=== PATIENT | female | born 1955 | race Caucasian/White ===

== ENCOUNTER → 2016-09-21 | Day surgery (SDC) | payer OTHER ==
[2016-09-07 13:01] VITALS: Ht 179.1 cm; Wt 93.2 kg
[~2016-09-21] VITALS: Ht 179.1 cm; Wt 93.2 kg
[~2016-09-21] MED LIST: ABILIFY PO; ABL/5 PO; ABL10 PO; ALBUAER INH; BACL10TA PO; BUPR100T8 PO; CLON1TAB3 PO; CYCLOPENTOLATE HCL 1% OP SOLN PER DROP CHARGE OPL SCH; DICY20TA35 PO; HYDR25CA PO; IBUP600T44 PO; LACTATED RINGER'S 1000ML 500 ML IV SCH; LIDOCAINE 4% OP SOLN DROP CHARGE OPL SCH; LRS10 PO; MELATAB2 PO; MIDO5TAB PO; MOXIFLOXACIN OPH SOLN PER DROP CHARGE OPL SCH; OMEP40CA PO; PHENYLEPHRINE HCL 2.5% OP SOLN PER DROP CHARGE OPL SCH; POTA20TA16 PO; PRM9 PO; PROPARACAINE 0.5% OP SOLN PER DROP CHARGE OPL SCH; TOPI25TA99 PO; TROPICAMIDE 1% OP SOLN PER DROP CHARGE OPL SCH; VENL-273 PO; ZOLP5TAB PO
== END | disposition home or self-care (01) ==
LOC: MERGE 09-14 08:30 → EDSTATUS 08:30 → C.PAT 11:02
PROVIDERS: ATTEND Ophthalmology
DX: H26.9 Unspecified cataract (principal)

== ENCOUNTER 2017-01-22 02:13 | Emergency (ER) | payer OTHER ==
[~2017-01-22] VITALS: Ht 180.3 cm; Wt 88.8 kg
[~2017-01-22 02:13] MED LIST changes: -ABL10 PO; -BACL10TA PO; -BUPR100T8 PO; -CYCLOPENTOLATE HCL 1% OP SOLN PER DROP CHARGE OPL SCH; -HYDR25CA PO; -IBUP600T44 PO; -LACTATED RINGER'S 1000ML 500 ML IV SCH; -LIDOCAINE 4% OP SOLN DROP CHARGE OPL SCH; -MOXIFLOXACIN OPH SOLN PER DROP CHARGE OPL SCH; -PHENYLEPHRINE HCL 2.5% OP SOLN PER DROP CHARGE OPL SCH; -PROPARACAINE 0.5% OP SOLN PER DROP CHARGE OPL SCH; -TROPICAMIDE 1% OP SOLN PER DROP CHARGE OPL SCH; -VENL-273 PO
[2017-01-22 02:17] VITALS: TEMP 36.6; Ht 180.3 cm; Wt 88.8 kg
[2017-01-22] MEDS ORDERED: HYDR25CA PO (02:56)
[2017-01-22] MEDS ORDERED: HYDROmorphone INJ 2 MG/ML SYR/VIAL IM STA ×2 (02:57→04:16)
[2017-01-22] MEDS ORDERED: BACL10TA PO (03:02)
[2017-01-22] MEDS ORDERED: IBUP600T44 PO (03:03)
[2017-01-22] MEDS ORDERED: BUPR100T8 PO (03:06)
[2017-01-22] MEDS ORDERED: VENL-273 PO (03:07)
[2017-01-22] MEDS ORDERED: ABL10 PO (03:09)
--- NOTE | 2017-01-22 03:11 | EMERGENCY ROOM VISIT NOTE ---
History Report prepared by Melani: Cory Lainez Under the Supervision of: Dr. Hermelinda Oliveira D.O. First contact with patient: 02:40 Chief Complaint: NECK PAIN Stated Complaint: SEVERE HURTING NECK History of Present Illness The patient is a 61 year old female who presents to the Emergency Room with complaints of persistent neck paint that started 2 nights ago. The patient describes the pain as severe. She also complains of a headache and some vision changes. The patient has a history of cervical stenosis and neuropathy. The patient had been receiving Botox in her neck and forehead for the pain and for headaches. She had been receiving shots every 6 weeks, but hasn't had a shot in 6 months because she was starting to do much better. She took oral Vicodin today , but notes it did not help resolve her symptoms today. The patient denies fevers or chills, abdominal pain, or numbness or weakness of her arms at this time. Source of History: patient Onset: 2 nights ago Position: neck Symptom Intensity: severe Timing: other (persistent) Associated Symptoms: + headache, No abdominal pain, No chills, No fevers, No numbness, No weakness Note: Other associated symptoms:vision changes Review of Systems See HPI for pertinent positives & negatives. A total of 10 systems reviewed and were otherwise negative. Past Medical & Surgical Medical Problems: (1) Anxiety (2) Bipolar disorder (3) Chronic back pain (4) Chronic osteoarthritis (5) Depression (6) Dissociative disorder (7) GERD (gastroesophageal reflux disease) (8) History of Clostridium difficile (9) History of orthostatic hypotension (10) History of pacemaker (11) History of syncope (12) Hypothyroidism (13) Neuropathy (14) PTSD (post-traumatic stress disorder) (15) Right internal carotid artery aneurysm Surgical Problems: (1) H/O gastric bypass (2) History of cholecystectomy (3) History of hysterectomy Family History Not obtainable due to adoption Social History Smoking Status: Former Smoker Alcohol Use: none Drug Use: none Marital Status: single Housing Status: lives alone Occupation Status: disabled Current/Historical Medications Scheduled Aripiprazole (Abilify), 20 MG PO DAILY Bupropion (Wellbutrin Sr), 100 MG PO DAILY Hydroxyzine Pamoate (Vistaril), 25 MG PO HS Melatonin (Melatonin Maximum Strengt), 5 MG PO HS Topiramate (Topamax ), 25 MG PO BID Venlafaxine Hcl (Venlafaxine Hcl Er), 75 MG PO DAILY Zolpidem Tartrate (Ambien), 5 MG PO HS Scheduled PRN Baclofen (Lioresal), 10 MG PO BID PRN for SPASMS Ibuprofen (Motrin), 600 MG PO TID PRN for Pain Allergies Coded Allergies: Sulfa Antibiotics (Verified Allergy, Severe, FACE SWELLS, 09/07/16) Ibuprofen (Verified Allergy, Unknown, ., 09/07/16) Aspirin (Verified Adverse Reaction, Unknown, NOT AN ALLERGY, 09/07/16) PT HAD GASTRIC BYPASS AND WAS TOLD "TO AVOID NSAIDS" NSAIDs (Verified Adverse Reaction, Unknown, NOT AN ALLERGY, 09/07/16) PT HAD GASTRIC BYPASS AND WAS TOLD "TO AVOID NSAIDS." NOT AN ALLERGY Physical Exam Vital Signs Date Time Temp Pulse Resp B/P Pulse Ox O2 Delivery O2 Flow Rate FiO2 01/22/17 05:18 74 14 109/59 94 01/22/17 04:23 80 16 104/52 98 Room Air 01/22/17 02:17 36.6 91 18 110/70 96 Room Air Physical Exam General: Appears uncomfortable, holding her head and neck with very little movement. HEENT: Head - normocephalic and atraumatic Pupils are equal, round, and reactive to light. Extraocular eye muscles are intact, and sclera are anicteric. Nose - moist nasal mucosa without discharge. Mouth - moist buccal mucosa. Oropharynx is nonerythematous and there is no tonsillar exudate or edema noted. Neck: Supple; no JVD, nuchal rigidity, cervical lymphadenopathy. She does have some discomfort with palpation over the posterior aspect of the neck. Heart: Regular rate and rhythm. There is a normal S1 and S2 with no murmurs, clicks, or gallops appreciated. Lungs: Clear to auscultation bilaterally with no wheezes, rales, or rhonchi. Abdomen: Soft, completely nontender, nondistended, with good bowel sounds. There are no palpable pulsatile masses or hepatosplenomegaly. There is no guarding, rigidity, or rebound noted. Extremities: No evidence of cyanosis, clubbing, or edema. There are easily palpable peripheral pulses. Skin: warm and dry with good turgor and no rashes. Medical Decision & Procedures Medications Administered Medications (Trade) Dose Ordered Sig/Bowen Route Start Time Stop Time Status Last Admin Dose Admin Hydromorphone HCl (Dilaudid Inj) 2 mg NOW STAT IM 01/22/17 02:57 01/22/17 02:58 DC 01/22/17 03:04 2 MG Hydromorphone HCl (Dilaudid Inj) 2 mg NOW STAT IM 01/22/17 04:16 01/22/17 04:18 DC 01/22/17 04:24 2 MG Oxycodone/ Acetaminophen (Percocet 5/ 325MG Home Pack) 1 homepack UD ONCE PO 01/22/17 05:00 01/22/17 05:01 DC 01/22/17 05:09 1 HOMEPACK Procedure Dilaudid Inj IM Dilaudid Inj IM Oxycodone/ Acetaminophen PO ED Course 0251: Past medical records reviewed. The patient was evaluated in room A11. A complete history and physical exam was performed. 0257: Ordered Dilaudid Inj 2 mg IM. 0341: At this time, I reevaluated the patient and she was resting. She says the pain medication helped her headache, but not her neck pain. 0412: At this time, the patient refused to take Morphine stating that it does not work for her. 0416: Ordered Dilaudid Inj 2 mg IM. 0446: At this time, I reevaluated the patient and she was feeling better. 0500: Ordered Oxycodone/ Acetaminophen 1 homepack PO. 0502: Upon reevaluation, the patient is resting comfortably. I discussed findings and results with her. She verbalized agreement of the treatment plan. The patient was discharged home. Medical Decision The patient is a 61 year old female who presents to the ED with neck pain. Differential diagnosis includes acute exacerbation of chronic neck pain, cervical strain, meningitis, or epidural abscess. I attest that I have personally reviewed the patient's current medication list. Patient was found to have normal blood pressure on screening and does not require follow-up. The patient has not had Botox injection for her neck in over 6 months. This is something she had been receiving regularly(every 6 weeks.) This represents an acute exacerbation of her chronic cervical spine pain. The patient was given IM Dilaudid with moderate relief of her symptoms. She was given a Percocet home pack to use and encouraged to follow-up with her doctor for further Botox injections as pain management. Impression Primary Impression: Neck pain, chronic Additional Impression: Headache Scribe Attestation The scribe's documentation has been prepared under my direction and personally reviewed by me in its entirety. I confirm that the note above accurately reflects all work, treatment, procedures, and medical decision making performed by me. Departure Information Dispostion Home / Self-Care Referrals Sagrario Blankenship D.O. (PCP) Forms HOME CARE DOCUMENTATION FORM, IMPORTANT VISIT INFORMATION, WORK / SCHOOL INSTRUCTIONS Patient Instructions My [facility] Additional Instructions Rest Follow up with PCP on Monday for chronic neck pain Percocet - 1 tab. every 4 hours for more severe pain Problem Qualifiers Additional Impression: Headache Headache type: unspecified Headache chronicity pattern: acute headache Intractability: not intractable Qualified Codes: R51 - Headache
[2017-01-22] MEDS ORDERED: MoRPHine SULFATE 10 MG/ML CARP/VIAL IM STA (03:56)
[2017-01-22] MEDS ORDERED: ONDANSETRON 4MG OD TAB PO ONE (04:00)
[2017-01-22] MEDS ORDERED: PERCOCET HOME PACK PO ONE (05:00)
[2017-01-22 05:18] VITALS: BP 109/59; PULSE 74; O2SAT 94
== END 2017-01-22 05:19 | disposition home or self-care (01) ==
LOC: C.EDB 02:14 → C.EDA 05:19
DX: M54.2 Cervicalgia (principal); G89.29 Other chronic pain; R51 Headache; M48.02 Spinal stenosis, cervical region; G62.9 Polyneuropathy, unspecified; F41.9 Anxiety disorder, unspecified; F31.9 Bipolar disorder, unspecified; M19.90 Unspecified osteoarthritis, unspecified site; F32.9 Major depressive disorder, single episode, unspecified; F44.9 Dissociative and conversion disorder, unspecified; K21.9 Gastro-esophageal reflux disease without esophagitis; Z95.0 Presence of cardiac pacemaker; E03.9 Hypothyroidism, unspecified; F43.10 Post-traumatic stress disorder, unspecified; I72.0 Aneurysm of carotid artery; Z98.84 Bariatric surgery status; Z90.710 Acquired absence of both cervix and uterus; Z87.891 Personal history of nicotine dependence

== ENCOUNTER 2017-11-28 18:39 | Emergency (ER) | payer OTHER ==
[~2017-11-28] VITALS: Ht 179.1 cm; Wt 93.1 kg
[~2017-11-28 18:39] MED LIST changes: -ABILIFY PO; -ABL/5 PO; +ABL10 PO; -ALBUAER INH; +BACL10TA PO; +BUPR100T8 PO; -CLON1TAB3 PO; -DICY20TA35 PO; +HYDR25CA PO; +IBUP600T44 PO; -LRS10 PO; -MIDO5TAB PO; -OMEP40CA PO; -POTA20TA16 PO; -PRM9 PO; +VENL-273 PO
[2017-11-28 18:45] VITALS: TEMP 36.5; Ht 179.1 cm; Wt 93.1 kg
[2017-11-28 20:10] VITALS: O2SAT 99
--- NOTE | 2017-11-28 20:17 | EMERGENCY ROOM VISIT NOTE ---
ED Visit Note First contact with patient: 19:43 CHIEF COMPLAINT: Swelling in legs and feet, chest pain, shortness of breath HISTORY OF PRESENTING ILLNESS: This is a 62-year-old female who presents to the emergency department with complaint of bilateral lower extremity swelling for the past 4 days. She states that the swelling extends from her feet all the way up to her thighs. Patient states "it is like my legs just blew up like balloons overnight." Patient reports having some left-sided chest pain for the past month, and tender to palpation over her pacemaker. She denies any shortness of breath or HOLAMN. Patient states that she had a pacemaker placed approximately 11 years ago for a slow heart beat. She states that she did see her information broker regarding her pacemaker and had it checked 1 week ago. She has noticed a weight gain of 12-13 pounds over the past few weeks, but does not feel any of this came on suddenly. Patient denies any history of congestive heart failure or acute coronary syndrome. She does not take any blood thinners. She does note that she was started on a new medication to help treat hypotension by her information broker, Florinef 100 mcg twice a day, which she has been taking since 11/21. She also notes that she has been having a headache since this morning around 8am, has been getting progressively worse, and has not improved with Tylenol at home, currently rates as 05/07. She has some blurry vision and dizziness associated with the headache. She reports a history of frequent headaches and has been treated for chronic migraines in the past. She denies double vision or photophobia, neck pain or stiffness, back pain, abdominal pain, syncope, numbness or weakness in the extremities, confusion, memory problems, balance issues, fevers or chills. She notes that she has been treated off and on for urinary tract infections for the past 4 months and notes persistent urinary frequency. She denies hematuria, dark urine, or decreased urine output. She does note that she has been bruising more easily over the past week, mostly noticing some purple bruises on her hands. REVIEW OF SYSTEMS: A complete 10 point review of systems was reviewed with the patient with pertinent positives and negatives as per history of present illness. All else were negative. PAST MEDICAL HISTORY: Reviewed in chart. FAMILY HISTORY: Patient states unknown, as she was adopted. SOCIAL HISTORY: Lives at home. She is a former smoker, quit 4 years ago, denies alcohol and recreational drugs. ALLERGIES: Reviewed in chart. PHYSICAL EXAM: CONSTITUTIONAL: Pleasant and cooperative. No acute distress. Well appearing and well nourished. HEENT: Normocephalic, atraumatic. Pupils equal, round and reactive to light, EOMI. TMs normal. Pharynx normal. NECK: Supple, full active range of motion without discomfort. RESPIRATORY: Bibasilar fine crackles, lungs are otherwise clear with no wheezing , rhonchi or stridor. Equal expansion bilaterally. CARDIOVASCULAR: Regular rate and rhythm with no murmurs, rubs or gallops. Normal peripheral perfusion. 2+-3+ pitting edema extending from the feet to the mid thighs. CHEST WALL: Tenderness to palpation of the left anterior chest wall overlying the pacemaker, reproduces complaint. No erythema, swelling, warmth, or crepitus palpated. GASTROINTESTINAL: Soft, nontender, nondistended. No palpable masses or HSM. Bowel sounds present in all quadrants. MUSCULOSKELETAL: Full range of motion of all joints without discomfort. Tender to palpation of the bilateral calves including the posterior calf and knee. INTEGUMENTARY: No rash or other significant dermatologic conditions noted. NEUROLOGIC: Alert and oriented X 4 with normal affect. Cranial nerves II-XII grossly intact. No focal neurologic deficits noted. Normal strength and sensation in all 4 extremities. Normal speech. Normal gait observed. ED COURSE AND MEDICAL DECISION MAKING: CC: Patient presenting with complaint of bilateral lower extremity edema, shortness of breath, chest pain DIFFERENTIAL DIAGNOSIS: Includes, but not limited to acute coronary syndrome, congestive heart failure, fluid overload, DVT, side effect of medication, electrolyte abnormality, among others. INTERPRETATION OF LABS: Leukopenia and anemia appear consistent with baseline, hypokalemia consistent with baseline, no significant electrolyte abnormalities, normal liver enzymes. Coagulation factors within normal limits. Troponin negative. Pro-BNP within normal limits. UA negative. IMAGING: HEAD CT NONCONTRAST CT DOSE: 537.48 mGy.cm HISTORY: headache TECHNIQUE: Multiaxial CT images of the head were performed without the use of intravenous contrast. Automated exposure control was utilized for this study. A dose lowering technique was utilized adhering to the principles of ALARA. Comparison: None. Findings: The paranasal sinuses and mastoid air cells are clear. The calvarium and skull base are intact. The ventricles and sulci are within normal limits. There is no mass, hematoma, midline shift, or acute infarct. Punctate old lacunar infarct seen adjacent to the left basal ganglia. This remains unchanged. Impression: No significant change compared to the prior study. No acute intracranial abnormality. ----- BILATERAL LOWER EXTREMITY VENOUS DOPPLER HISTORY: bilateral lower leg edema, eval DVT COMPARISON STUDY: None. FINDINGS: There is normal compressibility, flow, and augmentation within the bilateral lower extremity deep venous systems. IMPRESSION: No DVT within the right or left lower extremity. ----- CHEST 2 VIEWS ROUTINE HISTORY: Atypical chest pain. Short of breath. COMPARISON: Chest 08/08/2016. FINDINGS: Stable mild interstitial thickening at the lung bases. The heart is normal in size. Left-sided dual-chamber pacemaker. No pleural effusions. No pneumothorax. Mild right apical pleural thickening, unchanged. No new focal lung consolidations. IMPRESSION: No significant change compared to the prior study. No acute process. EKG: Shows an atrial paced rhythm at 60 bpm, no acute ischemic changes noted, no significant change when compared to previous EKG from 08/09/2016 by my interpretation. MEDICATION RECONCILIATION: I attest that I have personally reviewed the patient 's current medication list. INITIAL VITAL SIGNS REVIEW: I reviewed the patient's initial vital signs and interpret them as follows: T: Afebrile; BP: Normotensive; HR: Within normal limits; RR: Within normal limits; Pulse Ox: Within normal limits on room air. Blood pressure screening: The patient was found to have normal blood pressure on screening and does not require follow-up for repeat blood pressure check. SUMMARY: Patient was evaluated at bedside, history and physical exam performed. Patient is alert and oriented, no acute distress, resting calmly in a stretcher. Patient is noted to have moderate pitting edema extending from the feet up to the mid thighs, mildly tender to palpation bilaterally. Patient has tenderness to palpation of the left anterior chest wall overlying the pacemaker, which she states reproduces her chest pain. Bibasilar fine crackles heard on auscultation of the lungs. Orders were placed at bedside for labs, UA, EKG, chest x-ray to evaluate for fluid overload. Patient discussed with Dr. Brasher, who agrees with my assessment and plan. Labs and imaging reviewed as above, no significant findings. Negative troponin , pro-BNP within normal limits and no evidence of pulmonary edema on chest x- ray. Patient reports that her headache is not improved after Tylenol. Migraine cocktail of 500mL NSS bolus, Toradol, Compazine, and Benadryl ordered. Patient reassessed multiple times throughout ED stay, she reports her headache is improving, now rates as a 5/10 and appears much more comfortable. She is tolerating PO fluids and solids well. She is asking to be discharged home. Patient was updated on all results and plan for discharge, I encouraged her to follow closely with her primary care provider and her information broker. The patient was instructed to start wearing compression stockings to help with her lower extremity swelling. Patient was also given strict return precautions should her symptoms worsen, she verbalized understanding. Patient was discharged home in stable condition and ambulatory. Problem List Medical Problems: (1) Anxiety Status: Chronic (2) Bipolar disorder Status: Chronic (3) Chronic back pain Permanent Comment: cervical spinal stenosis Status: Chronic (4) Chronic osteoarthritis Status: Chronic (5) Depression Status: Chronic (6) Dissociative disorder Status: Chronic (7) GERD (gastroesophageal reflux disease) Status: Chronic (8) History of Clostridium difficile Permanent Comment: in 2011 per records Status: Chronic (9) History of orthostatic hypotension Status: Chronic (10) History of pacemaker Permanent Comment: for symptomatic bradycardia Status: Chronic (11) History of syncope Status: Chronic (12) Hypothyroidism Status: Chronic (13) Neuropathy Status: Chronic (14) PTSD (post-traumatic stress disorder) Status: Chronic Surgical Problems: (1) H/O gastric bypass Permanent Comment: 2004 Status: Resolved (2) History of cholecystectomy Status: Resolved (3) History of hysterectomy Status: Resolved Current/Historical Medications Scheduled Aripiprazole (Abilify), 20 MG PO DAILY Bupropion (Wellbutrin Sr), 100 MG PO DAILY Fludrocortisone Acetate (Florinef), 0.1 MG PO BID Hydroxyzine Pamoate (Vistaril), 25 MG PO HS Melatonin (Melatonin), 10 MG PO HS Midodrine Hcl (Midodrine Hcl), 2.5 MG PO BID Topiramate (Topamax ), 25 MG PO BID Trazodone Hcl (Trazodone), 150 MG PO HS Venlafaxine Hcl (Venlafaxine Hcl Er), 75 MG PO DAILY Scheduled PRN Albuterol Hfa (Ventolin Hfa), 2 PUFFS INH Q4H PRN for SOB/Wheezing Baclofen (Lioresal), 10 MG PO BID PRN for Muscle Spasm Allergies Coded Allergies: Sulfa Antibiotics (Verified Allergy, Severe, FACE SWELLS, 11/28/17) Ibuprofen (Verified Allergy, Unknown, ., 11/28/17) Aspirin (Verified Adverse Reaction, Unknown, NOT AN ALLERGY, 11/28/17) PT HAD GASTRIC BYPASS AND WAS TOLD "TO AVOID NSAIDS" NSAIDs (Verified Adverse Reaction, Unknown, NOT AN ALLERGY, 11/28/17) PT HAD GASTRIC BYPASS AND WAS TOLD "TO AVOID NSAIDS." NOT AN ALLERGY Vital Signs Date Time Temp Pulse Resp B/P (MAP) Pulse Ox O2 Delivery O2 Flow Rate FiO2 11/28/17 21:44 60 11/28/17 21:30 60 21 126/70 98 Room Air 11/28/17 20:10 99 Room Air 11/28/17 20:10 99 Room Air 11/28/17 18:45 36.5 68 20 122/66 99 Room Air Laboratory Results 11/28/17 20:10 Red Blood Count 3.45, Mean Corpuscular Volume 89.6, Mean Corpuscular Hemoglobin 30.1, Mean Corpuscular Hemoglobin Concent 33.7, Mean Platelet Volume 10.3, Neutrophils (%) (Auto) 59.1, Lymphocytes (%) (Auto) 30.1, Monocytes (%) (Auto) 7.2, Eosinophils (%) (Auto) 2.9, Basophils (%) (Auto) 0.7, Neutrophils # (Auto) 1.63, Lymphocytes # (Auto) 0.83, Monocytes # (Auto) 0.20, Eosinophils # (Auto) 0.08, Basophils # (Auto) 0.02 11/28/17 20:10 Test 11/28/17 20:10 11/28/17 21:00 White Blood Count 2.76 K/uL (4.8-10.8) Red Blood Count 3.45 M/uL (4.2-5.4) Hemoglobin 10.4 g/dL (12.0-16.0) Hematocrit 30.9 % (37-47) Mean Corpuscular Volume 89.6 fL (80-100) Mean Corpuscular Hemoglobin 30.1 pg (25-34) Mean Corpuscular Hemoglobin Concent 33.7 g/dl (32-36) Platelet Count 122 K/uL (130-400) Mean Platelet Volume 10.3 fL (7.4-10.4) Neutrophils (%) (Auto) 59.1 % Lymphocytes (%) (Auto) 30.1 % Monocytes (%) (Auto) 7.2 % Eosinophils (%) (Auto) 2.9 % Basophils (%) (Auto) 0.7 % Neutrophils # (Auto) 1.63 K/uL (1.4-6.5) Lymphocytes # (Auto) 0.83 K/uL (1.2-3.4) Monocytes # (Auto) 0.20 K/uL (0.11-0.59) Eosinophils # (Auto) 0.08 K/uL (0-0.5) Basophils # (Auto) 0.02 K/uL (0-0.2) RDW Standard Deviation 45.0 fL (36.4-46.3) RDW Coefficient of Variation 13.7 % (11.5-14.5) Immature Granulocyte % (Auto) 0.0 % Immature Granulocyte # (Auto) 0.00 K/uL (0.00-0.02) Prothrombin Time 10.8 SECONDS (9.0-12.0) Prothromb Time International Ratio 1.0 (0.9-1.1) Activated Partial Thromboplast Time 23.6 SECONDS (21.0-31.0) Partial Thromboplastin Ratio 0.9 Anion Gap 4.0 mmol/L (3-11) Est Creatinine Clear Calc Drug Dose 103.7 ml/min Estimated GFR () 105.5 Estimated GFR (Non- 91.0 BUN/Creatinine Ratio 20.2 (10-20) Calcium Level 8.2 mg/dl (8.5-10.1) Total Bilirubin 0.3 mg/dl (0.2-1) Aspartate Amino Transf (AST/SGOT) 17 U/L (15-37) Alanine Aminotransferase (ALT/SGPT) 18 U/L (12-78) Alkaline Phosphatase 72 U/L (45-117) Troponin I < 0.015 ng/ml (0-0.045) Pro-B-Type Natriuretic Peptide 210 pg/ml (0-900) Total Protein 6.6 gm/dl (6.4-8.2) Albumin 3.3 gm/dl (3.4-5.0) Globulin 3.3 gm/dl (2.5-4.0) Albumin/Globulin Ratio 1.0 (0.9-2) Urine Color YELLOW Urine Appearance CLOUDY (CLEAR) Urine pH 5.5 (4.5-7.5) Urine Specific [place] 1.027 (1.000-1.030) Urine Protein NEG (NEG) Urine Glucose (UA) NEG (NEG) Urine Ketones NEG (NEG) Urine Occult Blood NEG (NEG) Urine Nitrite NEG (NEG) Urine Bilirubin NEG (NEG) Urine Urobilinogen NEG (NEG) Urine Leukocyte Esterase NEG (NEG) Urine WBC (Auto) 1-5 /hpf (0-5) Urine RBC (Auto) 0-4 /hpf (0-4) Urine Hyaline Casts (Auto) 1-5 /lpf (0-5) Urine Epithelial Cells (Auto) 5-10 /lpf (0-5) Urine Bacteria (Auto) NEG (NEG) Urine Crystals CALCIUM OXALATE (NONE Medications Administered Medications (Trade) Dose Ordered Sig/Bowen Route Start Time Stop Time Status Last Admin Dose Admin Acetaminophen (Tylenol Tab) 1,000 mg NOW STAT PO 11/28/17 20:18 11/28/17 20:19 DC 11/28/17 20:40 1,000 MG Sodium Chloride 500 ml @ 999 mls/hr Q31M STAT IV 11/28/17 21:38 11/28/17 22:08 DC 11/28/17 22:01 999 MLS/HR Ketorolac Tromethamine (Toradol Inj) 15 mg NOW STAT IV 11/28/17 21:38 11/28/17 21:41 DC 11/28/17 22:01 15 MG Prochlorperazine Edisylate (Compazine Inj) 10 mg NOW STAT IV 11/28/17 21:38 11/28/17 21:41 DC 11/28/17 22:03 10 MG Diphenhydramine HCl (Benadryl Inj) 50 mg NOW STAT IV 11/28/17 21:38 11/28/17 21:41 DC 11/28/17 22:00 50 MG Departure Information Impression Primary Impression: Migraine headache Additional Impression: Bilateral lower extremity edema Dispostion Home / Self-Care Condition GOOD Referrals [facility]er, Sagrario M., D.O. (PCP) Patient Instructions ED Headache Migraine, ED Leg Swelling Bilateral, ED Stockings [facility] Additional Instructions You have been treated in the Emergency Department for your headache and leg swelling. Laboratory results and imaging studies have ruled out any emergent causes for your symptoms which would warrant admission or surgery. DO NOT drive, drink alcohol, operate machinery, or perform dangerous activities today. You were given medications in the ER that can affect your ability to safely function or operate a vehicle. Rest today in a quiet, peaceful, dark environment and get a full 8-10 hrs of sleep tonight. Avoid loud noises, smoke/smoking, alcohol, bright lights, stress, or physical exertion today to minimize the chance the headache may return. It is suspected that your leg swelling may be caused by your new medication, Florinef. You should call and discuss this with your information broker this week. To help with leg swelling, you should keep your legs elevated as much as possible. Put compression stockings on both legs first thing in the morning before you get up to help reduce swelling in the legs. Do the calf exercises as discussed throughout the day to help improve blood flow in the lower legs. For headache control, you can use the following [id number] medicines (if > 12 yo): - Regular strength (325mg/tab) Tylenol (acetaminophen) 2 tabs every 4-6 hours as needed. Do not exceed 10 tablets in a 24 hour period. Avoid taking more than 3000 mg of Tylenol per day. This includes any other sources of acetaminophen you may take on a regular basis. You may also try cold compresses or heat packs to your head and neck to help relieve headaches. Continue all of your current medications as prescribed. Return to the ER for chest pain, difficulty breathing or inability to catch her breath, severe dizziness or passing out, worsening headache, vision problems, neck stiffness/pain, fevers, persistent vomiting, worsening of your condition, or as needed. Follow up with your primary physician in 2-3 days for a recheck of your current condition. Problem Qualifiers Primary Impression: Migraine headache Migraine type: unspecified Status migrainosus presence: without status migrainosus Intractability: not intractable Qualified Codes: G43.909 - Migraine, unspecified, not intractable, without status migrainosus
[2017-11-28] MEDS ORDERED: ACETAMINOPHEN 500 MG TAB PO STA (20:18)
[2017-11-28 20:20] LABS: BASO % 0.7 %; BASO ABS # 0.02 K/uL (0-0.2); EOS % 2.9 %; EOS ABS # 0.08 K/uL (0-0.5); HEMATOCRIT 30.9 % (37-47); HEMOGLOBIN 10.4 g/dL (12.0-16.0); LYMPH % 30.1 %; LYMPH ABS # 0.83 K/uL (1.2-3.4); MEAN CELL VOLUME 89.6 fL (80-100); MEAN CORPUSCULAR HEMOGLOBIN 30.1 pg (25-34); MEAN CORPUSCULAR HGB CONC 33.7 g/dl (32-36); MEAN PLATELET VOLUME 10.3 fL (7.4-10.4); MONO % 7.2 %; NEUT % 59.1 %; NEUT ABS # 1.63 K/uL (1.4-6.5); PLATELET COUNT 122 K/uL (130-400); RED CELL DISTRIBUTION WIDTH CV 13.7 % (11.5-14.5); WHITE BLOOD COUNT 2.76 K/uL (4.8-10.8)
[2017-11-28 20:40] LABS: ALBUMIN 3.3 gm/dl (3.4-5.0); ALT/SGPT 18 U/L (12-78); AST/SGOT 17 U/L (15-37); BLOOD UREA NITROGEN 14 mg/dl (7-18); CALCIUM 8.2 mg/dl (8.5-10.1); CARBON DIOXIDE 28 mmol/L (21-32); CREATININE 0.72 mg/dl (0.60-1.20); GLUCOSE 88 mg/dl (70-99); POTASSIUM 3.3 mmol/L (3.5-5.1); SODIUM 142 mmol/L (136-145)
[2017-11-28 20:45] LABS: ALKALINE PHOSPHATASE 72 U/L (45-117); TOTAL PROTEIN 6.6 gm/dl (6.4-8.2)
[2017-11-28 20:58] LABS: PTT PATIENT 23.6 SECONDS (21.0-31.0)
--- NOTE | 2017-11-28 21:09 | DIAGNOSTIC IMAGING REPORT ---
BILATERAL LOWER EXTREMITY VENOUS DOPPLER HISTORY: bilateral lower leg edema, eval DVT COMPARISON STUDY: None. FINDINGS: There is normal compressibility, flow, and augmentation within the bilateral lower extremity deep venous systems. IMPRESSION: No DVT within the right or left lower extremity. Electronically signed by: Victorino Mcclure M.D. 11/28/2017 9:07 PM Dictated Date/Time: 11/28/2017 9:07 PM
--- NOTE | 2017-11-28 21:35 | DIAGNOSTIC IMAGING REPORT ---
HEAD CT NONCONTRAST CT DOSE: 537.48 mGy.cm HISTORY: headache TECHNIQUE: Multiaxial CT images of the head were performed without the use of intravenous contrast. Automated exposure control was utilized for this study. A dose lowering technique was utilized adhering to the principles of ALARA. Comparison: None. Findings: The paranasal sinuses and mastoid air cells are clear. The calvarium and skull base are intact. The ventricles and sulci are within normal limits. There is no mass, hematoma, midline shift, or acute infarct. Punctate old lacunar infarct seen adjacent to the left basal ganglia. This remains unchanged. Impression: No significant change compared to the prior study. No acute intracranial abnormality. Electronically signed by: Victorino Mcclure M.D. 11/28/2017 9:33 PM Dictated Date/Time: 11/28/2017 9:28 PM
[2017-11-28] MEDS ORDERED: SODIUM CHLORIDE 0.9% 500ML 500 ML IV STA (21:38)
[2017-11-28] MEDS ORDERED: PROCHLORPERAZINE 5 MG/ML 2 ML VIAL IV STA (21:38)
[2017-11-28] MEDS ORDERED: KETOROLAC TROMETHAMINE 30 MG/ML VIAL IV STA (21:38)
[2017-11-28] MEDS ORDERED: DiphenhydrAMINE HCL 50 MG/ML VIAL IV STA (21:38)
--- NOTE | 2017-11-28 21:38 | DIAGNOSTIC IMAGING REPORT ---
CHEST 2 VIEWS ROUTINE HISTORY: Atypical chest pain. Short of breath. COMPARISON: Chest 08/08/2016. FINDINGS: Stable mild interstitial thickening at the lung bases. The heart is normal in size. Left-sided dual-chamber pacemaker. No pleural effusions. No pneumothorax. Mild right apical pleural thickening, unchanged. No new focal lung consolidations. IMPRESSION: No significant change compared to the prior study. No acute process. Electronically signed by: Victorino Mcclure M.D. 11/28/2017 9:36 PM Dictated Date/Time: 11/28/2017 9:35 PM
[2017-11-28] MEDS ORDERED: TRAZ100T29 PO (22:14)
[2017-11-28] MEDS ORDERED: MIDO2.5T PO (22:14)
[2017-11-28] MEDS ORDERED: VNTHFA/IN INH (22:14)
[2017-11-28] MEDS ORDERED: ARIP20TA4 PO (22:14)
[2017-11-28] MEDS ORDERED: MELA1TAB54 PO (22:14)
[2017-11-28] MEDS ORDERED: FLUD0.1T10 PO (22:19)
[2017-11-28 23:10] VITALS: BP 127/69; PULSE 79; O2SAT 99
--- NOTE | 2017-11-29 05:00 | EMERGENCY ROOM VISIT NOTE ---
ED Visit Note First contact with patient: 19:43 I reviewed the patient's past medical history, medications, and visit nursing notes. I discussed the case with the physician fleet administrative assistant, examined the patient, and agree with the findings and plan as documented in the physician assistants note.
== END 2017-11-28 23:20 | disposition home or self-care (01) ==
LOC: C.EDB 18:40 → C.EDC 23:20
DX: R60.0 Localized edema (principal); G43.909 Migraine, unspecified, not intractable, without status migrainosus; R07.89 Other chest pain; Z95.0 Presence of cardiac pacemaker; M54.9 Dorsalgia, unspecified; G89.29 Other chronic pain; K21.9 Gastro-esophageal reflux disease without esophagitis; I95.1 Orthostatic hypotension; E03.9 Hypothyroidism, unspecified; M19.90 Unspecified osteoarthritis, unspecified site; F32.9 Major depressive disorder, single episode, unspecified; F41.9 Anxiety disorder, unspecified; Z87.891 Personal history of nicotine dependence; Z88.2 Allergy status to sulfonamides; Z88.6 Allergy status to analgesic agent

== ENCOUNTER 2017-12-10 00:24 | Inpatient (IN) | payer OTHER ==
[2017-12-10] VITALS (9 sets, daily range): BP systolic 93–124; BP diastolic 52–74; PULSE 59–88; TEMP 36.4–36.6; O2SAT 94–99; Ht 177.8 cm; Wt 89.5 kg
[~2017-12-10] VITALS: Ht 177.8 cm; Wt 89.5 kg
[~2017-12-10 00:24] MED LIST changes: -ABL10 PO; +ARIP20TA4 PO; +FLUD0.1T10 PO; -IBUP600T44 PO; +MELA1TAB54 PO; -MELATAB2 PO; +MIDO2.5T PO; +TRAZ100T29 PO; +VNTHFA/IN INH; -ZOLP5TAB PO
--- NOTE | 2017-12-10 00:52 | EMERGENCY ROOM VISIT NOTE ---
History Report prepared by Melani: Jose Carlos Merida Under the Supervision of: Dr. Otoniel Short M.D. First contact with patient: 00:33 Chief Complaint: SWELLING TO EXTREMITY Stated Complaint: SEVERE SWELLING IN FEET,LEGS,ARMS,HEADACHE,DIZZY History of Present Illness The patient is a 62 year old female who presents to the Emergency Room with complaints of persistent bilateral leg swelling for two weeks. She notes that she was on Florinef, though her PCP took her off the medication last week. She notes that she was placed on the medication due to abnormally low blood pressure. She was told to wear her compression socks, though she took them off yesterday. She states that she has gained 20 pounds in the last two weeks. She reports swelling to her legs, arms, abdomen, and back. She reports pain with walking. She notes headaches and dizziness. She has a history of migraines and was treated with Botox in the past. She has been taking Extra Strength Tylenol. She has a history of gastric bypass surgery and notes that she cannot take any blood thinners. She states frequent urination. She has had diarrhea for three days. She denies any black or bloody stools. She denies any LOC or back pain. She has never been on Lasix due to a sulfa allergy. Source of History: patient Onset: two weeks Position: leg (bilateral) Quality: other (swelling) Timing: other (persistent) Modifying Factors (Worsening): other (walking) Associated Symptoms: + headache, + diarrhea, + urinary symptoms (frequent urination), No back pain Note: She notes weight gain and swelling to her legs, arms, abdomen, and back. She notes dizziness. She denies any black or bloody stools. Review of Systems See HPI for pertinent positives & negatives. A total of 10 systems reviewed and were otherwise negative. Past Medical & Surgical Medical Problems: (1) Anxiety (2) Bipolar disorder (3) Chronic back pain (4) Chronic osteoarthritis (5) Depression (6) Dissociative disorder (7) GERD (gastroesophageal reflux disease) (8) History of Clostridium difficile (9) History of orthostatic hypotension (10) History of pacemaker (11) History of syncope (12) Hypothyroidism (13) Neuropathy (14) PTSD (post-traumatic stress disorder) (15) Right internal carotid artery aneurysm Surgical Problems: (1) H/O gastric bypass (2) History of cholecystectomy (3) History of hysterectomy Family History Not obtainable due to adoption Social History Smoking Status: Former Smoker Alcohol Use: none Drug Use: none Marital Status: single Housing Status: lives alone Occupation Status: disabled Current/Historical Medications Scheduled Aripiprazole (Abilify), 20 MG PO DAILY Bupropion (Wellbutrin Sr), 100 MG PO DAILY Hydroxyzine Pamoate (Vistaril), 25 MG PO HS Melatonin (Melatonin), 10 MG PO HS Topiramate (Topamax ), 25 MG PO BID Trazodone Hcl (Trazodone), 150 MG PO HS Venlafaxine Hcl (Venlafaxine Hcl Er), 75 MG PO DAILY Scheduled PRN Albuterol Hfa (Ventolin Hfa), 2 PUFFS INH Q4H PRN for SOB/Wheezing Baclofen (Lioresal), 10 MG PO BID PRN for Muscle Spasm Allergies Coded Allergies: Sulfa Antibiotics (Verified Allergy, Severe, FACE SWELLS, 11/28/17) Ibuprofen (Verified Allergy, Unknown, ., 11/28/17) Aspirin (Verified Adverse Reaction, Unknown, NOT AN ALLERGY, 11/28/17) PT HAD GASTRIC BYPASS AND WAS TOLD "TO AVOID NSAIDS" NSAIDs (Verified Adverse Reaction, Unknown, NOT AN ALLERGY, 11/28/17) PT HAD GASTRIC BYPASS AND WAS TOLD "TO AVOID NSAIDS." NOT AN ALLERGY Physical Exam Vital Signs Date Time Temp Pulse Resp B/P (MAP) Pulse Ox O2 Delivery O2 Flow Rate FiO2 12/10/17 02:49 60 18 136/70 97 Room Air 12/10/17 02:00 60 20 155/76 95 Room Air 12/10/17 00:45 60 12/10/17 00:28 36.5 60 20 123/63 96 Room Air Physical Exam GENERAL: Patient is well appearing and in mild acute distress. EYES: No scleral icterus, unremarkable pupils. ENT: Mucous membranes moist, no nasal congestion. NECK: No masses appreciated, no meningismus, trachea is midline. RESPIRATORY: No dyspnea. Bilateral crackles in the bases of the lungs. CARDIOVASCULAR: Regular rate and rhythm. No murmurs, rubs, gallops appreciated. GASTROINTESTINAL: Abdomen soft, nontender, no peritonitis. Bowel sounds positive. No masses appreciated. Mild pitting edema in low abdomen. BACK: No midline tenderness, no CVA tenderness. Mild pitting edema in low back. EXTREMITIES: Normal, but painful motion all extremities, no cyanosis. 4+ pitting edema to bilateral legs. Mild pitting edema in bilateral forearms. NEUROLOGIC: Alert and oriented, no acute motor or sensory deficits, no focal weakness, cranial nerves grossly intact. SKIN: No rash, no jaundice, no diaphoresis. Medical Decision & Procedures ER Provider Diagnostic Interpretation: Radiology results and stated below per my review and radiologist interpretation: CT HEAD: No acute intracranial hemorrhage, midline shift, mass effect, hydrocephalus, or infarct. Bony structures and soft tissues are grossly unremarkable. Radiologist: Lisa Lowe MD Study ready at 01:42 and initial results transmitted at 02:00 Radiology results and stated below per my review and interpretation: CHEST XR: One view: Mild congestive findings to bilateral bases. No infiltrate. No effusion. Large cardiac silhouette. Laboratory Results 12/10/17 01:19 Red Blood Count 3.51, Mean Corpuscular Volume 89.5, Mean Corpuscular Hemoglobin 29.6, Mean Corpuscular Hemoglobin Concent 33.1, Mean Platelet Volume 9.2, Neutrophils (%) (Auto) 50.5, Lymphocytes (%) (Auto) 37.2, Monocytes (%) (Auto) 8.8, Eosinophils (%) (Auto) 2.8, Basophils (%) (Auto) 0.7, Neutrophils # (Auto) 1.44, Lymphocytes # (Auto) 1.06, Monocytes # (Auto) 0.25, Eosinophils # (Auto) 0.08, Basophils # (Auto) 0.02 12/10/17 01:19 Test 12/10/17 01:19 White Blood Count 2.85 K/uL (4.8-10.8) Red Blood Count 3.51 M/uL (4.2-5.4) Hemoglobin 10.4 g/dL (12.0-16.0) Hematocrit 31.4 % (37-47) Mean Corpuscular Volume 89.5 fL (80-100) Mean Corpuscular Hemoglobin 29.6 pg (25-34) Mean Corpuscular Hemoglobin Concent 33.1 g/dl (32-36) Platelet Count 122 K/uL (130-400) Mean Platelet Volume 9.2 fL (7.4-10.4) Neutrophils (%) (Auto) 50.5 % Lymphocytes (%) (Auto) 37.2 % Monocytes (%) (Auto) 8.8 % Eosinophils (%) (Auto) 2.8 % Basophils (%) (Auto) 0.7 % Neutrophils # (Auto) 1.44 K/uL (1.4-6.5) Lymphocytes # (Auto) 1.06 K/uL (1.2-3.4) Monocytes # (Auto) 0.25 K/uL (0.11-0.59) Eosinophils # (Auto) 0.08 K/uL (0-0.5) Basophils # (Auto) 0.02 K/uL (0-0.2) RDW Standard Deviation 44.7 fL (36.4-46.3) RDW Coefficient of Variation 13.6 % (11.5-14.5) Immature Granulocyte % (Auto) 0.0 % Immature Granulocyte # (Auto) 0.00 K/uL (0.00-0.02) Anion Gap -1.0 mmol/L (3-11) Est Creatinine Clear Calc Drug Dose 90.9 ml/min Estimated GFR () 88.8 Estimated GFR (Non- 76.6 BUN/Creatinine Ratio 13.2 (10-20) Calcium Level 8.2 mg/dl (8.5-10.1) Magnesium Level 2.2 mg/dl (1.8-2.4) Total Bilirubin 0.5 mg/dl (0.2-1) Direct Bilirubin 0.1 mg/dl (0-0.2) Aspartate Amino Transf (AST/SGOT) 17 U/L (15-37) Alanine Aminotransferase (ALT/SGPT) 17 U/L (12-78) Alkaline Phosphatase 78 U/L (45-117) Total Creatine Kinase 46 U/L (26-192) Creatine Kinase MB 0.6 ng/ml (0.5-3.6) Creatine Kinase MB Ratio 1.3 (0-3.0) Troponin I < 0.015 ng/ml (0-0.045) Pro-B-Type Natriuretic Peptide 176 pg/ml (0-900) Total Protein 6.7 gm/dl (6.4-8.2) Albumin 3.2 gm/dl (3.4-5.0) Laboratory results as reviewed by me. Medications Administered Medications (Trade) Dose Ordered Sig/Bowen Route Start Time Stop Time Status Last Admin Dose Admin Fentanyl Citrate (Fentanyl Inj) 75 mcg NOW STAT IV 12/10/17 01:29 12/10/17 01:30 DC 12/10/17 02:10 75 MCG Furosemide (Lasix Inj) 40 mg NOW STAT IV 12/10/17 02:07 12/10/17 02:09 DC 12/10/17 02:17 40 MG Potassium Chloride (Klor-Con M10) 20 meq NOW STAT PO 12/10/17 03:56 12/10/17 04:07 DC 12/10/17 04:32 20 MEQ ECG Per My Interpretation Indication: other (leg swelling) Rate (beats per minute): 60 Rhythm: other (Atrial-paced rhythm ) Findings: no acute ischemic change, no ectopy, other (QTC of 408) ED Course 0042: The patient was evaluated in room A12B. A complete history and physical exam was performed. 0212: [facility] discussed the patient' s case. [facility] 0226: I reassessed the patient at this time. She notes her headache has improved. I discussed the results and treatment plan with the patient. I answered all pertaining questions that she had. She expressed understanding and verbalized agreement. The patient will be further evaluated. Medical Decision Differential: DVT, CHF, Arterial Occlusion, Infectious, Joint Effusion, Trauma, Lymphedema, Idiopathic, Trauma, amongst other pathologies entertained. Very pleasant 62 yr old female arrives for evaluation of bilateral leg swelling and weight gain, along with persistent headache she has had for last few weeks. Headache seems somewhat consistent with her previous migraines, she is not meningitic, but given persistent went ahead with CT head which was negative fortunately. As wanting to avoid nsaids and Tylenol not working she was given small dose Fentanyl for relief from pain for moment. CXR without pulm edema though with size difficult to tell if some chf. BNP normal though clearly she is severely fluid overloaded. Labs looking normal for her and WBC/Plt at baseline. EKG OK. She has negative dopplers for DVT. Unclear etiology fluid overload but must assume cardiac and given the almost 20lb weight gain, inability to ambulate due to edema and discomfort from ambulation, I feel that she will need to come in for aggressive therapy. Given IV lasix as I feel risk allergy from sulfa is sufficiency low, and she tolerated this well. Hospitalist in to see patient for further evaluation/management. Medication Reconcilliation Current Medication List: was personally reviewed by me Blood Pressure Screening Patient's blood pressure: Normal blood pressure Consults Time Called: 020 Consulting Physician: [facility]. [facility] Return[facility] Call: [phone] [facility] We discussed the patient's case. [facility]. Impression Primary Impression: Fluid overload Additional Impressions: Bilateral leg edema Weight gain Scribe Attestation The scribe's documentation has been prepared under my direction and personally reviewed by me in its entirety. I confirm that the note above accurately reflects all work, treatment, procedures, and medical decision making performed by me. Departure Information Dispostion Being Evaluated By Hospitalist Referrals Sagrario Blankenship D.O. (PCP) Patient Instructions My [facility] Problem Qualifiers
[2017-12-10 01:29] LABS: BASO % 0.7 %; BASO ABS # 0.02 K/uL (0-0.2); EOS % 2.8 %; EOS ABS # 0.08 K/uL (0-0.5); HEMATOCRIT 31.4 % (37-47); HEMOGLOBIN 10.4 g/dL (12.0-16.0); LYMPH % 37.2 %; LYMPH ABS # 1.06 K/uL (1.2-3.4); MEAN CELL VOLUME 89.5 fL (80-100); MEAN CORPUSCULAR HEMOGLOBIN 29.6 pg (25-34); MEAN CORPUSCULAR HGB CONC 33.1 g/dl (32-36); MEAN PLATELET VOLUME 9.2 fL (7.4-10.4); MONO % 8.8 %; MONO ABS # 0.25 K/uL (0.11-0.59); NEUT % 50.5 %; NEUT ABS # 1.44 K/uL (1.4-6.5); PLATELET COUNT 122 K/uL (130-400); RED CELL DISTRIBUTION WIDTH CV 13.6 % (11.5-14.5); RED CELL DISTRIBUTION WIDTH SD 44.7 fL (36.4-46.3); WHITE BLOOD COUNT 2.85 K/uL (4.8-10.8)
[2017-12-10] MEDS ORDERED: FENTANYL CITRATE INJ 50 MCG/1 ML 2 ML VIAL IV STA (01:29)
[2017-12-10 01:46] LABS: BLOOD UREA NITROGEN 11 mg/dl (7-18); CALCIUM 8.2 mg/dl (8.5-10.1); CARBON DIOXIDE 28 mmol/L (21-32); CREATININE 0.83 mg/dl (0.60-1.20); GLUCOSE 82 mg/dl (70-99); POTASSIUM 3.5 mmol/L (3.5-5.1); SODIUM 141 mmol/L (136-145)
[2017-12-10 01:52] LABS: CKMB 0.6 ng/ml (0.5-3.6)
[2017-12-10] MEDS ORDERED: FUROSEMIDE 40 MG/4 ML VIAL IV STA (02:07)
[2017-12-10 02:41] LABS: ALBUMIN 3.2 gm/dl (3.4-5.0); ALKALINE PHOSPHATASE 78 U/L (45-117); ALT/SGPT 17 U/L (12-78); AST/SGOT 17 U/L (15-37); TOTAL PROTEIN 6.7 gm/dl (6.4-8.2)
--- NOTE | 2017-12-10 02:42 | History and Physical ---
History & Physical Date & Time of Service: Dec 10, 2017 at 02:42 Chief Complaint: Severe Swelling In Feet,Legs,Arms,Headache,Dizzy Primary Care Physician: Sagrario Blankenship D.O. History of Present Illness Source: patient, family Patient is a 62-year-old female with past medical history of hypothyroidism, symptomatic bradycardia status post pacemaker, lumbago, bipolar disorder, depression, history of bariatric surgery, PTSD, GERD, cluster headaches, Hypotension, right internal carotid artery aneurysm and other problems presents with history of worsening bilateral lower extremity edema and weight gain since 2 weeks. Patient was previously on Florinef for orthostatic hypotension. Patient was thought to develop significant volume overload secondary to Florinef and was discontinued by her net application architect on 12/06/2017. Patient was initially thought to be started on Lasix but given the history of sulfa allergy patient was advised to use compression stockings. Patient states she gained at least 20 pounds in 2-1/2 weeks. She has been having significant bilateral lower extremity swelling associated with pain causing difficulty with bearing weight and ambulation. Patient also reports having worsening generalized headache which is constant mainly in the frontal region since 1 month. She admits to having a fall 3 weeks ago which resulted in loss of consciousness for about a couple of seconds and since then she has been having worsening headaches. Also reports chronic blurry vision which seemed to have worsened since the fall as per patient. She has history of cluster headaches. Her CT head showed no acute process on preliminary reading. Also had Botox injection in the past by her neurologist . Also reports having loose watery diarrhea since 2-3 days. Denies any blood in the stools. Also denies nausea, vomiting, abdominal pain. Denies any history of chest pain, SOB, fever, chills,dysuria, hematuria, recent travel, sick contact, recent antibiotic use. Past Medical/Surgical History Medical Problems: (1) Altered mental status (2) Anxiety (3) Bilateral lower extremity edema (4) Bipolar disorder (5) Chronic back pain (6) Chronic osteoarthritis (7) Depression (8) Dissociative disorder (9) Generalized weakness (10) GERD (gastroesophageal reflux disease) (11) Headache (12) Headache (13) History of Clostridium difficile (14) History of orthostatic hypotension (15) History of pacemaker (16) History of syncope (17) Hypothyroidism (18) Intractable headache (19) Migraine headache (20) Neck pain, chronic (21) Neuropathy (22) PTSD (post-traumatic stress disorder) (23) Right internal carotid artery aneurysm (24) Right internal carotid artery aneurysm Surgical Problems: (1) H/O gastric bypass (2) History of cholecystectomy (3) History of hysterectomy Family History Not obtainable due to adoption Patient is adopted. Social History Smoking Status: Former Smoker Alcohol Use: none Drug Use: none Marital Status: single Housing status: lives alone Occupational Status: disabled Immunizations History of Influenza Vaccine: No History of Tetanus Vaccine?: Yes Tetanus Immunization Date: Aug 30, 1989 History of Pneumococcal: No History of Hepatitis B Vaccine: Yes Hepatitis Immunization Date: Aug 30, 1989 Allergies Coded Allergies: Sulfa Antibiotics (Verified Allergy, Severe, FACE SWELLS, 11/28/17) Ibuprofen (Verified Allergy, Unknown, ., 11/28/17) Aspirin (Verified Adverse Reaction, Unknown, NOT AN ALLERGY, 11/28/17) PT HAD GASTRIC BYPASS AND WAS TOLD "TO AVOID NSAIDS" NSAIDs (Verified Adverse Reaction, Unknown, NOT AN ALLERGY, 11/28/17) PT HAD GASTRIC BYPASS AND WAS TOLD "TO AVOID NSAIDS." NOT AN ALLERGY Home Medications Scheduled Aripiprazole (Abilify), 20 MG PO DAILY Bupropion (Wellbutrin Sr), 100 MG PO DAILY Hydroxyzine Pamoate (Vistaril), 25 MG PO HS Melatonin (Melatonin), 10 MG PO HS Topiramate (Topamax ), 25 MG PO BID Trazodone Hcl (Trazodone), 150 MG PO HS Venlafaxine Hcl (Venlafaxine Hcl Er), 75 MG PO DAILY Scheduled PRN Albuterol Hfa (Ventolin Hfa), 2 PUFFS INH Q4H PRN for SOB/Wheezing Baclofen (Lioresal), 10 MG PO BID PRN for Muscle Spasm Review of Systems See HPI for pertinent positives & negatives. A total of 10 systems reviewed and were otherwise negative. Physical Exam Vital Signs Date Time Temp Pulse Resp B/P (MAP) Pulse Ox O2 Delivery O2 Flow Rate FiO2 12/10/17 00:45 60 12/10/17 00:28 36.5 60 20 123/63 96 Room Air General Appearance: WD/WN, no apparent distress Head: normocephalic, atraumatic Eyes: normal inspection, PERRL, EOMI, sclerae normal ENT: normal ENT inspection, hearing grossly normal Neck: supple, trachea midline Respiratory/Chest: chest non-tender, lungs clear, normal breath sounds, no respiratory distress, no accessory muscle use Cardiovascular: regular rate, rhythm, no murmur, + pertinent finding ( Bilateral nonpitting lower extremity edema) Abdomen/GI: normal bowel sounds, non tender, soft Back: normal inspection Extremities/Musculoskelatal: normal inspection, + pedal edema Neurologic/Psych: wire photo operator II-XII nml as tested, no motor/sensory deficits, alert, normal mood/affect, oriented x 3 Skin: normal color, warm/dry Diagnostics Laboratory Results Results Past 24 Hours Test 12/10/17 01:19 Range/Units White Blood Count 2.85 4.8-10.8 K/uL Red Blood Count 3.51 4.2-5.4 M/uL Hemoglobin 10.4 12.0-16.0 g/dL Hematocrit 31.4 37-47 % Mean Corpuscular Volume 89.5 80-100 fL Mean Corpuscular Hemoglobin 29.6 25-34 pg Mean Corpuscular Hemoglobin Concent 33.1 32-36 g/dl Platelet Count 122 130-400 K/uL Mean Platelet Volume 9.2 7.4-10.4 fL Neutrophils (%) (Auto) 50.5 % Lymphocytes (%) (Auto) 37.2 % Monocytes (%) (Auto) 8.8 % Eosinophils (%) (Auto) 2.8 % Basophils (%) (Auto) 0.7 % Neutrophils # (Auto) 1.44 1.4-6.5 K/uL Lymphocytes # (Auto) 1.06 1.2-3.4 K/uL Monocytes # (Auto) 0.25 0.11-0.59 K/uL Eosinophils # (Auto) 0.08 0-0.5 K/uL Basophils # (Auto) 0.02 0-0.2 K/uL RDW Standard Deviation 44.7 36.4-46.3 fL RDW Coefficient of Variation 13.6 11.5-14.5 % Immature Granulocyte % (Auto) 0.0 % Immature Granulocyte # (Auto) 0.00 0.00-0.02 K/uL Sodium Level 141 136-145 mmol/L Potassium Level 3.5 3.5-5.1 mmol/L Chloride Level 114 98-107 mmol/L Carbon Dioxide Level 28 21-32 mmol/L Anion Gap -1.0 3-11 mmol/L Blood Urea Nitrogen 11 7-18 mg/dl Creatinine 0.83 0.60-1.20 mg/dl Est Creatinine Clear Calc Drug Dose 90.9 ml/min Estimated GFR () 88.8 Estimated GFR (Non- 76.6 BUN/Creatinine Ratio 13.2 10-20 Random Glucose 82 70-99 mg/dl Calcium Level 8.2 8.5-10.1 mg/dl Magnesium Level 2.2 1.8-2.4 mg/dl Total Bilirubin 0.5 0.2-1 mg/dl Direct Bilirubin 0.1 0-0.2 mg/dl Aspartate Amino Transf (AST/SGOT) 17 15-37 U/L Alanine Aminotransferase (ALT/SGPT) 17 12-78 U/L Alkaline Phosphatase 78 45-117 U/L Total Creatine Kinase 46 26-192 U/L Creatine Kinase MB 0.6 0.5-3.6 ng/ml Creatine Kinase MB Ratio 1.3 0-3.0 Troponin I < 0.015 0-0.045 ng/ml Pro-B-Type Natriuretic Peptide 176 0-900 pg/ml Total Protein 6.7 6.4-8.2 gm/dl Albumin 3.2 3.4-5.0 gm/dl Diagnostic Radiology CXR: Small bilateral pleural effusions in the setting of mild cardiomegaly. No josephine pulmonary edema. No significant change. CT Head: no acute process on Preliminary reading EKG EKG: Atrial paced rhythm Impression Assessment and Plan Volume overload: Likely secondary to Florinef Received Lasix in ED Florinef Discontinued Will give Albumin X 1 Given history of Sulfa allergies, will see if patient tolerates Lasix given in ED Plan to start on Lasix if no issues Rarely Florinef could cause CHF check ECHO Consider Cardiology if consistent with CHF based on ECHO I/Os, daily weight, fluid restriction compression stockings Venous Doppler to R/O DVT: pending Intractable Headache H/O cluster headaches Reports head trauma [address] head: No acute process on preliminary reading Follows with [facility] as outpatient Continue Topamax Consider Neurology consult / MRI brain if no resolution of symptoms Diarrhea: Denies nausea, vomiting, abd pain Check stool studies monitor Hypothyroidism as per records Not on Meds Check TSH Symptomatic bradycardia S/P pacemaker H/O Bipolar disorder Depression PTSD: continue home meds H/O bariatric surgery stable Orthostatic Hypotension Reports chronic dizziness Deviously on metered drain and Florinef compression stockings ordered monitor H/O R internal carotid artery aneurysm follow up as outpatient DVT Px: Lovenox SQ Code Status: Full Code Resuscitation Status VTE Prophylaxis Will order VTE Prophylaxis: Yes
[2017-12-10] MEDS ORDERED: POTASSIUM CHLORIDE 10 MEQ TABCR PO STA (03:56)
[2017-12-10] MEDS ORDERED: ALBUTEROL HFA 8 GM INHALER INH PRN (04:00)
[2017-12-10] MEDS ORDERED: ENOXAPARIN 40 MG/0.4 ML SYR SQ SCH (04:00)
[2017-12-10] MEDS ORDERED: ALBUMIN HUMAN 25% 12.5 GM/50 ML VIAL IV ONE (04:15)
--- NOTE | 2017-12-10 05:32 | DIAGNOSTIC IMAGING REPORT ---
CHEST ONE VIEW PORTABLE CLINICAL HISTORY: 62 years-old Female presenting with Fluid overload. TECHNIQUE: Portable upright AP view of the chest was obtained. COMPARISON: 11/28/2017. FINDINGS: Left subclavian pacer with leads in the right atrium and right ventricular apex. Atherosclerosis of the aortic arch. Cardiac silhouette mildly enlarged, unchanged. Slight prominence of lung markings. Blunting of the bilateral costophrenic angles likely indicate small bilateral pleural effusions. No other significant focal opacity. No large pneumothorax. Osseous structures normal. IMPRESSION: 1. Small bilateral pleural effusions in the setting of mild cardiomegaly. No josephine pulmonary edema. No significant change. Electronically signed by: Son Guerra M.D. 12/10/2017 5:30 AM Dictated Date/Time: 12/10/2017 5:29 AM
[2017-12-10] MEDS: ACETAMINOPHEN 325 MG TAB PO PRN ×3 (06:04→23:16)
--- NOTE | 2017-12-10 06:19 | DIAGNOSTIC IMAGING REPORT ---
VENOUS DOPPLER LWR EXT BILA CLINICAL HISTORY: 62 years-old Female presenting with bilateral leg swelling. TECHNIQUE: Real-time grayscale and color and spectral Doppler ultrasound imaging of the veins of the bilateral lower extremities was performed. Compression and augmentation were also utilized. COMPARISON: 11/28/2017. FINDINGS: Right: Common femoral vein: Patent. Greater saphenous vein: Patent. Deep femoral vein: Patent. Femoral vein: Patent. Popliteal vein: Patent. Calf veins: Limited visualization. Left: Common femoral vein: Patent. Greater saphenous vein: Patent. Deep femoral vein: Patent. Femoral vein: Patent. Popliteal vein: Patent. Calf veins: Limited visualization. Other: None. IMPRESSION: No evidence of deep venous thrombosis. Electronically signed by: Son Guerra M.D. 12/10/2017 6:17 AM Dictated Date/Time: 12/10/2017 6:16 AM
--- NOTE | 2017-12-10 06:21 | DIAGNOSTIC IMAGING REPORT ---
HEAD WITHOUT CONTRAST (CT) CLINICAL HISTORY: 62 years-old Female presenting with persistent headache x 2 weeks. history aneurysm, dizziness. TECHNIQUE: Multidetector CT imaging of the head was performed without the use of intravenous contrast. IV contrast: None. A dose lowering technique was used consistent with the principles of ALARA (as low as reasonably achievable). COMPARISON: 11/28/2017. CT DOSE (mGy.cm): The estimated cumulative dose is 537.48 mGy.cm. FINDINGS: Diesel Engineer topogram: Unremarkable. Ventricles and sulci normal in size. Brain parenchyma normal in appearance with preserved dailey-white differentiation. No mass effect or midline shift. No hemorrhage or acute territorial infarct. No extra-axial fluid collection. Paranasal sinuses and mastoid air cells clear. Calvarium intact. IMPRESSION: 1. No acute intracranial abnormality. Electronically signed by: Son Guerra M.D. 12/10/2017 6:20 AM Dictated Date/Time: 12/10/2017 6:18 AM
[2017-12-10] MEDS: ENOXAPARIN 40 MG/0.4 ML SYR SQ SCH (08:42)
[2017-12-10] MEDS: BACLOFEN 10 MG TAB PO PRN (08:42)
[2017-12-10] MEDS: ARIPIprazole TAB 10 MG TAB PO SCH (08:43)
[2017-12-10] MEDS: BuPROPion SR 100 MG TABCR PO SCH (08:43)
[2017-12-10] MEDS: VENLAFAXINE HCL XR 75 MG CAPXR PO SCH (08:43)
[2017-12-10] MEDS: TOPIRAMATE 25 MG TAB PO SCH ×2 (08:43→21:08)
--- NOTE | 2017-12-10 14:51 | ECHOCARDIOGRAM REPORT ---
*NOTICE TO RECEIVING [employer] AGENCY This information is strictly Confidential and protected under [place] law. [place] law prohibits you from making any further disclosure of this information unless further disclosure is expressly permitted by the written consent of the person to whom it pertains or is authorized by law. A general authorization for the release of medical or other information is not sufficient for this purpose. Hospital accepts no responsibility if the information is made available to any other person, INCLUDING THE PATIENT. Interpretation Summary * Name: KRISTIAN HONG Study Date: 12/10/2017 07:26 AM BP: 93/52 mmHg * Patient Location: .[id number]\1 HR: 61 * : 1955 (M/d/yyyy) Gender: Female Height: 70 in * Age: 62 yrs Ethnicity: [place] Weight: 201 lb * Ordering Physician: Armando Knight * Performed By: Jane Gonzales RDCS * * Reason For Study: VOLUME OVERLOAD, R/O CHF * BSA: 2.1 m2 * The study was technically adequate. * -- Conclusions -- * There is borderline concentric left ventricular hypertrophy. * No regional wall motion abnormalities noted. * Left ventricular systolic function is normal. * The LV ejection Fraction = 60-65%. * Doppler findings do not suggest pulmonary hypertension. * Left ventricular diastolic function is normal with normal noninvasive indices of ventricular diastolic filling pressure. * The average E/e' ratio was 8.18, the left atrial size was normal, and there is no significant pulmonary hypertension all of which are markers suggestive of normal diastolic filling pressure. * The right ventricular chamber size and systolic function are normal. Procedure Details * A complete two-dimensional transthoracic echocardiogram was performed (2D, M-mode, Doppler and color flow Doppler). Left Ventricle * The left ventricle is normal in size. * A false chord is noted (normal variant). * There is borderline concentric left ventricular hypertrophy. * Left ventricular systolic function is normal. * Ejection Fraction = 60-65%. * The left ventricular wall motion is normal. * No regional wall motion abnormalities noted. Right Ventricle * The right ventricle is normal size. * The right ventricular systolic function is normal as assessed by tricuspid annular plane systolic excursion (TAPSE) (normal >1.5 cm). Atria * The left atrial size is normal. * Right atrial size is normal. * There is no evidence of atrial septal defect, but resolution does not allow assessment for a patent foramen ovale. Mitral Valve * The mitral valve is normal. * There is no mitral valve stenosis. * Significant mitral regurgitation is absent. Tricuspid Valve * The tricuspid valve is normal. * There is no tricuspid stenosis. * Significant tricuspid regurgitation is absent. * Doppler findings do not suggest pulmonary hypertension. Aortic Valve * The aortic valve is trileaflet. * Aortic stenosis is absent. * There is no significant aortic regurgitation. Pulmonic Valve * The pulmonary valve is not well seen, but the Doppler examination is normal without significant regurgitation or stenosis. Great Vessels * The aortic root and proximal ascending aorta are normal sized. Pericardium/Pleural * There is no pericardial effusion. * There is an echodensity in the pericardial space consistent with pericardial fat. Great Vessels * Normal inferior vena cava diameter and respiratory variation suggests normal central venous pressure. Left Ventricular Diastolic Function * Left ventricular diastolic function is normal with normal noninvasive indices of ventricular diastolic filling pressure. The average E/e' ratio was 8.18, the left atrial size was normal, and there is no significant pulmonary hypertension all of which are markers suggestive of normal diastolic filling pressure. MMode 2D Measurements and Calculations IVSd 1.2 cm IVSs 1.2 cm LVIDd 4.3 cm LVIDs 2.7 cm LVPWd 10 cm LVPWs 1.8 cm IVS/LVPW 1.2 FS 36.5 % EDV(Teich) 84.3 ml ESV(Teich) 28.2 ml EF(Teich) 66.5 % EDV(cubed) 81.0 ml ESV(cubed) 20.7 ml EF(cubed) 74.4 % % IVS thick 2.3 % % LVPW thick 78.1 % LV mass(C)d 165.2 grams LV mass(C)dI 79.0 grams/m\S\2 LV mass(C)s 142.4 grams LV mass(C)sI 68.1 grams/m\S\2 SV(Teich) 56.1 ml SI(Teich) 26.8 ml/m\S\2 SV(cubed) 60.2 ml SI(cubed) 28.8 ml/m\S\2 ACS 1.8 cm LA dimension 3.0 cm asc Aorta Diam 2.9 cm LVOT diam 1.9 cm LVOT area 2.8 cm\S\2 LVAd ap4 31.5 cm\S\2 LVLd ap4 9.7 cm EDV(MOD-sp4) 83.4 ml EDV(sp4-el) 87.3 ml LVAs ap4 16.0 cm\S\2 LVLs ap4 8.0 cm ESV(MOD-sp4) 26.5 ml ESV(sp4-el) 27.2 ml EF(MOD-sp4) 68.3 % EF(sp4-el) 68.9 % LVAd ap2 36.0 cm\S\2 LVLd ap2 10.0 cm EDV(MOD-sp2) 104.1 ml EDV(sp2-el) 110.4 ml LVAs ap2 18.4 cm\S\2 LVLs ap2 8.3 cm ESV(MOD-sp2) 34.7 ml ESV(sp2-el) 34.5 ml EF(MOD-sp2) 66.7 % EF(sp2-el) 68.7 % LVLd %diff 3.1 % EDV(MOD-bp) 95.5 ml LVLs %diff 3.3 % ESV(MOD-bp) 30.5 ml EF(MOD-bp) 68.1 % SV(MOD-sp4) 57.0 ml SI(MOD-sp4) 27.2 ml/m\S\2 SV(MOD-sp2) 69.4 ml SI(MOD-sp2) 33.2 ml/m\S\2 SV(MOD-bp) 65.0 ml SI(MOD-bp) 31.1 ml/m\S\2 SV(sp4-el) 60.1 ml SI(sp4-el) 28.7 ml/m\S\2 SV(sp2-el) 75.9 ml SI(sp2-el) 36.3 ml/m\S\2 Doppler Measurements and Calculations MV E max jordan 91.7 cm/sec MV A max jordan 64.8 cm/sec MV E/A 1.4 MV dec time 0.24 sec Ao V2 max 96.6 cm/sec Ao max PG 3.7 mmHg Ao max PG (full) 1.6 mmHg KELTON(V,A) 2.1 cm\S\2 KELTON(V,D) 2.1 cm\S\2 LV V1 max PG 2.1 mmHg LV V1 max 72.7 cm/sec PA V2 max 71.7 cm/sec PA max PG 2.1 mmHg
[2017-12-10] MEDS ORDERED: ALBUMIN 25% 50 ML with FUROSEMIDE INJ 40 MG IV ONE ×2 (16:30)
--- NOTE | 2017-12-10 17:02 | Progress Note ---
Subjective Date of Service: Dec 10, 2017. Subjective Pt evaluation today including: conversation w/ patient, physical exam, lab review, review of studies, review of inpatient medication list Saw/examined the patient in room 260 She is c/o worsening LE swelling worsening migraines and dizziness States she feels fine when laying down, so that's what she's been doing Problem List Medical Problems: (1) Altered mental status Status: Acute (2) Bilateral leg edema Status: Acute (3) Bilateral lower extremity edema Status: Acute (4) Fluid overload Status: Acute (5) Generalized weakness Status: Acute (6) Headache Status: Acute (7) Headache Status: Acute (8) Intractable headache Status: Acute (9) Migraine headache Status: Acute (10) Neck pain, chronic Status: Acute (11) Right internal carotid artery aneurysm Status: Acute (12) Weight gain Status: Acute Review of Systems Constitutional: + weakness, + fatigue, No fever, No chills Respiratory: No shortness of breath Cardiac: + edema, No chest pain Neurologic: + vertigo, + balance problems, No memory loss, No paralysis, No weakness, No numbness/tingling Heme: No abnormal bleeding/bruising Medications Current Inpatient Medications Medications (Trade) Dose Ordered Sig/Bowen Route Start Time Stop Time Status Last Admin Dose Admin Acetaminophen (Tylenol Tab) 650 mg Q4H PRN PO 12/10/17 04:00 01/09/18 03:59 12/10/17 13:35 650 MG Ondansetron HCl (Zofran Inj) 4 mg Q6H PRN IV 12/10/17 04:00 01/09/18 03:59 Albuterol (Ventolin Hfa Inhaler) 2 puffs Q4H PRN INH 12/10/17 04:00 01/09/18 03:59 Aripiprazole (Abilify Tab) 20 mg DAILY PO 12/10/17 09:00 01/09/18 08:59 12/10/17 08:43 20 MG Baclofen (Lioresal Tab) 10 mg BID PRN PO 12/10/17 04:00 01/09/18 03:59 12/10/17 08:42 10 MG Bupropion HCl (Wellbutrin-Sr Tab) 100 mg DAILY PO 12/10/17 09:00 01/09/18 08:59 12/10/17 08:43 100 MG Topiramate (Topamax Tab) 25 mg BID PO 12/10/17 09:00 01/09/18 08:59 12/10/17 08:43 25 MG Trazodone HCl (Desyrel Tab) 150 mg HS PO 12/10/17 21:00 01/09/18 20:59 Venlafaxine HCl (effeXOR EXTENDED REL CAP) 75 mg DAILY PO 12/10/17 09:00 01/09/18 08:59 12/10/17 08:43 75 MG Hydroxyzine HCl (Vistaril Tab) 25 mg HS PO 12/10/17 21:00 01/09/18 20:59 Enoxaparin Sodium (Lovenox Inj) 40 mg Q24H SQ 12/10/17 09:00 01/09/18 08:59 12/10/17 08:42 40 MG Enteral Nutritional Formula (Boost) 1 can BIDM PO 12/10/17 17:00 01/09/18 16:59 Furosemide 40 mg/ Albumin Human 54 ml @ 54 mls/hr ONE ONCE IV 12/10/17 16:30 12/10/17 17:29 Multivitamins/ Minerals (Multivitamin W/ Minerals Tab) 1 tab QAM PO 12/11/17 09:00 01/10/18 08:59 Objective Vital Signs Date Time Temp Pulse Resp B/P (MAP) Pulse Ox O2 Delivery O2 Flow Rate FiO2 12/10/17 15:50 36.4 59 18 108/59 (75) 97 Room Air 12/10/17 06:56 36.4 62 18 101/62 (75) 98 Room Air 12/10/17 05:53 36.4 61 93/52 (66) 12/10/17 05:07 36.6 88 18 124/74 99 Room Air 12/10/17 04:27 60 18 138/68 97 12/10/17 02:49 60 18 136/70 97 Room Air 12/10/17 02:00 60 20 155/76 95 Room Air 12/10/17 00:45 60 12/10/17 00:28 36.5 60 20 123/63 96 Room Air Physical Exam General Appearance: + mild distress Respiratory/Chest: lungs clear, normal breath sounds, no respiratory distress, no accessory muscle use Cardiovascular: regular rate, rhythm, no murmur Extremities: + pedal edema, + swelling (+2-3 pitting edema, b/l LE), + pertinent finding Laboratory Results Last 24 Hours Test 12/10/17 01:19 12/10/17 07:18 12/10/17 09:30 White Blood Count 2.85 K/uL Red Blood Count 3.51 M/uL Hemoglobin 10.4 g/dL Hematocrit 31.4 % Mean Corpuscular Volume 89.5 fL Mean Corpuscular Hemoglobin 29.6 pg Mean Corpuscular Hemoglobin Concent 33.1 g/dl Platelet Count 122 K/uL Mean Platelet Volume 9.2 fL Neutrophils (%) (Auto) 50.5 % Lymphocytes (%) (Auto) 37.2 % Monocytes (%) (Auto) 8.8 % Eosinophils (%) (Auto) 2.8 % Basophils (%) (Auto) 0.7 % Neutrophils # (Auto) 1.44 K/uL Lymphocytes # (Auto) 1.06 K/uL Monocytes # (Auto) 0.25 K/uL Eosinophils # (Auto) 0.08 K/uL Basophils # (Auto) 0.02 K/uL RDW Standard Deviation 44.7 fL RDW Coefficient of Variation 13.6 % Immature Granulocyte % (Auto) 0.0 % Immature Granulocyte # (Auto) 0.00 K/uL Sodium Level 141 mmol/L Potassium Level 3.5 mmol/L Chloride Level 114 mmol/L Carbon Dioxide Level 28 mmol/L Anion Gap -1.0 mmol/L Blood Urea Nitrogen 11 mg/dl Creatinine 0.83 mg/dl Est Creatinine Clear Calc Drug Dose 90.9 ml/min Estimated GFR () 88.8 Estimated GFR (Non- 76.6 BUN/Creatinine Ratio 13.2 Random Glucose 82 mg/dl Calcium Level 8.2 mg/dl Magnesium Level 2.2 mg/dl Total Bilirubin 0.5 mg/dl Direct Bilirubin 0.1 mg/dl Aspartate Amino Transf (AST/SGOT) 17 U/L Alanine Aminotransferase (ALT/SGPT) 17 U/L Alkaline Phosphatase 78 U/L Total Creatine Kinase 46 U/L Creatine Kinase MB 0.6 ng/ml Creatine Kinase MB Ratio 1.3 Troponin I < 0.015 ng/ml Pro-B-Type Natriuretic Peptide 176 pg/ml Total Protein 6.7 gm/dl Albumin 3.2 gm/dl Thyroid Stimulating Hormone (TSH) 7.360 uIu/ml Free Thyroxine 1.10 ng/dl Hepatitis C Antibody Screen NEG Assessment and Plan This is a 62 year old female with a past medical history of recurrent, complicated migraines, bipolar disorder, hypothyroidism, hx. of gastric bypass, mood disorder, PTSD, hx. of bradycardia s/p permanent pacemaker, postural hypotension - presents with worsening lower extremity swelling. Lower Extremity Edema - possibly related to medications vs. hypoalbuminemia - echo performed, normal LVEF, no diastolic dysfunction noted - will give another dose of albumin + Lasix x1 - added boost to increase protein - added multivitamins - Florinef stopped due to likely cause of edema - orthotics consulted for fitting of the compression stockings Postural Hypotension - will order PT/OT - hopefully will improve with increased protein levels Migraines - patient has been taking Topamax - has required botox injections in the past - must avoid NSAIDs due to gastric bypass status, avoiding steroids to prevent steroids and gastric bypass status - will consult neurology routinely for further input S/P Permanent Pacemaker Status Bipolar Disorder/Mood Disorder - continue home medications Hypothyroidism - not taking Synthroid - TSH is elevated, will check Free T4 DVT ppx - Lovenox FULL CODE
[2017-12-10] MEDS: BOOST VANILLA PO SCH (17:33)
[2017-12-10] MEDS ORDERED: NON-FORMULARY MEDICATION (Melatonin 10 MG) PO SCH (21:00)
[2017-12-10] MEDS: hydrOXYzine HCL 25 MG TAB PO SCH (21:08)
[2017-12-10] MEDS: TRAZODONE HCL 100 MG TAB PO SCH (21:09)
[2017-12-11] VITALS: O2SAT 98
[2017-12-11 07:33] VITALS: BP 100/58; PULSE 70; TEMP 36.7; O2SAT 95
[2017-12-11 08:13] LABS: HEMATOCRIT 33.6 % (37-47); HEMOGLOBIN 11.1 g/dL (12.0-16.0); MEAN CELL VOLUME 89.1 fL (80-100); MEAN CORPUSCULAR HEMOGLOBIN 29.4 pg (25-34); MEAN PLATELET VOLUME 8.9 fL (7.4-10.4); PLATELET COUNT 141 K/uL (130-400); RED CELL DISTRIBUTION WIDTH CV 13.4 % (11.5-14.5); RED CELL DISTRIBUTION WIDTH SD 43.8 fL (36.4-46.3); WHITE BLOOD COUNT 2.85 K/uL (4.8-10.8)
[2017-12-11] MEDS: VENLAFAXINE HCL XR 75 MG CAPXR PO SCH (08:31)
[2017-12-11] MEDS: BuPROPion SR 100 MG TABCR PO SCH (08:31)
[2017-12-11] MEDS: CEROVITE ADV FORMULA TAB PO SCH (08:32)
[2017-12-11] MEDS: ARIPIprazole TAB 10 MG TAB PO SCH (08:32)
[2017-12-11] MEDS: ENOXAPARIN 40 MG/0.4 ML SYR SQ SCH (08:33)
[2017-12-11] MEDS: TOPIRAMATE 25 MG TAB PO SCH (08:33)
[2017-12-11] MEDS: BACLOFEN 10 MG TAB PO PRN ×2 (08:34→20:24)
[2017-12-11] MEDS: BOOST VANILLA PO SCH ×2 (08:37→16:54)
[2017-12-11 08:40] LABS: CALCIUM 8.2 mg/dl (8.5-10.1); CREATININE 0.94 mg/dl (0.60-1.20); POTASSIUM 3.1 mmol/L (3.5-5.1)
[2017-12-11 08:41] LABS: PHOSPHORUS 4.4 mg/dl (2.5-4.9)
--- NOTE | 2017-12-11 09:24 | Neurology Consultation ---
Neurology Consultation Date of Consultation: Dec 11, 2017. Attending Physician: Storm Mcgill DO Primary Care Physician: Sagrario Blankenship D.O. Reason for Consultation: Headaches History of Present Illness Source: patient, clinic records, hospital records Patient is a 62-year-old female with a history of mixed headache disorder, probably episodic migraine and chronic daily headache. She has followed with me in the outpatient clinic although I have not seen her since September of 2016. Her primary care physician has been refilling her topiramate which is prescribed for migraine prevention. She continues with a low dosage of this medication, 25 milligrams twice daily. She last received Botox for chronic migraines in 2015. Her history is also notable for an incidental 3 millimeter right internal carotid artery aneurysm at the clinoid. Her last CT angiogram was completed in June of 2016. Past medical history notable for syncope, status post cardiac pacer implantation, gastric bypass surgery, as well as bipolar disorder, dissociated disorder, and posttraumatic stress disorder for which she is prescribed multiple psychiatric medications. The patient presented to the emergency department complaining of lower extremity swelling, headaches, and dizziness. She had been prescribed Florinef to address orthostatic hypotension about 6 weeks ago. She indicates this medication was stopped about 1 week ago.She has been admitted for further evaluation and management of fluid/volume overload. A recently completed echocardiogram reveals borderline concentric left ventricular hypertrophy and is otherwise unremarkable. No evidence of pulmonary hypertension. A CT of the head is negative for hemorrhage and other acute process. I reviewed the images as well as a radiologist's interpretation of this test. Electrocardiogram reveals an atrial paced rhythm, 60 beats per minute. The patient complains of a mild to moderate frontal headache which is present every day. The headache is present upon awakening and is of variable intensity throughout the day. She indicates that she has been taking extra-strength Tylenol up to 6 times per day. She denies experiencing significant associated nausea or light sensitivity with her current headaches although does experience these associated symptoms with her migraines. She reports that her headaches have been worse over the past few weeks, since she started taking Florinef. Past Medical/Surgical History Medical Problems: (1) Altered mental status Status: Acute (2) Bilateral leg edema Status: Acute (3) Bilateral lower extremity edema Status: Acute (4) Fluid overload Status: Acute (5) Generalized weakness Status: Acute (6) Headache Status: Acute (7) Headache Status: Acute (8) Intractable headache Status: Acute (9) Migraine headache Status: Acute (10) Neck pain, chronic Status: Acute (11) Right internal carotid artery aneurysm Status: Acute (12) Weight gain Status: Acute Family History Unknown, patient adopted Social History Smoking Status: Former smoker Alcohol Use: none Drug Use: none Marital Status: single Housing Status: lives alone Occupation Status: disabled Allergies Coded Allergies: Sulfa Antibiotics (Verified Allergy, Severe, FACE SWELLS, 11/28/17) Ibuprofen (Verified Allergy, Unknown, ., 11/28/17) Aspirin (Verified Adverse Reaction, Unknown, NOT AN ALLERGY, 11/28/17) PT HAD GASTRIC BYPASS AND WAS TOLD "TO AVOID NSAIDS" NSAIDs (Verified Adverse Reaction, Unknown, NOT AN ALLERGY, 11/28/17) PT HAD GASTRIC BYPASS AND WAS TOLD "TO AVOID NSAIDS." NOT AN ALLERGY Current Inpatient Medications Current Inpatient Medications Medications (Trade) Dose Ordered Sig/Bowen Route Start Time Stop Time Status Last Admin Dose Admin Acetaminophen (Tylenol Tab) 650 mg Q4H PRN PO 12/10/17 04:00 01/09/18 03:59 12/10/17 23:16 650 MG Ondansetron HCl (Zofran Inj) 4 mg Q6H PRN IV 12/10/17 04:00 01/09/18 03:59 Albuterol (Ventolin Hfa Inhaler) 2 puffs Q4H PRN INH 12/10/17 04:00 01/09/18 03:59 Aripiprazole (Abilify Tab) 20 mg DAILY PO 12/10/17 09:00 01/09/18 08:59 12/11/17 08:32 20 MG Baclofen (Lioresal Tab) 10 mg BID PRN PO 12/10/17 04:00 01/09/18 03:59 12/11/17 08:34 10 MG Bupropion HCl (Wellbutrin-Sr Tab) 100 mg DAILY PO 12/10/17 09:00 01/09/18 08:59 12/11/17 08:31 100 MG Topiramate (Topamax Tab) 25 mg BID PO 12/10/17 09:00 01/09/18 08:59 12/11/17 08:33 25 MG Trazodone HCl (Desyrel Tab) 150 mg HS PO 12/10/17 21:00 01/09/18 20:59 12/10/17 21:09 150 MG Venlafaxine HCl (effeXOR EXTENDED REL CAP) 75 mg DAILY PO 12/10/17 09:00 01/09/18 08:59 12/11/17 08:31 75 MG Hydroxyzine HCl (Vistaril Tab) 25 mg HS PO 12/10/17 21:00 01/09/18 20:59 12/10/17 21:08 25 MG Enoxaparin Sodium (Lovenox Inj) 40 mg Q24H SQ 12/10/17 09:00 01/09/18 08:59 12/11/17 08:33 40 MG Enteral Nutritional Formula (Boost) 1 can BIDM PO 12/10/17 17:00 01/09/18 16:59 12/11/17 08:37 1 CAN Multivitamins/ Minerals (Multivitamin W/ Minerals Tab) 1 tab QAM PO 12/11/17 09:00 01/10/18 08:59 12/11/17 08:32 1 TAB Review of Systems Constitutional: No fever chills Eyes: No vision loss or diplopia ENT: No hearing loss or vertigo Cardiovascular: No chest pain or palpitations Respiratory: No coughing or shortness of breath Neurological: As per history of present illness. Patient also denies weakness or sensory loss Psychiatric: History of bipolar disorder, stable on medication A full 10 point review of systems was obtained from this patient with pertinent positives and negatives described in the history of present illness and otherwise listed above. All remaining systems were reviewed and are negative. Physical Exam Vital Signs (Past 24 Hrs): Date Time Temp Pulse Resp B/P (MAP) Pulse Ox O2 Delivery O2 Flow Rate FiO2 12/11/17 07:33 36.7 70 18 100/58 (72) 95 Room Air 12/11/17 00:00 98 Room Air 12/10/17 23:40 36.6 62 18 103/66 (78) 94 Room Air 12/10/17 18:02 122/73 (89) 12/10/17 17:33 65 107/70 (82) 12/10/17 16:09 98 Room Air 12/10/17 15:50 36.4 59 18 108/59 (75) 97 Room Air The patient is a well-developed, well-nourished, elderly female. She is pleasant and cooperative and recognizes me upon entering the room. She is alert and fully oriented. Recent and remote memory intact. Attention and concentration normal. Patient exhibits a normal spontaneous speech pattern as well as an age-appropriate fund of knowledge. Visual gore full to confrontation. Visual acuity normal. Pupils equal round reactive to light and accommodation. Eye movements normal. There is no nystagmus. Facial sensation intact. There is no facial droop or weakness. Hearing intact to finger rub bilaterally. Palate elevates to midline. Shoulder shrug strength intact. Tongue protrudes to midline. Sensation intact to light touch, temperature, vibration, and proprioception for all 4 limbs. Deep tendon reflexes are intact and symmetrical for the arms and legs. Plantar responses downgoing bilaterally. There is no dysdiadochokinesia or dysmetria with [id number] or heel to palomino bilaterally. Ophthalmoscopic examination reveals normal- appearing optic discs and posterior segments. No papilledema or hemorrhages. Carotid pulses normal bilaterally, no bruits to auscultation. Gait and station normal. Patient exhibits normal muscle strength and tone for all 4 limbs. No atrophy. No abnormal movements observed. Laboratory Results Past 24 Hours: 12/11/17 07:51 12/11/17 07:51 Test 12/10/17 09:30 12/11/17 07:51 Red Blood Count 3.77 M/uL (4.2-5.4) Mean Corpuscular Volume 89.1 fL (80-100) Mean Corpuscular Hemoglobin 29.4 pg (25-34) Mean Corpuscular Hemoglobin Concent 33.0 g/dl (32-36) RDW Standard Deviation 43.8 fL (36.4-46.3) RDW Coefficient of Variation 13.4 % (11.5-14.5) Mean Platelet Volume 8.9 fL (7.4-10.4) Anion Gap 4.0 mmol/L (3-11) Est Creatinine Clear Calc Drug Dose 76.7 ml/min Estimated GFR () 76.4 Estimated GFR (Non- 65.9 BUN/Creatinine Ratio 16.3 (10-20) Calcium Level 8.2 mg/dl (8.5-10.1) Phosphorus Level 4.4 mg/dl (2.5-4.9) Magnesium Level 2.2 mg/dl (1.8-2.4) Impression This is a 62-year-old female with a history mixed headache disorder characterized by chronic daily headache (probably medication overuse headache), and episodic migraine. She has followed with me periodically in the past although I have not seen her since September 2016. She has had issues with medication overuse headache syndrome previously as well as some potential noncompliance with her topiramate in the past. She indicates that her primary care physician has been prescribing her Topamax over the past year. She indicates that she has not had Botox treatments for her migraines since 2015. She is currently experiencing a chronic daily headache which is probably related to a combination persistent fluid overload triggered by recent use of Florinef to address orthostatic hypotension and further complicated by high frequency Tylenol use (medication overuse headache syndrome). This patient also has an incidental right internal carotid artery aneurysm and was scheduled to have a follow-up outpatient CT angiogram completed this Monday. Plan Increase topiramate to 50 milligrams twice daily. Consider obtaining a CT angiogram of the head and neck during this patient's hospitalization for further assessment of the previously identified 3 millimeter right internal carotid artery aneurysm. Otherwise, this test will need to be completed as an outpatient which was apparently already scheduled for Monday, according to the patient. Continue management of patient's fluid balance and blood pressure as medically appropriate. Avoid overuse of Tylenol as this medication is a known trigger for analgesic rebound headache/medication overuse headache. If patient's headaches persist she may want to reestablish with the [facility] for Botox. Patient may follow up with me in clinic as well for ongoing management of her headaches. Please contact me if I may be of further assistance.
[2017-12-11] MEDS ORDERED: POTASSIUM CHLORIDE 20 MEQ TABCR PO STA (13:18)
--- NOTE | 2017-12-11 15:15 | Progress Note ---
Subjective Date of Service: Dec 11, 2017. Subjective Pt evaluation today including: conversation w/ patient, physical exam, lab review, review of studies, review of inpatient medication list Saw/examined the patient in room 260 fluid from the lower extremities much improved still has headaches, but dose of Topamax increase has encouraged her Still getting dizzy - blood pressure drops from standing; chronically overall, patient does want to go home in a few days, and does not want SNF currently Problem List Medical Problems: (1) Altered mental status Status: Acute (2) Bilateral leg edema Status: Acute (3) Bilateral lower extremity edema Status: Acute (4) Fluid overload Status: Acute (5) Generalized weakness Status: Acute (6) Headache Status: Acute (7) Headache Status: Acute (8) Intractable headache Status: Acute (9) Migraine headache Status: Acute (10) Neck pain, chronic Status: Acute (11) Right internal carotid artery aneurysm Status: Acute (12) Weight gain Status: Acute Review of Systems Constitutional: + weakness, No fever, No chills ENT: + problem reported (headache) Respiratory: No shortness of breath Cardiac: + edema (improving), No chest pain Abdomen: No pain, No nausea, No vomiting, No diarrhea Musculoskeletal: No joint pain, No muscle pain, No swelling Neurologic: + weakness, + vertigo, + balance problems, No memory loss, No paralysis, No numbness/tingling Medications Current Inpatient Medications Medications (Trade) Dose Ordered Sig/Bowen Route Start Time Stop Time Status Last Admin Dose Admin Acetaminophen (Tylenol Tab) 650 mg Q4H PRN PO 12/10/17 04:00 01/09/18 03:59 12/10/17 23:16 650 MG Ondansetron HCl (Zofran Inj) 4 mg Q6H PRN IV 12/10/17 04:00 01/09/18 03:59 Albuterol (Ventolin Hfa Inhaler) 2 puffs Q4H PRN INH 12/10/17 04:00 01/09/18 03:59 Aripiprazole (Abilify Tab) 20 mg DAILY PO 12/10/17 09:00 01/09/18 08:59 12/11/17 08:32 20 MG Baclofen (Lioresal Tab) 10 mg BID PRN PO 12/10/17 04:00 01/09/18 03:59 12/11/17 08:34 10 MG Bupropion HCl (Wellbutrin-Sr Tab) 100 mg DAILY PO 12/10/17 09:00 01/09/18 08:59 12/11/17 08:31 100 MG Trazodone HCl (Desyrel Tab) 150 mg HS PO 12/10/17 21:00 01/09/18 20:59 12/10/17 21:09 150 MG Venlafaxine HCl (effeXOR EXTENDED REL CAP) 75 mg DAILY PO 12/10/17 09:00 01/09/18 08:59 12/11/17 08:31 75 MG Hydroxyzine HCl (Vistaril Tab) 25 mg HS PO 12/10/17 21:00 01/09/18 20:59 12/10/17 21:08 25 MG Enoxaparin Sodium (Lovenox Inj) 40 mg Q24H SQ 12/10/17 09:00 01/09/18 08:59 12/11/17 08:33 40 MG Enteral Nutritional Formula (Boost) 1 can BIDM PO 12/10/17 17:00 01/09/18 16:59 12/11/17 08:37 1 CAN Multivitamins/ Minerals (Multivitamin W/ Minerals Tab) 1 tab QAM PO 12/11/17 09:00 01/10/18 08:59 12/11/17 08:32 1 TAB Topiramate (Topamax Tab) 50 mg BID PO 12/11/17 21:00 01/09/18 08:59 Objective Vital Signs Date Time Temp Pulse Resp B/P (MAP) Pulse Ox O2 Delivery O2 Flow Rate FiO2 12/11/17 07:45 Room Air 12/11/17 07:33 36.7 70 18 100/58 (72) 95 Room Air 12/11/17 00:00 98 Room Air 12/10/17 23:40 36.6 62 18 103/66 (78) 94 Room Air 12/10/17 18:02 122/73 (89) 12/10/17 17:33 65 107/70 (82) 12/10/17 16:09 98 Room Air 12/10/17 15:50 36.4 59 18 108/59 (75) 97 Room Air Physical Exam General Appearance: no apparent distress Respiratory/Chest: chest non-tender, lungs clear, normal breath sounds, no respiratory distress, no accessory muscle use Cardiovascular: regular rate, rhythm, no edema, no murmur Extremities: normal range of motion, non-tender, normal inspection, no pedal edema, no calf tenderness, + pertinent finding (swelling has gone down) Neurologic/Psychiatric: no motor/sensory deficits, alert, normal mood/affect Laboratory Results Last 24 Hours Test 12/11/17 07:51 White Blood Count 2.85 K/uL Red Blood Count 3.77 M/uL Hemoglobin 11.1 g/dL Hematocrit 33.6 % Mean Corpuscular Volume 89.1 fL Mean Corpuscular Hemoglobin 29.4 pg Mean Corpuscular Hemoglobin Concent 33.0 g/dl RDW Standard Deviation 43.8 fL RDW Coefficient of Variation 13.4 % Platelet Count 141 K/uL Mean Platelet Volume 8.9 fL Sodium Level 142 mmol/L Potassium Level 3.1 mmol/L Chloride Level 107 mmol/L Carbon Dioxide Level 30 mmol/L Anion Gap 4.0 mmol/L Blood Urea Nitrogen 15 mg/dl Creatinine 0.94 mg/dl Est Creatinine Clear Calc Drug Dose 76.7 ml/min Estimated GFR () 76.4 Estimated GFR (Non- 65.9 BUN/Creatinine Ratio 16.3 Random Glucose 88 mg/dl Calcium Level 8.2 mg/dl Phosphorus Level 4.4 mg/dl Magnesium Level 2.2 mg/dl Assessment and Plan This is a 62 year old female with a past medical history of recurrent, complicated migraines, bipolar disorder, hypothyroidism, hx. of gastric bypass, mood disorder, PTSD, hx. of bradycardia s/p permanent pacemaker, postural hypotension - presents with worsening lower extremity swelling. Lower Extremity Edema 12/11 - improved clinically today - would likely benefit from Lasix 20mg M-W-; cautious with her low blood pressure - may need custom fit compression stockings, orthotics consulted - continue boost BID with meals on discharge for protein; continue multivitamins 12/10 - possibly related to medications vs. hypoalbuminemia - echo performed, normal LVEF, no diastolic dysfunction noted - will give another dose of albumin + Lasix x1 - added boost to increase protein - added multivitamins - Florinef stopped due to likely cause of edema - orthotics consulted for fitting of the compression stockings Postural Hypotension 12/11 - continues to have postural hypotension - would benefit from continued PT/OT - home health vs. SNF 12/10 - will order PT/OT - hopefully will improve with increased protein levels Migraines 12/11 - appreciate neurology input - Topamax dose increased to 50mg BID - may need outpatient pain clinic follow-up for Botox injections 12/10 - patient has been taking Topamax - has required botox injections in the past - must avoid NSAIDs due to gastric bypass status, avoiding steroids to prevent steroids and gastric bypass status - will consult neurology routinely for further input Subclinical Hypothyroid - TSH elevated, Free T4 normal - should have repeat TSH in 4-6 weeks - if TSH still elevated and blood pressure still remains an issue, should get thyroid antibodies and can likely trial Synthroid S/P Permanent Pacemaker Status Bipolar Disorder/Mood Disorder - continue home medications DVT ppx - Lovenox FULL CODE
[2017-12-11 15:16] VITALS: BP 90/53; PULSE 60; TEMP 36.7; O2SAT 95
[2017-12-11 16:09] VITALS: O2SAT 98
[2017-12-11] MEDS: TRAZODONE HCL 100 MG TAB PO SCH (20:25)
[2017-12-11] MEDS: hydrOXYzine HCL 25 MG TAB PO SCH (20:25)
[2017-12-11] MEDS: TOPIRAMATE 50 MG TAB PO SCH (21:00)
[2017-12-12 00:08] VITALS: BP 106/51; PULSE 60; TEMP 36.8; O2SAT 94
[2017-12-12 07:08] VITALS: BP 101/66; PULSE 64; TEMP 36.6; O2SAT 93
[2017-12-12 08:00] VITALS: O2SAT 93
[2017-12-12] MEDS: BOOST VANILLA PO SCH ×2 (08:00→16:27)
[2017-12-12] MEDS: VENLAFAXINE HCL XR 75 MG CAPXR PO SCH (08:17)
[2017-12-12] MEDS: CEROVITE ADV FORMULA TAB PO SCH (08:18)
[2017-12-12] MEDS: ARIPIprazole TAB 10 MG TAB PO SCH (08:18)
[2017-12-12] MEDS: BuPROPion SR 100 MG TABCR PO SCH (08:18)
[2017-12-12] MEDS: TOPIRAMATE 50 MG TAB PO SCH ×2 (08:18→20:52)
[2017-12-12] MEDS: ENOXAPARIN 40 MG/0.4 ML SYR SQ SCH (08:19)
[2017-12-12] MEDS: ONDANSETRON INJ 2 MG/ML 2 ML VIAL IV PRN (08:24)
[2017-12-12] MEDS: BACLOFEN 10 MG TAB PO PRN ×2 (08:27→20:51)
[2017-12-12] MEDS: ACETAMINOPHEN 325 MG TAB PO PRN ×2 (08:27→20:56)
[2017-12-12 08:46] LABS: HEMATOCRIT 34.1 % (37-47); HEMOGLOBIN 11.3 g/dL (12.0-16.0); MEAN CORPUSCULAR HEMOGLOBIN 29.8 pg (25-34); MEAN CORPUSCULAR HGB CONC 33.1 g/dl (32-36); MEAN PLATELET VOLUME 9.3 fL (7.4-10.4); PLATELET COUNT 150 K/uL (130-400); RED CELL DISTRIBUTION WIDTH CV 13.6 % (11.5-14.5); RED CELL DISTRIBUTION WIDTH SD 44.6 fL (36.4-46.3)
[2017-12-12 09:21] LABS: CALCIUM 8.2 mg/dl (8.5-10.1); CREATININE 0.85 mg/dl (0.60-1.20); POTASSIUM 3.6 mmol/L (3.5-5.1)
[2017-12-12] MEDS ORDERED: KETOROLAC TROMETHAMINE 15 MG/ML VIAL IV STA (11:10)
[2017-12-12] MEDS ORDERED: OPTIRAY 320 IV PRN (14:15)
[2017-12-12] MEDS ORDERED: POTASSIUM CHLORIDE 20 MEQ TABCR PO STA (14:21)
--- NOTE | 2017-12-12 16:11 | DIAGNOSTIC IMAGING REPORT ---
CT NECK ANGIO WITH CONTRAST CLINICAL HISTORY: Internal carotid artery aneurysm. Follow-up examination. COMPARISON STUDY: July 05, 2016 TECHNIQUE: CT angiography was performed from the aortic arch to the skull base. MIP imaging was performed. The patient was scanned in a dynamic helical fashion during intravenous administration of 94 cc of Optiray 320. A dose lowering technique was utilized adhering to the principles of ALARA. CT DOSE: 559.60 mGy.cm Technique: CT angiogram of the carotid and vertebral arteries was obtained using intravenous contrast and 3-D reconstruction. NASCET criteria was utilized. Findings: The visualized portions of the lung apices reveal pulmonary emphysema. There is no evidence of hemodynamically significant right internal carotid artery stenosis. There is no evidence of right internal carotid artery dissection. There is a stable 3 mm aneurysm of the right internal carotid artery at the level of the anterior clinoid. There is a hypoplastic right A1 segment. The left carotid revealed no evidence of hemodynamic significant stenosis. There is no evidence of aneurysm. There is no evidence of dissection. There is no evidence of hemodynamically significant vertebral stenosis. There is no evidence of vertebral dissection. IMPRESSION: 1. No evidence of incidentally significant carotid or vertebral artery stenosis. No evidence of dissection 2. Stable 3 mm aneurysm of the right internal carotid artery at the level of the anterior clinoid 3. Pulmonary emphysema Electronically signed by: Ben Powers M.D. 12/12/2017 4:10 PM Dictated Date/Time: 12/12/2017 4:03 PM
[2017-12-12 16:12] VITALS: BP 112/67; PULSE 76; TEMP 36.5; O2SAT 97
[2017-12-12] MEDS ORDERED: NURSING VERBAL MED ORDER ONE (16:45)
[2017-12-12] MEDS ORDERED: KETOROLAC TROMETHAMINE 15 MG/ML VIAL IV. ONE (17:00)
--- NOTE | 2017-12-12 19:54 | Progress Note ---
Progress Note Date of Service Dec 12, 2017. Progress Note Subjective Patient continues to have headaches. Physical Exam General Appearance: no apparent distress Respiratory/Chest: chest non-tender, lungs clear, normal breath sounds, no respiratory distress, no accessory muscle use Cardiovascular: regular rate, rhythm, no edema, no murmur Extremities: normal range of motion, non-tender, normal inspection, no pedal edema, no calf tenderness Neurologic/Psychiatric: no motor/sensory deficits, alert, normal mood/affect Plan This is a 62 year old female with a past medical history of recurrent, complicated migraines, bipolar disorder, hypothyroidism, hx. of gastric bypass, mood disorder, PTSD, hx. of bradycardia s/p permanent pacemaker, postural hypotension - presents with worsening lower extremity swelling. Lower Extremity Edema no DVT echo performed, normal LVEF, no diastolic dysfunction noted edema likely from previous Florinef use, edema improved after Lasix continue compression stocking Postural Hypotension symptoms resolving Migraines Topamax dose 50mg BID Toradol x 2 given today CTA neck 1. No evidence of incidentally significant carotid or vertebral artery stenosis. No evidence of dissection 2. Stable 3 mm aneurysm of the right internal carotid artery at the level of the anterior clinoid 3. Pulmonary emphysema Subclinical Hypothyroid - TSH elevated, Free T4 normal - should have repeat TSH in 4-6 weeks - if TSH still elevated and blood pressure still remains an issue, should get thyroid antibodies and can likely trial Synthroid S/P Permanent Pacemaker Status Bipolar Disorder/Mood Disorder - continue home medications DVT ppx - Lovenox Disposition: continue pain control in hospital, possible discharge with home services tomorrow
[2017-12-12] MEDS: hydrOXYzine HCL 25 MG TAB PO SCH (20:52)
[2017-12-12] MEDS: TRAZODONE HCL 100 MG TAB PO SCH (20:52)
[2017-12-12 23:44] VITALS: BP 93/50; PULSE 66; TEMP 36.6; O2SAT 95
[2017-12-13 07:16] VITALS: BP 96/58; PULSE 60; TEMP 36.5; O2SAT 95
[2017-12-13 07:40] LABS: CREATININE 0.82 mg/dl (0.60-1.20)
[2017-12-13 08:00] VITALS: O2SAT 95
[2017-12-13] MEDS: BOOST VANILLA PO SCH (08:00)
[2017-12-13] MEDS: ARIPIprazole TAB 10 MG TAB PO SCH (08:13)
[2017-12-13] MEDS: CEROVITE ADV FORMULA TAB PO SCH (08:13)
[2017-12-13] MEDS: TOPIRAMATE 50 MG TAB PO SCH (08:13)
[2017-12-13] MEDS: VENLAFAXINE HCL XR 75 MG CAPXR PO SCH (08:13)
[2017-12-13] MEDS: BACLOFEN 10 MG TAB PO PRN (08:13)
[2017-12-13] MEDS: ENOXAPARIN 40 MG/0.4 ML SYR SQ SCH (08:15)
[2017-12-13] MEDS: ONDANSETRON INJ 2 MG/ML 2 ML VIAL IV PRN (08:18)
[2017-12-13] MEDS: ACETAMINOPHEN 325 MG TAB PO PRN (08:18)
[2017-12-13 08:26] VITALS: BP_SYST 115; BP_SYST 96; BP_SYST 98; BP_DIAS 50; BP_DIAS 59; BP_DIAS 66; PULSE 60; TEMP 36.8; O2SAT 95
[2017-12-13] MEDS ORDERED: MIDODRINE 2.5 MG TAB PO ONE (08:45)
[2017-12-13] MEDS: BuPROPion SR 100 MG TABCR PO SCH (09:29)
[2017-12-13 11:15] VITALS: BP 105/63; PULSE 59; TEMP 36.8; O2SAT 96
[2017-12-13] MEDS ORDERED: TOPI25TA99 PO (11:39)
[2017-12-13] MEDS ORDERED: PRMT25 PO (11:39)
--- NOTE | 2017-12-13 11:53 | Progress Note ---
Internal Med Progress Note Date of Service: Dec 13, 2017. Provider Documentation: Subjective Patient feels better today Physical Exam General Appearance: no apparent distress Respiratory/Chest: chest non-tender, lungs clear, normal breath sounds, no respiratory distress, no accessory muscle use Cardiovascular: regular rate, rhythm, no edema, no murmur Extremities: normal range of motion, non-tender, normal inspection, no pedal edema, no calf tenderness Neurologic/Psychiatric: no motor/sensory deficits, alert, normal mood/affect ASSESSMENT & PLAN: Hospital Course and Instructions This is a 62 year old female with a past medical history of recurrent, complicated migraines, bipolar disorder, hypothyroidism, hx. of gastric bypass, mood disorder, PTSD, hx. of bradycardia s/p permanent pacemaker, postural hypotension - presents with worsening lower extremity swelling. Lower Extremity Edema no DVT echo performed, normal LVEF, no diastolic dysfunction noted edema likely from previous Florinef use, edema improved after Lasix and compression stocking. No Lasix to be prescribed on discharge Postural Hypotension symptoms resolving and patient to be discharged with midodrine. Patient should follow with primary care doctor for follow up blood pressure and whether midrodribne should be continued or stopped. Avoid Florinef Migraines vs cluster headache vs tension headache - Topamax was increased to 50mg BID by Dr. Gwyn Segal of [facility] neurology on this admission and patient to be discharged with this medication prescription. Neurology service advised to avoid overuse of Tylenol as this medication is a known trigger for analgesic rebound headache/medication overuse headache and that if patient's headaches persist she may want to reestablish with the Pain Clinic for Botox or follow with Dr. Gwyn Segal Stable right internal carotid aneurysm CTA neck on 12/12/17: 1. No evidence of incidentally significant carotid or vertebral artery stenosis. No evidence of dissection. 2. Stable 3 mm aneurysm of the right internal carotid artery at the level of the anterior clinoid. 3. Pulmonary emphysema Subclinical Hypothyroidism - TSH elevated, Free T4 normal - should have repeat TSH in 4-6 weeks by primary acre doctor ; if TSH still elevated and blood pressure still remains an issue, should get thyroid antibodies and can likely trial Synthroid has Pacemaker Bipolar Disorder/Mood Disorder: continue home medications Upcoming appointments 12/19/2017 10:30 AM Sagrario Blankenship DO [facility] 12/26/2017 4:[address] MD Urology, [facility] Vital Signs: Date Time Temp Pulse Resp B/P (MAP) Pulse Ox O2 Delivery O2 Flow Rate FiO2 12/13/17 11:15 36.8 59 18 105/63 (77) 96 Room Air 12/13/17 10:29 36.8 59 18 96 Room Air 12/13/17 08:26 36.8 60 16 98/50 (66) 95 Room Air 96/59 (71) 115/66 (82) 12/13/17 08:00 95 Room Air 12/13/17 07:16 36.5 60 16 96/58 (71) 95 Room Air 12/13/17 00:00 Room Air 12/12/17 23:44 36.6 66 16 93/50 (64) 95 Room Air 12/12/17 16:12 36.5 76 18 112/67 (82) 97 Room Air 12/12/17 16:00 Room Air Lab Results: Results Past 24 Hours Test 12/13/17 06:47 Range/Units Creatinine 0.82 0.60-1.20 mg/dl Est Creatinine Clear Calc Drug Dose 88.6 ml/min Estimated GFR () 90.1 Estimated GFR (Non- 77.8
--- NOTE | 2017-12-13 11:58 | Discharge Instructions ---
Discharge Instructions Date of Service Dec 13, 2017. Admission Reason for Admission: Fluid Overload Discharge Discharge Diagnosis / Problem: Lower extremity edema, postural hypotension, headache, right IC aneurysm Discharge Goals Goal(s): Decrease discomfort, Improve function Activity Recommendations Activity Limitations: per Instructions/Follow-up section Shower/Bathe: no limitations . Instructions / Follow-Up Instructions / Follow-Up Hospital Course and Instructions This is a 62 year old female with a past medical history of recurrent, complicated migraines, bipolar disorder, hypothyroidism, hx. of gastric bypass, mood disorder, PTSD, hx. of bradycardia s/p permanent pacemaker, postural hypotension - presents with worsening lower extremity swelling. Lower Extremity Edema no DVT echo performed, normal LVEF, no diastolic dysfunction noted edema likely from previous Florinef use, edema improved after Lasix and compression stocking. No Lasix to be prescribed on discharge Postural Hypotension symptoms resolving and patient to be discharged with midodrine. Patient should follow with primary care doctor for follow up blood pressure and whether midrodribne should be continued or stopped. Avoid Florinef Migraines vs cluster headache vs tension headache - Topamax was increased to 50mg BID by Dr. Gwyn Segal of [facility] neurology on this admission and patient to be discharged with this medication prescription. Neurology service advised to avoid overuse of Tylenol as this medication is a known trigger for analgesic rebound headache/medication overuse headache and that if patient's headaches persist she may want to reestablish with the Pain Clinic for Botox or follow with Dr. Gwyn Segal Stable right internal carotid aneurysm CTA neck on 12/12/17: 1. No evidence of incidentally significant carotid or vertebral artery stenosis. No evidence of dissection. 2. Stable 3 mm aneurysm of the right internal carotid artery at the level of the anterior clinoid. 3. Pulmonary emphysema Subclinical Hypothyroidism - TSH elevated, Free T4 normal - should have repeat TSH in 4-6 weeks by primary acre doctor ; if TSH still elevated and blood pressure still remains an issue, should get thyroid antibodies and can likely trial Synthroid has Pacemaker Bipolar Disorder/Mood Disorder: continue home medications Upcoming appointments 12/19/2017 10:30 AM Sagrario Blankenship DO Family Practice [facility] 12/26/2017 4:[address] MD Urology, [facility] Current Hospital Diet Patient's current hospital diet: Regular Diet Discharge Diet Recommended Diet: Regular Diet Pending Studies Studies pending at discharge: no Laboratory Results 12/12/17 07:39 12/12/17 07:39 12/13/17 06:47 Test 12/10/17 01:19 12/10/17 07:18 12/10/17 09:30 12/11/17 07:51 Immature Granulocyte % (Auto) 0.0 % White Blood Count 2.85 K/uL (4.8-10.8) Red Blood Count 3.51 M/uL (4.2-5.4) Hemoglobin 10.4 g/dL (12.0-16.0) Hematocrit 31.4 % (37-47) Mean Corpuscular Volume 89.5 fL (80-100) Mean Corpuscular Hemoglobin 29.6 pg (25-34) Mean Corpuscular Hemoglobin Concent 33.1 g/dl (32-36) Platelet Count 122 K/uL (130-400) Mean Platelet Volume 9.2 fL (7.4-10.4) Neutrophils (%) (Auto) 50.5 % Lymphocytes (%) (Auto) 37.2 % Monocytes (%) (Auto) 8.8 % Eosinophils (%) (Auto) 2.8 % Basophils (%) (Auto) 0.7 % Neutrophils # (Auto) 1.44 K/uL (1.4-6.5) Lymphocytes # (Auto) 1.06 K/uL (1.2-3.4) Monocytes # (Auto) 0.25 K/uL (0.11-0.59) Eosinophils # (Auto) 0.08 K/uL (0-0.5) Basophils # (Auto) 0.02 K/uL (0-0.2) Immature Granulocyte # (Auto) 0.00 K/uL (0.00-0.02) Total Bilirubin 0.5 mg/dl (0.2-1) Direct Bilirubin 0.1 mg/dl (0-0.2) Aspartate Amino Transf (AST/SGOT) 17 U/L (15-37) Alanine Aminotransferase (ALT/SGPT) 17 U/L (12-78) Alkaline Phosphatase 78 U/L (45-117) Total Creatine Kinase 46 U/L (26-192) Creatine Kinase MB 0.6 ng/ml (0.5-3.6) Creatine Kinase MB Ratio 1.3 (0-3.0) Troponin I < 0.015 ng/ml (0-0.045) Pro-B-Type Natriuretic Peptide 176 pg/ml (0-900) Total Protein 6.7 gm/dl (6.4-8.2) Albumin 3.2 gm/dl (3.4-5.0) Thyroid Stimulating Hormone (TSH) 7.360 uIu/ml (0.300-4.500) Free Thyroxine 1.10 ng/dl (0.80-1.60) Hepatitis C Antibody Screen NEG (NEG) Giardia Antigen NOT DETECTED (NOT DETECTED) Phosphorus Level 4.4 mg/dl (2.5-4.9) Magnesium Level 2.2 mg/dl (1.8-2.4) Test 12/12/17 07:39 12/13/17 06:47 Red Blood Count 3.79 M/uL (4.2-5.4) Mean Corpuscular Volume 90.0 fL (80-100) Mean Corpuscular Hemoglobin 29.8 pg (25-34) Mean Corpuscular Hemoglobin Concent 33.1 g/dl (32-36) RDW Standard Deviation 44.6 fL (36.4-46.3) RDW Coefficient of Variation 13.6 % (11.5-14.5) Mean Platelet Volume 9.3 fL (7.4-10.4) Anion Gap 4.0 mmol/L (3-11) BUN/Creatinine Ratio 25.5 (10-20) Calcium Level 8.2 mg/dl (8.5-10.1) Est Creatinine Clear Calc Drug Dose 88.6 ml/min Estimated GFR () 90.1 Estimated GFR (Non- 77.8 Date/Time Source Procedure Growth Status 12/10/17 09:30 Stool C.difficile Toxin B Gene (PCR) - Final No C. difficile toxin B gene detected Complete Medical Emergencies . Who to Call and When: Medical Emergencies: If at any time you feel your situation is an emergency, please call 911 immediately. . Non-Emergent Contact Non-Emergency issues call your: Primary Care Provider Call Non-Emergent contact if: you have any medication questions . . "Provider Documentation" section prepared by Yayo Lloyd. .
[2017-12-13] MEDS ORDERED: MIDODRINE 2.5 MG TAB PO SCH (12:00)
--- NOTE | 2017-12-13 12:00 | Discharge Summary ---
Discharge Summary Date of Service Dec 13, 2017. Discharge Summary Admission Date: Dec 10, 2017 at 03:56 Discharge Date: Dec 13, 2017 Discharge Disposition: Home Principal Diagnosis: Lower Extremity Edema no DVT echo performed, normal LVEF, no diastolic dysfunction noted edema likely from previous Florinef use Postural Hypotension Migraines vs cluster headache vs tension headache Stable right internal carotid aneurysm Secondary Diagnoses/Problems: Subclinical Hypothyroidism has Pacemaker Bipolar Disorder/Mood Disorder: continue home medications Medication Reconciliation New Medications: Midodrine (Midodrine HCl) 2.5 Mg Tab 2.5 MG PO TID@08,12,17 for 10 Days, #30 TAB Continued Medications: Albuterol Hfa (Ventolin Hfa) 200 Puffs/98932 Mcg Aers 2 PUFFS INH Q4H PRN for SOB/Wheezing, INHALER Aripiprazole (Abilify) 20 Mg Tab 20 MG PO DAILY, TAB Baclofen (Lioresal) 10 Mg Tab 10 MG PO BID PRN for Muscle Spasm, TAB Bupropion (Wellbutrin Sr) 100 Mg Ertab 100 MG PO DAILY, TAB Hydroxyzine Pamoate (Vistaril) 25 Mg Cap 25 MG PO HS, CAP Melatonin (Melatonin) 5 Mg Tab 10 MG PO HS Topiramate (Topamax ) 25 Mg Tab 25 MG PO BID for 30 Days, #60 TAB (This prescription has been renewed) Trazodone Hcl (Trazodone) 100 Mg Tab 150 MG PO HS, TAB Venlafaxine Hcl (Venlafaxine Hcl Er) 75 Mg Tab 75 MG PO DAILY Admission Information HPI (per Admitting provider): Patient is a 62-year-old female with past medical history of hypothyroidism, symptomatic bradycardia status post pacemaker, lumbago, bipolar disorder, depression, history of bariatric surgery, PTSD, GERD, cluster headaches, Hypotension, right internal carotid artery aneurysm and other problems presents with history of worsening bilateral lower extremity edema and weight gain since 2 weeks. Patient was previously on Florinef for orthostatic hypotension. Patient was thought to develop significant volume overload secondary to Florinef and was discontinued by her suspender maker on 12/06/2017. Patient was initially thought to be started on Lasix but given the history of sulfa allergy patient was advised to use compression stockings. Patient states she gained at least 20 pounds in 2-1/2 weeks. She has been having significant bilateral lower extremity swelling associated with pain causing difficulty with bearing weight and ambulation. Patient also reports having worsening generalized headache which is constant mainly in the frontal region since 1 month. She admits to having a fall 3 weeks ago which resulted in loss of consciousness for about a couple of seconds and since then she has been having worsening headaches. Also reports chronic blurry vision which seemed to have worsened since the fall as per patient. She has history of cluster headaches. Her CT head showed no acute process on preliminary reading. Also had Botox injection in the past by her neurologist . Also reports having loose watery diarrhea since 2-3 days. Denies any blood in the stools. Also denies nausea, vomiting, abdominal pain. Denies any history of chest pain, SOB, fever, chills,dysuria, hematuria, recent travel, sick contact, recent antibiotic use. Physical Exam (per Admitting): General Appearance: WD/WN, no apparent distress Head: normocephalic, atraumatic Eyes: normal inspection, PERRL, EOMI, sclerae normal ENT: normal ENT inspection, hearing grossly normal Neck: supple, trachea midline Respiratory/Chest: chest non-tender, lungs clear, normal breath sounds, no respiratory distress, no accessory muscle use Cardiovascular: regular rate, rhythm, no murmur, + pertinent finding ( Bilateral nonpitting lower extremity edema) Abdomen/GI: normal bowel sounds, non tender, soft Back: normal inspection Extremities/Musculoskelatal: normal inspection, + pedal edema 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 of gastric bypass, mood disorder, PTSD, hx. of bradycardia s/p permanent pacemaker, postural hypotension - presents with worsening lower extremity swelling. Lower Extremity Edema no DVT echo performed, normal LVEF, no diastolic dysfunction noted edema likely from previous Florinef use, edema improved after Lasix and compression stocking. No Lasix to be prescribed on discharge Postural Hypotension symptoms resolving and patient to be discharged with midodrine. Patient should follow with primary care doctor for follow up blood pressure and whether midrodribne should be continued or stopped. Avoid Florinef Migraines vs cluster headache vs tension headache - Topamax was increased to 50mg BID by Dr. Gwyn Segal of [facility] neurology on this admission and patient to be discharged with this medication prescription. Neurology service advised to avoid overuse of Tylenol as this medication is a known trigger for analgesic rebound headache/medication overuse headache and that if patient's headaches persist she may want to reestablish with the Pain Clinic for Botox or follow with Dr. Gwyn Segal Stable right internal carotid aneurysm CTA neck on 12/12/17: 1. No evidence of incidentally significant carotid or vertebral artery stenosis. No evidence of dissection. 2. Stable 3 mm aneurysm of the right internal carotid artery at the level of the anterior clinoid. 3. Pulmonary emphysema Subclinical Hypothyroidism - TSH elevated, Free T4 normal - should have repeat TSH in 4-6 weeks by primary acre doctor ; if TSH still elevated and blood pressure still remains an issue, should get thyroid antibodies and can likely trial Synthroid has Pacemaker Bipolar Disorder/Mood Disorder: continue home medications Upcoming appointments 12/19/2017 10:30 AM Sagrario Blankenship DO Family Practice [facility] 12/26/2017 4:[address] MD Urology, [facility] Total time spent on discharge = 40 minutes This includes examination of the patient, discharge planning, medication reconciliation, and communication with other providers. Discharge Instructions see above
== END 2017-12-13 13:19 | disposition home health service (06) | DRG 948 ==
LOC: C.EDB 00:26 → C.MS2W 03:56 → ENRESERV 04:16
PROVIDERS: ADMIT Internal Medicine; ATTEND Hospitalist
DX: R60.0 Localized edema (principal); T38.0X5A Adverse effect of glucocorticoids and synthetic analogues, initial encounter; H53.8 Other visual disturbances; G43.909 Migraine, unspecified, not intractable, without status migrainosus; G44.40 Drug-induced headache, not elsewhere classified, not intractable; T39.1X5A Adverse effect of 4-Aminophenol derivatives, initial encounter; G44.009 Cluster headache syndrome, unspecified, not intractable; G44.209 Tension-type headache, unspecified, not intractable; W19.XXXA Unspecified fall, initial encounter; I95.1 Orthostatic hypotension; R42 Dizziness and giddiness; R19.7 Diarrhea, unspecified; I67.1 Cerebral aneurysm, nonruptured; E02 Subclinical iodine-deficiency hypothyroidism; F31.9 Bipolar disorder, unspecified; F43.10 Post-traumatic stress disorder, unspecified; F44.9 Dissociative and conversion disorder, unspecified; Z95.0 Presence of cardiac pacemaker; Z98.84 Bariatric surgery status; Z87.891 Personal history of nicotine dependence; Z79.899 Other long term (current) drug therapy; Z88.2 Allergy status to sulfonamides; Z88.6 Allergy status to analgesic agent

== ENCOUNTER 2018-04-02 15:51 | Observation (INO) | payer OTHER ==
[~2018-04-02] VITALS: Ht 180.3 cm; Wt 92.6 kg
[~2018-04-02 15:51] MED LIST changes: +ARIP1TAB17 PO; -ARIP20TA4 PO; +ATR25 PO; -BACL10TA PO; +CLC100 PO; +DSY/150 PO; +DTRSR/10 PO; +EFFSR150 PO; +EFFSR75 PO; +FLR/1 PO; -FLUD0.1T10 PO; -HYDR25CA PO; +LRS10 PO; +LVNIS40 SC; -MIDO2.5T PO; +MIDO5TAB PO; +OXYC-57 PO; +PANT40TA PO; +RANI150T3 PO; -TOPI25TA99 PO; +TPM25 PO; -TRAZ100T29 PO; +ULT50X PO; -VENL-273 PO
--- NOTE | 2018-04-02 16:16 | EMERGENCY ROOM VISIT NOTE ---
History Report prepared by Melani: Minor Hanley Under the Supervision of: Dr. Mike Brasher M.D. First contact with patient: 16:10 Chief Complaint: ALTERED MENTAL STATUS Stated Complaint: OVERDOSE, AMS History of Present Illness The patient is a 63 year old female who presents to the Emergency Room with an altered mental status that began today. Per the nursing staff, the patient lives alone in an apartment where is she checked on twice per week by Home Health. The patient reports that her friend called the ambulance as her friend thought that she was altered. The nursing staff also reported that the patient has a fresh cast on her lower left extremity from March 26 and that she had a pacemaker inserted on March 06. The nurse also reports that the patient is weak but that she has been afebrile. Per nursing staff, EMS originally thought that the patient overdosed but now appears that the patient took her medications as appropriate. The nursing staff also stated that she is not taking her Affixer. Per nursing staff, EMS reported that her glucose level was in the 120s. HPI limited due to altered mental status. Source of History: patient, nursing staff History Limited By: AMS Onset: today Position: other (generalized) Quality: other (altered mental status) Associated Symptoms: + weakness, No fevers Review of Systems Limited ROS secondary to altered mental status. Past Medical & Surgical Medical Problems: (1) Altered mental status (2) Anxiety (3) Bipolar disorder (4) Chronic back pain (5) Chronic osteoarthritis (6) Depression (7) Dissociative disorder (8) GERD (gastroesophageal reflux disease) (9) History of Clostridium difficile (10) History of orthostatic hypotension (11) History of pacemaker (12) History of syncope (13) Hypothyroidism (14) Neuropathy (15) PTSD (post-traumatic stress disorder) (16) Right internal carotid artery aneurysm (17) Syncope Surgical Problems: (1) H/O gastric bypass (2) History of cholecystectomy (3) History of hysterectomy Family History Not obtainable due to adoption Social History Alcohol Use: none Drug Use: none Marital Status: Housing Status: lives alone Occupation Status: disabled Current/Historical Medications Scheduled Aripiprazole (Aripiprazole), 20 MG PO DAILY Aspirin (Aspirin Ec), 81 MG PO BID Bupropion (Wellbutrin Sr), 100 MG PO DAILY Hydroxyzine HCl (Hydroxyzine HCl), 25 MG PO AMHS Levothyroxine Sodium (Levothyroxine Sodium), 25 MG PO QAM Midodrine Hcl (Midodrine Hcl), 5 MG PO TID Oxybutynin Chloride (Oxybutynin Chloride ER), 10 MG PO DAILY Topiramate (Topiramate), 25 MG PO BID Trazodone HCl (Trazodone HCl), 225 MG PO HS Venlafaxine Hcl (Effexor Extended Rel), 225 MG PO DAILY Venlafaxine Hcl (Effexor Extended Rel), 225 MG PO DAILY Scheduled PRN Acetaminophen (Tylenol), 500-1,000 MG PO DIRECTED PRN for Pain or Fever Baclofen (Baclofen), 10 MG PO BID PRN for Muscle Spasm Melatonin (Kp Melatonin), 3 MG PO HS PRN for Sleep Melatonin (Melatonin), 10 MG PO HS PRN for Sleep Oxycodone/Acetaminophen 5MG/325MG (Percocet 5MG/325MG), 1 TABLET PO Q4H PRN for Pain Tramadol (Ultram), 50 MG PO Q6H PRN for Pain Allergies Coded Allergies: Aspirin (Verified Adverse Reaction, Unknown, NOT AN ALLERGY, 04/02/18) PT HAD GASTRIC BYPASS AND WAS TOLD "TO AVOID NSAIDS" Ibuprofen (Verified Adverse Reaction, Unknown, contraindicated d/t gastric bypass, 04/02/18) NSAIDs (Verified Adverse Reaction, Unknown, NOT AN ALLERGY, 04/02/18) PT HAD GASTRIC BYPASS AND WAS TOLD "TO AVOID NSAIDS." NOT AN ALLERGY Physical Exam Vital Signs Date Time Temp Pulse Resp B/P (MAP) Pulse Ox O2 Delivery O2 Flow Rate FiO2 04/02/18 20:32 74 15 97 04/02/18 20:31 146/66 04/02/18 20:27 72 12 98 04/02/18 20:04 72 22 118/58 98 Room Air 04/02/18 18:07 75 15 122/57 96 Room Air 04/02/18 16:43 75 04/02/18 16:30 36.8 82 16 114/53 97 Room Air 04/02/18 16:17 96 Nasal Cannula 04/02/18 16:16 80 15 106/56 96 Room Air Physical Exam GENERAL: Awake, alert, chronically ill - appearing, fatigued, in no acute distress HENT: Normocephalic, atraumatic. Oropharynx unremarkable. Dry cracked mucous membranes. EYES: Normal conjunctiva. Sclera non-icteric. NECK: Supple. No nuchal rigidity. FROM. No JVD. RESPIRATORY: Diminished breath sounds at the bases otherwise clear CARDIAC: Regular rate, normal rhythm. Extremities warm and well perfused. Pulses equal. ABDOMEN: Soft, non-distended. No tenderness to palpation. No rebound or guarding. No masses. RECTAL: Deferred. MUSCULOSKELETAL: Chest examination reveals no tenderness. Pacemaker incision site is clean and intact with no erythema, fluctuance, or induration. The back is symmetrical on inspection without obvious abnormality. There is no CVA tenderness to palpation. No joint edema. LOWER EXTREMITIES: Calves are equal size bilaterally and non-tender. No edema. No discoloration. NEURO: Awake and oriented x2. Perseverates on being 1955 her year. Identifies Royce as the president. Moving all extremities equally. No gross motor or sensory deficits. SKIN: No rash or jaundice noted. Medical Decision & Procedures ER Provider Diagnostic Interpretation: Radiology results as stated below per my review and radiologist interpretation: CHEST ONE VIEW PORTABLE CLINICAL HISTORY: 63 years-old Female presenting with Evaluate Fever/Sepsis. TECHNIQUE: Portable upright AP view of the chest was obtained. COMPARISON: 03/10/2018. FINDINGS: Left subclavian pacer with leads to the right atrium and right ventricular apex. Atherosclerosis of aortic arch. Cardiac silhouette top normal in size. Heterogeneity of lung parenchyma with mild hyperinflation suggested. Minimal bibasilar opacities similar to prior exam. No new focal opacity. No large effusion or pneumothorax. Osteopenia may be present. Cholecystectomy clips noted. IMPRESSION: 1. Minimal basilar opacities likely atelectasis or scarring similar to prior. No new focal infiltrate to suggest pneumonia 2. Findings may suggest underlying emphysema. Electronically signed by: Son Guerra M.D. 04/02/2018 5:54 PM Dictated Date/Time: 04/02/2018 5:52 PM HEAD WITHOUT CONTRAST (CT) CLINICAL HISTORY: 63 years-old Female presenting with Altered mental status. TECHNIQUE: Multidetector CT imaging of the head was performed without the use of intravenous contrast. IV contrast: None. A dose lowering technique was used consistent with the principles of ALARA (as low as reasonably achievable). COMPARISON: 03/10/2018. CT DOSE (mGy.cm): The estimated cumulative dose is 537.48 mGy.cm. FINDINGS: Environmental Maintenance Worker topogram: The patient is edentulous. Ventricles and sulci normal in size. Minimal focal periventricular white matter hypoattenuation, nonspecific but likely indicative of chronic small vessel ischemic change. This is similar to prior exam. No mass effect or midline shift. No hemorrhage or acute territorial infarct. No extra-axial fluid collection. Paranasal sinuses and mastoid air cells clear. Calvarium intact. IMPRESSION: 1. No acute intracranial abnormality. Electronically signed by: Son Guerra M.D. 04/02/2018 5:28 PM Dictated Date/Time: 04/02/2018 5:25 PM Laboratory Results 04/02/18 16:35 Red Blood Count 3.91, Mean Corpuscular Volume 89.8, Mean Corpuscular Hemoglobin 28.6, Mean Corpuscular Hemoglobin Concent 31.9, Mean Platelet Volume 9.8, Neutrophils (%) (Auto) 74.7, Lymphocytes (%) (Auto) 13.7, Monocytes (%) (Auto) 9.0, Eosinophils (%) (Auto) 2.0, Basophils (%) (Auto) 0.4, Neutrophils # (Auto) 4.05, Lymphocytes # (Auto) 0.74, Monocytes # (Auto) 0.49, Eosinophils # (Auto) 0.11, Basophils # (Auto) 0.02 04/02/18 16:35 Test 04/02/18 16:35 04/02/18 17:38 04/02/18 17:42 04/02/18 18:20 White Blood Count 5.42 K/uL (4.8-10.8) Red Blood Count 3.91 M/uL (4.2-5.4) Hemoglobin 11.2 g/dL (12.0-16.0) Hematocrit 35.1 % (37-47) Mean Corpuscular Volume 89.8 fL (80-100) Mean Corpuscular Hemoglobin 28.6 pg (25-34) Mean Corpuscular Hemoglobin Concent 31.9 g/dl (32-36) Platelet Count 144 K/uL (130-400) Mean Platelet Volume 9.8 fL (7.4-10.4) Neutrophils (%) (Auto) 74.7 % Lymphocytes (%) (Auto) 13.7 % Monocytes (%) (Auto) 9.0 % Eosinophils (%) (Auto) 2.0 % Basophils (%) (Auto) 0.4 % Neutrophils # (Auto) 4.05 K/uL (1.4-6.5) Lymphocytes # (Auto) 0.74 K/uL (1.2-3.4) Monocytes # (Auto) 0.49 K/uL (0.11-0.59) Eosinophils # (Auto) 0.11 K/uL (0-0.5) Basophils # (Auto) 0.02 K/uL (0-0.2) RDW Standard Deviation 45.8 fL (36.4-46.3) RDW Coefficient of Variation 14.1 % (11.5-14.5) Immature Granulocyte % (Auto) 0.2 % Immature Granulocyte # (Auto) 0.01 K/uL (0.00-0.02) Anion Gap 5.0 mmol/L (3-11) Est Creatinine Clear Calc Drug Dose 69.4 ml/min Estimated GFR () 65.6 Estimated GFR (Non- 56.6 BUN/Creatinine Ratio 13.8 (10-20) Calcium Level 8.7 mg/dl (8.5-10.1) Phosphorus Level 3.6 mg/dl (2.5-4.9) Magnesium Level 2.0 mg/dl (1.8-2.4) Total Bilirubin 0.6 mg/dl (0.2-1) Direct Bilirubin 0.2 mg/dl (0-0.2) Aspartate Amino Transf (AST/SGOT) 29 U/L (15-37) Alanine Aminotransferase (ALT/SGPT) 19 U/L (12-78) Alkaline Phosphatase 106 U/L (45-117) Troponin I < 0.015 ng/ml (0-0.045) Total Protein 7.5 gm/dl (6.4-8.2) Albumin 3.3 gm/dl (3.4-5.0) Lipase 48 U/L (73-393) Thyroid Stimulating Hormone (TSH) 1.470 uIu/ml (0.300-4.500) Venous Blood pH 7.36 (7.36-7.41) Venous Blood Partial Pressure CO2 51 mmHg (38.0-50.0) Venous Blood Partial Pressure O2 26 mmHg Venous Blood HCO3 28 mmol/L Venous Blood Oxygen Saturation < 60.0 % Venous Blood Base Excess 2.0 mEq/L Ammonia < 10.0 umol/L (11-32) Ethyl Alcohol mg/dL < 3.0 mg/dl (0-3) Activated Partial Thromboplast Time 20.6 SECONDS (21.0-31.0) Partial Thromboplastin Ratio 0.8 Urine Color YELLOW Urine Appearance CLEAR (CLEAR) Urine pH 6.5 (4.5-7.5) Urine Specific Evans 1.012 (1.000-1.030) Urine Protein NEG (NEG) Urine Glucose (UA) NEG (NEG) Urine Ketones NEG (NEG) Urine Occult Blood NEG (NEG) Urine Nitrite NEG (NEG) Urine Bilirubin NEG (NEG) Urine Urobilinogen NEG (NEG) Urine Leukocyte Esterase NEG (NEG) Urine Opiates Screen POS (NEG) Urine Methadone, Qualitative NEG (NEG) Urine Barbiturates NEG (NEG) Urine Phencyclidine (PCP) Level NEG (NEG) Ur Amphetamine/Methamphetamine NEG (NEG) MDMA (Ecstasy) Screen POS (NEG) Urine Benzodiazepines Screen NEG (NEG) Urine Cocaine Metabolite NEG (NEG) Urine Marijuana (THC) NEG (NEG) Laboratory results reviewed by me ECG Per My Interpretation Indication: altered mental status Rate (beats per minute): 78 Rhythm: normal sinus Findings: no acute ischemic change, other (normal axis) ED Course 162: The patient was evaluated in room B7. A complete history and physical exam was performed. 183: Upon reexamination, the patient was resting. I discussed the test results and treatment plan with the patient. The patient will be evaluated for further management by Janeth DE LEON. Medical Decision I reviewed the patient's past medical history, medications, and the nursing notes as described above. Differential diagnosis: Etiologies such as metabolic, infection, hypoglycemia, electrolyte abnormalities , cardiac sources, intracerebral event, toxicologic, neurologic, as well as others were entertained. The patient is a 63-year-old woman with a past medical history of bipolar disorder, depression, sinus bradycardia and orthostatic hypotension status post pacemaker placement, history of bariatric surgery, polypharmacy encephalopathy, dissociative disorder presents emergency department from home with altered mental status after being found by visiting nurse and neighbor per hpi. Patient symptoms occur in the setting of being admitted 03/10-7/18 after having a syncopal episode and fall with subsequent left ankle fracture status post open reduction internal fixation now with hard cast. On arrival the patient is chronically ill-appearing, afebrile stable vital signs. On exam, the patient is alert and oriented 2, she perseverates on it being 1954 year is able to say that Royce is the president. Otherwise, the patient is moving all extremities equally. EKG unremarkable. Chest x-ray negative. WBC within normal limits. Chemistry without evidence of acidosis. Troponin negative. UA negative for infection. CT head negative for acute findings. Given the patient 's encephalopathic symptoms in the setting of similar presentation due to polypharmacy likely same. Will admit the patient for further management. Case was discussed with Shanna Cary, who will evaluate the patient for admission.. Medication Reconcilliation Current Medication List: was personally reviewed by me Blood Pressure Screening Patient's blood pressure: Elevated blood pressure Referred to hospitalist Consults Time Called: [phone] Consulting Physician: Janeth DE LEON Returned Call: [phone] I discussed the patient with Janeth DE LEON who will evaluate the patient for further treatment. Impression Primary Impression: Encephalopathy Scribe Attestation The scribe's documentation has been prepared under my direction and personally reviewed by me in its entirety. I confirm that the note above accurately reflects all work, treatment, procedures, and medical decision making performed by me. Departure Information Dispostion Being Evaluated By Hospitalist Referrals Sagrario Blankenship D.O. (PCP) Patient Instructions My [facility]
[2018-04-02 17:05] LABS: BASO % 0.4 %; BASO ABS # 0.02 K/uL (0-0.2); EOS ABS # 0.11 K/uL (0-0.5); HEMATOCRIT 35.1 % (37-47); HEMOGLOBIN 11.2 g/dL (12.0-16.0); IG# 0.01 K/uL (0.00-0.02); LYMPH % 13.7 %; LYMPH ABS # 0.74 K/uL (1.2-3.4); MEAN CELL VOLUME 89.8 fL (80-100); MEAN CORPUSCULAR HEMOGLOBIN 28.6 pg (25-34); MEAN CORPUSCULAR HGB CONC 31.9 g/dl (32-36); MEAN PLATELET VOLUME 9.8 fL (7.4-10.4); MONO ABS # 0.49 K/uL (0.11-0.59); NEUT % 74.7 %; NEUT ABS # 4.05 K/uL (1.4-6.5); PLATELET COUNT 144 K/uL (130-400); RED CELL DISTRIBUTION WIDTH CV 14.1 % (11.5-14.5); RED CELL DISTRIBUTION WIDTH SD 45.8 fL (36.4-46.3); WHITE BLOOD COUNT 5.42 K/uL (4.8-10.8)
[2018-04-02 17:30] LABS: ALBUMIN 3.3 gm/dl (3.4-5.0); ALKALINE PHOSPHATASE 106 U/L (45-117); ALT/SGPT 19 U/L (12-78); AST/SGOT 29 U/L (15-37); BLOOD UREA NITROGEN 15 mg/dl (7-18); CALCIUM 8.7 mg/dl (8.5-10.1); CARBON DIOXIDE 28 mmol/L (21-32); CREATININE 1.06 mg/dl (0.60-1.20); GLUCOSE 104 mg/dl (70-99); LIPASE 48 U/L (73-393); PHOSPHORUS 3.6 mg/dl (2.5-4.9); POTASSIUM 3.3 mmol/L (3.5-5.1); SODIUM 141 mmol/L (136-145); TOTAL PROTEIN 7.5 gm/dl (6.4-8.2)
--- NOTE | 2018-04-02 17:30 | DIAGNOSTIC IMAGING REPORT ---
HEAD WITHOUT CONTRAST (CT) CLINICAL HISTORY: 63 years-old Female presenting with Altered mental status. TECHNIQUE: Multidetector CT imaging of the head was performed without the use of intravenous contrast. IV contrast: None. A dose lowering technique was used consistent with the principles of ALARA (as low as reasonably achievable). COMPARISON: 03/10/2018. CT DOSE (mGy.cm): The estimated cumulative dose is 537.48 mGy.cm. FINDINGS: Department Operations Manager topogram: The patient is edentulous. Ventricles and sulci normal in size. Minimal focal periventricular white matter hypoattenuation, nonspecific but likely indicative of chronic small vessel ischemic change. This is similar to prior exam. No mass effect or midline shift. No hemorrhage or acute territorial infarct. No extra-axial fluid collection. Paranasal sinuses and mastoid air cells clear. Calvarium intact. IMPRESSION: 1. No acute intracranial abnormality. Electronically signed by: Son Guerra M.D. 04/02/2018 5:28 PM Dictated Date/Time: 04/02/2018 5:25 PM
[2018-04-02] MEDS ORDERED: ASPI81TA28 PO (17:43)
[2018-04-02] MEDS ORDERED: MELA1TAB48 PO (17:43)
[2018-04-02] MEDS ORDERED: LEVO25TA5 PO (17:43)
[2018-04-02] MEDS ORDERED: MELA1TAB5 PO (17:43)
[2018-04-02] MEDS ORDERED: TRAM-10 PO (17:43)
[2018-04-02] MEDS ORDERED: OXYC-57 PO (17:43)
[2018-04-02] MEDS ORDERED: ACET-1256 PO (17:43)
--- NOTE | 2018-04-02 17:56 | DIAGNOSTIC IMAGING REPORT ---
CHEST ONE VIEW PORTABLE CLINICAL HISTORY: 63 years-old Female presenting with Evaluate Fever/Sepsis. TECHNIQUE: Portable upright AP view of the chest was obtained. COMPARISON: 03/10/2018. FINDINGS: Left subclavian pacer with leads to the right atrium and right ventricular apex. Atherosclerosis of aortic arch. Cardiac silhouette top normal in size. Heterogeneity of lung parenchyma with mild hyperinflation suggested. Minimal bibasilar opacities similar to prior exam. No new focal opacity. No large effusion or pneumothorax. Osteopenia may be present. Cholecystectomy clips noted. IMPRESSION: 1. Minimal basilar opacities likely atelectasis or scarring similar to prior. No new focal infiltrate to suggest pneumonia 2. Findings may suggest underlying emphysema. Electronically signed by: Son Guerra M.D. 04/02/2018 5:54 PM Dictated Date/Time: 04/02/2018 5:52 PM
[2018-04-02 18:08] LABS: PTT PATIENT 20.6 SECONDS (21.0-31.0)
[2018-04-02] MEDS ORDERED: POTASSIUM CHLORIDE 10 MEQ TABCR PO STA (20:00)
[2018-04-02] MEDS ORDERED: IV FLUIDS COMPLETED PRN (20:30)
[2018-04-02] MEDS ORDERED: PROCHLORPERAZINE INJ 5 MG in SYRINGE 4 ML IV PRN (20:45)
--- NOTE | 2018-04-02 22:40 | DIAGNOSTIC IMAGING REPORT ---
VENOUS DOPPLER LWR EXT BILA CLINICAL HISTORY: 63 years-old Female presenting with leg swelling. TECHNIQUE: Real-time grayscale and color and spectral Doppler ultrasound imaging of the veins of the bilateral lower extremities was performed. Compression and augmentation were also utilized. COMPARISON: 12/10/2017. FINDINGS: RIGHT: Common femoral vein: Patent. Greater saphenous vein: Patent. Deep femoral vein: Patent. Femoral vein: Patent. Popliteal vein: Patent. Calf veins: Limited visualization. LEFT: Common femoral vein: Patent. Greater saphenous vein: Patent. Deep femoral vein: Patent. Femoral vein: Patent. Popliteal vein: Patent. Calf veins: Limited visualization. Other: None. IMPRESSION: No evidence of deep venous thrombosis. Electronically signed by: Son Guerra M.D. 04/02/2018 10:39 PM Dictated Date/Time: 04/02/2018 10:37 PM
[2018-04-02 22:43] VITALS: BP 139/78; PULSE 87; TEMP 37.2; O2SAT 98
[2018-04-02] MEDS ORDERED: LACTATED RINGER'S 1000ML 1,000 ML IV ONE (22:45)
[2018-04-03 00:17] VITALS: BP 139/78; PULSE 87; TEMP 37.2; Ht 180.3 cm; Wt 92.6 kg
[2018-04-03] MEDS: ACETAMINOPHEN 325 MG TAB PO PRN ×3 (01:52→18:30)
--- NOTE | 2018-04-03 04:12 | HISTORY & PHYSICAL EXAMINATION ---
DATE OF ADMISSION: 04/02/2018 PRIMARY CARE PHYSICIAN: Dr. Blankenship. CHIEF COMPLAINT: Fell the other day as per patient, altered mental status as per records. HISTORY OF PRESENT ILLNESS: History obtained from the patient, patient's friend, and records. Patient is an unreliable historian secondary to disorientation. Medical history significant for mood disorder, chronic back pain, symptomatic bradycardia status post PPM, hx bariatric surgery, PTSD, right ICA aneurysm, orthostatic hypotension on Midodrine, past tobacco abuse. chronic anemia (Baseline hemoglobin ) Recent confinement February 2018 for postural hypotension with fall, left ankle fracture status post repair. Patient discharged to [facility]. Discharged home last Monday. Home health nurse alerted the patient's friend today that patient looked confused and weak. Home health nurse worried about medication overdose. Patient brought to Emergency Room. Patient denies chest pain, shortness of breath, belly pain. Legs are swollen according to her. States she had fallen at home a few days ago. MEDICAL HISTORY: As above. SURGICAL HISTORY: Gastric bypass, hysterectomy, pacemaker placement. HOME MEDICATIONS: Include aspirin, Tylenol, baclofen, Wellbutrin, melatonin, midodrine, Percocet, oxybutynin, Topamax, Ultram, trazodone, Effexor. ALLERGIES: TO ASPIRIN, IBUPROFEN, NSAIDS. FAMILY HISTORY: Could not be obtained due to adoption history as per records. . PERSONAL AND SOCIAL HISTORY: Past tobacco abuse. No EtOH intake. Lives alone. Closest family is daughter who lives in town.. REVIEW OF SYSTEMS: Cannot be reliably obtained. PHYSICAL EXAMINATION: VITAL SIGNS: Blood pressure noted to be 122/57, pulse rate 75, RR 15, temperature 36.8, sats 92 on room air. GENERAL: Noted to be disoriented, no respiratory distress. SKIN: Pallor, warm. HEENT: Bespectacled. [place] palpebral conjunctivae. No ptosis. Dry mucosa. NECK: Short neck, supple. CHEST: Clear to auscultation, no tenderness. HEART: RRR, no murmur. ABDOMEN: Some distention. Healed incisional scars. Nontender. EXTREMITIES: Bilateral lower extremity edema, no tenderness. No other gross deformities. NEUROLOGIC: Disoriented. No facial asymmetry. Gait and stance not assessed. LABORATORY DATA: Hemoglobin was noted to be 11.2, white cell 9, platelets noted to be 144. Sodium noted to be 141 potassium 3.3 BUN 50, creatinine 1, glucose was noted to be 104. Troponin 0.015. CT head, no acute pathology. Chest x-ray: Emphysema. Lower extremity Dopplers, no DVT. EKG as per my interpretation, rate 80, NSR, T-wave flattening inferior leads UA was negative WBC Urine tox positive for opiates, MDMA. ASSESSMENT: 1. Encephalopathy likely secondary to polypharmacy, clinical dehydration 2. Hypokalemia 3. mood disorder/anxiety DSO Unknown stability. 4. History of bariatric surgery 5. Chronic pain 6. chronic anemia hemoglobin better than baseline secondary to hemoconcentration 7. history of symptomatic bradycardia sp PPM 8. orthostatic hypotension, on Midodrine. 9. Past tobacco abuse PLAN: Observation GMF Hold home narcotics, neuro psychotropics until mentation at baseline. IVF Replace potassium PT, OT eval. Social service RE discharge planning DVT prophylaxis, Lovenox subQ. Full code. Patient's daughter requesting for updates from providers. Miss Christiana Fry thru [phone]. MTDD
[2018-04-03] MEDS: LEVOTHYROXINE 25 MCG TAB PO SCH (05:49)
[2018-04-03 06:23] LABS: BASO % 0.3 %; BASO ABS # 0.01 K/uL (0-0.2); EOS % 3.9 %; EOS ABS # 0.14 K/uL (0-0.5); HEMATOCRIT 34.7 % (37-47); HEMOGLOBIN 11.5 g/dL (12.0-16.0); LYMPH % 31.3 %; LYMPH ABS # 1.13 K/uL (1.2-3.4); MEAN CELL VOLUME 89.2 fL (80-100); MEAN CORPUSCULAR HEMOGLOBIN 29.6 pg (25-34); MEAN CORPUSCULAR HGB CONC 33.1 g/dl (32-36); MEAN PLATELET VOLUME 9.4 fL (7.4-10.4); MONO % 9.1 %; MONO ABS # 0.33 K/uL (0.11-0.59); NEUT % 55.4 %; PLATELET COUNT 141 K/uL (130-400); RED CELL DISTRIBUTION WIDTH CV 14.2 % (11.5-14.5); RED CELL DISTRIBUTION WIDTH SD 45.9 fL (36.4-46.3); WHITE BLOOD COUNT 3.61 K/uL (4.8-10.8)
[2018-04-03 07:09] LABS: CALCIUM 8.6 mg/dl (8.5-10.1); CREATININE 0.75 mg/dl (0.60-1.20); POTASSIUM 3.5 mmol/L (3.5-5.1)
[2018-04-03 07:32] VITALS: BP 116/73; PULSE 72; TEMP 37.2; O2SAT 97
[2018-04-03 08:00] VITALS: BP 123/72; O2SAT 97
[2018-04-03] MEDS: MIDODRINE 2.5 MG TAB PO SCH ×3 (08:04→18:26)
[2018-04-03] MEDS: ENOXAPARIN 40 MG/0.4 ML SYR SQ SCH (08:05)
[2018-04-03] MEDS: KETOROLAC TROMETHAMINE 15 MG/ML VIAL IV PRN ×3 (08:44→19:22)
[2018-04-03 15:02] VITALS: BP 107/70; PULSE 72; TEMP 37.1; O2SAT 100
--- NOTE | 2018-04-03 17:53 | Progress Note ---
Internal Med Progress Note Date of Service: Apr 03, 2018. Provider Documentation: SUBJECTIVE: The patient was seen and examined in medical floor She was admitted with the change in mental status likely secondary to narcotics She was in [facility] following fracture of left ankle and then she was home for the last 5-7 days Denies any complaints except pain Mentally clear during the examination OBJECTIVE: Vital Signs-as noted below Exam: General-no apparent distress Eyes-normal ENT-normal Neck-supple Lungs-clear to auscultate bilaterally Heart-regular, no murmur appreciated Abdomen-benign, soft, nontender Extremities-trace edema bilaterally, Left lower leg has a cast Neuro-alert,awake and oriented 3 Lab data as noted below. ASSESSMENT & PLAN: Encephalopathy Likely secondary to polypharmacy, clinical dehydration Hold any narcotics IVF Replace potassium PT, OT eval. Toradol for pain Physical therapy evaluation Recent Left Ankle Fracture S/P Repair and finished in patient Rehab PT/OT evaluation Mood disorder/anxiety DSO Unknown stability. Continue current medications Chronic pain We will try to decrease and taper off narcotics History of symptomatic bradycardia sp PPM Orthostatic hypotension, on Midodrine. Past tobacco abuse DVT prophylaxis, Lovenox subQ. Full code. Patient's daughter requesting for updates from providers. Miss Christiana Fry thru [phone]. DISPOSITION Awaited Vital Signs: Date Time Temp Pulse Resp B/P (MAP) Pulse Ox O2 Delivery O2 Flow Rate FiO2 04/03/18 15:02 37.1 72 18 107/70 (82) 100 Room Air 04/03/18 08:00 123/72 (89) 04/03/18 08:00 97 Room Air 04/03/18 07:32 37.2 72 18 116/73 (87) 97 Room Air 04/03/18 00:17 37.2 87 16 139/78 Room Air 04/02/18 22:43 37.2 87 16 139/78 (98) 98 Room Air 04/02/18 21:34 74 22 128/62 99 Room Air 04/02/18 20:32 74 15 97 04/02/18 20:31 146/66 04/02/18 20:27 72 12 98 04/02/18 20:04 72 22 118/58 98 Room Air 04/02/18 18:07 75 15 122/57 96 Room Air L Lab Results: Results Past 24 Hours Test 04/02/18 18:20 04/03/18 06:04 Range/Units Urine Color YELLOW Urine Appearance CLEAR CLEAR Urine pH 6.5 4.5-7.5 Urine Specific [place] 1.012 1.000-1.030 Urine Protein NEG NEG Urine Glucose (UA) NEG NEG Urine Ketones NEG NEG Urine Occult Blood NEG NEG Urine Nitrite NEG NEG Urine Bilirubin NEG NEG Urine Urobilinogen NEG NEG Urine Leukocyte Esterase NEG NEG Urine Opiates Screen POS NEG Urine Methadone, Qualitative NEG NEG Urine Barbiturates NEG NEG Urine Phencyclidine (PCP) Level NEG NEG Ur Amphetamine/Methamphetamine NEG NEG MDMA (Ecstasy) Screen POS NEG Urine Benzodiazepines Screen NEG NEG Urine Cocaine Metabolite NEG NEG Urine Marijuana (THC) NEG NEG White Blood Count 3.61 4.8-10.8 K/uL Red Blood Count 3.89 4.2-5.4 M/uL Hemoglobin 11.5 12.0-16.0 g/dL Hematocrit 34.7 37-47 % Mean Corpuscular Volume 89.2 80-100 fL Mean Corpuscular Hemoglobin 29.6 25-34 pg Mean Corpuscular Hemoglobin Concent 33.1 32-36 g/dl Platelet Count 141 130-400 K/uL Mean Platelet Volume 9.4 7.4-10.4 fL Neutrophils (%) (Auto) 55.4 % Lymphocytes (%) (Auto) 31.3 % Monocytes (%) (Auto) 9.1 % Eosinophils (%) (Auto) 3.9 % Basophils (%) (Auto) 0.3 % Neutrophils # (Auto) 2.00 1.4-6.5 K/uL Lymphocytes # (Auto) 1.13 1.2-3.4 K/uL Monocytes # (Auto) 0.33 0.11-0.59 K/uL Eosinophils # (Auto) 0.14 0-0.5 K/uL Basophils # (Auto) 0.01 0-0.2 K/uL RDW Standard Deviation 45.9 36.4-46.3 fL RDW Coefficient of Variation 14.2 11.5-14.5 % Immature Granulocyte % (Auto) 0.0 % Immature Granulocyte # (Auto) 0.00 0.00-0.02 K/uL Sodium Level 140 136-145 mmol/L Potassium Level 3.5 3.5-5.1 mmol/L Chloride Level 108 98-107 mmol/L Carbon Dioxide Level 25 21-32 mmol/L Anion Gap 7.0 3-11 mmol/L Blood Urea Nitrogen 12 7-18 mg/dl Creatinine 0.75 0.60-1.20 mg/dl Est Creatinine Clear Calc Drug Dose 98.9 ml/min Estimated GFR () 99.7 Estimated GFR (Non- 86.0 BUN/Creatinine Ratio 16.0 10-20 Random Glucose 92 70-99 mg/dl Calcium Level 8.6 8.5-10.1 mg/dl
[2018-04-03 18:25] VITALS: BP 104/68
[2018-04-03 23:22] VITALS: BP 122/80; PULSE 79; TEMP 36.7; O2SAT 99
[2018-04-03] MEDS ORDERED: ZOLPIDEM TARTRATE 5 MG TAB PO ONE (23:45)
[2018-04-04 00:02] VITALS: BP 145/84; PULSE 84; TEMP 36.7; O2SAT 90
[2018-04-04] MEDS: LEVOTHYROXINE 25 MCG TAB PO SCH (05:47)
[2018-04-04] MEDS: KETOROLAC TROMETHAMINE 15 MG/ML VIAL IV PRN (05:49)
[2018-04-04 07:18] VITALS: BP 130/77; PULSE 76; TEMP 36.9; O2SAT 98
[2018-04-04 08:00] VITALS: O2SAT 98
[2018-04-04] MEDS: ENOXAPARIN 40 MG/0.4 ML SYR SQ SCH (08:08)
[2018-04-04] MEDS: MIDODRINE 2.5 MG TAB PO SCH ×2 (08:08→13:40)
[2018-04-04] MEDS: ACETAMINOPHEN 325 MG TAB PO PRN (08:11)
[2018-04-04] MEDS ORDERED: TRAMADOL HCL 50 MG TAB PO ONE (09:34)
[2018-04-04] MEDS ORDERED: TRAMADOL HCL 50 MG TAB PO PRN (09:45)
--- NOTE | 2018-04-04 10:49 | Progress Note ---
Internal Med Progress Note Date of Service: Apr 04, 2018. Provider Documentation: SUBJECTIVE: The patient was seen and examined in medical floor She was admitted with the change in mental status likely secondary to narcotics She was in [facility] following fracture of left ankle and then she was home for the last 5-7 days Denies any complaints except pain Mentally clear during the examination 04/04: Complaints of pain left ankle after I left seeing her Was told that we are going to avoid or decrease use of narcotics She does not have any other symptoms OBJECTIVE: Vital Signs-as noted below Exam: General-no apparent distress Eyes-normal ENT-normal Neck-supple Lungs-clear to auscultate bilaterally Heart-regular, no murmur appreciated Abdomen-benign, soft, nontender Extremities-trace edema bilaterally, Left lower leg has a cast Neuro-alert,awake and oriented 3 Lab data as noted below. ASSESSMENT & PLAN: Encephalopathy Likely secondary to polypharmacy, clinical dehydration Hold any narcotics IVF Replace potassium PT, OT eval. Toradol for pain Discussed about the use of Antiinflammatory meds more and avoid Narcotics if possible Patient is agreeable to this Ultram as needed prescribed Recent Left Ankle Fracture S/P Repair and finished in patient Rehab PT/OT evaluation for disposition Mood disorder/anxiety DSO Unknown stability. Continue current medications Chronic pain We will try to decrease and taper off narcotics History of symptomatic bradycardia sp PPM Orthostatic hypotension, on Midodrine. Past tobacco abuse DVT prophylaxis, Lovenox subQ. Full code. Patient's daughter requesting for updates from providers. Miss Christiana Fry thru [phone]. DISPOSITION Likely to be discharged today Social service discharge planning Vital Signs: Date Time Temp Pulse Resp B/P (MAP) Pulse Ox O2 Delivery O2 Flow Rate FiO2 04/04/18 08:00 98 Nasal Cannula 04/04/18 07:18 36.9 76 16 130/77 (94) 98 04/04/18 00:02 36.7 84 18 145/84 (104) 90 Nasal Cannula 2.0 04/03/18 23:22 36.7 79 18 122/80 (94) 99 Room Air 04/03/18 20:00 Room Air 04/03/18 18:25 104/68 (80) 04/03/18 15:02 37.1 72 18 107/70 (82) 100 Room Air
--- NOTE | 2018-04-04 15:01 | Discharge Instructions ---
Discharge Instructions Date of Service Apr 04, 2018. Admission Reason for Admission: Altered Mental Status Discharge Discharge Diagnosis / Problem: Metabolic Encephalopathy-Improved to normality Discharge Goals Goal(s): Prevent Disease Progression Activity Recommendations Activity Limitations: per Instructions/Follow-up section (Continue PT/OT) . Instructions / Follow-Up Instructions / Follow-Up Dr Caren Blankenship on 04/10/18 at 10:45 AM Current Hospital Diet Patient's current hospital diet: Regular Diet Discharge Diet Recommended Diet: Regular Diet Pending Studies Studies pending at discharge: no Medical Emergencies . Who to Call and When: Medical Emergencies: If at any time you feel your situation is an emergency, please call 911 immediately. . Non-Emergent Contact Non-Emergency issues call your: Primary Care Provider . Past History Medical & Surgical History: (1) Altered mental status (2) Encephalopathy (3) Dissociative disorder (4) History of pacemaker (5) Chronic back pain (6) Depression (7) Hypothyroidism (8) PTSD (post-traumatic stress disorder) (9) Bipolar disorder (10) History of cholecystectomy (11) H/O gastric bypass (12) History of hysterectomy . "Provider Documentation" section prepared by Susan Pierce. .
[2018-04-04 15:26] VITALS: BP 130/77; PULSE 76; TEMP 36.9; O2SAT 98
[2018-04-04 15:30] VITALS: BP 158/80; PULSE 74; TEMP 36.7; O2SAT 99
--- NOTE | 2018-04-05 08:06 | Discharge Summary ---
Discharge Summary Date of Service Apr 05, 2018. Discharge Summary Admission Date: Apr 02, 2018 at 20:01 Discharge Date: Apr 04, 2018 Discharge Disposition: Home with services Principal Diagnosis: Metabolic Encephalopathy-Improved to normality Secondary Diagnoses/Problems: Please see H&P and Hospital Progress note Medication Reconciliation Continued Medications: Acetaminophen (Tylenol) 500 Mg Tab 500-1000 MG PO DIRECTED PRN for Pain or Fever, TAB Aripiprazole (Aripiprazole) 20 Mg Tab 20 MG PO DAILY Aspirin (Aspirin Ec) 81 Mg Tab 81 MG PO BID Baclofen (Baclofen) 10 Mg Tab 10 MG PO BID PRN for Muscle Spasm Bupropion (Wellbutrin Sr) 100 Mg Ertab 100 MG PO DAILY, TAB Hydroxyzine HCl (Hydroxyzine HCl) 25 Mg Tab 25 MG PO AMHS Levothyroxine Sodium (Levothyroxine Sodium) 25 Mcg Tab 25 MG PO QAM for 90 Days, TAB 3 Refills Melatonin (Kp Melatonin) 3 Mg Tab 3 MG PO HS PRN for Sleep for 30 Days, #30 TAB Melatonin (Melatonin) 10 Mg Tab 10 MG PO HS PRN for Sleep Midodrine Hcl (Midodrine Hcl) 5 Mg Tab 5 MG PO TID Oxybutynin Chloride (Oxybutynin Chloride ER) 10 Mg Tabcr 10 MG PO DAILY Oxycodone/Acetaminophen 5MG/325MG (Percocet 5MG/325MG) Tab 1 TABLET PO Q8H PRN for Pain, TAB PAIN Topiramate (Topiramate) 25 Mg Tab 25 MG PO BID Tramadol (Ultram) 50 Mg Tab 50 MG PO Q6H PRN for Pain, TAB Trazodone HCl (Trazodone HCl) 150 Mg Tab 225 MG PO HS TAKE 1 & 1/2 TABS. Venlafaxine Hcl (Effexor Extended Rel) 75 Mg Capcr 225 MG PO DAILY TAKE ONE 75 MG CAPSULE ALONG WITH ONE 150 MG CAPSULE TO EQUAL 225 MG DAILY DOSE Venlafaxine Hcl (Effexor Extended Rel) 150 Mg Capcr 225 MG PO DAILY TAKE ONE 150 MG CAPSULE ALONG WITH ONE 75 MG CAPSULE TO EQUAL 225 MG DAILY DOSE Admission Information HPI (per Admitting provider): DATE OF ADMISSION: 04/02/2018 PRIMARY CARE PHYSICIAN: Dr. Blankenship. CHIEF COMPLAINT: Fell the other day as per patient, altered mental status as per records. HISTORY OF PRESENT ILLNESS: History obtained from the patient, patient's friend, and records. Patient is an unreliable historian secondary to disorientation. Medical history significant for mood disorder, chronic back pain, symptomatic bradycardia status post PPM, hx bariatric surgery, PTSD, right ICA aneurysm, orthostatic hypotension on Midodrine, past tobacco abuse. chronic anemia (Baseline hemoglobin ) Recent confinement February 2018 for postural hypotension with fall, left ankle fracture status post repair. Patient discharged to [facility]. Discharged home last Monday. Home health nurse alerted the patient's friend today that patient looked confused and weak. Home health nurse worried about medication overdose. Patient brought to Emergency Room. Patient denies chest pain, shortness of breath, belly pain. Legs are swollen according to her. States she had fallen at home a few days ago. MEDICAL HISTORY: As above. SURGICAL HISTORY: Gastric bypass, hysterectomy, pacemaker placement. HOME MEDICATIONS: Include aspirin, Tylenol, baclofen, Wellbutrin, melatonin, midodrine, Percocet, oxybutynin, Topamax, Ultram, trazodone, Effexor. ALLERGIES: TO ASPIRIN, IBUPROFEN, NSAIDS. FAMILY HISTORY: Could not be obtained due to adoption history as per records. . PERSONAL AND SOCIAL HISTORY: Past tobacco abuse. No EtOH intake. Lives alone. Closest family is daughter who lives in town.. REVIEW OF SYSTEMS: Cannot be reliably obtained. PHYSICAL EXAMINATION: VITAL SIGNS: Blood pressure noted to be 122/57, pulse rate 75, RR 15, temperature 36.8, sats 92 on room air. GENERAL: Noted to be disoriented, no respiratory distress. SKIN: Pallor, warm. HEENT: Bespectacled. [place] palpebral conjunctivae. No ptosis. Dry mucosa. NECK: Short neck, supple. CHEST: Clear to auscultation, no tenderness. HEART: RRR, no murmur. ABDOMEN: Some distention. Healed incisional scars. Nontender. EXTREMITIES: Bilateral lower extremity edema, no tenderness. No other gross deformities. NEUROLOGIC: Disoriented. No facial asymmetry. Gait and stance not assessed. LABORATORY DATA: Hemoglobin was noted to be 11.2, white cell 9, platelets noted to be 144. Sodium noted to be 141 potassium 3.3 BUN 50, creatinine 1, glucose was noted to be 104. Troponin 0.015. CT head, no acute pathology. Chest x-ray: Emphysema. Lower extremity Dopplers, no DVT. EKG as per my interpretation, rate 80, NSR, T-wave flattening inferior leads UA was negative WBC Urine tox positive for opiates, MDMA. ASSESSMENT: 1. Encephalopathy likely secondary to polypharmacy, clinical dehydration 2. Hypokalemia 3. mood disorder/anxiety DSO Unknown stability. 4. History of bariatric surgery 5. Chronic pain 6. chronic anemia hemoglobin better than baseline secondary to hemoconcentration 7. history of symptomatic bradycardia sp PPM 8. orthostatic hypotension, on Midodrine. 9. Past tobacco abuse PLAN: Observation GMF Hold home narcotics, neuro psychotropics until mentation at baseline. IVF Replace potassium PT, OT eval. Social service RE discharge planning DVT prophylaxis, Lovenox subQ. Full code. Patient's daughter requesting for updates from providers. Miss Christiana Fry thru [phone]. Dictated: 04/03/18311 Transcribed: 04/03/18411 <Electronically signed by Chato Cruz M.D.> Signed: 04/03/18 1630 ES Chato Cruz M.D. Hospital Course Encephalopathy Likely secondary to polypharmacy, clinical dehydration Hold any narcotics IVF Replace potassium PT, OT eval. Toradol for pain Discussed about the use of Antiinflammatory meds more and avoid Narcotics if possible Patient is agreeable to this Ultram as needed prescribed Recent Left Ankle Fracture S/P Repair and finished in patient Rehab PT/OT evaluation for disposition Mood disorder/anxiety DSO Unknown stability. Continue current medications Chronic pain We will try to decrease and taper off narcotics History of symptomatic bradycardia sp PPM Orthostatic hypotension, on Midodrine. Past tobacco abuse DVT prophylaxis, Lovenox subQ. Full code. Patient's daughter requesting for updates from providers. Miss Christiana Fry thru [phone]. DISPOSITION Likely to be discharged today Social service discharge planning Total time spent on discharge = 35 minutes This includes examination of the patient, discharge planning, medication reconciliation, and communication with other providers. Discharge Instructions Date of Service Apr 04, 2018. Admission Reason for Admission: Altered Mental Status Discharge Discharge Diagnosis / Problem: Metabolic Encephalopathy-Improved to normality Discharge Goals Goal(s): Prevent Disease Progression Activity Recommendations Activity Limitations: per Instructions/Follow-up section (Continue PT/OT) . Instructions / Follow-Up Instructions / Follow-Up Dr Caren Blankenship on 04/10/18 at 10:45 AM Current Hospital Diet Patient's current hospital diet: Regular Diet Discharge Diet Recommended Diet: Regular Diet Pending Studies Studies pending at discharge: no Medical Emergencies . Who to Call and When: Medical Emergencies: If at any time you feel your situation is an emergency, please call 911 immediately. . Non-Emergent Contact Non-Emergency issues call your: Primary Care Provider . Past History Medical & Surgical History: (1) Altered mental status (2) Encephalopathy (3) Dissociative disorder (4) History of pacemaker (5) Chronic back pain (6) Depression (7) Hypothyroidism (8) PTSD (post-traumatic stress disorder) (9) Bipolar disorder (10) History of cholecystectomy (11) H/O gastric bypass (12) History of hysterectomy . "Provider Documentation" section prepared by Susan Pierce. . <Electronically signed by Susan Pierce M.D.> Signed: 04/04/18 2353 Additional Copies To Sagrario Blankenship D.O.
== END 2018-04-04 16:15 | disposition home health service (06) ==
LOC: EDBD 15:54 → C.EDB 15:54 → C.4E 20:01 → ENRESERV 20:22
PROVIDERS: ADMIT Internal Medicine; ATTEND Internal Medicine
DX: G93.41 Metabolic encephalopathy (principal); Z91.81 History of falling; F32.9 Major depressive disorder, single episode, unspecified; R00.1 Bradycardia, unspecified; G89.29 Other chronic pain; M54.9 Dorsalgia, unspecified; I95.1 Orthostatic hypotension; K21.9 Gastro-esophageal reflux disease without esophagitis; E03.9 Hypothyroidism, unspecified; Z95.0 Presence of cardiac pacemaker; F43.10 Post-traumatic stress disorder, unspecified; Z87.891 Personal history of nicotine dependence; Z79.82 Long term (current) use of aspirin; Z79.899 Other long term (current) drug therapy; Z88.6 Allergy status to analgesic agent

== ENCOUNTER 2018-11-23 16:16 | Observation (INO) ==
[2018-11-23 18:01] LABS: Basophils # (auto) 0.02 K/uL (0-0.2); Basophils % (auto) 0.4 %; Hematocrit (blood only) 39.3 % (37-47); Hemoglobin 12.8 g/dL (12.0-16.0); Immature Granulocytes # (auto) 0.01 K/uL (0.00-0.02); Immature Granulocytes % (auto) 0.2 %; Lymphocytes % (auto) 28.2 %; Mean Corpuscular Hgb Conc 32.6 g/dL (32-36); Mean Corpuscular Volume 89.3 fL (80-100); Mean Platelet Volume 9.6 fL (7.4-10.4); Monocytes # (auto) 0.38 K/uL (0.11-0.59); Monocytes % (auto) 7.6 %; Neutrophils # (auto) 3.06 K/uL (1.4-6.5); Neutrophils % (auto) 61.6 %; Platelet Count 137 K/uL (130-400); RDW Coefficient of Variation 13.4 % (11.5-14.5); RDW Standard Deviation 43.9 fL (36.4-46.3); White Blood Count 4.97 K/uL (4.8-10.8)
[2018-11-23 18:12] LABS: Albumin Level 3.8 gm/dl (3.4-5.0); BUN Creatinine Ratio 17.2 (10-20); Calcium 8.9 mg/dl (8.5-10.1); Creatinine Clr Calc Pharmacy 80.5 ml/min; Est GFR (African American) 89.5; Est GFR (Non-African American) 77.2
[2018-11-23 18:15] LABS: Albumin Globulin Ratio 1.1 (0.9-2); Bilirubin,Total 0.4 mg/dl (0.2-1); Globulin 3.4 gm/dl (2.5-4.0); Total Protein 7.2 gm/dl (6.4-8.2)
[2018-11-23] MEDS ORDERED: SODIUM CHLORIDE 0.9% 1000ML 250 ML IV ONE (19:58)
--- NOTE | 2018-11-23 20:21 | CT Scan Report ---
CT head/brain wo con CLINICAL HISTORY: 63 years-old Female with dizzy. Acute dizziness TECHNIQUE: Multiple axial CT images of the head were obtained without contrast. A dose lowering tech nique was utilized adhering to the principles of ALARA. CT DOSE: 537.48 mGy.cm COMPARISON: CT head 04/02/2018. FINDINGS: No acute intracranial hemorrhage, midline shift, intracranial mass, hydrocephalus, territorial ischem ia or abnormal extra-axial collection. Minimal age-related involutional changes. Mild degree of ill-d efined hypodensities about the white matter are suggestive of chronic microvascular ischemic changes and appear unchanged. The calvarium is intact. The paranasal sinuses, mastoid air cells, and middle ear cavities are clear . IMPRESSION: No acute intracranial abnormality. The above report was generated using voice recognition software. It may contain grammatical, syntax o r spelling errors. Electronically signed by: Ángel Juan M.D. 11/23/2018 8:20 PM
[2018-11-23 20:30] LABS: Appearance Urine Cloudy (Clear); Bacteria Urine Automated Negative (Negative); Bilirubin Urine Negative (Negative); Blood Urine Negative (Negative); Color Urine Yellow; Epithelial Cell Urine Auto >30 /lpf (0-5); Glucose Urine UA Negative (Negative); Ketones Urine Trace (Negative); Leukocyte Esterase Urine 1+ (Negative); Nitrite Urine Negative (Negative); Protein Urine Negative (Negative); Specific Gravity Urine 1.023 (1.000-1.030); Urobilinogen Urine Negative (Negative); pH Urine 5.5 (4.5-7.5)
[2018-11-23 20:32] LABS: NT Pro B Type Natriuretic Pept 25 pg/ml (0-900); Troponin I < 0.015 ng/ml (0-0.045)
[2018-11-23 20:39] LABS: Calcium Oxalate Crystals Urine Present (None Prsent); RBC Urine Automated 0-4 /hpf (0-4)
--- NOTE | 2018-11-23 20:45 | XRay Report ---
XR chest 1V portable HISTORY: 63 years-old Female sob acute shortness of breath with atypical chest pain COMPARISON: Chest radiograph 04/02/2018 TECHNIQUE: Portable AP view the chest FINDINGS: Cardiac mediastinal and hilar silhouettes are unchanged. Stable positioning of the left subclavian pa cer. Chronic right apical pleural thickening. Suggested emphysema with diaphragmatic flattening and h yperinflation. No pneumothorax or overt pulmonary edema. No large pleural effusion. Chronic blunting of the costophrenic angles with bibasilar subsegmental densities. Degenerative changes of the shoulde rs and spine. IMPRESSION: 1. Bibasilar opacities suggest atelectasis. 2. Suggested emphysema. The above report was generated using voice recognition software. It may contain grammatical, syntax o r spelling errors. Electronically signed by: Ángel Juan M.D. 11/23/2018 8:44 PM
[2018-11-23] MEDS ORDERED: ACETAMINOPHEN 325 MG TAB PO STA (20:59)
[2018-11-23] MEDS ORDERED: SODIUM CHLORIDE 0.9% 1000ML 1,000 ML IV ONE (22:08)
--- NOTE | 2018-11-23 23:13 | History & Physical Report ---
Date of Service November 23, 2018 Assessment & Plan (1) Orthostatic hypotension: (2) Syncope and collapse: (3) Frequent falls: (4) History of pacemaker: (5) UTI (urinary tract infection): (6) GERD (gastroesophageal reflux disease): (7) Depression: (8) Anxiety: (9) Bipolar disorder: (10) Neuropathy: (11) H/O gastric bypass: History of Present Illness Chief Complaint: Syncope c Collapse, Dizziness, Falls, Orthostasis Primary Care Provider: Sagrario Blankenship 63-year-old female with a past medical history of orthostatic hypotension, frequent falls, syncope, ADHD, GERD, neuropathy, chronic osteoarthritis, bipolar disorder, PTSD, hypothyroidism, depression, anxiety, chronic back pain, dissociative disorder, who presents the ED R daisy after being sent by her rodding machine tender. She has been having dizziness and has been having syncopal episodes and falling since Monday. On Monday she woke up crunch next to her toilet. She called her rodding machine tender today who told her to go to the emergency room. She has a pacemaker to keep her blood pressure up. She had one placed 10 years ago and another one placed 1 year ago. She has been on Midodrine in the past. She sees neurology and cardiology as an outpatient. She is a patient of Dr. Alvarez. Assessment and Plan Orthostatic hypotension Syncope with collapse Dizziness and lightheadedness Hypothyroidism UTI Anxiety/depression/PTSD/conversion disorder/bipolar/neuropathy Cardiology evaluation, neurology evaluation, observation status likely be her less than 2 midnights, continue outpatient medications were appropriate, there is quite a bit of polypharmacy here which I think is contributing to her hypotension. We will give 1 dose of Levaquin for the UTI at 750 mg p.o. PT eval and treat, MOSES hose, possibly would be a bad idea to wear MOSES hose all the time, pacer interrogation ROS-No Headache, No Visual Changes, No Fever, No Chills, No Neck Pain or Stiffness, No Chest Pain, No Palpitations, No SOB, No HOLMAN, No Cough, No Sputum, No Wheezing, No Abdominal Pain, No Diarrhea, No Hematemesis, No Hemoptysis, No Unexpected Weight Loss, No Flank pain, No Melena, No Hematochezia, No Frequency, No Urgency, No Burning, No Hematuria, No Rashes, No Diaphoresis. Appetite is Normal, complains of dizziness, frequent falls, syncope with collapse, lightheadedness. Physical Exam Gen-AAO x 3, NAD, Afebrile Head-NCAT, EOMI, PERRLA, Anicteric Sclera, No Posterior Pharyngeal Erythema Neck-Supple, No JVD, No Thyromegaly, No Masses, No LAD, No Bruits Lungs-Clear to Auscultation Bilaterally, No Rales, No Rhonchi, No Wheezing, No Crepitus Chest-No S4, +S1, +S2, No S3, No Murmurs, No Rubs, No Gallops, No Ectopy Abdomen-Soft, Bowel Sounds Present, Non Tender, Non Distended, No Hepatomegaly, No Splenomegaly, No Palpable Masses, No Rebound, No Rigidity, No Guarding Musculoskeletal-Full Range of Motion Bilaterally, No CVAT Extremities-No Cyanosis, No Clubbing, No Edema Nuero-Cranial Nerves II-XII grossly intact, Motor WNL, DTRs WNL, Strength WNL, No Focal Psych-Normal Mood PMH-orthostatic hypotension, frequent falls, syncope with collapse, ADHD, bipolar disorder, chronic osteoarthritis, neuropathy, GERD, depression, anxiety, dissociative disorder, headaches, hypothyroidism, PTSD, chronic back pain, headaches. PSH-hysterectomy, pacemaker insertion x2, left ankle surgery, cholecystectomy, gastric bypass FH-mother was murdered, father of an acute [place], she has a healthy son and a healthy daughter, no siblings SH-denies tobacco but her more showed a nicotine patch, denies alcohol, she is on Social Security, and . She lives alone Meds reviewed and Reconciled Labs Reviewed Allergies Allergy/AdvReac Type Severity Reaction Status Date / Time aspirin AdvReac Unknown CONTRAINDICATED Verified 11/23/18 21:03 D/T BYPASS SURGERY ibuprofen AdvReac Unknown contraindicated Verified 11/23/18 21:03 d/t gastric bypass NSAIDS (Non-Steroidal AdvReac Unknown CONTRAINDICATED Verified 11/23/18 21:03 Anti-Inflamma D/T BYPASS SURGERY Home Medications Home Medications Medication Instructions Recorded Confirmed Type acetaminophen 1,000 mg PO DIRECTED PRN 10/24/18 11/23/18 History aripiprazole 20 mg PO QAM 10/24/18 11/23/18 History baclofen 10 mg PO BID PRN 10/24/18 11/23/18 History bupropion HCl 100 mg PO DAILY 10/24/18 11/23/18 History docusate sodium 100 mg PO BID PRN 10/24/18 11/23/18 History hydroxyzine HCl 25 mg PO AMHS 10/24/18 11/23/18 History melatonin 15 mg PO HS PRN 10/24/18 11/23/18 History mirtazapine 7.5 mg PO HS 10/24/18 11/23/18 History nicotine 1 patch TOPICAL DAILY 10/24/18 11/23/18 History ondansetron HCl 4 mg PO Q6H PRN 10/24/18 11/23/18 History trazodone 225 mg PO HS 10/24/18 11/23/18 History Past Med/Surg History Medical History Dissociative disorder (Chronic) Chronic back pain (Chronic) "cervical spinal stenosis " Hypothyroidism (Chronic) Hypotension Social History Feels Safe at Home: Yes Smoking Status: Current every day smoker Physical Exam Vital Signs (Past 24 Hours): Last Vital Signs Temp 36.8 C 11/23/18 16:55 Pulse 76 11/23/18 19:58 Resp 18 11/23/18 19:58 BP 106/70 11/23/18 19:58 Pulse Ox 97 11/23/18 19:58
[2018-11-23] MEDS ORDERED: levoFLOXacin 750 MG TAB PO ONE (23:14)
--- NOTE | 2018-11-23 23:15 | Emergency Department Note ---
Entered by Gabriel Tee acting as a scribe for Gwyn Mendoza MD History of Present Illness General Chief complaint: Hypotension Stated complaint: LOW BLOOD PRESSURE Time Seen by Provider: 11/23/18 19:48 Source: patient History of Present Illness Onset (ago): week(s) 1 Pain Consistency: + other (multiple episodes) Maximum Pain Intensity: 6 Quality: + other (hypotension) Associated symptoms: + other (Positive for LOC, dizziness, leg swelling, right hand weakness, and a headache. Negative for CP and black/bloody stool.) The patient is a 63 year old female who presents to the emergency department with complaints of multiple episodes of hypotension beginning a week ago. The patient states that she has a history of hypotension. She notes that she has been having multiple episodes of hypotension, and she reports that her last blood pressure was 76/50. The patient states that she has lost consciousness twice due to her hypotension. She also complains of dizziness, leg swelling, right hand weakness, and a headache. She notes that she has been having right hand weakness since she came into the emergency department. She denies any CP and black/bloody stool. She reports that she has a pacemaker in place. Home Medications Home Medications Medication Instructions Recorded Confirmed Type acetaminophen 1,000 mg PO DIRECTED PRN 10/24/18 11/23/18 History aripiprazole 20 mg PO QAM 10/24/18 11/23/18 History baclofen 10 mg PO BID PRN 10/24/18 11/23/18 History bupropion HCl 100 mg PO DAILY 10/24/18 11/23/18 History docusate sodium 100 mg PO BID PRN 10/24/18 11/23/18 History hydroxyzine HCl 25 mg PO AMHS 10/24/18 11/23/18 History melatonin 15 mg PO HS PRN 10/24/18 11/23/18 History mirtazapine 7.5 mg PO HS 10/24/18 11/23/18 History nicotine 1 patch TOPICAL DAILY 10/24/18 11/23/18 History ondansetron HCl 4 mg PO Q6H PRN 10/24/18 11/23/18 History trazodone 225 mg PO HS 10/24/18 11/23/18 History Allergies Allergy/AdvReac Type Severity Reaction Status Date / Time aspirin AdvReac Unknown CONTRAINDICATED Verified 11/23/18 21:03 D/T BYPASS SURGERY ibuprofen AdvReac Unknown contraindicated Verified 11/23/18 21:03 d/t gastric bypass NSAIDS (Non-Steroidal AdvReac Unknown CONTRAINDICATED Verified 11/23/18 21:03 Anti-Inflamma D/T BYPASS SURGERY Past Med/Surg History Medical History Dissociative disorder (Chronic) Chronic back pain (Chronic) "cervical spinal stenosis " Hypothyroidism (Chronic) Hypotension Social History Feels Safe at Home: Yes Smoking Status: Current every day smoker Review of Systems See HPI for pertinent positives & negatives. and A total of 10 systems reviewed and were otherwise negative Physical Exam Vital Signs Vital Signs - 24 hr 11/23/18 16:55 11/23/18 19:58 11/23/18 21:56 Temperature 36.8 C Temperature Source Oral Sepsis Recent Fever Within 48 Hours No Sepsis New/Unexplained Change in Mental Status No Sepsis Action Taken by Nursing No Action Required Pulse Rate - Lying 73 Pulse Rate - Sitting 81 Pulse Rate - Standing 100 H Pulse Rate 84 Pulse Rate [Right Finger] 76 Pulse Rhythm [Right Finger] Regular Pulse Strength [Right Finger] Normal Respiratory Rate 18 18 Respiratory Effort / Characteristics Non-Labored Non-Labored Respiratory Depth Normal Normal Respiratory Pattern Regular Regular Blood Pressure - Lying 105/71 Blood Pressure - Sitting 98/74 L Blood Pressure- Standing 89/67 L Blood Pressure 112/70 Blood Pressure [Right Arm] 106/70 Blood Pressure Mean 84 Blood Pressure Mean [Right Arm] 82 Blood Pressure Position Sitting Blood Pressure Position [Right Arm] Lying Pulse Oximetry 95 97 Oxygen Delivery Method Room Air Room Air General: Non-ill appearing middle age female in no acute distress. HEENT: Normal cephalic atraumatic. Pupils are equal round and reactive to li ght. Extraocular movements are intact. Oropharynx is pink with moist mucous membranes. No swelling of the mouth lips or tongue. Neck: Supple with a midline trachea. No meningeal signs or stiffness, no JVD or bruits. No Stridor. Chest: Clear to auscultation bilaterally. No wheezes or rhonchi. No increased work of breathing. Pacemaker in left chest, no redness or warmth. Heart: regular rate and rhythm. Abdomen: Soft nontender, nondistended without rebound guarding or rigidity. Extremities: No cyanosis and clubbing. No calf tenderness or assymetry. Trace to 1+ lower extremity edema. Spine/Back. Non tender to palpation. No CVA tenderness Skin: Good turgor without rashes. Neurologic exam: Cranial nerves two through 12 are intact. Motor and sensation are intact and symmetrical throughout. Course 1950: Past medical records reviewed. The patient was evaluated in room A12, and a complete history and physical examination were performed. 2019: I reevaluated and updated the patient. 2114: I discussed the patient's case with LAKISHA Briceno. He states that there is no local rep here. He suggests sending the patient home and having them see her as an outpatient next week. 2215: Upon reevaluation, the patient is stable. I discussed the results and treatment plan with the patient. She verbalizes understanding and agreement. I discussed the patient's case with Shanna Kruger. The patient will be evaluated for further management and care. Consultations Consultation #1: I discussed the patient's case with LAKISHA Briceno. He states that there is no local rep here. He suggests sending the patient home and having them see her as an outpatient next week. Time: 21:15 Consultation #2: I reviewed the patient's case with Shanna Kruger. She will evaluate the patient for further management. Time: 22:16 Administered Medications Discontinued Medications Acetaminophen (Tylenol) 650 mg PO NOW STA Stop: 11/23/18 21:00 Last Admin: 11/23/18 21:07 Dose: 650 mg Documented by: [id number] Sodium Chloride (Nss 1000ml) 250 mls @ 999 mls/hr IV .Q16M ONE Stop: 11/23/18 20:13 Last Infusion: 11/23/18 21:00 Dose: 0 mls/hr Documented by: [id number] Admin: 11/23/18 20:10 Dose: 999 mls/hr Documented by: [id number] Sodium Chloride (Nss 1000ml) 1,000 mls @ 999 mls/hr IV .Q1H1M ONE Stop: 11/23/18 23:08 Last Admin: 11/23/18 22:28 Dose: 999 mls/hr Documented by: [id number] Medical Decision Making Differential Diagnosis Differential diagnoses include: dehydration, arrhythmia, infection, anemia, and electrolyte/metabolic abnormalitites. Medical Records Attestation: I reviewed the patient's medical records. Home Medications Current Medication List: was personally reviewed by me Laboratory Data Attestation: I reviewed the patient's lab results. Result diagrams: 11/23/18 17:33 11/23/18 17:33 Lab Results 11/23/18 11/23/18 11/23/18 Range/Units 17:33 17:33 17:33 WBC 4.97 (4.8-10.8) K/uL RBC 4.40 (4.2-5.4) M/uL Hgb 12.8 (12.0-16.0) g/dL Hct 39.3 (37-47) % MCV 89.3 (80-100) fL MCH 29.1 (25-34) pg MCHC 32.6 (32-36) g/dL RDW Std Deviation 43.9 (36.4-46.3) fL RDW Coeff of Ammy 13.4 (11.5-14.5) % Plt Count 137 (130-400) K/uL MPV 9.6 (7.4-10.4) fL Immature Gran % (Auto) 0.2 % Neut % (Auto) 61.6 % Lymph % (Auto) 28.2 % Prentiss % (Auto) 7.6 % Eos % (Auto) 2.0 % Baso % (Auto) 0.4 % Immature Gran # (Auto) 0.01 (0.00-0.02) K/uL Neut # (Auto) 3.06 (1.4-6.5) K/uL Lymph # (Auto) 1.40 (1.2-3.4) K/uL Prentiss # (Auto) 0.38 (0.11-0.59) K/uL Eos # (Auto) 0.10 (0-0.5) K/uL Baso # (Auto) 0.02 (0-0.2) K/uL Sodium 140 (136-145) mmol/L Potassium 4.0 (3.5-5.1) mmol/L Chloride 107 (98-107) mmol/L Carbon Dioxide 29 (21-32) mmol/L Anion Gap 4.0 (3-11) BUN 14 (7-18) mg/dl Creatinine 0.82 (0.6-1.2) mg/dl Est Cr Clr Drug Dosing 80.5 ml/min Est GFR ( Amer) 89.5 Est GFR (Non-Af Amer) 77.2 BUN/Creatinine Ratio 17.2 (10-20) Glucose 102 H (70-99) mg/dl Calcium 8.9 (8.5-10.1) mg/dl Total Bilirubin 0.4 (0.2-1) mg/dl AST 19 (15-37) U/L ALT 17 (12-78) U/L Alkaline Phosphatase 68 (45-117) U/L Troponin I < 0.015 (0-0.045) ng/ml NT-Pro-B Natriuret Pep 25 (0-900) pg/ml Total Protein 7.2 (6.4-8.2) gm/dl Albumin 3.8 (3.4-5.0) gm/dl Globulin 3.4 (2.5-4.0) gm/dl Albumin/Globulin Ratio 1.1 (0.9-2) Urine Color Urine Appearance (Clear) Urine pH (4.5-7.5) Ur Specific [place] (1.000-1.030) Urine Protein (Negative) Urine Glucose (UA) (Negative) Urine Ketones (Negative) Urine Blood (Negative) Urine Nitrite (Negative) Urine Bilirubin (Negative) Urine Urobilinogen (Negative) Ur Leukocyte Esterase (Negative) Urine WBC (Auto) (0-5) /hpf Urine RBC (Auto) (0-4) /hpf U Hyaline Cast (Auto) (0-5) /lpf U Epithel Cells (Auto) (0-5) /lpf Urine Bacteria (Auto) (Negative) Urine Crystals (None Prsent) Calcium Oxalate Crystal (None Prsent) 11/23/18 Range/Units 20:04 WBC (4.8-10.8) K/uL RBC (4.2-5.4) M/uL Hgb (12.0-16.0) g/dL Hct (37-47) % MCV (80-100) fL MCH (25-34) pg MCHC (32-36) g/dL RDW Std Deviation (36.4-46.3) fL RDW Coeff of Ammy (11.5-14.5) % Plt Count (130-400) K/uL MPV (7.4-10.4) fL Immature Gran % (Auto) % Neut % (Auto) % Lymph % (Auto) % Prentiss % (Auto) % Eos % (Auto) % Baso % (Auto) % Immature Gran # (Auto) (0.00-0.02) K/uL Neut # (Auto) (1.4-6.5) K/uL Lymph # (Auto) (1.2-3.4) K/uL Prentiss # (Auto) (0.11-0.59) K/uL Eos # (Auto) (0-0.5) K/uL Baso # (Auto) (0-0.2) K/uL Sodium (136-145) mmol/L Potassium (3.5-5.1) mmol/L Chloride (98-107) mmol/L Carbon Dioxide (21-32) mmol/L Anion Gap (3-11) BUN (7-18) mg/dl Creatinine (0.6-1.2) mg/dl Est Cr Clr Drug Dosing ml/min Est GFR ( Amer) Est GFR (Non-Af Amer) BUN/Creatinine Ratio (10-20) Glucose (70-99) mg/dl Calcium (8.5-10.1) mg/dl Total Bilirubin (0.2-1) mg/dl AST (15-37) U/L ALT (12-78) U/L Alkaline Phosphatase (45-117) U/L Troponin I (0-0.045) ng/ml NT-Pro-B Natriuret Pep (0-900) pg/ml Total Protein (6.4-8.2) gm/dl Albumin (3.4-5.0) gm/dl Globulin (2.5-4.0) gm/dl Albumin/Globulin Ratio (0.9-2) Urine Color Yellow Urine Appearance Cloudy H (Clear) Urine pH 5.5 (4.5-7.5) Ur Specific [place] 1.023 (1.000-1.030) Urine Protein Negative (Negative) Urine Glucose (UA) Negative (Negative) Urine Ketones Trace H (Negative) Urine Blood Negative (Negative) Urine Nitrite Negative (Negative) Urine Bilirubin Negative (Negative) Urine Urobilinogen Negative (Negative) Ur Leukocyte Esterase 1+ H (Negative) Urine WBC (Auto) 5-10 H (0-5) /hpf Urine RBC (Auto) 0-4 (0-4) /hpf U Hyaline Cast (Auto) 1-5 (0-5) /lpf U Epithel Cells (Auto) >30 H (0-5) /lpf Urine Bacteria (Auto) Negative (Negative) Urine Crystals Calcium Oxalate H (None Prsent) Calcium Oxalate Crystal Present H (None Prsent) Imaging Data Radiologist's Impression: Radiology results as stated below per my review and the radiologist's interpretation: CT head/brain wo con FINDINGS: No acute intracranial hemorrhage, midline shift, intracranial mass, hydrocephalus, territorial ischemia or abnormal extra-axial collection. Minimal age-related involutional changes. Mild degree of ill-defined hypodensities about the white matter are suggestive of chronic microvascular ischemic changes and appear unchanged. The calvarium is intact. The paranasal sinuses, mastoid air cells, and middle ear cavities are clear. IMPRESSION: No acute intracranial abnormality. The above report was generated using voice recognition software. It may contain grammatical, syntax or spelling errors. Electronically signed by: Ángel Juan M.D. 11/23/2018 8:20 PM XR chest 1V portable FINDINGS: Cardiac mediastinal and hilar silhouettes are unchanged. Stable positioning of the left subclavian pacer. Chronic right apical pleural thickening. Suggested emphysema with diaphragmatic flattening and hyperinflation. No pneumothorax or overt pulmonary edema. No large pleural effusion. Chronic blunting of the costophrenic angles with bibasilar subsegmental densities. Degenerative changes of the shoulders and spine. IMPRESSION: 1. Bibasilar opacities suggest atelectasis. 2. Suggested emphysema. The above report was generated using voice recognition software. It may contain grammatical, syntax or spelling errors. Electronically signed by: Ángel Juan M.D. 11/23/2018 8:44 PM ECG Data Attestation: I personally reviewed and interpreted this ECG as follows: Indication: other (dizziness) Rate (beats per minute): 81 Rhythm: other (atrial paced rhythm) Findings: no PAC, no PVC, no ST depression and no left axis deviation Comparison ECG Date: from (04/02/2018) Change: the following changes noted (Compared to prior, paced rhythm has replaced normal sinus.) Blood Pressure Blood Pressure Findings: Normal blood pressure Blood Pressure Disposition: did not require urgent referral MDM Narrative This patient comes in as described above. She was placed in room A 12. She was sent over from her vice investigator after she has been dizzy and hypotensive apparently she was in the 70s the other day in the office. She has a history of orthostatic hypotension as a pacemaker for this. Her pacemaker was placed about a year ago, it is her second pacemaker. it is a [employer]. She has had no chest pain or shortness of breath. she has had a couple falls because of dizziness. she does have a mild headache. she has no neurologic deficit. she has had no fever or chills or any infectious type symptoms. She has no blood or melena in her stool. IV access established and she was given is 250 cc IV normal saline bolus an additional 1 L IV after she tolerated this well. Chest x-ray was clear does not show congestive heart failure or pneumothorax or pneumonia. EKG shows a paced rhythm but no ischemic changes. She is not significantly anemic. she has no electrolyte or metabolic abnormalities. CAT scan of her head was unremarkable . she has a normal neurologic exam. When I got her to stand up, she did drop her pressure to the 80s and was orthostatic. She is concerned about going home as she has been dizzy and I think is reasonable to keep her. I did talk to Dr. Cespedes about potentially getting her interrogated however he tells me that the [employer] rep is not local and would unlikely be able to do this tonight. I have consulted Dr. Asencio from the [facility] team to admit/observe her for further inpatient treatment and evaluation. Impression & Plan Hypotension, Dehydration, Frequent falls, Headache Discharge Plan Visit Data Chief Complaint: Hypotension Stated Complaint: LOW BLOOD PRESSURE ED Provider: Gwyn Mendoza Discharge Problem: Hypotension, Dehydration, Frequent falls, Headache Patient Disposition: Being Evaluated by Hospitalist Discharge Instructions Interventions: ED Discharge Assessment Last Done: 11/23/18 23:09 Discharge Problem: Hypotension Qualifiers: Hypotension type: unspecified hypotension type Qualified Code(s): I95.9 - Hypotension, unspecified Headache Qualifiers: Headache type: unspecified Headache chronicity pattern: unspecified pattern Intractability: not intractable Qualified Code(s): R51 - Headache The scribe's documentation has been prepared under my direction and personally reviewed by me in its entirety. I confirm that the note above accurately reflects all work, treatment, procedures, and medical decision making performed by me.
[2018-11-23] MEDS ORDERED: DOCUSATE SODIUM 100 MG CAP PO PRN (23:26)
[2018-11-23] MEDS ORDERED: NON-FORMULARY MEDICATION (Melatonin 15 MG) PO PRN (23:26)
[2018-11-23] MEDS ORDERED: ACETAMINOPHEN 500 MG TAB PO PRN (23:26)
[2018-11-23] MEDS ORDERED: ALUMINUM/MAGNESIUM SUSP 30 ML UDC PO PRN (23:26)
[2018-11-24] MEDS: ONDANSETRON INJ 2 MG/ML 2 ML VIAL IV PRN ×4 (00:44→16:29)
[2018-11-24] MEDS: BACLOFEN 10 MG TAB PO SCH ×2 (00:56→08:19)
[2018-11-24 05:53] LABS: Hematocrit (blood only) 34.8 % (37-47); Hemoglobin 11.3 g/dL (12.0-16.0); Mean Corpuscular Hgb Conc 32.5 g/dL (32-36); Mean Corpuscular Volume 88.5 fL (80-100); Mean Platelet Volume 9.5 fL (7.4-10.4); Platelet Count 119 K/uL (130-400); RDW Coefficient of Variation 13.4 % (11.5-14.5); RDW Standard Deviation 43.6 fL (36.4-46.3); Red Blood Count 3.93 M/uL (4.2-5.4); White Blood Count 3.53 K/uL (4.8-10.8)
[2018-11-24 06:00] LABS: INR 1.1 (0.9-1.1)
[2018-11-24] MEDS ORDERED: HEPARIN SOD 5,000 UNIT/0.5 ML VIAL SQ SCH ×3 (06:00→14:00)
[2018-11-24 06:30] LABS: BUN Creatinine Ratio 16.8 (10-20); Est GFR (African American) 99.7
[2018-11-24] MEDS ORDERED: ARIPiprazole 10 MG TAB PO SCH (09:00)
[2018-11-24] MEDS ORDERED: NICOTINE 7 MG/24 HR TDSY TD SCH (09:00)
[2018-11-24] MEDS ORDERED: BuPROPion SR 100 MG TABCR PO SCH (09:00)
--- NOTE | 2018-11-24 12:19 | Neurology Consultation ---
Date of Consultation November 24, 2018 Assessment & Plan (1) Syncope and collapse: Chronic dizziness probably related to history of orthostatic hyportension. Etiology unknown. Autonomic neuropathy not excluded. She does not have signs or symptoms suggestive of Parkinson's disease or an overt neuro degenerative condition. Treatment would typically consist of liberalization of fluids and salt as well as a medication such as midodrine or fludrocortisone. Would also recommend use of compression stockings. Cardiology has been consulted as well. (2) Cerebrovascular disease: I do appreciate a chronic appearing lacunar infarct within the left basal ganglia/chacon radiata region. This finding may explain this patient's perception of right hand weakness. She does not have an overt hemiparesis or any signs of aphasia. I would recommend obtaining an up-to-date CT angiogram of the head and neck. It looks like she has a contraindication to aspirin and NSAIDs. Would consider starting this patient on Plavix. Would also recommend obtaining an up-to-date fasting lipid panel. History of Present Illness Reason for Consultation: Orthostasis, syncope, falls, pacer Requesting Physician: Anne Marie Bell MD Attending Physician: Anne Marie Bell MD History of Present Illness The patient is a 63-year-old female who complains of multiple episodes of low blood pressure and associated dizziness. She describes her dizziness as a feeling of lightheadedness which typically occurs with standing. She denies any associated vertigo or nausea. She does report a history of loss of consciousness related to hypotension. She complains of mild headache as well as a feeling of weakness affecting the right hand. No change in speech or vision. I last evaluated this patient in [facility] in September of 2016 for chronic daily headache and migraine. I had evaluated her in March of 2016 for dizziness as well. She last saw Dr. Culver, cardiology in February of 2018 for evaluation and management of her cardiac pacer in the context of her syncope and history of sick sinus syndrome. Allergies Allergy/AdvReac Type Severity Reaction Status Date / Time aspirin AdvReac Unknown CONTRAINDICATED Verified 11/23/18 21:03 D/T BYPASS SURGERY ibuprofen AdvReac Unknown contraindicated Verified 11/23/18 21:03 d/t gastric bypass NSAIDS (Non-Steroidal AdvReac Unknown CONTRAINDICATED Verified 11/23/18 21:03 Anti-Inflamma D/T BYPASS SURGERY Home Medications Home Medications Medication Instructions Recorded Confirmed Type aripiprazole 20 mg PO QAM 10/24/18 11/23/18 History baclofen 10 mg PO BID PRN 10/24/18 11/23/18 History bupropion HCl 100 mg PO DAILY 10/24/18 11/23/18 History hydroxyzine HCl 25 mg PO AMHS 10/24/18 11/23/18 History melatonin 15 mg PO HS PRN 10/24/18 11/23/18 History mirtazapine 7.5 mg PO HS 10/24/18 11/23/18 History ondansetron HCl 4 mg PO Q6H PRN 10/24/18 11/23/18 History trazodone 225 mg PO HS 10/24/18 11/23/18 History Patient History Medical History Dissociative disorder (Chronic) Chronic back pain (Chronic) "cervical spinal stenosis " Hypothyroidism (Chronic) Hypotension Family History Other No significant family history Social History Preferred Language: Hungarian Communication Ability: Effective Chiropractor Sole Practitioner Required: No Beliefs That Will Affect Care: None Current Living Situation: Alone Other Information That Helps Us Care for You: No Feels Safe at Home: Yes Safety Concerns: Feels Safe At This Time Smoking Status: Former smoker Hx Alcohol Use: No Hx Substance Use: No Review of Systems Constitutional: no fever and no chills Eyes: no blind spots and no diplopia Ear, Nose, Mouth, Throat: no hearing loss Respiratory: no cough and no dyspnea Cardiovascular: no chest pain and no palpitations Gastrointestinal: no vomiting Genitourinary (Female): no urinary incontinence Musculoskeletal: no myalgia Integumentary: no rash and no lesions Neurologic: as per Subjective / HPI; no generalized weakness, no paresthesia, no tremor(s) and no seizure-like activity Psychiatric: no depression and no anxiety Hematologic / Lymphatic: no easy bleeding and no easy bruising Physical Exam Vital Signs (Past 24 Hours): Last Vital Signs Temp 36.6 C 11/24/18 06:57 Pulse 75 11/24/18 03:27 Resp 18 11/24/18 06:57 BP 100/67 11/24/18 03:27 Pulse Ox 95 11/24/18 06:57 Physical Exam: The patient is a well-developed well-nourished elderly female. She is sitting up comfortably in bed. She is alert and fully oriented. Recent and remote memory intact. Attention concentration normal. Patient exhibits a normal spontaneous speech pattern as well as an age-appropriate fund of knowledge. Visual gore full to confrontation. Visual acuity normal. Pupils equal round react to light and accommodation. Eye movements normal. Facial sensation intact. There is no facial weakness or droop. Hearing intact. Palate elevates to midline. Shoulder shrug intact. Tongue protrudes to midline. Sensation intact to all modalities in all 4 limbs. Deep tendon reflexes are intact and symmetrical for the arms and legs. Plantar responses downgoing bilaterally. There is no dysdiadochokinesia or dysmetria of nfksre-cr-post or heel to palomino bilaterally. Ophthalmoscopic examination reveals normal-appearing optic discs and posterior segments. No papilledema or hemorrhages. Carotid pulses normal bilaterally, no bruits to auscultation. Gait and station not tested due to safety concerns. Patient exhibits normal muscle strength and tone for all 4 limbs. No atrophy. No abnormal movements observed. Results & Data Laboratory Results Today's labs reviewed. WBC 3.53, hemoglobin 11.3, platelet count 119, sodium 142, potassium 4.0, BUN 13, creatinine 0.75, glucose [address] of the head completed November 23, 2018 revealed minimal age-related involutional changes and chronic microvascular ischemic disease. No evidence for an acute process. There is a chronic appearing lacunar infarct within the left basal ganglia/chacon radiata, per my assessment, that was also seen on her previous CT of the head done in March of 2018. Images and report reviewed. Electrocardiogram completed yesterday revealed an atrial paced rhythm, 81 beats per minute An EMG of the lower extremities completed in April of 2016 revealed changes consistent with a sensory polyneuropathy. CT angiography of the head and neck completed in March of 2016 were unremarkable.
[2018-11-24] MEDS ORDERED: TRAMADOL HCL 50 MG TABLET PO ONE (12:40)
--- NOTE | 2018-11-24 13:16 | Hospitalist Progress Note ---
Date of Service November 24, 2018 Assessment & Plan (1) Syncope and collapse: (2) Orthostatic hypotension: Mostly related to orthostatic hypotension BP recently was in the 70 systolic Multiple episodes of falls/dizziness/near syncope in the past CT head showed no acute intracranial finding CTA head showed no acute intracranial finding CTA neck showed Mild to moderate plaque within the proximal bilateral internal carotid arteries without evidence for a significant stenosis. case discussed with neurology recommended no further neuro testing Neuro recommended aspirin but pt cannot tolerated aspirin or NSAID Consider to start on Plavix as an outpatient if able to tolerate, will defer th at to PCP and neurology Continue physical therapy therapy Fall precaution (3) History of pacemaker: Pacemaker interrogated Case discussed with cardiology Dr. Cespedes and pacemaker working well No further cardiac testing as per cardiology and ok to discharge home from cardiac standpoint as per Dr. Cespedes Official consult cancelled Continue monitor (4) Frequent falls: Due to orthostatic hypotension Continue PT/OT Fall precaution (5) Headache: Chronic DIAZ and follow with neurology Continue PRN tylenol Low dose of tramadol helped with the headache Pt said that she did not feels dizzy after her headache resolved withg the tramadol Recommended pt to start riboflavin 400mg daily as prophylaxis Will give a script for tramadol 25 mg prn daily for the headache Pt was advised not to drive or perform any machine after taking the tramadol (6) Abnormal urinalysis: UA showed 1+ Leukocytes, wbc 5-19 Denies any urinary symptoms Afebrile and no leukocytosis Will hold on any abx Continue monitor DVT px on heparin subq Code status FULL CODE Disposition Discharge home today Follow up with your PCP within 1 week (Office will call for the appoitment) Follow up with neurology Subjective Pt was seen an examined Lying in bed with no distress Pt said that she is having headache that seems to be chronic She saw neurology last year for migraine Pt said that she feels dizzy any time she gets up from supime position She said that she had frequent falls due to orthostatic hypotension and had ankle fracture last year that required surgery She said that she saw her PCP recently and her BP was in the 70 systolic She said that she used to be on mildodrine and not sure why it was discontinued Denies any chest pain, palpitation, dizziness and SOB Physical Exam Vital Signs (Past 24 Hours): Last Vital Signs Temp 37.0 C 11/24/18 12:07 Pulse 78 11/24/18 12:07 Resp 16 11/24/18 12:07 BP 103/72 11/24/18 12:07 Pulse Ox 96 11/24/18 12:07 Physical Exam: General- No acute distress Head- atraumatic Eyes- PERRL, EOMI, ENT- oropharynx clear Neck- supple, no JVD Lungs- clear to auscultation Heart- regular rhythm; no murmur Abdomen- normal bowel sounds, soft, nontender Extremities- +left ankle tenderness, +LLE edema Neuro- alert, oriented x 3; PERRL, EOMI; no facial palsy; no dysarthria Skin- warm & dry (1) Headache Headache chronicity pattern: unspecified pattern Headache type: unspecified Intractability: not intractable Qualified Code(s): R51 - Headache
[2018-11-24 13:40] LABS: Chol HDL Ratio 2; Cholesterol 149 mg/dl (0-200); HDL Cholesterol 62 mg/dl; LDL Cholesterol Calculated 76 mg/dl; Triglycerides 57 mg/dl (0-150); VLDL Cholesterol 11 mg/dl
[2018-11-24] MEDS ORDERED: OPTIRAY 320 125ml IV PRN (14:17)
--- NOTE | 2018-11-24 14:29 | CT Scan Report ---
CT ANGIOGRAPHY OF THE NECK WITH CONTRAST CLINICAL HISTORY: left BG lacune COMPARISON STUDY: CTA of the neck December 12, 2017. Technique: CT angiography of the carotid and vertebral arteries was obtained using PressBabyraSafe N Clear 320 IV and 3D reconstruction on an independent workstation. NASCET criteria was utilized. Automated exposure c ontrol was utilized for the study. A dose lowering technique was utilized adhering to the principles of ALARA. Findings: The origin of the left common carotid artery is suboptimally assessed on this exam. There i s mild to moderate plaque within the proximal bilateral internal carotid arteries without evidence fo r a significant stenosis. The bilateral vertebral arteries are patent. There is no dissection or aneu rysm within the major vessels of the neck. Moderate emphysema within the lung apices is noted. There is no cervical lymphadenopathy. No cervical spine fracture is present. CTA of the head will be report ed separately. IMPRESSION: 1. Mild to moderate plaque within the proximal bilateral internal carotid arteries without evidence f or a significant stenosis. 2. No dissection. 3. Suboptimal evaluation of the left common carotid origin due to artifact and atherosclerotic plaque . 4. Moderate emphysema. Electronically signed by: Vladimir Car M.D. 11/24/2018 2:28 PM
--- NOTE | 2018-11-24 14:34 | CT Scan Report ---
CT OF THE HEAD WITHOUT CONTRAST AND CT ANGIOGRAPHY OF THE HEAD CLINICAL HISTORY: left BG lacune COMPARISON STUDY: CTA of the head July 05, 2016. Head CT November 23, 2018. TECHNIQUE: Unenhanced and arterial phase imaging of the head was performed. Intravenous injection of 118 cc Optiray 320 IV was uneventful. Sagittal and coronal reconstructions were viewed as well as max imal intensity projections on an independent 3-D workstation. Automated exposure control was utilize d for the study. A dose lowering technique was utilized adhering to the principles of ALARA. FINDINGS: No acute intracranial hemorrhage, midline shift or mass effect is present. Ventricular syst em is normal. Basilar cisterns are patent. No extra axial collections are present. Louis-white differe ntiation is preserved. A hypodensity within the left basal ganglia is chronic. 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 The right A1 segment is hypoplastic. No abrupt vessel cut off is identified. No additional intracranial aneurysms are identified. IMPRESSION: 1. No acute intracranial findings. 2. 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 3. No abrupt vessel cut off. Electronically signed by: Vladimir Car M.D. 11/24/2018 2:33 PM
[2018-11-24] MEDS ORDERED: Nursing to Pharmacy Communication ONE (16:59)
[2018-11-24] MEDS ORDERED: TRAMADOL HCL 50 MG TABLET PO PRN (17:09)
[2018-11-24] MEDS ORDERED: MIRTAZAPINE TAB 15 MG TAB PO SCH (21:00)
[2018-11-24] MEDS ORDERED: TRAZODONE HCL 50 MG TAB PO SCH (21:00)
--- NOTE | 2018-11-25 08:32 | Discharge Summary ---
Date of Service November 24, 2018 Admission HPI Per Admitting Provider 63-year-old female with a past medical history of orthostatic hypotension, frequent falls, syncope, ADHD, GERD, neuropathy, chronic osteoarthritis, bipolar disorder, PTSD, hypothyroidism, depression, anxiety, chronic back pain, dissociative disorder, who presents the ED R madisynight after being sent by her glass presser. She has been having dizziness and has been having syncopal episodes and falling since Monday. On Monday she woke up crunch next to her toilet. She called her glass presser today who told her to go to the emergency room. She has a pacemaker to keep her blood pressure up. She had one placed 10 years ago and another one placed 1 year ago. She has been on Midodrine in the past. She sees neurology and cardiology as an outpatient. She is a patient of Dr. Alvarez. Assessment and Plan Orthostatic hypotension Syncope with collapse Dizziness and lightheadedness Hypothyroidism UTI Anxiety/depression/PTSD/conversion disorder/bipolar/neuropathy Cardiology evaluation, neurology evaluation, observation status likely be her less than 2 midnights, continue outpatient medications were appropriate, there is quite a bit of polypharmacy here which I think is contributing to her hypotension. We will give 1 dose of Levaquin for the UTI at 750 mg p.o. PT eval and treat, MOSES hose, possibly would be a bad idea to wear MOSES hose all the time, pacer interrogation ROS-No Headache, No Visual Changes, No Fever, No Chills, No Neck Pain or Stiffness, No Chest Pain, No Palpitations, No SOB, No HOLMAN, No Cough, No Sputum, No Wheezing, No Abdominal Pain, No Diarrhea, No Hematemesis, No Hemoptysis, No Unexpected Weight Loss, No Flank pain, No Melena, No Hematochezia, No Frequency, No Urgency, No Burning, No Hematuria, No Rashes, No Diaphoresis. Appetite is Normal, complains of dizziness, frequent falls, syncope with collapse, lightheadedness. PMH-orthostatic hypotension, frequent falls, syncope with collapse, ADHD, bipo lar disorder, chronic osteoarthritis, neuropathy, GERD, depression, anxiety, dissociative disorder, headaches, hypothyroidism, PTSD, chronic back pain, headaches. PSH-hysterectomy, pacemaker insertion x2, left ankle surgery, cholecystectomy, gastric bypass FH-mother was murdered, father of an acute [place], she has a healthy son and a healthy daughter, no siblings SH-denies tobacco but her more showed a nicotine patch, denies alcohol, she is on Social Security, and . She lives alone Admission Exam Per Admitting Provider Gen-AAO x 3, NAD, Afebrile Head-NCAT, EOMI, PERRLA, Anicteric Sclera, No Posterior Pharyngeal Erythema Neck-Supple, No JVD, No Thyromegaly, No Masses, No LAD, No Bruits Lungs-Clear to Auscultation Bilaterally, No Rales, No Rhonchi, No Wheezing, No Crepitus Chest-No S4, +S1, +S2, No S3, No Murmurs, No Rubs, No Gallops, No Ectopy Abdomen-Soft, Bowel Sounds Present, Non Tender, Non Distended, No Hepatomegaly, No Splenomegaly, No Palpable Masses, No Rebound, No Rigidity, No Guarding Musculoskeletal-Full Range of Motion Bilaterally, No CVAT Extremities-No Cyanosis, No Clubbing, No Edema Nuero-Cranial Nerves II-XII grossly intact, Motor WNL, DTRs WNL, Strength WNL, No Focal Psych-Normal Mood Principal Diagnosis Syncope and collapse: Orthostatic hypotension: Frequent falls Hx Pacemaker Discharge Exam General- No acute distress Head- atraumatic Eyes- PERRL, EOMI, ENT- oropharynx clear Neck- supple, no JVD Lungs- clear to auscultation Heart- regular rhythm; no murmur Abdomen- normal bowel sounds, soft, nontender Extremities- +left ankle tenderness, +LLE edema Neuro- alert, oriented x 3; PERRL, EOMI; no facial palsy; no dysarthria Skin- warm & dry Discharge Data Allergies Allergy/AdvReac Type Severity Reaction Status Date / Time aspirin AdvReac Unknown CONTRAINDICATED Verified 11/23/18 21:03 D/T BYPASS SURGERY ibuprofen AdvReac Unknown contraindicated Verified 11/23/18 21:03 d/t gastric bypass NSAIDS (Non-Steroidal AdvReac Unknown CONTRAINDICATED Verified 11/23/18 21:03 Anti-Inflamma D/T BYPASS SURGERY Consultations 11/23/18 22:09 ED Decision to Admit Stat 11/24/18 09:[address] head/brain wo con CLINICAL HISTORY: 63 years-old Female with dizzy. Acute dizziness TECHNIQUE: Multiple axial CT images of the head were obtained without contrast. A dose lowering technique was utilized adhering to the principles of ALARA. CT DOSE: 537.48 mGy.cm COMPARISON: CT head 04/02/2018. FINDINGS: No acute intracranial hemorrhage, midline shift, intracranial mass, hydrocephalus, territorial ischemia or abnormal extra-axial collection. Minimal age-related involutional changes. Mild degree of ill-defined hypodensities about the white matter are suggestive of chronic microvascular ischemic changes and appear unchanged. The calvarium is intact. The paranasal sinuses, mastoid air cells, and middle ear cavities are clear. IMPRESSION: No acute intracranial abnormality. The above report was generated using voice recognition software. It may contain grammatical, syntax or spelling errors. Electronically signed by: Ángel Juan M.D. 11/23/2018 8:20 PM Dictated: 11/23/182016 Transcribed: 11/23/182016 CT OF THE HEAD WITHOUT CONTRAST AND CT ANGIOGRAPHY OF THE HEAD CLINICAL HISTORY: left BG lacune COMPARISON STUDY: CTA of the head July 05, 2016. Head CT November 23, 2018. TECHNIQUE: Unenhanced and arterial phase imaging of the head was performed. Intravenous injection of 118 cc Optiray 320 IV was uneventful. Sagittal and coronal reconstructions were viewed as well as maximal intensity projections on an independent 3-D workstation. Automated exposure control was utilized for the study. A dose lowering technique was utilized adhering to the principles of ALARA. FINDINGS: No acute intracranial hemorrhage, midline shift or mass effect is present. Ventricular system is normal. Basilar cisterns are patent. No extra axial collections are present. Louis-white differentiation is preserved. A hypodensity within the left basal ganglia is chronic. 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 The right A1 segment is hypoplastic. No abrupt vessel cut off is identified. No additional intracranial aneurysms are identified. IMPRESSION: 1. No acute intracranial findings. 2. 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 3. No abrupt vessel cut off. Electronically signed by: Vladimir Car M.D. 11/24/2018 2:33 PM Dictated: 11/24/18 1428 Transcribed: 11/24/[address] ANGIOGRAPHY OF THE NECK WITH CONTRAST CLINICAL HISTORY: left BG lacune COMPARISON STUDY: CTA of the neck December 12, 2017. Technique: CT angiography of the carotid and vertebral arteries was obtained using [employer] srlraFindline 320 IV and 3D reconstruction on an independent workstation. NASCET criteria was utilized. Automated exposure control was utilized for the study. A dose lowering technique was utilized adhering to the principles of ALARA. Findings: The origin of the left common carotid artery is suboptimally assessed on this exam. There is mild to moderate plaque within the proximal bilateral internal carotid arteries without evidence for a significant stenosis. The bilateral vertebral arteries are patent. There is no dissection or aneurysm within the major vessels of the neck. Moderate emphysema within the lung apices is noted. There is no cervical lymphadenopathy. No cervical spine fracture is present. CTA of the head will be reported separately. IMPRESSION: 1. Mild to moderate plaque within the proximal bilateral internal carotid arteries without evidence for a significant stenosis. 2. No dissection. 3. Suboptimal evaluation of the left common carotid origin due to artifact and atherosclerotic plaque. 4. Moderate emphysema. Electronically signed by: Vladimir Car M.D. 11/24/2018 2:28 PM Dictated: 11/24/181421 Transcribed: 11/24/181421 Ordered Studies 11/23/18 19:56 CT head/brain wo con Stat 11/24/18 12:36 CT angio head wo/w Routine CT angio neck with con Routine XR chest 1V portable HISTORY: 63 years-old Female sob acute shortness of breath with atypical chest pain COMPARISON: Chest radiograph 04/02/2018 TECHNIQUE: Portable AP view the chest FINDINGS: Cardiac mediastinal and hilar silhouettes are unchanged. Stable positioning of the left subclavian pacer. Chronic right apical pleural thickening. Suggested emphysema with diaphragmatic flattening and hyperinflation. No pneumothorax or overt pulmonary edema. No large pleural effusion. Chronic blunting of the costophrenic angles with bibasilar subsegmental densities. Degenerative changes of the shoulders and spine. IMPRESSION: 1. Bibasilar opacities suggest atelectasis. 2. Suggested emphysema. The above report was generated using voice recognition software. It may contain grammatical, syntax or spelling errors. Electronically signed by: Ángel Juan M.D. 11/23/2018 8:44 PM Dictated: 03/29/19 2043 Transcribed: 11/23/182042 Hospital Course (1) Syncope and collapse: (2) Orthostatic hypotension: Mostly related to orthostatic hypotension BP recently was in the 70 systolic Multiple episodes of falls/dizziness/near syncope in the past CT head showed no acute intracranial finding CTA head showed no acute intracranial finding CTA neck showed Mild to moderate plaque within the proximal bilateral internal carotid arteries without evidence for a significant stenosis. case discussed with neurology recommended no further neuro testing Neuro recommended aspirin but pt cannot tolerated aspirin or NSAID Consider to start on Plavix as an outpatient if able to tolerate, will defer that to PCP and neurology Continue physical therapy therapy Fall precaution (3) History of pacemaker: Pacemaker interrogated Case discussed with cardiology Dr. Cespedes and pacemaker working well No further cardiac testing as per cardiology and ok to discharge home from cardiac standpoint as per Dr. Cespedes Official consult cancelled Continue monitor (4) Frequent falls: Due to orthostatic hypotension Continue PT/OT Fall precaution (5) Headache: Chronic DIAZ and follow with neurology Continue PRN tylenol Low dose of tramadol helped with the headache Pt said that she did not feels dizzy after her headache resolved withg the tramadol Recommended pt to start riboflavin 400mg daily as prophylaxis Will give a script for tramadol 25 mg prn daily for the headache Pt was advised not to drive or perform any machine after taking the tramadol (6) Abnormal urinalysis: UA showed 1+ Leukocytes, wbc 5-19 Denies any urinary symptoms Afebrile and no leukocytosis Will hold on any abx Continue monitor DVT px on heparin subq Code status FULL CODE Disposition Discharge home today Follow up with your PCP within 1 week (Office will call for the appoitment) Follow up with neurology Total Time Total Time Spent Total Time Spent (In Minutes): 35 minutes Total Time Includes: Examination of the Patient, Discharge Planning, Medication Reconciliation, Communication With Other Providers and Other Discharge Plan Discharge Items Patient Disposition: Home - Self-Care Reason For Visit: FALLS, ORTHOSTASIS Discharge Diagnosis: Syncope and collapse: Orthostatic hypotension: Frequent falls Hx Pacemaker Discharge Goals: Decrease discomfort, Improve disease control and Improve function Activity: Resume your previous activity Activity Comment: As tolerated Non-emergency contact: Primary Care Provider, Employment Advisor and Neurologist Call non-emergency contact if: you have any medication questions, your symptoms worsen and your temperature is above 101 Follow-up/Referrals: Sagrario Blankenship [Primary Care Provider] - Diet: Heart Healthy Addtl Provider Instructions: Follow up with your primary care provider within 1 week (please call to schedule for the appointment) Follow up with neurology (please call to schedule for the appointment) Follow up with your cardiology (please call to schedule for the appointment) Fall precaution Continue physical therapy Do not drive or operate any machine after taking the tramadol Please hold next dose of tramadol if you become drowsy or lethargy Do not take the tramadol with any other tablet such as trazodone, hydroxyzine, ... (can cause dizziness, drowsiness and lethargy) Prescriptions: New tramadol 50 mg Tablet 25 mg PO Q12 PRN (Reason: headache) Qty: 8 RF: 0 riboflavin (vitamin B2) 400 mg tablet 400 mg PO DAILY Qty: 30 RF: 0 Continued ondansetron HCl 4 mg tablet 4 mg PO Q6H PRN (Reason: Nausea) RF: 0 bupropion HCl 100 mg tablet sustained-release 12 hr 100 mg PO DAILY RF: 0 baclofen 10 mg tablet 10 mg PO BID PRN (Reason: Muscle Spasm) RF: 0 trazodone 150 mg tablet 225 mg PO HS RF: 0 aripiprazole 20 mg tablet 20 mg PO QAM RF: 0 mirtazapine 7.5 mg tablet 7.5 mg PO HS RF: 0 melatonin 5 mg Tablet 15 mg PO HS PRN (Reason: Sleep) RF: 0 Changed hydroxyzine HCl 25 mg tablet 25 mg PO AMHS PRN (Reason: anxiety) Qty: 0 RF: 0 Stand-Alone Forms: [facility], [facility] Discharge Orders: Discharge Order (Routine); Ordered 11/24/18 Ordered By: Anne Marie Bell Admission Data Admit Date/Time: 11/23/18 22:55 Attending Provider: Anne Marie Bell Admit Provider: Anne Marie Bell Primary Care Provider: Sagrario Blankenship Other Providers: Yayo Mendieta ; Gwyn Segal Service: Telemetry Other Interventions: Discharge Summary Assessment (RN) Last Done: 11/24/18 19:43 DC Date/Time DO NOT enter until pt leaves facility: 11/24/18 20:15
== END 2018-11-24 20:15 | disposition home or self-care (01) ==
LOC: 2S 16:16 → ED 16:16 → 2S 23:09

== ENCOUNTER 2019-02-19 11:08 | Inpatient (IN) ==
[2019-02-19] MEDS ORDERED: SODIUM CHLORIDE 0.9% 500 ML IV SCH (12:30)
[2019-02-19 12:32] LABS: Basophils # (auto) 0.01 K/uL (0-0.2); Basophils % (auto) 0.2 %; Hematocrit (blood only) 33.4 % (37-47); Hemoglobin 11.3 g/dL (12.0-16.0); Immature Granulocytes # (auto) 0.01 K/uL (0.00-0.02); Immature Granulocytes % (auto) 0.2 %; Lymphocytes # (auto) 0.51 K/uL (1.2-3.4); Lymphocytes % (auto) 8.9 %; Mean Corpuscular Hgb Conc 33.8 g/dL (32-36); Mean Corpuscular Volume 86.3 fL (80-100); Mean Platelet Volume 8.7 fL (7.4-10.4); Monocytes # (auto) 0.43 K/uL (0.11-0.59); Monocytes % (auto) 7.5 %; Neutrophils # (auto) 4.78 K/uL (1.4-6.5); Neutrophils % (auto) 83.2 %; Platelet Count 179 K/uL (130-400); RDW Coefficient of Variation 13.9 % (11.5-14.5); RDW Standard Deviation 43.3 fL (36.4-46.3); Red Blood Count 3.87 M/uL (4.2-5.4); White Blood Count 5.74 K/uL (4.8-10.8)
[2019-02-19 12:38] LABS: Alanine Aminotransferase 18 U/L (12-78); Albumin Level 3.5 gm/dl (3.4-5.0); Aspartate Aminotransferase 18 U/L (15-37); BUN Creatinine Ratio 22.8 (10-20); Blood Urea Nitrogen 21 mg/dl (7-18); Calcium 9.3 mg/dl (8.5-10.1); Carbon Dioxide 27 mmol/L (21-32); Chloride 107 mmol/L (98-107); Creatinine Clr Calc Pharmacy 78.7 ml/min; Est GFR (African American) 78.9; Est GFR (Non-African American) 68.1; Glucose 118 mg/dl (70-99); Magnesium 1.9 mg/dl (1.8-2.4); Potassium 3.5 mmol/L (3.5-5.1); Sodium 140 mmol/L (136-145)
[2019-02-19 12:40] LABS: Appearance Urine Clear (Clear); Bacteria Urine Automated 4+ (Negative); Bilirubin Urine Negative (Negative); Blood Urine 2+ (Negative); Color Urine Yellow; Glucose Urine UA Negative (Negative); Ketones Urine Trace (Negative); Leukocyte Esterase Urine Negative (Negative); Nitrite Urine Positive (Negative); Protein Urine Negative (Negative); RBC Urine Automated 0-4 /hpf (0-4); Specific Gravity Urine 1.032 (1.000-1.030); Urobilinogen Urine Negative (Negative)
--- NOTE | 2019-02-19 12:42 | XRay Report ---
XR knee RT 3V CLINICAL HISTORY: Right knee pain. COMPARISON: Right tibia and fibula radiographs February 13, 2019. FINDINGS: Alignment of the right knee is anatomic. No acute fracture. There is no joint effusion. Sp urring of the tibial tubercle is noted. There is mild patellar spurring. There is mild osteoarthritis of the right knee. IMPRESSION: No acute fracture or joint effusion of the right knee. Electronically signed by: Vladimir Car M.D. 02/19/2019 12:40 PM
--- NOTE | 2019-02-19 12:43 | XRay Report ---
XR chest 1V portable CLINICAL HISTORY: Chest pain. COMPARISON STUDY: Chest radiograph November 23, 2018. FINDINGS: Lung volumes are normal. Lungs are clear. There is no pneumothorax or pleural effusion. Car diac size is normal. Mediastinal contours are normal. There is no evidence for pulmonary edema. Dual lead left subclavian pacemaker is unchanged in position. IMPRESSION: No acute cardiopulmonary findings. Electronically signed by: Vladimir Car M.D. 02/19/2019 12:41 PM
--- NOTE | 2019-02-19 12:44 | XRay Report ---
XR hip RT 2-3V w pelvis CLINICAL HISTORY: Right hip pain. COMPARISON: CT of the abdomen and pelvis October 24, 2018. FINDINGS: Sacroiliac joints and symphysis pubis are intact. There is no acute fracture within the pe lvis or hips. There is mild osteoarthritis of both hips. A dilated loop of small bowel within left lo wer quadrant is nonspecific and may be at an anastomosis as shown on prior CT. IMPRESSION: No acute fracture within the pelvis or hips. Electronically signed by: Vladimir Car M.D. 02/19/2019 12:43 PM
[2019-02-19 12:49] LABS: Albumin Globulin Ratio 0.9 (0.9-2); Alkaline Phosphatase 86 U/L (45-117); Bilirubin,Total 0.4 mg/dl (0.2-1); Globulin 3.8 gm/dl (2.5-4.0); Phosphorus 2.8 mg/dl (2.5-4.9); Total Protein 7.3 gm/dl (6.4-8.2); Troponin I < 0.015 ng/ml (0-0.045)
[2019-02-19] MEDS ORDERED: OPTIRAY 320 125ml IV PRN (13:17)
--- NOTE | 2019-02-19 13:22 | CT Scan Report ---
CT OF THE HEAD WITHOUT CONTRAST CLINICAL HISTORY: Confusion. Weakness. COMPARISON STUDY: Head CT November 23, 2018. CT of the head November 24, 2018. CT DOSE: 1072.83 mGy.cm TECHNIQUE: Helical axial images of the head were obtained without IV contrast. Automated exposure con trol was utilized for the study. A dose lowering technique was utilized adhering to the principles o f ALARA. FINDINGS: No acute intracranial hemorrhage, midline shift or mass effect is present. The ventricular system is unremarkable. The basilar cisterns are patent. No extra-axial collections are present. Ther e are no findings to suggest acute dural sinus thrombosis or acute territorial infarct. No significan t calvarial abnormalities are present. Visualized portions of the sinuses and mastoid air cells are c lear. IMPRESSION: No acute intracranial findings. Electronically signed by: Vladimir Car M.D. 02/19/2019 1:21 PM
[2019-02-19 13:23] LABS: Prothrombin Time 10.5 Seconds (9.0-12.0)
--- NOTE | 2019-02-19 13:32 | CT Scan Report ---
CT angio neck with con CLINICAL HISTORY: confusion POSSIBLE ACUTE STROKE COMPARISON STUDY: November 24, 2018 TECHNIQUE: CT angiography was performed from the aortic arch to the skull base. MIP imaging was perfo rmed. The patient was scanned in a dynamic helical fashion during intravenous administration of 120 c c of Optiray 320. A dose lowering technique was utilized adhering to the principles of ALARA. CT DOSE: Technique: CT angiogram of the carotid and vertebral arteries was obtained using intravenous contrast and 3-D reconstruction. NASCET criteria was utilized. Findings: The visualized portions of the lung apices reveal pulmonary emphysema There is no evidence of hemodynamically significant stenosis. There is no evidence of dissection. The re is a 4 mm supraclinoid right internal carotid artery aneurysm. The left carotid revealed no evidence of hemodynamic significant stenosis. There is no evidence of an eurysm. There is no evidence of dissection. There is no evidence of hemodynamically significant vertebral stenosis. There is no evidence of verte bral dissection. IMPRESSION: 1. No evidence of hemodynamically significant carotid or vertebral artery stenosis 2. 4 mm right internal carotid artery aneurysm at the level of the anterior clinoids. This remains si milar to prior studies. Electronically signed by: Ben Powers M.D. 02/19/2019 1:31 PM
--- NOTE | 2019-02-19 13:35 | CT Scan Report ---
CT ANGIOGRAM OF THE BRAIN CLINICAL HISTORY: Change in mental status. Weakness. COMPARISON STUDY: CT angiogram of the brain dated 11/24/2018 07/05/2016. Unenhanced CT of the brain pe rformed concurrently on 02/19/2019. TECHNIQUE: Following the IV administration of 120 cc of Optiray 320, CT angiogram of the brain was pe rformed from the skull base to the vertex. Images are reviewed in the axial, sagittal, and coronal pl anes. 3-D MIPS images are created and assessed. IV contrast was administered without complication. A dose lowering technique was utilized adhering to the principles of ALARA. FINDINGS: Brain parenchyma: There is mild subcortical and periventricular microangiopathic change. There is no hemorrhage, mass effect, or evidence of acute territorial ischemia by CT criteria. There is no eviden ce of enhancing mass lesion on the angiogram phase images. No extra-axial fluid collection is seen. G ray-white matter differentiation is preserved. Ventricles, sulci, and cisterns: Normal in configuration. CT angiogram of the brain: The internal carotid arteries are widely patent, as are the anterior and middle cerebral arteries. The right A1 segment is atretic. The vertebrobasilar system and posterior c erebral arteries are widely patent. The left vertebral artery is dominant. There is unchanged appeara nce of a 4 mm aneurysm of the supraclinoid right internal carotid artery. No high-grade stenosis or f ocal vessel cutoff is identified throughout the intracranial circulation. Dural sinuses: Clear as visualized. Orbits: The bony orbits are intact. The orbital contents are normal as visualized. Sinuses and mastoids: The visualized paranasal sinuses are clear. The mastoid air cells are well pneu matized. Calvarium: Unremarkable. IMPRESSION: 1. There is no hemorrhage, mass effect, or evidence of acute territorial ischemia by CT criteria on t his angiographic phase examination. 2. There is unchanged appearance of a 4 mm aneurysm of the supraclinoid right internal carotid artery . 3. Otherwise unremarkable CT angiogram of the brain. Electronically signed by: Ned Mello M.D. 02/19/2019 1:33 PM
[2019-02-19] MEDS ORDERED: ACETAMINOPHEN 1,000 MG/100 ML VIAL IV STA (13:59)
[2019-02-19] MEDS ORDERED: cefTRIAXone SODIUM 2,000 MG in DEXTROSE 5% 50 ML IV STA (14:37)
[2019-02-19] MEDS ORDERED: SODIUM CHLORIDE 0.9% 500 ML IV ONE (14:44)
--- NOTE | 2019-02-19 15:48 | History & Physical Report ---
Date of Service February 19, 2019 Assessment & Plan (1) Acute metabolic encephalopathy: This is a 63yo F with a PMH of orthostatic hypotension, frequent falls, h/o pacemaker placement, bipolar disorder and other medical problems listed below who presents with confusion. In setting of infection, dehydration and starting Ambien last evening CT head, CTA head and neck with acute abnormalities Hold Ambien due to possible side effects of confusion or behavior changes Gentle hydration (2) UTI (urinary tract infection): UA with nitrites, 4 + bacteria Started on Cipro for UTI (has history of E. coli urinary tract infection resistant to Rocephin) Monitor QTC with daily EKG since patient also on antipsychotic Follow urine cultures (3) Cortez cyst: Evaluated yesterday in ED, recommend to take Motrin and Tylenol Right knee x-ray today without any evidence of joint effusion Continue Tylenol, tramadol PRN (4) History of CVA (cerebrovascular accident): History of CVA but not on aspirin or Plavix due to contraindication from gastric bypass as well as frequent falls (5) Bipolar disorder: (6) PTSD (post-traumatic stress disorder): Continue Abilify, Wellbutrin (7) Orthostatic hypotension: History of hypotension and syncopal episodes. Currently with normal BP Fall precautions (8) Insomnia: Continue Remeron, Melatonin Recently switched from trazodone to Ambien, which she took for the first time last night Concerned that Ambien is contributing to behavior change and confusion. Will hold for now (9) History of pacemaker: DVT Ppx: SQ lovenox Code status: FULL code PCP: Lucrecia Blankenship Dispo: Admitted to [facility]. Discharge planning ordered. Patient seen in collaboration with Dr. Bell. Please see addendum. History of Present Illness Chief Complaint: confusion, neighbors called EMS Primary Care Provider: Sagrario Blankenship, This is a 63yo F with a PMH of orthostatic hypotension, frequent falls, h/o pacemaker placement, bipolar disorder and other medical problems listed below who presents with confusion. Was reportedly seen by neighbors at the apartment complex who noticed that patient was confused and acting erratically and they called EMS. Patient denies this and her main complaint is her knee pain from Cortez's cyst. Was seen in ED yesterday and was recommended to take Motrin and Tylenol. Has also been urinating frequently with some burning. Denies hematuria. Endorses poor PO intake and some nausea that was relieved by Zofran. Has not eaten any food today. Recently established care at [facility] (in addition to following with Dr. Blankenship) and had a medication change for insomnia. Trazodone was discontinued and and was started on Ambien 10mg, which she took last night for the first time. Denies any confusion, lightheadedness or headache. Denies any visual or auditory hallucinations. States that mood is been stable and she has been taking her medications regularly. Denies any fever, chills, chest pain, palpitations, shortness of breath, vomiting, abdominal pain, diarrhea or constipation. Allergies Allergy/AdvReac Type Severity Reaction Status Date / Time aspirin AdvReac Unknown CONTRAINDICATED Verified 02/26/19 07:31 D/T BYPASS SURGERY ibuprofen AdvReac Unknown contraindicated Verified 02/26/19 07:31 d/t gastric bypass NSAIDS (Non-Steroidal AdvReac Unknown CONTRAINDICATED Verified 02/26/19 07:31 Anti-Inflamma D/T BYPASS SURGERY Home Medications Home Medications Medication Instructions Recorded Confirmed Type aripiprazole 20 mg PO QAM 10/24/18 02/26/19 History baclofen 10 mg PO BID PRN 10/24/18 02/26/19 History melatonin 10 mg PO HS 10/24/18 02/26/19 History bupropion HCl 100 mg PO DAILY 02/13/19 02/26/19 History mirtazapine 15 mg PO HS 02/13/19 02/26/19 History hydroxyzine HCl 25 mg PO AMHS 02/19/19 02/26/19 History zolpidem [Ambien] 10 mg PO HS PRN 02/24/19 02/26/19 History Past Med/Surg History Medical History Orthostatic hypotension (Chronic) Hypotension (Chronic) Frequent falls (Chronic) Dissociative disorder (Chronic) History of pacemaker (Chronic) "for symptomatic bradycardia " History of syncope (Chronic) Chronic back pain (Chronic) "cervical spinal stenosis " Anxiety (Chronic) Depression (Chronic) Hypothyroidism (Chronic) PTSD (post-traumatic stress disorder) (Chronic) Bipolar disorder (Chronic) Chronic osteoarthritis (Chronic) Neuropathy (Chronic) GERD (gastroesophageal reflux disease) (Chronic) Right internal carotid artery aneurysm (Resolved) H/O: CVA (cerebrovascular accident) (Chronic) Surgical History History of cholecystectomy (Resolved) H/O gastric bypass (Resolved) "2004" History of hysterectomy (Resolved) Family History Other Heart disease Social History Preferred Language: Greenlandic Communication Ability: Effective Beliefs That Will Affect Care: Church Church Beliefs: Hinduism marital status: Current Living Situation: Alone current occupational status: disabled Feels Safe at Home: Yes Safety Concerns: Feels Safe At This Time Smoking Status: Former smoker Second Hand Exposure: No Hx Alcohol Use: No Hx Substance Use: No Review of Systems Review of Systems: At least ten systems reviewed and negative except as noted in the HPI. Physical Exam Physical Exam: General Appearance: WD/WN, no apparent distress, resting comfortably Head: normocephalic, atraumatic Eyes: normal inspection, PERRL, EOMI ENT: hearing grossly normal, pharynx normal (dry mucous membranes) Neck: supple, no JVD, no adenopathy Respiratory/Chest: lungs clear to auscultation. No wheezes, rales or rhonci. No respiratory distress or accessory muscle use Cardiovascular: regular rate, rhythm, no murmur, normal peripheral pulses Abdomen/GI: normal bowel sounds, soft, non-tender to palpation Extremities/Musculoskelatal: normal inspection, no calf tenderness, normal capillary refill, dependent LE edema Neurologic/Psych: alert, normal mood/affect, oriented x 3, poor insigh t/judgement Skin: normal color, warm/dry Results & Data Vital Signs (Past 12 Hours) Vital Signs Temp Pulse Resp BP Pulse Ox 02/19/19 11:30 94 02/19/19 11:20 37.1 C 95 H 21 111/52 L 94 Laboratory Results Short CBC 02/19/19 Range/Units 11:30 WBC 5.74 (4.8-10.8) K/uL Hgb 11.3 L (12.0-16.0) g/dL Hct 33.4 L (37-47) % Plt Count 179 (130-400) K/uL BMP 02/19/19 11:30 Sodium 140 Potassium 3.5 Chloride 107 Carbon Dioxide 27 BUN 21 H Creatinine 0.91 Glucose 118 H Calcium 9.3 Cardiac Enzymes 02/19/19 Range/Units 11:30 Troponin I < 0.015 (0-0.045) ng/ml Liver Function 02/19/19 Range/Units 11:30 Total Bilirubin 0.4 (0.2-1) mg/dl AST 18 (15-37) U/L ALT 18 (12-78) U/L Alkaline Phosphatase 86 (45-117) U/L Albumin 3.5 (3.4-5.0) gm/dl Urine 02/19/19 Range/Units 11:35 Urine Color Yellow Urine Appearance Clear (Clear) Urine pH 5.0 (4.5-7.5) Ur Specific [place] 1.032 H (1.000-1.030) Urine Protein Negative (Negative) Urine Glucose (UA) Negative (Negative) Diagnostic Findings CT head: IMPRESSION: No acute intracranial findings. Head CTA: IMPRESSION: 1. There is no hemorrhage, mass effect, or evidence of acute territorial ischemia by CT criteria on this angiographic phase examination. 2. 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 3. Otherwise unremarkable CT angiogram of the brain. Neck CTA: IMPRESSION: 1. No evidence of hemodynamically significant carotid or vertebral artery stenosis 2. 4 mm right internal carotid artery aneurysm at the level of the anterior clinoids. This remains similar to prior studies. Hip/pelvis XR: IMPRESSION: No acute fracture within the pelvis or hips. Knee XR: IMPRESSION: No acute fracture or joint effusion of the right knee. ECG Findings: + paced rhythm Change: no significant change Supervising Physician Co-Signing Physician Notes Pt was seen and examined. Agreed with Lynette Rosales exam, assessment and plan. 63yo F with a PMH of orthostatic hypotension, frequent falls, h/o pacemaker placemen t, bipolar disorder and other medical problems listed below who presents with confusion. CT head done showed no acute intracranial abnormality. UA showed positive nitrite and bacteria. Will start on cipro for now. Urine cx collected and will follow result. Continue monitor closely. Please refer to Lynette BELL-C documentation for other problem. MD Ray (1) UTI (urinary tract infection) Hematuria presence: without hematuria Urinary tract infection type: site unspecified Qualified Code(s): N39.0 - Urinary tract infection, site not specified (2) Cortez cyst Laterality: right Qualified Code(s): M71.21 - Synovial cyst of popliteal space [Cortez], right knee
[2019-02-19 16:30] LABS: Amphetamines+Metham, Urine Neg (Neg); Barbiturates, Urine Neg (Neg); Benzodiazepine, Urine Neg (Neg); Cocaine, Urine Neg (Neg); MDMA (Ecstacy), Urine Pos (Neg); Methadone, Urine Neg (Neg); Opiate, Urine Neg (Neg); Phencyclidine, Urine Neg (Neg)
[2019-02-19] MEDS ORDERED: CONSULT PHARMACY PRN (16:37)
[2019-02-19] MEDS ORDERED: CIPROFLOXACIN 400 MG/200 ML BAG IV ONE (18:15)
[2019-02-19] MEDS ORDERED: ONDANSETRON INJ 2 MG/ML 2 ML VIAL IV PRN (18:18)
[2019-02-19] MEDS ORDERED: POLYETHYLENE (MIRALAX) 17 GM PACK PO PRN (18:18)
[2019-02-19] MEDS ORDERED: SODIUM CHLORIDE 0.9% 1000ML 1,000 ML IV SCH (18:30)
[2019-02-19] MEDS ORDERED: CIPROFLOXACIN CONSULT ACTIVE PRN (19:44)
--- NOTE | 2019-02-19 19:52 | Emergency Department Note ---
Entered by Ash Hayes acting as a scribe for Mike Brasher MD History of Present Illness General Chief complaint: Confusion Time Seen by Provider: 02/19/19 12:05 Source: patient and other (nurse) History of Present Illness Onset (ago): day(s) (past couple) Location: head (global) Maximum Pain Intensity: 10 Quality: + other (confusion) Exacerbated By: + other (leg pain worse when attempting to walk) Associated symptoms: + other (leg pain); no cough and no fever/chills The patient is a 63 year old female who presents to the Emergency Room via ambulance with reported confusion. Per nursing staff, the patients neighbors stated that the patient was acting confused. The nurse states that the patient knew she was confused this morning and had stated that she has been confused for the past couple of days as well. The patient had stated that after returning home from a psychiatry appointment, she felt like her home had been rearranged by someone. The patient reports that she was recently taken off her prescribed Trazodone with plans of switching to Ambien, which she has not yet started. She states that she lives alone at [facility], but sometimes her friends come to visit. The patient also reports constant leg pain over the past 2 weeks for which she was evaluated in the ER five days ago. She states that her pain is worsened when attempting to walk. The patient has chronic neuropathy and arthritis. The patient denies fevers, chills, cough, congestion, or recent falls. She has a history of bipolar disorder, depression, and PTSD. Home Medications Home Medications Medication Instructions Recorded Confirmed Type aripiprazole 20 mg PO QAM 10/24/18 02/19/19 History baclofen 10 mg PO BID PRN 10/24/18 02/19/19 History melatonin 10 mg PO HS 10/24/18 02/19/19 History ondansetron HCl 4 mg PO Q6H PRN 10/24/18 02/19/19 History acetaminophen [Tylenol Extra 1,000 mg PO Q6H PRN 02/13/19 02/19/19 History Strength] bupropion HCl 100 mg PO DAILY 02/13/19 02/19/19 History mirtazapine 15 mg PO HS 02/13/19 02/19/19 History hydroxyzine HCl 25 mg PO AMHS 02/19/19 02/19/19 History zolpidem [Ambien] 10 mg PO HS PRN 02/19/19 02/19/19 History Allergies Allergy/AdvReac Type Severity Reaction Status Date / Time aspirin AdvReac Unknown CONTRAINDICATED Verified 02/19/19 14:11 D/T BYPASS SURGERY ibuprofen AdvReac Unknown contraindicated Verified 02/19/19 14:11 d/t gastric bypass NSAIDS (Non-Steroidal AdvReac Unknown CONTRAINDICATED Verified 02/19/19 14:11 Anti-Inflamma D/T BYPASS SURGERY Past Med/Surg History Medical History Orthostatic hypotension (Chronic) Hypotension (Chronic) Frequent falls (Chronic) Dissociative disorder (Chronic) History of pacemaker (Chronic) "for symptomatic bradycardia " History of syncope (Chronic) Chronic back pain (Chronic) "cervical spinal stenosis " Anxiety (Chronic) Depression (Chronic) Hypothyroidism (Chronic) PTSD (post-traumatic stress disorder) (Chronic) Bipolar disorder (Chronic) Chronic osteoarthritis (Chronic) Neuropathy (Chronic) GERD (gastroesophageal reflux disease) (Chronic) Right internal carotid artery aneurysm (Resolved) H/O: CVA (cerebrovascular accident) (Chronic) Surgical History History of cholecystectomy (Resolved) H/O gastric bypass (Resolved) "2004" History of hysterectomy (Resolved) Family History Other Heart disease Social History Preferred Language: Peruvian Communication Ability: Effective 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 and A total of 10 systems reviewed and were otherwise negative Physical Exam Vital Signs Vital Signs - 24 hr 02/19/19 11:12 02/19/19 11:15 02/19/19 11:20 Temperature 37.1 C Temperature Source Oral Sepsis Recent Fever Within 48 Hours No Sepsis Action Taken by Nursing No Action Required Pulse Rate 99 H 100 H 95 H Pulse Rate from SpO2 Sensor 100 H 99 H Pulse Rhythm Regular Pulse Strength Normal Respiratory Rate 16 21 21 Respiratory Effort / Characteristics Non-Labored Spontaneous Respiratory Depth Normal Respiratory Pattern Regular Blood Pressure 111/52 L 111/52 L Blood Pressure Mean 71 71 Blood Pressure Position Sitting Pulse Oximetry 97 96 94 Oxygen Delivery Method Room Air 02/19/19 11:30 02/19/19 11:31 02/19/19 12:00 Temperature Temperature Source Sepsis Recent Fever Within 48 Hours Sepsis Action Taken by Nursing Pulse Rate 100 H 102 H 89 Pulse Rate from SpO2 Sensor Pulse Rhythm Regular Pulse Strength Respiratory Rate 11 L 15 22 Respiratory Effort / Characteristics Respiratory Depth Respiratory Pattern Blood Pressure 109/72 Blood Pressure Mean 84 Blood Pressure Position Pulse Oximetry 94 Oxygen Delivery Method Room Air 02/19/19 12:01 02/19/19 12:30 02/19/19 12:31 Temperature Temperature Source Sepsis Recent Fever Within 48 Hours Sepsis Action Taken by Nursing Pulse Rate 90 82 88 Pulse Rate from SpO2 Sensor Pulse Rhythm Pulse Strength Respiratory Rate 18 27 H 20 Respiratory Effort / Characteristics Respiratory Depth Respiratory Pattern Blood Pressure 102/75 120/74 Blood Pressure Mean 84 89 Blood Pressure Position Pulse Oximetry Oxygen Delivery Method 02/19/19 13:00 02/19/19 13:30 02/19/19 14:00 Temperature Temperature Source Sepsis Recent Fever Within 48 Hours Sepsis Action Taken by Nursing Pulse Rate 85 76 80 Pulse Rate from SpO2 Sensor Pulse Rhythm Pulse Strength Respiratory Rate 23 19 16 Respiratory Effort / Characteristics Respiratory Depth Respiratory Pattern Blood Pressure Blood Pressure Mean Blood Pressure Position Pulse Oximetry Oxygen Delivery Method 02/19/19 14:13 02/19/19 14:30 02/19/19 14:32 Temperature Temperature Source Sepsis Recent Fever Within 48 Hours Sepsis Action Taken by Nursing Pulse Rate 79 81 79 Pulse Rate from SpO2 Sensor 79 Pulse Rhythm Pulse Strength Respiratory Rate 18 15 20 Respiratory Effort / Characteristics Respiratory Depth Respiratory Pattern Blood Pressure 123/76 124/68 Blood Pressure Mean 91 86 Blood Pressure Position Pulse Oximetry 97 Oxygen Delivery Method 02/19/19 15:00 02/19/19 15:01 02/19/19 15:30 Temperature Temperature Source Sepsis Recent Fever Within 48 Hours Sepsis Action Taken by Nursing Pulse Rate 75 73 80 Pulse Rate from SpO2 Sensor Pulse Rhythm Pulse Strength Respiratory Rate 18 18 21 Respiratory Effort / Characteristics Respiratory Depth Respiratory Pattern Blood Pressure 102/71 Blood Pressure Mean 81 Blood Pressure Position Pulse Oximetry Oxygen Delivery Method 02/19/19 15:31 02/19/19 15:32 02/19/19 15:55 Temperature Temperature Source Sepsis Recent Fever Within 48 Hours Sepsis Action Taken by Nursing Pulse Rate 90 87 Pulse Rate from SpO2 Sensor Pulse Rhythm Pulse Strength Respiratory Rate 11 L 24 Respiratory Effort / Characteristics Respiratory Depth Respiratory Pattern Blood Pressure 126/79 Blood Pressure Mean 94 Blood Pressure Position Pulse Oximetry Oxygen Delivery Method Room Air 02/19/19 16:00 02/19/19 16:01 Temperature Temperature Source Sepsis Recent Fever Within 48 Hours Sepsis Action Taken by Nursing Pulse Rate 75 74 Pulse Rate from SpO2 Sensor 75 74 Pulse Rhythm Pulse Strength Respiratory Rate 23 18 Respiratory Effort / Characteristics Respiratory Depth Respiratory Pattern Blood Pressure 118/72 Blood Pressure Mean 87 Blood Pressure Position Pulse Oximetry 98 97 Oxygen Delivery Method GENERAL: Awake, alert to self and place, in no distress HENT: Normocephalic, atraumatic. Mucous membranes dry. EYES: Normal conjunctiva. Sclera non-icteric. NECK: Supple. No nuchal rigidity. FROM. No JVD. RESPIRATORY: Clear to auscultation bilaterally. CARDIAC: Regular rate, normal rhythm. Extremities warm and well perfused. Pulses equal. ABDOMEN: Soft, non-distended. No tenderness to palpation. No rebound or guarding. No masses. RECTAL: Deferred. MUSCULOSKELETAL: Chest examination reveals no tenderness. The back is symmetrical on inspection without obvious abnormality. There is no CVA tenderness to palpation. No joint edema. LOWER EXTREMITIES: Pain with ROM of the right hip and knee. Scant small contusions to the right calf. Calves are equal size bilaterally and non-tender. No edema. No discoloration. NEURO: Alert to self and place. Mildly confused. Moving all extremities equally. No sensory or motor deficits noted. SKIN: No rash or jaundice noted. Course 1214: The patient was evaluated in room A11B. A complete history and physical examination were performed. 1502: I consulted Lynette Muñoz PA-C: [facility] Hospitalist. The patient will be reevaluated for hospitalization. 1510: I updated the patient. Administered Medications Acetaminophen (Tylenol) 1,000 mg PO Q6H PRN PRN Reason: Pain Stop: 03/21/19 18:17 Last Admin: 02/19/19 23:33 Dose: 1,000 mg Documented by: [id number] Enoxaparin Sodium (Lovenox) 40 mg SQ Q24H PATRICE Stop: 03/21/19 20:59 Last Admin: 02/19/19 20:18 Dose: 40 mg Documented by: [id number] Hydroxyzine HCl (Vistaril) 25 mg PO AMHS PATRICE Stop: 03/21/19 20:59 Last Admin: 02/19/19 20:18 Dose: 25 mg Documented by: [id number] Sodium Chloride (Nss 1000ml) 1,000 mls @ 90 mls/hr IV .Q11H7M PATRICE Stop: 02/20/19 05:36 Last Admin: 02/19/19 19:31 Dose: 90 mls/hr Documented by: [id number] Mirtazapine (Remeron) 15 mg PO HS PATRICE Stop: 03/21/19 20:59 Last Admin: 02/19/19 20:18 Dose: 15 mg Documented by: [id number] Tramadol HCl (Ultram) 50 mg PO Q4H PRN PRN Reason: Pain Stop: 03/21/19 20:00 Last Admin: 02/19/19 21:47 Dose: 50 mg Documented by: [id number] Discontinued Medications Sodium Chloride (Nss) 500 mls @ 999 mls/hr IV .Q31M PATRICE Stop: 02/19/19 13:00 Last Infusion: 02/19/19 13:35 Dose: 0 mls/hr Documented by: [id number] Admin: 02/19/19 13:00 Dose: 999 mls/hr Documented by: [id number] Acetaminophen (Ofirmev) 1,000 mg in 100 mls @ 400 mls/hr IV NOW STA Stop: 02/19/19 14:13 Last Infusion: 02/19/19 14:25 Dose: 0 mls/hr Documented by: [id number] Admin: 02/19/19 14:10 Dose: 400 mls/hr Documented by: [id number] Ceftriaxone Sodium 2,000 mg/ (Dextrose) 70 mls @ 100 mls/hr IV NOW STA Stop: 02/19/19 15:18 Last Infusion: 02/19/19 15:57 Dose: 0 mls/hr Documented by: [id number] Admin: 02/19/19 15:15 Dose: 100 mls/hr Documented by: [id number] Sodium Chloride (Nss) 500 mls @ 999 mls/hr IV .Q31M ONE Stop: 02/19/19 15:14 Last Infusion: 02/19/19 15:50 Dose: 0 mls/hr Documented by: [id number] Admin: 02/19/19 15:15 Dose: 999 mls/hr Documented by: [id number] Ciprofloxacin (Cipro) 400 mg in 200 mls @ 100 mls/hr IV ONE ONE Stop: 02/19/19 20:14 Last Infusion: 02/19/19 22:39 Dose: 0 mls/hr Documented by: [id number] Admin: 02/19/19 20:16 Dose: 100 mls/hr Documented by: [id number] Ioversol (Optiray 320 125ml) 120 ml IV ONCE PRN PRN Reason: Interaction Checking Stop: 02/23/19 13:16 Last Admin: 02/19/19 13:18 Dose: 120 ml Documented by: [id number] Medical Decision Making Differential Diagnosis Differential diagnosis includes: metabolic, infection, hypo/hyperglycemia, electrolyte abnormalities, cardiac sources, intracerebral event, toxicologic, neurologic, as well as others were entertained. Medical Records Attestation: I reviewed the patient's medical records. Home Medications Current Medication List: was personally reviewed by me Laboratory Data Attestation: I reviewed the patient's lab results. Result diagrams: 02/19/19 11:30 02/19/19 11:30 Lab Results 02/19/19 02/19/19 02/19/19 Range/Units 11:30 11:30 11:30 WBC 5.74 (4.8-10.8) K/uL RBC 3.87 L (4.2-5.4) M/uL Hgb 11.3 L (12.0-16.0) g/dL Hct 33.4 L (37-47) % MCV 86.3 (80-100) fL MCH 29.2 (25-34) pg MCHC 33.8 (32-36) g/dL RDW Std Deviation 43.3 (36.4-46.3) fL RDW Coeff of Ammy 13.9 (11.5-14.5) % Plt Count 179 (130-400) K/uL MPV 8.7 (7.4-10.4) fL Immature Gran % (Auto) 0.2 % Neut % (Auto) 83.2 % Lymph % (Auto) 8.9 % Barry % (Auto) 7.5 % Eos % (Auto) 0.0 % Baso % (Auto) 0.2 % Immature Gran # (Auto) 0.01 (0.00-0.02) K/uL Neut # (Auto) 4.78 (1.4-6.5) K/uL Lymph # (Auto) 0.51 L (1.2-3.4) K/uL Barry # (Auto) 0.43 (0.11-0.59) K/uL Eos # (Auto) 0.00 (0-0.5) K/uL Baso # (Auto) 0.01 (0-0.2) K/uL PT Cancelled INR Cancelled Sodium 140 (136-145) mmol/L Potassium 3.5 (3.5-5.1) mmol/L Chloride 107 (98-107) mmol/L Carbon Dioxide 27 (21-32) mmol/L Anion Gap 6.0 (3-11) BUN 21 H (7-18) mg/dl Creatinine 0.91 (0.6-1.2) mg/dl Est Cr Clr Drug Dosing 78.7 ml/min Est GFR ( Amer) 78.9 Est GFR (Non-Af Amer) 68.1 BUN/Creatinine Ratio 22.8 H (10-20) Glucose 118 H (70-99) mg/dl Calcium 9.3 (8.5-10.1) mg/dl Phosphorus 2.8 (2.5-4.9) mg/dl Magnesium 1.9 (1.8-2.4) mg/dl Total Bilirubin 0.4 (0.2-1) mg/dl AST 18 (15-37) U/L ALT 18 (12-78) U/L Alkaline Phosphatase 86 (45-117) U/L Troponin I < 0.015 (0-0.045) ng/ml Total Protein 7.3 (6.4-8.2) gm/dl Albumin 3.5 (3.4-5.0) gm/dl Globulin 3.8 (2.5-4.0) gm/dl Albumin/Globulin Ratio 0.9 (0.9-2) Lipase 43 L (73-393) U/L TSH 2.770 (0.300-4.500) uIu/ml Urine Color Urine Appearance (Clear) Urine pH (4.5-7.5) Ur Specific [place] (1.000-1.030) Urine Protein (Negative) Urine Glucose (UA) (Negative) Urine Ketones (Negative) Urine Blood (Negative) Urine Nitrite (Negative) Urine Bilirubin (Negative) Urine Urobilinogen (Negative) Ur Leukocyte Esterase (Negative) Urine WBC (Auto) (0-5) /hpf Urine RBC (Auto) (0-4) /hpf U Hyaline Cast (Auto) (0-5) /lpf U Epithel Cells (Auto) (0-5) /lpf Urine Bacteria (Auto) (Negative) Urine Opiates Screen (Neg) Ur Methadone, Qual (Neg) Urine Barbiturates (Neg) Ur Phencyclidine (PCP) (Neg) U Amphetamin/Meth Scrn (Neg) MDMA (Ecstasy) Screen (Neg) U Benzodiazepines Scrn (Neg) Ur Cocaine Metabolite (Neg) U Marijuana (THC) Screen (Neg) 02/19/19 02/19/19 02/19/19 Range/Units 11:35 12:59 15:30 WBC (4.8-10.8) K/uL RBC (4.2-5.4) M/uL Hgb (12.0-16.0) g/dL Hct (37-47) % MCV (80-100) fL MCH (25-34) pg MCHC (32-36) g/dL RDW Std Deviation (36.4-46.3) fL RDW Coeff of Ammy (11.5-14.5) % Plt Count (130-400) K/uL MPV (7.4-10.4) fL Immature Gran % (Auto) % Neut % (Auto) % Lymph % (Auto) % Barry % (Auto) % Eos % (Auto) % Baso % (Auto) % Immature Gran # (Auto) (0.00-0.02) K/uL Neut # (Auto) (1.4-6.5) K/uL Lymph # (Auto) (1.2-3.4) K/uL Barry # (Auto) (0.11-0.59) K/uL Eos # (Auto) (0-0.5) K/uL Baso # (Auto) (0-0.2) K/uL PT 10.5 INR 1.0 Sodium (136-145) mmol/L Potassium (3.5-5.1) mmol/L Chloride (98-107) mmol/L Carbon Dioxide (21-32) mmol/L Anion Gap (3-11) BUN (7-18) mg/dl Creatinine (0.6-1.2) mg/dl Est Cr Clr Drug Dosing ml/min Est GFR ( Amer) Est GFR (Non-Af Amer) BUN/Creatinine Ratio (10-20) Glucose (70-99) mg/dl Calcium (8.5-10.1) mg/dl Phosphorus (2.5-4.9) mg/dl Magnesium (1.8-2.4) mg/dl Total Bilirubin (0.2-1) mg/dl AST (15-37) U/L ALT (12-78) U/L Alkaline Phosphatase (45-117) U/L Troponin I (0-0.045) ng/ml Total Protein (6.4-8.2) gm/dl Albumin (3.4-5.0) gm/dl Globulin (2.5-4.0) gm/dl Albumin/Globulin Ratio (0.9-2) Lipase (73-393) U/L TSH (0.300-4.500) uIu/ml Urine Color Yellow Urine Appearance Clear (Clear) Urine pH 5.0 (4.5-7.5) Ur Specific [place] 1.032 H (1.000-1.030) Urine Protein Negative (Negative) Urine Glucose (UA) Negative (Negative) Urine Ketones Trace H (Negative) Urine Blood 2+ H (Negative) Urine Nitrite Positive A (Negative) Urine Bilirubin Negative (Negative) Urine Urobilinogen Negative (Negative) Ur Leukocyte Esterase Negative (Negative) Urine WBC (Auto) 1-5 (0-5) /hpf Urine RBC (Auto) 0-4 (0-4) /hpf U Hyaline Cast (Auto) 1-5 (0-5) /lpf U Epithel Cells (Auto) 10-20 H (0-5) /lpf Urine Bacteria (Auto) 4+ H (Negative) Urine Opiates Screen Neg (Neg) Ur Methadone, Qual Neg (Neg) Urine Barbiturates Neg (Neg) Ur Phencyclidine (PCP) Neg (Neg) U Amphetamin/Meth Scrn Neg (Neg) MDMA (Ecstasy) Screen Pos H (Neg) U Benzodiazepines Scrn Neg (Neg) Ur Cocaine Metabolite Neg (Neg) U Marijuana (THC) Screen Neg (Neg) Imaging Data Radiologist's Impression: Radiology results as stated below per my review and the radiologist's interpretation: XR chest 1V portable CLINICAL HISTORY: Chest pain. COMPARISON STUDY: Chest radiograph November 23, 2018. FINDINGS: Lung volumes are normal. Lungs are clear. There is no pneumothorax or pleural effusion. Cardiac size is normal. Mediastinal contours are normal. There is no evidence for pulmonary edema. Dual lead left subclavian pacemaker is unchanged in position. IMPRESSION: No acute cardiopulmonary findings. Electronically signed by: Vladimir Car M.D. 02/19/2019 12:[address] OF THE HEAD WITHOUT CONTRAST CLINICAL HISTORY: Confusion. Weakness. COMPARISON STUDY: Head CT November 23, 2018. CT of the head November 24, 2018. CT DOSE: 1072.83 mGy.cm TECHNIQUE: Helical axial images of the head were obtained without IV contrast. Automated exposure control was utilized for the study. A dose lowering technique was utilized adhering to the principles of ALARA. FINDINGS: No acute intracranial hemorrhage, midline shift or mass effect is present. The ventricular system is unremarkable. The basilar cisterns are patent. No extra-axial collections are present. There are no findings to suggest acute dural sinus thrombosis or acute territorial infarct. No significant calvarial abnormalities are present. Visualized portions of the sinuses and mastoid air cells are clear. IMPRESSION: No acute intracranial findings. Electronically signed by: Vladimir Car M.D. 02/19/2019 1:[address] ANGIOGRAM OF THE BRAIN CLINICAL HISTORY: Change in mental status. Weakness. COMPARISON STUDY: CT angiogram of the brain dated 11/24/2018 07/05/2016. Unenhanced CT of the brain performed concurrently on 02/19/2019. TECHNIQUE: Following the IV administration of 120 cc of Optiray 320, CT angiog natalie of the brain was performed from the skull base to the vertex. Images are reviewed in the axial, sagittal, and coronal planes. 3-D MIPS images are created and assessed. IV contrast was administered without complication. A dose lowering technique was utilized adhering to the principles of ALARA. FINDINGS: Brain parenchyma: There is mild subcortical and periventricular microangiopathic change. There is no hemorrhage, mass effect, or evidence of acute territorial ischemia by CT criteria. There is no evidence of enhancing mass lesion on the angiogram phase images. No extra-axial fluid collection is seen. Louis-white matter differentiation is preserved. Ventricles, sulci, and cisterns: Normal in configuration. CT angiogram of the brain: The internal carotid arteries are widely patent, as are the anterior and middle cerebral arteries. The right A1 segment is atretic. The vertebrobasilar system and posterior cerebral arteries are widely patent. The left vertebral artery is dominant. 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 No high-grade stenosis or focal vessel cutoff is identified throughout the intracranial circulation. Dural sinuses: Clear as visualized. Orbits: The bony orbits are intact. The orbital contents are normal as visualized. Sinuses and mastoids: The visualized paranasal sinuses are clear. The mastoid air cells are well pneumatized. Calvarium: Unremarkable. IMPRESSION: 1. There is no hemorrhage, mass effect, or evidence of acute territorial ischemia by CT criteria on this angiographic phase examination. 2. 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 3. Otherwise unremarkable CT angiogram of the brain. Electronically signed by: Ned Mello M.D. 02/19/2019 1:33 PM XR hip RT 2-3V w pelvis CLINICAL HISTORY: Right hip pain. COMPARISON: CT of the abdomen and pelvis October 24, 2018. FINDINGS: Sacroiliac joints and symphysis pubis are intact. There is no acute fracture within the pelvis or hips. There is mild osteoarthritis of both hips. A dilated loop of small bowel within left lower quadrant is nonspecific and may be at an anastomosis as shown on prior CT. IMPRESSION: No acute fracture within the pelvis or hips. Electronically signed by: Vladimir Car M.D. 02/19/2019 12:43 PM XR knee RT 3V CLINICAL HISTORY: Right knee pain. COMPARISON: Right tibia and fibula radiographs February 13, 2019. FINDINGS: Alignment of the right knee is anatomic. No acute fracture. There is no joint effusion. Spurring of the tibial tubercle is noted. There is mild patellar spurring. There is mild osteoarthritis of the right knee. IMPRESSION: No acute fracture or joint effusion of the right knee. Electronically signed by: Vladimir Car M.D. 02/19/2019 12:[address] angio neck with con CLINICAL HISTORY: confusion POSSIBLE ACUTE STROKE COMPARISON STUDY: November 24, 2018 TECHNIQUE: CT angiography was performed from the aortic arch to the skull base. MIP imaging was performed. The patient was scanned in a dynamic helical fashion during intravenous administration of 120 cc of Optiray 320. A dose lowering technique was utilized adhering to the principles of ALARA. CT DOSE: Technique: CT angiogram of the carotid and vertebral arteries was obtained using intravenous contrast and 3-D reconstruction. NASCET criteria was utilized. Findings: The visualized portions of the lung apices reveal pulmonary emphysema There is no evidence of hemodynamically significant stenosis. There is no evidence of dissection. There is a 4 mm supraclinoid right internal carotid artery aneurysm. The left carotid revealed no evidence of hemodynamic significant stenosis. There is no evidence of aneurysm. There is no evidence of dissection. There is no evidence of hemodynamically significant vertebral stenosis. There is no evidence of vertebral dissection. IMPRESSION: 1. No evidence of hemodynamically significant carotid or vertebral artery stenosis 2. 4 mm right internal carotid artery aneurysm at the level of the anterior clinoids. This remains similar to prior studies. Electronically signed by: Ben Powers M.D. 02/19/2019 1:31 PM ECG Data Attestation: I personally reviewed and interpreted this ECG as follows: Indication: other (confusion) Rate (beats per minute): 95 Rhythm: other (atrial paced) Findings: no PAC, no PVC, no ST depression and no ST elevation Blood Pressure Blood Pressure Findings: Normal blood pressure Blood Pressure Disposition: did not require urgent referral MDM Narrative The patient is a pleasant 63-year-old woman with a past medical history of CVA, metabolic encephalopathy/polypharmacy, osteoarthritis, chronic neuropathy, dissociative disorder, bipolar disorder who presents emergency department for confusion after concern was raised by neighbors in the setting of the patient being seen in emergency department several days ago for chronic right lower extremity pain with negative x-ray and duplex negative for DVT but with likely popliteal cyst per hpi. Arrival patient is fatigued appearing but no acute distress, afebrile stable vital signs. She is mildly confused and alert to self and place only unable to tell me the year. Asked why she came to emergency department she reports she is here for her leg pain despite being here for the same complaint 3 days ago and is unaware of any encounter with her neighbors where she was confused. Patient is moving all extremities equally without any focal neuro deficits. EKG shows paced rhythm without overt acute ischemia. Chest x-ray negative. WBC and platelets within normal limits. H/H 11.3/33.4 similar to prior values. Chemistry without acidosis and creatinine within normal limits. BUN/creatinine> 20 consistent with the patient's clinically dry appearance. UA consistent with infection with positive nitrites and 4+ bacteria. Treatment initiated with ceftriaxone. There was an attempt to identify friends or family to help assess the patient and determine the acuity of her mental status compared to her baseline however we were unable to do so. Considering the patient lives alone and given the patient's confusion in the setting of urinary infection and dehydration reasonable to admit the patient for further management. Case was discussed with Shanna Okeefe, who will evaluate the patient for admission. Impression & Plan UTI (urinary tract infection), Dehydration, Confusion Discharge Plan Visit Data *Final* Discharge Date/Time: 02/19/19 17:52 Chief Complaint: Confusion ED Provider: Mike Brasher Discharge Problem: UTI (urinary tract infection), Dehydration, Confusion Patient Disposition: Admitted As Inpatient Discharge Instructions Interventions: ED Discharge Assessment Last Done: 02/19/19 17:52 Discharge Problem: UTI (urinary tract infection) Qualifiers: Urinary tract infection type: site unspecified Hematuria presence: without hematuria Qualified Code(s): N39.0 - Urinary tract infection, site not specified The scribe's documentation has been prepared under my direction and personally reviewed by me in its entirety. I confirm that the note above accurately reflect s all work, treatment, procedures, and medical decision making performed by me.
[2019-02-19] MEDS: MIRTAZAPINE TAB 15 MG TAB PO SCH (20:18)
[2019-02-19] MEDS: ENOXAPARIN INJ 40 MG/0.4 ML SYR SQ SCH (20:18)
[2019-02-19] MEDS: TRAMADOL HCL 50 MG TABLET PO PRN (21:47)
[2019-02-19] MEDS: ACETAMINOPHEN 500 MG TAB PO PRN (23:33)
[2019-02-20] MEDS: TRAMADOL HCL 50 MG TABLET PO PRN ×5 (02:44→23:37)
[2019-02-20 05:45] LABS: Hematocrit (blood only) 30.4 % (37-47); Mean Corpuscular Hgb Conc 32.9 g/dL (32-36); Mean Corpuscular Volume 88.1 fL (80-100); Mean Platelet Volume 8.2 fL (7.4-10.4); Platelet Count 135 K/uL (130-400); RDW Coefficient of Variation 14.1 % (11.5-14.5); RDW Standard Deviation 45.3 fL (36.4-46.3); Red Blood Count 3.45 M/uL (4.2-5.4); White Blood Count 3.07 K/uL (4.8-10.8)
[2019-02-20 06:25] LABS: BUN Creatinine Ratio 14.7 (10-20); Calcium 8.3 mg/dl (8.5-10.1); Creatinine Clr Calc Pharmacy 88.9 ml/min; Est GFR (African American) 92.2; Est GFR (Non-African American) 79.6; Potassium 3.5 mmol/L (3.5-5.1)
[2019-02-20] MEDS ORDERED: CIPROFLOXACIN 400 MG/200 ML BAG IV SCH (07:00)
[2019-02-20] MEDS: BuPROPion SR 100 MG TABCR PO SCH (08:46)
[2019-02-20] MEDS: ARIPiprazole 10 MG TAB PO SCH (08:47)
[2019-02-20] MEDS ORDERED: ZOLPIDEM TARTRATE 5 MG TAB PO PRN (09:25)
--- NOTE | 2019-02-20 09:39 | Hospitalist Progress Note ---
Date of Service February 20, 2019 Assessment & Plan (1) Acute metabolic encephalopathy: This is a 63yo F with a PMH of orthostatic hypotension, frequent falls, h/o pacemaker placement, bipolar disorder and other medical problems listed below who presents with confusion. Pt currently A&O x 3; confusion reported from neighbor Confusion felt to be possible secondary to dose of Ambien taken night before 10mg (pt previously on trazodone and less effective so tried 1st dose of ambien) and complicated by UTI Urine culture is growing gram-negative bacilli Encephalopathy resolved (2) UTI (urinary tract infection): UA with nitrites, 4 + bacteria Received IV Cipro and now on- Cipro 500mg q12 hr - Day 2 Denies any symptoms of UTI (3) Cortez cyst: Had venous Doppler 02/13 - no dvt +bakers cyst Willrepeat Doppler today given increased pain to monitor for dvt: No DVT Small popliteal cyst as documented measuring 43 x 23 x 13 mm Continue Tylenol, tramadol PRN Complains to have increased pain in the right knee joint Ortho consulted (4) Osteoarthritis of right knee: R knee mild OA R knee xray reviewed Complains of increasing pain in the right knee joint-does not have any acute arthritis Consult ortho for eval for CSI injection PT consulted (5) Hypokalemia: K 3.5 today replete with 20meq KCL Keep K > 4.0 given on medications at risk for QTC prolongation We will give her supplement of potassium (6) History of CVA (cerebrovascular accident): History of CVA but not on aspirin or Plavix due to contraindication from gastric bypass as well as frequent falls (7) Bipolar disorder: (8) PTSD (post-traumatic stress disorder): Continue Abilify, Wellbutrin (9) Orthostatic hypotension: History of hypotension and syncopal episodes. Currently with normal BP Fall precautions (10) Insomnia: Continue Remeron, Melatonin Recently switched from trazodone to Ambien, which she took for the first time night ADJUSTMENT CLERK Will reduce dose to 5mg and trial this evening (11) History of pacemaker: DVT Ppx: SQ lovenox Code status: FULL code PCP: Lucrecia Blankenship Dispo: Admitted to [facility]. Discharge planning ordered. Patient seen in collaboration with Dr. Pierce. Please see addendum. Supervising Physician Co-Signing Physician Notes Attending addendum Patient was seen and examined in medical floor Chief complaint history of more pain in the right knee joint Denies any symptoms of UTI No fever, chills and denies any other symptoms On examination No apparent distress at rest Hemodynamically stable Right knee joint examination showed-minimal swelling, moderate pain on every movement, minimal fluid, small popliteal cyst Labs and imaging studies reviewed Review with assessment and plan as outlined above by EMMY Enciso Dr Subjective Patient was seen and examined in room 277-2. Follow-up for UTI, right knee pain. Patient states, "I feel awful." She complains of significant right knee pain, difficulty with ambulation. Feels tramadol helped last evening. Did not sleep well. Denies fever, chills, sweats, lightheadedness, dizziness, chest pain, shortness of breath, nausea, vomiting, diarrhea, dysuria, hematuria, increased urgency or frequency. States that she has a history of UTIs, "I am so used to getting them that I rarely realize when they were there." Appetite is good. She denies any trauma to her right lower extremity. Complains of right knee and lower extremity pain x2 weeks. "I was told to have arthritis and a Cortez's cyst." Has tried topical Voltaren gel without relief. Review of Systems Review of Systems: At least ten systems reviewed and negative except as noted in the HPI. Physical Exam Physical Exam: Gen: WD/WN, NAD, A&O x3, appears older than stated age HEENT: Normocephalic, atraumatic, conjunctivae moist, sclerae anicteric, mucous membranes moist. Lung: Clear to Auscultation bilaterally, no wheezes/rales/rhonchi Heart: Regular rate, regular rhythm, no murmurs, rubs, or gallops Abdomen: Soft, NT, ND +BS x 4 Extremities: R knee pain to lateral/medial joint line with mild effusion; no palpable cortez cyst in pop fossa; however pt with calf ecchymosis in various stages of healing. Pain to light palpation of R calf. Decrease ROM with Dorsiflexion due to pain, No josephine pretibial or pedal glenn Skin: Warm, no rash, negative turgor. Results & Data Vital Signs (Past 12 Hours) Vital Signs Temp Pulse Pulse Resp BP BP Pulse Ox 02/20/19 07:04 36.5 C 66 18 106/65 95 02/20/19 04:19 37.0 C 75 18 108/65 97 02/19/19 23:33 36.9 C 78 20 125/75 98 02/19/19 23:30 77 Laboratory Results Short CBC 02/19/19 02/20/19 Range/Units 11:30 05:32 WBC 5.74 3.07 L (4.8-10.8) K/uL Hgb 11.3 L 10.0 L (12.0-16.0) g/dL Hct 33.4 L 30.4 L (37-47) % Plt Count 179 135 (130-400) K/uL BMP 02/19/19 02/20/19 11:30 05:32 Sodium 140 141 Potassium 3.5 3.5 Chloride 107 109 H Carbon Dioxide 27 30 BUN 21 H 12 Creatinine 0.91 0.80 Glucose 118 H 86 Calcium 9.3 8.3 L Cardiac Enzymes 02/19/19 Range/Units 11:30 Troponin I < 0.015 (0-0.045) ng/ml Liver Function 02/19/19 Range/Units 11:30 Total Bilirubin 0.4 (0.2-1) mg/dl AST 18 (15-37) U/L ALT 18 (12-78) U/L Alkaline Phosphatase 86 (45-117) U/L Albumin 3.5 (3.4-5.0) gm/dl Urine 02/19/19 Range/Units 11:35 Urine Color Yellow Urine Appearance Clear (Clear) Urine pH 5.0 (4.5-7.5) Ur Specific [place] 1.032 H (1.000-1.030) Urine Protein Negative (Negative) Urine Glucose (UA) Negative (Negative) Diagnostic Findings RLE U/S: FINDINGS: Real-time and color flow Doppler imaging were performed. Flow was seen within the femoral, popliteal and calf veins with no intraluminal thrombus demonstrated. The saphenous vein is patent. There is a 43 x 23 x 13 mm popliteal cyst. IMPRESSION: No evidence of right lower extremity DVT. Medications Administered Acetaminophen (Tylenol) 1,000 mg PO Q6H PRN PRN Reason: Pain Stop: 03/21/19 18:17 Last Admin: 02/19/19 23:33 Dose: 1,000 mg Documented by: [id number] Aripiprazole (Abilify) 20 mg PO QAM PATRICE Stop: 03/22/19 08:59 Last Admin: 02/20/19 08:47 Dose: 20 mg Documented by: [id number] Bupropion HCl (Wellbutrin-Sr) 100 mg PO DAILY PATRICE Stop: 03/22/19 08:59 Last Admin: 02/20/19 08:46 Dose: 100 mg Documented by: [id number] Enoxaparin Sodium (Lovenox) 40 mg SQ Q24H PATRICE Stop: 03/21/19 20:59 Last Admin: 02/19/19 20:18 Dose: 40 mg Documented by: [id number] Hydroxyzine HCl (Vistaril) 25 mg PO AMHS PATRICE Stop: 03/21/19 20:59 Last Admin: 02/20/19 08:46 Dose: 25 mg Documented by: [id number] Admin: 02/19/19 20:18 Dose: 25 mg Documented by: [id number] Mirtazapine (Remeron) 15 mg PO HS PATRICE Stop: 03/21/19 20:59 Last Admin: 02/19/19 20:18 Dose: 15 mg Documented by: [id number] Tramadol HCl (Ultram) 50 mg PO Q4H PRN PRN Reason: Pain Stop: 03/21/19 20:00 Last Admin: 02/20/19 08:45 Dose: 50 mg Documented by: [id number] Admin: 02/20/19 02:44 Dose: 50 mg Documented by: [id number] Admin: 02/19/19 21:47 Dose: 50 mg Documented by: [id number] Discontinued Medications Sodium Chloride (Nss) 500 mls @ 999 mls/hr IV .Q31M PATRICE Stop: 02/19/19 13:00 Last Infusion: 02/19/19 13:35 Dose: 0 mls/hr Documented by: [id number] Admin: 02/19/19 13:00 Dose: 999 mls/hr Documented by: [id number] Acetaminophen (Ofirmev) 1,000 mg in 100 mls @ 400 mls/hr IV NOW STA Stop: 02/19/19 14:13 Last Infusion: 02/19/19 14:25 Dose: 0 mls/hr Documented by: [id number] Admin: 02/19/19 14:10 Dose: 400 mls/hr Documented by: [id number] Ceftriaxone Sodium 2,000 mg/ (Dextrose) 70 mls @ 100 mls/hr IV NOW STA Stop: 02/19/19 15:18 Last Infusion: 02/19/19 15:57 Dose: 0 mls/hr Documented by: [id number] Admin: 02/19/19 15:15 Dose: 100 mls/hr Documented by: [id number] Sodium Chloride (Nss) 500 mls @ 999 mls/hr IV .Q31M ONE Stop: 02/19/19 15:14 Last Infusion: 02/19/19 15:50 Dose: 0 mls/hr Documented by: [id number] Admin: 02/19/19 15:15 Dose: 999 mls/hr Documented by: [id number] Ciprofloxacin (Cipro) 400 mg in 200 mls @ 100 mls/hr IV ONE ONE Stop: 02/19/19 20:14 Last Infusion: 02/19/19 22:39 Dose: 0 mls/hr Documented by: [id number] Admin: 02/19/19 20:16 Dose: 100 mls/hr Documented by: [id number] Sodium Chloride (Nss 1000ml) 1,000 mls @ 90 mls/hr IV .Q11H7M [facility] Stop: 02/20/19 05:36 Last Infusion: 02/20/19 07:05 Dose: 0 mls/hr Documented by: [id number] Admin: 02/19/19 19:31 Dose: 90 mls/hr Documented by: [id number] Ciprofloxacin (Cipro) 400 mg in 200 mls @ 100 mls/hr IV Q12H [facility]; Protocol Stop: 03/02/19 06:59 Last Infusion: 02/20/19 08:47 Dose: 0 mls/hr Documented by: [id number] Admin: 02/20/19 06:24 Dose: 100 mls/hr Documented by: [id number] Ioversol (Optiray 320 125ml) 120 ml IV ONCE PRN PRN Reason: Interaction Checking Stop: 02/23/19 13:16 Last Admin: 02/19/19 13:18 Dose: 120 ml Documented by: [id number] (1) UTI (urinary tract infection) Hematuria presence: without hematuria Urinary tract infection type: site unspecified Qualified Code(s): N39.0 - Urinary tract infection, site not specified (2) Cortez cyst Laterality: right Qualified Code(s): M71.21 - Synovial cyst of popliteal space [Cortez], right knee
--- NOTE | 2019-02-20 09:49 | Ultrasound Report ---
US venous doppler LE RT CLINICAL HISTORY: Right leg pain COMPARISON STUDY: 02/13/2019 FINDINGS: Real-time and color flow Doppler imaging were performed. Flow was seen within the femoral, popliteal and calf veins with no intraluminal thrombus demonstrated. The saphenous vein is patent. Th ere is a 43 x 23 x 13 mm popliteal cyst. IMPRESSION: No evidence of right lower extremity DVT. Electronically signed by: Ben Powers M.D. 02/20/2019 9:48 AM
[2019-02-20] MEDS ORDERED: POTASSIUM CHLORIDE 20 MEQ TABCR PO ONE (10:00)
[2019-02-20] MEDS ORDERED: methylPREDNISolone acetate 80 MG/ML VIAL IA SCH (17:00)
[2019-02-20] MEDS ORDERED: ETHYL CHLORIDE AER SPR 100 ML CAN EXT SCH (17:00)
[2019-02-20] MEDS ORDERED: BUPIVACAINE/EPINEPHRINE 0.25% 1:200,000 30 ML VIAL INFIL SCH (17:00)
--- NOTE | 2019-02-20 19:09 | Orthopedic Consultation ---
Date of Consultation February 20, 2019 Assessment & Plan (1) Osteoarthritis of right knee: Minimal osteoarthritis of the knee not likely cause of her symptoms. Differential diagnosis would include insufficiency fracture or stress fracture medial tibia. Other possible diagnosis would be Pes anserine bursitis, MCL sprain from a fall, or meniscus tear. Patient is a pacemaker and if this is not compatible with MRI is most pacemakers are then an MRI is not able to be ordered. If she has a compatible MRI pacemaker then MRI would be the best next study. Alternative study would be a bone scan to rule out a stress fracture. Treatment now would be the knee immobilizer during weightbearing protected weightbearing with walker and observation. No injections are recommended at this time. Pain management per medical service as needed. History of Present Illness Attending Physician: Susna Pierce MD 63-year-old female with 2-week history of increasing right knee pain. Patient has some confusion history of bipolar disorder history of pacemaker has a UTI has history of CVA has history of orthostatic hypotension and has had a history of falls. Allergies Allergy/AdvReac Type Severity Reaction Status Date / Time aspirin AdvReac Unknown CONTRAINDICATED Verified 02/19/19 14:11 D/T BYPASS SURGERY ibuprofen AdvReac Unknown contraindicated Verified 02/19/19 14:11 d/t gastric bypass NSAIDS (Non-Steroidal AdvReac Unknown CONTRAINDICATED Verified 02/19/19 14:11 Anti-Inflamma D/T BYPASS SURGERY Home Medications Home Medications Medication Instructions Recorded Confirmed Type aripiprazole 20 mg PO QAM 10/24/18 02/19/19 History baclofen 10 mg PO BID PRN 10/24/18 02/19/19 History melatonin 10 mg PO HS 10/24/18 02/19/19 History ondansetron HCl 4 mg PO Q6H PRN 10/24/18 02/19/19 History acetaminophen [Tylenol Extra 1,000 mg PO Q6H PRN 02/13/19 02/19/19 History Strength] bupropion HCl 100 mg PO DAILY 02/13/19 02/19/19 History mirtazapine 15 mg PO HS 02/13/19 02/19/19 History hydroxyzine HCl 25 mg PO AMHS 02/19/19 02/19/19 History zolpidem [Ambien] 10 mg PO HS PRN 02/19/19 02/19/19 History Patient History Medical History Orthostatic hypotension (Chronic) Hypotension (Chronic) Frequent falls (Chronic) Dissociative disorder (Chronic) History of pacemaker (Chronic) "for symptomatic bradycardia " History of syncope (Chronic) Chronic back pain (Chronic) "cervical spinal stenosis " Anxiety (Chronic) Depression (Chronic) Hypothyroidism (Chronic) PTSD (post-traumatic stress disorder) (Chronic) Bipolar disorder (Chronic) Chronic osteoarthritis (Chronic) Neuropathy (Chronic) GERD (gastroesophageal reflux disease) (Chronic) Right internal carotid artery aneurysm (Resolved) H/O: CVA (cerebrovascular accident) (Chronic) Surgical History History of cholecystectomy (Resolved) H/O gastric bypass (Resolved) "2004" History of hysterectomy (Resolved) Family History Other Heart disease Social History Preferred Language: [place]er Communication Ability: Effective Pallet Rectifier Required: No Beliefs That Will Affect Care: Anabaptist Anabaptist Beliefs: Episcopal marital status: Current Living Situation: Alone current occupational status: disabled Other Information That Helps Us Care for You: No Feels Safe at Home: Yes Safety Concerns: Feels Safe At This Time Smoking Status: Former smoker Do You Dip or Chew Tobacco: No Smoking End Date: ~ age 30 Second Hand Exposure: No Hx Alcohol Use: No Hx Substance Use: No Review of Systems Review of Systems: As per HPI. Physical Exam Physical Exam: Lower extremity evaluation demonstrates there is some bruises in her right lower leg she does have any bruising about the knee specifically she has a trace effusion only there is no erythema no increased warmth no signs of infection no instability she has more pain with palpation to the medial proximal tibia that she has with range of motion. She did have some pain with Sasha test. She has more proximal tibial tenderness that she does medial joint line tenderness. Results & Data Vital Signs (Past 12 Hours) Vital Signs Temp Pulse Pulse Resp BP BP Pulse Ox 02/20/19 16:00 81 02/20/19 15:38 36.8 C 81 18 106/72 97 02/20/19 11:33 37.2 C 79 16 102/67 96 Radiographs reviewed demonstrate she has significant osteopenia and likely osteoporosis she has minimal osteoarthritis. I do not see acute fracture.
[2019-02-20] MEDS: ENOXAPARIN INJ 40 MG/0.4 ML SYR SQ SCH (20:28)
[2019-02-20] MEDS: CIPROFLOXACIN 500 MG TAB PO SCH (20:31)
[2019-02-20] MEDS: MIRTAZAPINE TAB 15 MG TAB PO SCH (20:31)
[2019-02-21] MEDS: TRAMADOL HCL 50 MG TABLET PO PRN ×4 (03:51→20:11)
[2019-02-21] MEDS ORDERED: ROPIVACAINE 0.5% HCL/PF 150 MG, BUPIVACAINE 0.5% MPF 30 ML, EPINEPHrine 0.15 MG, Ketoro... INFIL SCH (06:00)
[2019-02-21 07:11] LABS: Basophils # (auto) 0.02 K/uL (0-0.2); Basophils % (auto) 0.6 %; Eosinophils # (auto) 0.09 K/uL (0-0.5); Eosinophils % (auto) 2.9 %; Hematocrit (blood only) 33.6 % (37-47); Hemoglobin 10.8 g/dL (12.0-16.0); Lymphocytes # (auto) 1.11 K/uL (1.2-3.4); Lymphocytes % (auto) 35.5 %; Mean Corpuscular Hgb Conc 32.1 g/dL (32-36); Mean Corpuscular Volume 88.4 fL (80-100); Mean Platelet Volume 8.5 fL (7.4-10.4); Monocytes # (auto) 0.35 K/uL (0.11-0.59); Monocytes % (auto) 11.2 %; Neutrophils # (auto) 1.56 K/uL (1.4-6.5); Neutrophils % (auto) 49.8 %; Platelet Count 155 K/uL (130-400); RDW Coefficient of Variation 14.2 % (11.5-14.5); RDW Standard Deviation 45.8 fL (36.4-46.3); White Blood Count 3.13 K/uL (4.8-10.8)
[2019-02-21 07:47] LABS: BUN Creatinine Ratio 13.3 (10-20); Calcium 8.6 mg/dl (8.5-10.1); Creatinine Clr Calc Pharmacy 100.1 ml/min; Est GFR (African American) 108.4; Est GFR (Non-African American) 93.5; Potassium 3.7 mmol/L (3.5-5.1)
[2019-02-21] MEDS: BuPROPion SR 100 MG TABCR PO SCH (08:12)
[2019-02-21] MEDS: CIPROFLOXACIN 500 MG TAB PO SCH (08:12)
[2019-02-21] MEDS: ARIPiprazole 10 MG TAB PO SCH (08:13)
[2019-02-21] MEDS ORDERED: ERTAPENEM CONSULT ACTIVE PRN (08:51)
--- NOTE | 2019-02-21 08:56 | Infectious Disease Consult ---
Date of Consultation February 21, 2019 Assessment & Plan (1) UTI (urinary tract infection): Patient with ESBL E. coli urinary tract infection with associated encephalopathy not clear whether this was from infection or from her use of Ambien. Recommend 7-day course of IV ertapenem 1 g daily. Discussed with hospitalist service. Will follow. (2) Infection due to ESBL-producing Escherichia coli: (3) Acute metabolic encephalopathy: History of Present Illness Reason for Consultation: ESBL E. coli UTI Attending Physician: Susan Pierce MD History of Present Illness 63-year-old female with history of orthostatic hypotension, status post permanent pacemaker, hypothyroidism, bipolar disorder, recurrent urinary tract infections, who was admitted yesterday after being found in a state of confusion by her neighbor. Apparently she had taken her first dose of Ambien 10 mg the night before. Her mental status has cleared since she has been in the hospital, but she has been found to have abnormal urinalysis with positive culture for ESBL E. coli. Was previously on ciprofloxacin. Patient states that she has significant urinary frequency, no dysuria, no fever or chills, no flank pain. Patient has been complaining of severe right knee pain, has been seen by orthopedic, and additional studies have been ordered. Denies any other specific complaints. States her mental status is back to baseline. Allergies Allergy/AdvReac Type Severity Reaction Status Date / Time aspirin AdvReac Unknown CONTRAINDICATED Verified 02/19/19 14:11 D/T BYPASS SURGERY ibuprofen AdvReac Unknown contraindicated Verified 02/19/19 14:11 d/t gastric bypass NSAIDS (Non-Steroidal AdvReac Unknown CONTRAINDICATED Verified 02/19/19 14:11 Anti-Inflamma D/T BYPASS SURGERY Home Medications Home Medications Medication Instructions Recorded Confirmed Type aripiprazole 20 mg PO QAM 10/24/18 02/19/19 History baclofen 10 mg PO BID PRN 10/24/18 02/19/19 History melatonin 10 mg PO HS 10/24/18 02/19/19 History ondansetron HCl 4 mg PO Q6H PRN 10/24/18 02/19/19 History acetaminophen [Tylenol Extra 1,000 mg PO Q6H PRN 02/13/19 02/19/19 History Strength] bupropion HCl 100 mg PO DAILY 02/13/19 02/19/19 History mirtazapine 15 mg PO HS 02/13/19 02/19/19 History hydroxyzine HCl 25 mg PO AMHS 02/19/19 02/19/19 History zolpidem [Ambien] 10 mg PO HS PRN 02/19/19 02/19/19 History Patient History Medical History Orthostatic hypotension (Chronic) Hypotension (Chronic) Frequent falls (Chronic) Dissociative disorder (Chronic) History of pacemaker (Chronic) "for symptomatic bradycardia " History of syncope (Chronic) Chronic back pain (Chronic) "cervical spinal stenosis " Anxiety (Chronic) Depression (Chronic) Hypothyroidism (Chronic) PTSD (post-traumatic stress disorder) (Chronic) Bipolar disorder (Chronic) Chronic osteoarthritis (Chronic) Neuropathy (Chronic) GERD (gastroesophageal reflux disease) (Chronic) Right internal carotid artery aneurysm (Resolved) H/O: CVA (cerebrovascular accident) (Chronic) Surgical History History of cholecystectomy (Resolved) H/O gastric bypass (Resolved) "2004" History of hysterectomy (Resolved) Family History Other Heart disease Social History Preferred Language: Amharic Communication Ability: Effective Aircraft Communicator Required: No Beliefs That Will Affect Care: Orthodox Orthodox Beliefs: Buddhism marital status: Current Living Situation: Alone current occupational status: disabled Other Information That Helps Us Care for You: No Feels Safe at Home: Yes Safety Concerns: Feels Safe At This Time Smoking Status: Former smoker Do You Dip or Chew Tobacco: No Smoking End Date: ~ age 30 Second Hand Exposure: No Hx Alcohol Use: No Hx Substance Use: No Review of Systems Review of Systems: All systems reviewed & are unremarkable except as noted in HPI & below Physical Exam Constitutional: WD/WN, vitals as above comfortable; no acute distress Eyes: PERRL, conjunctivae normal, anicteric sclerae ENMT: external ear and nose normal, oropharynx normal Neck: trachea midline, no thyromegaly neck nontender Respiratory: normal respiratory effort, lungs clear to auscultation normal percussion; does not use accessory muscles Cardiovascular: Rate/Rhythm: regular rate and regular rhythm Heart Sounds: normal S1 and normal S2; no gallop, no murmur and no cardiac rub Vessels: normal peripheral pulses; no JVD Gastrointestinal (Abdomen): normal bowel sounds, soft, nontender, no hepatosplenomegaly Musculoskeletal: no cyanosis or clubbing, extremities motor strength 5/5 Spine: thoracic spine normal to inspection and lumbar spine normal to inspection; no cervical spinal tenderness Skin: no rashes, warm and dry normal turgor; no lesions Neurologic: patellar DTR's 2+ bilat, sensation intact no focal motor deficits Psychiatric: A+Ox3, euthymic affect Orientation: cooperative Lymphatic: no cervical or axillary lymphadenopathy no inguinal lymphadenopathy Results & Data Vital Signs (Past 12 Hours) Vital Signs Temp Pulse Pulse Resp BP BP Pulse Ox 02/21/19 07:07 36.9 C 79 18 110/73 96 02/21/19 03:43 36.9 C 69 18 114/67 95 02/20/19 23:45 37.2 C 76 20 117/73 98 02/20/19 23:30 74 Laboratory Results Short CBC 02/21/19 Range/Units 06:42 WBC 3.13 L (4.8-10.8) K/uL Hgb 10.8 L (12.0-16.0) g/dL Hct 33.6 L (37-47) % Plt Count 155 (130-400) K/uL BMP 02/21/19 06:42 Sodium 142 Potassium 3.7 Chloride 108 H Carbon Dioxide 30 BUN 9 Creatinine 0.70 Glucose 91 Calcium 8.6 Diagnostic Findings Microbiology 02/19/19 11:35 Urine,Straight Cath Urine Culture - Preliminary Escherichia coli ESBL XR knee RT 3V CLINICAL HISTORY: Right knee pain. COMPARISON: Right tibia and fibula radiographs February 13, 2019. FINDINGS: Alignment of the right knee is anatomic. No acute fracture. There is no joint effusion. Spurring of the tibial tubercle is noted. There is mild patellar spurring. There is mild osteoarthritis of the right knee. IMPRESSION: No acute fracture or joint effusion of the right knee. Electronically signed by: Vladimir Car M.D. 02/19/2019 12:40 PM Dictated: 02/19/19 1239 (1) UTI (urinary tract infection) Hematuria presence: without hematuria Urinary tract infection type: site unspecified Qualified Code(s): N39.0 - Urinary tract infection, site not specified
[2019-02-21] MEDS: ERTAPENEM SODIUM 1,000 MG in SODIUM CHLORIDE 0.9% 50 ML IV SCH (10:34)
--- NOTE | 2019-02-21 10:50 | Hospitalist Progress Note ---
Date of Service February 21, 2019 Assessment & Plan (1) Acute metabolic encephalopathy: This is a 63yo F with a PMH of orthostatic hypotension, frequent falls, h/o pacemaker placement, bipolar disorder and other medical problems listed below who presents with confusion. Pt currently A&O x 3; confusion reported from neighbor Confusion felt to be possible secondary to dose of Ambien taken night before 10mg (pt previously on trazodone and less effective so tried 1st dose of ambien) and complicated by UTI Urine culture is > 100k e coli ESBL Encephalopathy resolved (2) UTI (urinary tract infection): Urine Culture + ESBL D/C Cipro ID Consulted - appreciate recommendations Will need IV Ertapenem x 1 week Complains of urine frequency (3) Cortez cyst: Had venous Doppler 02/13 - no dvt +bakers cyst Doppler - no dvt + Small popliteal cyst as documented measuring 43 x 23 x 13 mm Continue Tylenol, tramadol PRN ICE TID Ortho consulted - recommend no CSI, obtain bone scan to r/o stress fx of tibia, No MRI due to pacer, mild osteoarthritis Recommend knee immobilizer while ambulating (4) Osteoarthritis of right knee: R knee mild OA R knee xray reviewed Ortho consulted - appreciate recommendations continue PT pain ccontrol as above (5) Hypokalemia: K 3.7 today (6) History of CVA (cerebrovascular accident): History of CVA but not on aspirin or Plavix due to contraindication from gastric bypass as well as frequent falls (7) Bipolar disorder: (8) PTSD (post-traumatic stress disorder): Continue Abilify, Wellbutrin (9) Orthostatic hypotension: History of hypotension and syncopal episodes. 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 Discharge planning ordered. Pt will need outpt IV antibiotics x 1 week. Patient seen in collaboration with Dr. Pierce. Please see addendum. Supervising Physician Co-Signing Physician Notes Attending addendum: The patient was seen and examined in medical floor She has noted to have ESBL UTI and will need intravenous antibiotic for 7 days Still complains today of right knee pain Denies any other symptoms On examination No apparent distress at rest Hemodynamically stable Right knee-minimal swelling and tender movement is moderately painful painful, Labs and imaging studies reviewed Appreciate Ortho input and recommendation, appreciate ID input and recommendation I agree with assessment and plan as outlined above by EMMY Enciso DR Subjective Patient was seen and examined in room 277-2. Follow-up for UTI, right knee pain. Patient feels improved this morning. Feels knee pain is, "slightly better." Tramadol and Ice helps. Worse with walking. Complains of increased frequency with urination but denies dysuria, hematuria, increased urgency. She overall did not sleep well last night and did not realize she had to ask for her Ambien. Denies fever, chills, sweats, lightheadedness, dizziness, chest pain, shortness of breath, nausea, vomiting, diarrhea, dysuria, hematuria, increased urgency or frequency. Appetite is diminished which is unusual for her. Review of Systems Review of Systems: At least ten systems reviewed and negative except as noted in the HPI. Physical Exam Physical Exam: Gen: WD/WN, NAD, A&O x3, appears older than stated age HEENT: Normocephalic, atraumatic, conjunctivae moist, sclerae anicteric, mucous membranes moist. Lung: Clear to Auscultation bilaterally, no wheezes/rales/rhonchi Heart: Regular rate, regular rhythm, no murmurs, rubs, or gallops Abdomen: Soft, NT, ND +BS x 4 Extremities: R knee pain to lateral/medial joint line with mild effusion; + calf ecchymosis in various stages of healing. Pain to light palpation of R calf. Decrease ROM with Dorsiflexion due to pain, No josephine pretibial or pedal edema Skin: Warm, no rash, negative turgor. Results & Data Vital Signs (Past 12 Hours) Vital Signs Temp Pulse Pulse Resp BP BP Pulse Ox 02/21/19 07:07 36.9 C 79 18 110/73 96 02/21/19 03:43 36.9 C 69 18 114/67 95 02/20/19 23:45 37.2 C 76 20 117/73 98 02/20/19 23:30 74 Laboratory Results Short CBC 02/21/19 Range/Units 06:42 WBC 3.13 L (4.8-10.8) K/uL Hgb 10.8 L (12.0-16.0) g/dL Hct 33.6 L (37-47) % Plt Count 155 (130-400) K/uL BMP 02/21/19 06:42 Sodium 142 Potassium 3.7 Chloride 108 H Carbon Dioxide 30 BUN 9 Creatinine 0.70 Glucose 91 Calcium 8.6 Diagnostic Findings Urine Culture Preliminary 02/21/19-08 Organism 1 Escherichia coli ESBL [place] Count >100,000 CFU/ml Sens Sensitivities to Follow Sensitivity results indicate an organism with an Extended Spectrum Beta Lactamase. This is considered a Multidrug Resistant Organism. Phoned to CARMELO ESQUEDA on 02/21/19 at 0813 by Leona Carlisle. Results were verbalized back. ESBL E col RX M.I.C. --- --------- Amikacin S <=16 Ampicillin R >16 Amp/Sul I 16/8 Cefazolin R >16 Cefepime R <=4 Cefotaxime R >32 Cefoxitin S <=8 Ceftriaxone R >32 Cefuroxime R >16 Ciprofloxacin R >2 Ertapenem S <=1 Gentamicin S <=4 Imipenem S <=1 Levofloxacin R >4 Nitrofurantoin S <=32 Tobramycin S <=4 Trimeth/Sulfa R >2/38 Pip/Tazo S <=16 Medications Administered Acetaminophen (Tylenol) 1,000 mg PO Q6H PRN PRN Reason: Pain Stop: 03/21/19 18:17 Last Admin: 02/19/19 23:33 Dose: 1,000 mg Documented by: [id number] Aripiprazole (Abilify) 20 mg PO QAM [facility] Stop: 03/22/19 08:59 Last Admin: 02/21/19 08:13 Dose: 20 mg Documented by: [id number] Admin: 02/20/19 08:47 Dose: 20 mg Documented by: [id number] Bupropion HCl (Wellbutrin-Sr) 100 mg PO DAILY [facility] Stop: 03/22/19 08:59 Last Admin: 02/21/19 08:12 Dose: 100 mg Documented by: [id number] Admin: 02/20/19 08:46 Dose: 100 mg Documented by: [id number] Enoxaparin Sodium (Lovenox) 40 mg SQ Q24H [facility] Stop: 03/21/19 20:59 Last Admin: 02/20/19 20:28 Dose: 40 mg Documented by: [id number] Admin: 02/19/19 20:18 Dose: 40 mg Documented by: [id number] Hydroxyzine HCl (Vistaril) 25 mg PO AMHS [facility] Stop: 03/21/19 20:59 Last Admin: 02/21/19 08:14 Dose: 25 mg Documented by: [id number] Admin: 02/20/19 20:31 Dose: 25 mg Documented by: [id number] Admin: 02/20/19 08:46 Dose: 25 mg Documented by: [id number] Admin: 02/19/19 20:18 Dose: 25 mg Documented by: [id number] Ertapenem 1,000 mg/ Sodium (Chloride) 60 mls @ 100 mls/hr IV Q24H [facility] Stop: 02/28/19 08:59 Last Admin: 02/21/19 10:34 Dose: 100 mls/hr Documented by: [id number] Mirtazapine (Remeron) 15 mg PO HS [facility] Stop: 03/21/19 20:59 Last Admin: 02/20/19 20:31 Dose: 15 mg Documented by: [id number] Admin: 02/19/19 20:18 Dose: 15 mg Documented by: [id number] Ondansetron HCl (Zofran) 4 mg IV Q6H PRN PRN Reason: Nausea Stop: 03/21/19 18:17 Last Admin: 02/21/19 10:34 Dose: 4 mg Documented by: [id number] Tramadol HCl (Ultram) 50 mg PO Q4H PRN PRN Reason: Pain Stop: 03/21/19 20:00 Last Admin: 02/21/19 08:11 Dose: 50 mg Documented by: [id number] Admin: 02/21/19 03:51 Dose: 50 mg Documented by: [id number] Admin: 02/20/19 23:37 Dose: 50 mg Documented by: [id number] Admin: 02/20/19 19:00 Dose: 50 mg Documented by: [id number] Admin: 02/20/19 14:20 Dose: 50 mg Documented by: [id number] Admin: 02/20/19 08:45 Dose: 50 mg Documented by: [id number] Admin: 02/20/19 02:44 Dose: 50 mg Documented by: [id number] Admin: 02/19/19 21:47 Dose: 50 mg Documented by: [id number] Discontinued Medications Ciprofloxacin (Cipro) 500 mg PO BID [facility] Stop: 02/25/19 20:59 Last Admin: 02/21/19 08:12 Dose: 500 mg Documented by: [id number] Admin: 02/20/19 20:31 Dose: 500 mg Documented by: [id number] Sodium Chloride (Nss) 500 mls @ 999 mls/hr IV .Q31M [facility] Stop: 02/19/19 13:00 Last Infusion: 02/19/19 13:35 Dose: 0 mls/hr Documented by: [id number] Admin: 02/19/19 13:00 Dose: 999 mls/hr Documented by: [id number] Acetaminophen (Ofirmev) 1,000 mg in 100 mls @ 400 mls/hr IV NOW STA Stop: 02/19/19 14:13 Last Infusion: 02/19/19 14:25 Dose: 0 mls/hr Documented by: [id number] Admin: 02/19/19 14:10 Dose: 400 mls/hr Documented by: [id number] Ceftriaxone Sodium 2,000 mg/ (Dextrose) 70 mls @ 100 mls/hr IV NOW STA Stop: 02/19/19 15:18 Last Infusion: 02/19/19 15:57 Dose: 0 mls/hr Documented by: [id number] Admin: 02/19/19 15:15 Dose: 100 mls/hr Documented by: [id number] Sodium Chloride (Nss) 500 mls @ 999 mls/hr IV .Q31M ONE Stop: 02/19/19 15:14 Last Infusion: 02/19/19 15:50 Dose: 0 mls/hr Documented by: [id number] Admin: 02/19/19 15:15 Dose: 999 mls/hr Documented by: [id number] Ciprofloxacin (Cipro) 400 mg in 200 mls @ 100 mls/hr IV ONE ONE Stop: 02/19/19 20:14 Last Infusion: 02/19/19 22:39 Dose: 0 mls/hr Documented by: [id number] Admin: 02/19/19 20:16 Dose: 100 mls/hr Documented by: [id number] Sodium Chloride (Nss 1000ml) 1,000 mls @ 90 mls/hr IV .Q11H7M [facility] Stop: 02/20/19 05:36 Last Infusion: 02/20/19 07:05 Dose: 0 mls/hr Documented by: [id number] Admin: 02/19/19 19:31 Dose: 90 mls/hr Documented by: [id number] Ciprofloxacin (Cipro) 400 mg in 200 mls @ 100 mls/hr IV Q12H [facility]; Protocol Stop: 03/02/19 06:59 Last Infusion: 02/20/19 08:47 Dose: 0 mls/hr Documented by: [id number] Admin: 02/20/19 06:24 Dose: 100 mls/hr Documented by: [id number] Ioversol (Optiray 320 125ml) 120 ml IV ONCE PRN PRN Reason: Interaction Checking Stop: 02/23/19 13:16 Last Admin: 02/19/19 13:18 Dose: 120 ml Documented by: [id number] Potassium Chloride (Klor-Con M20) 20 meq PO NOW ONE Stop: 02/20/19 10:01 Last Admin: 02/20/19 10:19 Dose: 20 meq Documented by: [id number] ECG Rate (beats per minute): 81 Findings: + paced rhythm (1) UTI (urinary tract infection) Hematuria presence: without hematuria Urinary tract infection type: site unspecified Qualified Code(s): N39.0 - Urinary tract infection, site not specified (2) Cortez cyst Laterality: right Qualified Code(s): M71.21 - Synovial cyst of popliteal space [Cortez], right knee
--- NOTE | 2019-02-21 14:49 | Nuclear Medicine Report ---
NM bone scan limited area CLINICAL HISTORY: Right tibial pain. COMPARISON STUDY: Right knee films dated 02/19/2019 there are no corresponding abnormalities on the r ecent x-ray. The findings are therefore suspicious for an occult fracture. FINDINGS: The patient was injected with 27.4 mCi of technetium 99m MDP. Three-hour delayed images of the lower legs were acquired. There is intense increased activity involving the medial tibial plateau of the right proximal tibia. There are no corresponding abnormalities on the recent x-ray. The findings are therefore suspicious f or an occult fracture. IMPRESSION: Intense abnormal increased activity involving the medial tibial plateau of the right kne e. The findings are statistically secondary to an occult fracture. Electronically signed by: Ben Powers M.D. 02/21/2019 2:47 PM
[2019-02-21] MEDS: ACETAMINOPHEN 500 MG TAB PO PRN ×2 (16:50→23:44)
[2019-02-21] MEDS: ENOXAPARIN INJ 40 MG/0.4 ML SYR SQ SCH (20:12)
[2019-02-21] MEDS: MIRTAZAPINE TAB 15 MG TAB PO SCH (20:12)
[2019-02-22] MEDS: TRAMADOL HCL 50 MG TABLET PO PRN ×2 (02:22→09:18)
[2019-02-22] MEDS: ACETAMINOPHEN 500 MG TAB PO PRN (06:12)
[2019-02-22 07:08] LABS: Hematocrit (blood only) 34.8 % (37-47); Hemoglobin 11.2 g/dL (12.0-16.0); Mean Corpuscular Hgb Conc 32.2 g/dL (32-36); Mean Corpuscular Volume 88.1 fL (80-100); Mean Platelet Volume 8.6 fL (7.4-10.4); Nucleated RBC # (auto) 0.03 K/uL (0-0); Nucleated RBC % (auto) 1.2 %; Platelet Count 160 K/uL (130-400); RDW Standard Deviation 45.1 fL (36.4-46.3); Red Blood Count 3.95 M/uL (4.2-5.4); White Blood Count 2.48 K/uL (4.8-10.8)
[2019-02-22 07:38] LABS: BUN Creatinine Ratio 13.8 (10-20); Calcium 9.1 mg/dl (8.5-10.1); Creatinine Clr Calc Pharmacy 98.7 ml/min; Est GFR (African American) 106.5; Est GFR (Non-African American) 91.9; Potassium 3.6 mmol/L (3.5-5.1)
[2019-02-22] MEDS: ERTAPENEM SODIUM 1,000 MG in SODIUM CHLORIDE 0.9% 50 ML IV SCH (09:18)
[2019-02-22] MEDS: ARIPiprazole 10 MG TAB PO SCH (09:19)
[2019-02-22] MEDS: BuPROPion SR 100 MG TABCR PO SCH (09:20)
[2019-02-22] MEDS ORDERED: OXYCODONE/ACETAMINOPHEN 5mg/325mg TAB PO PRN (09:25)
--- NOTE | 2019-02-22 09:25 | Hospitalist Progress Note ---
Date of Service February 22, 2019 Assessment & Plan (1) Acute metabolic encephalopathy: This is a 63yo F with a PMH of orthostatic hypotension, frequent falls, h/o pacemaker placement, bipolar disorder and other medical problems listed below who presents with confusion. Pt currently A&O x 3; confusion reported from neighbor Confusion felt to be possible secondary to dose of Ambien taken night before 10mg (pt previously on trazodone and less effective so tried 1st dose of ambien) and complicated by UTI Urine culture is > 100k e coli ESBL Encephalopathy resolved (2) Infection due to ESBL-producing Escherichia coli: Urine Culture + ESBL IV Ertapenem initiated, day 2 of 7 ID on board- appreciate recommendations Midline order placed Patient will need to complete IV antibiotics on outpatient basis for the next 5 days at [facility] (3) UTI (urinary tract infection): (4) Cortez cyst: Had venous Doppler 02/13 - no dvt +bakers cyst Doppler - no dvt + Small popliteal cyst as documented measuring 43 x 23 x 13 mm Continue Tylenol, tramadol PRN ICE TID (5) Fracture of tibial plateau: Had bone scan NM yesterday concerning for occult fracture of tibial plateau Orthopedics updated recommend NWB, Knee Immobilizer, pain control and follow up in their office in 2-3 weeks PT/OT on board D/C Tramadol and switch to percocet Senna S added for bowel prophylaxis (6) Osteoarthritis of right knee: R knee mild OA R knee xray reviewed Ortho consulted - appreciate recommendations continue PT pain control as above (7) History of CVA (cerebrovascular accident): History of CVA but not on aspirin or Plavix due to contraindication from gastric bypass as well as frequent falls (8) Bipolar disorder: (9) PTSD (post-traumatic stress disorder): Continue Abilify, Wellbutrin (10) Orthostatic hypotension: History of hypotension and syncopal episodes. 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 Pierce. Please see addendum. Supervising Physician Co-Signing Physician Notes Attending addendum: Patient was seen and examined in medical floor Her knee pain seems to be stable Denies any symptoms of UTI Wants to go home today On examination Very anxious Hemodynamically stable Chest-clear to auscultate bilaterally Heart-S1-S2, regular Abdomen-benign Extremities-has swelling of the right knee, clinically no fluid, knee movement is painful in every direction Her labs and imaging studies noted Has ESBL UTI with metabolic encephalopathy, right tibial plateau fracture Medically stable to be discharged Agree with assessment and plan as outlined above by EMMY Murphy Dr Subjective Patient was seen and examined in room 277-2. Follow-up for UTI, right tibial plateau occult fracture. Patient feels "okay this morning." Had panic attack yesterday afternoon where b/l hands when numb, felt left sided chest pressure and anxiousness. Sx lasted approx 5 minutes before resolving on own. "I asked nurse for anxiety medication but nothing was ordered." Still complains of RLE pain. Feels tramadol not improving pain as much as she would like. Still using Ice which does help temporarily. Complains of urinary freq. Denies f/c/s, chest pain, sob, n/v/d, abdominal pain. Moving bowels. Appetite remains diminished. Continues to be worried about her dog, but he friend has been taking care of it. Review of Systems Review of Systems: At least ten systems reviewed and negative except as noted in the HPI. Physical Exam Physical Exam: Gen: WD/WN, NAD, A&O x3, appears older than stated age HEENT: Normocephalic, atraumatic, conjunctivae moist, sclerae anicteric, mucous membranes moist. Lung: Clear to Auscultation bilaterally, no wheezes/rales/rhonchi Heart: Regular rate, regular rhythm, no murmurs, rubs, or gallops Abdomen: Soft, NT, ND +BS x 4 Extremities: R knee pain to lateral/medial joint line with mild effusion; + calf ecchymosis in various stages of healing. Pain to light palpation of R calf. Decrease ROM with Dorsiflexion due to pain, No josephine pretibial or pedal edema Skin: Warm, no rash, negative turgor. Results & Data Vital Signs (Past 12 Hours) Vital Signs Temp Pulse Resp BP BP Pulse Ox 02/22/19 07:19 36.7 C 79 18 115/68 96 02/21/19 23:19 36.6 C 75 16 111/66 97 Laboratory Results Short CBC 02/22/19 Range/Units 06:30 WBC 2.48 L (4.8-10.8) K/uL Hgb 11.2 L (12.0-16.0) g/dL Hct 34.8 L (37-47) % Plt Count 160 (130-400) K/uL BMP 02/22/19 06:30 Sodium 143 Potassium 3.6 Chloride 106 Carbon Dioxide 32 BUN 10 Creatinine 0.71 Glucose 102 H Calcium 9.1 Diagnostic Findings Bone Scan NM: COMPARISON STUDY: Right knee films dated 02/19/2019 there are no corresponding abnormalities on the recent x-ray. The findings are therefore suspicious for an occult fracture. FINDINGS: The patient was injected with 27.4 mCi of technetium 99m MDP. Three- hour delayed images of the lower legs were acquired. There is intense increased activity involving the medial tibial plateau of the right proximal tibia. There are no corresponding abnormalities on the recent x- ray. The findings are therefore suspicious for an occult fracture. IMPRESSION: Intense abnormal increased activity involving the medial tibial plateau of the right knee. The findings are statistically secondary to an occult fracture. Medications Administered Acetaminophen (Tylenol) 1,000 mg PO Q6H PRN PRN Reason: Pain Stop: 03/21/19 18:17 Last Admin: 02/22/19 06:12 Dose: 1,000 mg Documented by: [id number] Admin: 02/21/19 23:44 Dose: 1,000 mg Documented by: [id number] Admin: 02/21/19 16:50 Dose: 1,000 mg Documented by: [id number] Admin: 02/19/19 23:33 Dose: 1,000 mg Documented by: [id number] Aripiprazole (Abilify) 20 mg PO QAM [facility] Stop: 03/22/19 08:59 Last Admin: 02/22/19 09:19 Dose: 20 mg Documented by: [id number] Admin: 02/21/19 08:13 Dose: 20 mg Documented by: [id number] Admin: 02/20/19 08:47 Dose: 20 mg Documented by: [id number] Bupropion HCl (Wellbutrin-Sr) 100 mg PO DAILY [facility] Stop: 03/22/19 08:59 Last Admin: 02/22/19 09:20 Dose: 100 mg Documented by: [id number] Admin: 02/21/19 08:12 Dose: 100 mg Documented by: [id number] Admin: 02/20/19 08:46 Dose: 100 mg Documented by: [id number] Enoxaparin Sodium (Lovenox) 40 mg SQ Q24H [facility] Stop: 03/21/19 20:59 Last Admin: 02/21/19 20:12 Dose: 40 mg Documented by: [id number] Admin: 02/20/19 20:28 Dose: 40 mg Documented by: [id number] Admin: 02/19/19 20:18 Dose: 40 mg Documented by: [id number] Hydroxyzine HCl (Vistaril) 25 mg PO AMHS [facility] Stop: 03/21/19 20:59 Last Admin: 02/22/19 09:20 Dose: 25 mg Documented by: [id number] Admin: 02/21/19 20:12 Dose: 25 mg Documented by: [id number] Admin: 02/21/19 08:14 Dose: 25 mg Documented by: [id number] Admin: 02/20/19 20:31 Dose: 25 mg Documented by: [id number] Admin: 02/20/19 08:46 Dose: 25 mg Documented by: [id number] Admin: 02/19/19 20:18 Dose: 25 mg Documented by: [id number] Ertapenem 1,000 mg/ Sodium (Chloride) 60 mls @ 100 mls/hr IV Q24H [facility] Stop: 02/28/19 08:59 Last Admin: 02/22/19 09:18 Dose: 100 mls/hr Documented by: [id number] Infusion: 02/21/19 11:30 Dose: 0 mls/hr Documented by: [id number] Admin: 02/21/19 10:34 Dose: 100 mls/hr Documented by: [id number] Mirtazapine (Remeron) 15 mg PO HS [facility] Stop: 03/21/19 20:59 Last Admin: 02/21/19 20:12 Dose: 15 mg Documented by: [id number] Admin: 02/20/19 20:31 Dose: 15 mg Documented by: [id number] Admin: 02/19/19 20:18 Dose: 15 mg Documented by: [id number] Ondansetron HCl (Zofran) 4 mg IV Q6H PRN PRN Reason: Nausea Stop: 03/21/19 18:17 Last Admin: 02/21/19 10:34 Dose: 4 mg Documented by: [id number] Discontinued Medications Bupivacaine HCl/Epinephrine Bitart (Bupivacaine 0.25%-Epi 1:[id number]) 30 ml INFIL TODAY@1700 [facility] Stop: 02/20/19 23:59 Last Admin: 02/22/19 06:47 Dose: Not Given Documented by: [id number] Ciprofloxacin (Cipro) 500 mg PO BID [facility] Stop: 02/25/19 20:59 Last Admin: 02/21/19 08:12 Dose: 500 mg Documented by: [id number] Admin: 02/20/19 20:31 Dose: 500 mg Documented by: [id number] Ethyl Chloride (Ethyl Chloride) 1 ml EXT TODAY@1700 [facility] Stop: 02/20/19 23:59 Last Admin: 02/22/19 06:48 Dose: Not Given Documented by: [id number] Sodium Chloride (Nss) 500 mls @ 999 mls/hr IV .Q31M [facility] Stop: 02/19/19 13:00 Last Infusion: 02/19/19 13:35 Dose: 0 mls/hr Documented by: [id number] Admin: 02/19/19 13:00 Dose: 999 mls/hr Documented by: [id number] Acetaminophen (Ofirmev) 1,000 mg in 100 mls @ 400 mls/hr IV NOW STA Stop: 02/19/19 14:13 Last Infusion: 02/19/19 14:25 Dose: 0 mls/hr Documented by: [id number] Admin: 02/19/19 14:10 Dose: 400 mls/hr Documented by: [id number] Ceftriaxone Sodium 2,000 mg/ (Dextrose) 70 mls @ 100 mls/hr IV NOW STA Stop: 02/19/19 15:18 Last Infusion: 02/19/19 15:57 Dose: 0 mls/hr Documented by: [id number] Admin: 02/19/19 15:15 Dose: 100 mls/hr Documented by: [id number] Sodium Chloride (Nss) 500 mls @ 999 mls/hr IV .Q31M ONE Stop: 02/19/19 15:14 Last Infusion: 02/19/19 15:50 Dose: 0 mls/hr Documented by: [id number] Admin: 02/19/19 15:15 Dose: 999 mls/hr Documented by: [id number] Ciprofloxacin (Cipro) 400 mg in 200 mls @ 100 mls/hr IV ONE ONE Stop: 02/19/19 20:14 Last Infusion: 02/19/19 22:39 Dose: 0 mls/hr Documented by: [id number] Admin: 02/19/19 20:16 Dose: 100 mls/hr Documented by: [id number] Sodium Chloride (Nss 1000ml) 1,000 mls @ 90 mls/hr IV .Q11H7M [facility] Stop: 02/20/19 05:36 Last Infusion: 02/20/19 07:05 Dose: 0 mls/hr Documented by: [id number] Admin: 02/19/19 19:31 Dose: 90 mls/hr Documented by: [id number] Ciprofloxacin (Cipro) 400 mg in 200 mls @ 100 mls/hr IV Q12H [facility]; Protocol Stop: 03/02/19 06:59 Last Infusion: 02/20/19 08:47 Dose: 0 mls/hr Documented by: [id number] Admin: 02/20/19 06:24 Dose: 100 mls/hr Documented by: [id number] Ioversol (Optiray 320 125ml) 120 ml IV ONCE PRN PRN Reason: Interaction Checking Stop: 02/23/19 13:16 Last Admin: 02/19/19 13:18 Dose: 120 ml Documented by: [id number] Methylprednisolone Acetate (Depo-Medrol) 80 mg IA TODAY@1700 [facility] Stop: 02/20/19 23:59 Last Admin: 02/22/19 06:48 Dose: Not Given Documented by: [id number] Potassium Chloride (Klor-Con M20) 20 meq PO NOW ONE Stop: 02/20/19 10:01 Last Admin: 02/20/19 10:19 Dose: 20 meq Documented by: [id number] Tramadol HCl (Ultram) 50 mg PO Q4H PRN PRN Reason: Pain Stop: 03/21/19 20:00 Last Admin: 02/22/19 09:18 Dose: 50 mg Documented by: [id number] Admin: 02/22/19 02:22 Dose: 50 mg Documented by: [id number] Admin: 02/21/19 20:11 Dose: 50 mg Documented by: [id number] Admin: 02/21/19 13:48 Dose: 50 mg Documented by: [id number] Admin: 02/21/19 08:11 Dose: 50 mg Documented by: [id number] Admin: 02/21/19 03:51 Dose: 50 mg Documented by: [id number] Admin: 02/20/19 23:37 Dose: 50 mg Documented by: [id number] Admin: 02/20/19 19:00 Dose: 50 mg Documented by: [id number] Admin: 02/20/19 14:20 Dose: 50 mg Documented by: [id number] Admin: 02/20/19 08:45 Dose: 50 mg Documented by: [id number] Admin: 02/20/19 02:44 Dose: 50 mg Documented by: [id number] Admin: 02/19/19 21:47 Dose: 50 mg Documented by: [id number] Zolpidem Tartrate (Ambien) 5 mg PO HS PRN PRN Reason: Sleep Stop: 03/22/19 09:24 Last Admin: 02/21/19 20:11 Dose: 5 mg Documented by: [id number] (1) UTI (urinary tract infection) Hematuria presence: without hematuria Urinary tract infection type: site unspecified Qualified Code(s): N39.0 - Urinary tract infection, site not specified (2) Cortez cyst Laterality: right Qualified Code(s): M71.21 - Synovial cyst of popliteal space [Cortez], right knee
[2019-02-22] MEDS ORDERED: LORazepam 0.5 MG TAB PO STA (10:36)
--- NOTE | 2019-02-22 11:31 | Discharge Summary ---
Date of Service February 22, 2019 Admission HPI Per Admitting Provider This is a 63yo F with a PMH of orthostatic hypotension, frequent falls, h/o pacemaker placement, bipolar disorder and other medical problems listed below who presents with confusion. Was reportedly seen by neighbors at the apartment complex who noticed that patient was confused and acting erratically and they called EMS. Patient denies this and her main complaint is her knee pain from Cortez's cyst. Was seen in ED yesterday and was recommended to take Motrin and Tylenol. Has also been urinating frequently with some burning. Denies hematuria. Endorses poor PO intake and some nausea that was relieved by Zofran. Has not eaten any food today. Recently established care at [facility] (in addition to following with Dr. Blankenship) and had a medication change for insomnia. Trazodone was discontinued and and was started on Ambien 10mg, which she took last night for the first time. Denies any confusion, lightheadedness or headache. Denies any visual or auditory hallucinations. States that mood is been stable and she has been taking her medications regularly. Denies any fever, chills, chest pain, palpitations, shortness of breath, vomiting, abdominal pain, diarrhea or constipation. Admission Exam Per Admitting Provider General Appearance: WD/WN, no apparent distress, resting comfortably Head: normocephalic, atraumatic Eyes: normal inspection, PERRL, EOMI ENT: hearing grossly normal, pharynx normal (dry mucous membranes) Neck: supple, no JVD, no adenopathy Respiratory/Chest: lungs clear to auscultation. No wheezes, rales or rhonci. No respiratory distress or accessory muscle use Cardiovascular: regular rate, rhythm, no murmur, normal peripheral pulses Abdomen/GI: normal bowel sounds, soft, non-tender to palpation Extremities/Musculoskelatal: normal inspection, no calf tenderness, normal capillary refill, dependent LE edema Neurologic/Psych: alert, normal mood/affect, oriented x 3, poor insight/judgement Skin: normal color, warm/dry Principal Diagnosis ESBL UTI Metabolic encephalopathy Right tibial plateau occult fracture Right popliteal cyst Discharge Exam Gen: WD/WN, NAD, A&O x3, appears older than stated age HEENT: Normocephalic, atraumatic, conjunctivae moist, sclerae anicteric, mucous membranes moist. Lung: Clear to Auscultation bilaterally, no wheezes/rales/rhonchi Heart: Regular rate, regular rhythm, no murmurs, rubs, or gallops Abdomen: Soft, NT, ND +BS x 4 Extremities: R knee pain to lateral/medial joint line with mild effusion; + calf ecchymosis in various stages of healing. Pain to light palpation of R calf. Decrease ROM with Dorsiflexion due to pain, No josephine pretibial or pedal edema Skin: Warm, no rash, negative turgor. Discharge Data Allergies Allergy/AdvReac Type Severity Reaction Status Date / Time aspirin AdvReac Unknown CONTRAINDICATED Verified 02/19/19 14:11 D/T BYPASS SURGERY ibuprofen AdvReac Unknown contraindicated Verified 02/19/19 14:11 d/t gastric bypass NSAIDS (Non-Steroidal AdvReac Unknown CONTRAINDICATED Verified 02/19/19 14:11 Anti-Inflamma D/T BYPASS SURGERY Consultations Consults: Infectious disease Assessment & Plan (1) UTI (urinary tract infection): Patient with ESBL E. coli urinary tract infection with associated encephalopathy not clear whether this was from infection or from her use of Ambien. Recommend 7-day course of IV ertapenem 1 g daily. Discussed with hospitalist service. Will follow. (2) Infection due to ESBL-producing Escherichia coli: (3) Acute metabolic encephalopathy: Orthopedics (1) Osteoarthritis of right knee: Minimal osteoarthritis of the knee not likely cause of her symptoms. Differential diagnosis would include insufficiency fracture or stress fracture medial tibia. Other possible diagnosis would be Pes anserine bursitis, MCL sprain from a fall, or meniscus tear. Patient is a pacemaker and if this is not compatible with MRI is most pacemakers are then an MRI is not able to be ordered. If she has a compatible MRI pacemaker then MRI would be the best next study. Alternative study would be a bone scan to rule out a stress fracture. Treatment now would be the knee immobilizer during weightbearing protected weightbearing with walker and observation. No injections are recommended at this time. Pain management per medical service as needed. Ordered Studies Bone Scan NM: COMPARISON STUDY: Right knee films dated 02/19/2019 there are no corresponding abnormalities on the recent x-ray. The findings are therefore suspicious for an occult fracture. FINDINGS: The patient was injected with 27.4 mCi of technetium 99m MDP. Three- hour delayed images of the lower legs were acquired. There is intense increased activity involving the medial tibial plateau of the right proximal tibia. There are no corresponding abnormalities on the recent x- ray. The findings are therefore suspicious for an occult fracture. IMPRESSION: Intense abnormal increased activity involving the medial tibial pl ateau of the right knee. The findings are statistically secondary to an occult fracture. Venous Doppler: FINDINGS: Real-time and color flow Doppler imaging were performed. Flow was seen within the femoral, popliteal and calf veins with no intraluminal thrombus demonstrated. The saphenous vein is patent. There is a 43 x 23 x 13 mm popliteal cyst. IMPRESSION: No evidence of right lower extremity DVT. Knee Xray: IMPRESSION: No acute fracture or joint effusion of the right knee. Hip/Pelvis Xray: IMPRESSION: No acute fracture within the pelvis or hips. Head/Neck CTA: IMPRESSION: 1. There is no hemorrhage, mass effect, or evidence of acute territorial ischemia by CT criteria on this angiographic phase examination. 2. 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 3. Otherwise unremarkable CT angiogram of the brain. Head CT: FINDINGS: No acute intracranial hemorrhage, midline shift or mass effect is present. The ventricular system is unremarkable. The basilar cisterns are patent. No extra-axial collections are present. There are no findings to suggest acute dural sinus thrombosis or acute territorial infarct. No significant calvarial abnormalities are present. Visualized portions of the sinuses and m astoid air cells are clear. IMPRESSION: No acute intracranial findings. CXR: IMPRESSION: No acute cardiopulmonary findings. Short CBC 02/22/19 Range/Units 06:30 WBC 2.48 L (4.8-10.8) K/uL Hgb 11.2 L (12.0-16.0) g/dL Hct 34.8 L (37-47) % Plt Count 160 (130-400) K/uL BMP 02/22/19 06:30 Sodium 143 Potassium 3.6 Chloride 106 Carbon Dioxide 32 BUN 10 Creatinine 0.71 Glucose 102 H Calcium 9.1 Urine Culture Final 02/21/19-1218 Organism 1 Escherichia coli ESBL [place] Count >100,000 CFU/ml Sens Sensitivities to Follow Sensitivity results indicate an organism with an Extended Spectrum Beta Lactamase. This is considered a Multidrug Resistant Organism. Phoned to CARMELO ESQUEDA on 02/21/19 at 0813 by Leona Carlisle. Results were verbalized back. ESBL E col RX M.I.C. --- --------- Amikacin S <=16 Ampicillin R >16 Amp/Sul I 16/8 Cefazolin R >16 Cefepime R <=4 Cefotaxime R >32 Cefoxitin S <=8 Ceftriaxone R >32 Cefuroxime R >16 Ciprofloxacin R >2 Ertapenem S <=1 Gentamicin S <=4 Imipenem S <=1 Levofloxacin R >4 Nitrofurantoin S <=32 Tobramycin S <=4 Trimeth/Sulfa R > Pip/Tazo S <=16 S = SENSITIVE I = INTERMEDIATE R = RESISTANT Hospital Course (1) Acute metabolic encephalopathy: This is a 63yo F with a PMH of orthostatic hypotension, frequent falls, h/o pacemaker placement, bipolar disorder and other medical problems listed below who presented with confusion. Confusion felt to be possible secondary to dose of Ambien taken night before 10mg (pt previously on trazodone and less effective so tried 1st dose of ambien) and complicated by UTI. Initially patient was placed on IV ciprofloxacin; however urine culture grew ESBL UTI. She was seen and evaluated by infectious disease. Placed on IV ertapenem 1 g daily and recommended to continue for 7 days. And endurance ultrasound-guided peripheral IV was placed in the left upper extremity. During hospitalization patient continued to complain of right knee pain. She had some joint swelling along with bruising down her calf. She had difficulty walking. Orthopedics was consulted. Right knee x-ray revealed mild osteoarthritis. Venous Doppler ultrasound was negative for DVT but did show popliteal cyst. Orthopedics recommended bone scan due to inability to obtain MRI given pacemaker. Bone scan concerning for occult fracture of right tibial plateau. She was made nonweightbearing of the right lower extremity and recommended to use right knee immobilizer. Initially treated with oral tramadol with mild relief and transition to oral Percocet at discharge. She is to follow-up with orthopedics in 2 to 3 weeks. (2) Infection due to ESBL-producing Escherichia coli: Urine Culture + ESBL IV Ertapenem initiated, day 2 of 7 ID on board- appreciate recommendations Midline order placed Patient will need to complete IV antibiotics on outpatient basis for the next 5 days at [facility] (3) UTI (urinary tract infection): Urine Culture + ESBL D/C Cipro ID Consulted - appreciate recommendations Will need IV Ertapenem x 1 week Complains of urine frequency (4) Cortez cyst: Had venous Doppler 02/13 - no dvt +bakers cyst Doppler - no dvt + Small popliteal cyst as documented measuring 43 x 23 x 13 mm Continue Tylenol, tramadol PRN ICE TID (5) Fracture of tibial plateau: Had bone scan [place] yesterday concerning for occult fracture of tibial plateau Orthopedics updated recommend NWB, Knee Immobilizer, pain control and follow up in their office in 2-3 weeks PT/OT on board D/C Tramadol and switch to percocet Senna S added for bowel prophylaxis (6) Osteoarthritis of right knee: R knee mild OA R knee xray reviewed Ortho consulted - appreciate recommendations continue PT pain control as above (7) History of CVA (cerebrovascular accident): History of CVA but not on aspirin or Plavix due to contraindication from gastric bypass as well as frequent falls (8) Bipolar disorder: (9) PTSD (post-traumatic stress disorder): Continue Abilify, Wellbutrin (10) Orthostatic hypotension: History of hypotension and syncopal episodes. Currently with normal BP Fall precautions (11) Insomnia: Continue Remeron, Melatonin Recently switched from trazodone to Ambien, which she took for the first time night [employer] Trialed ambien 5mg last evening, patient tolerated Will not continue in light of placing on percocet (12) History of pacemaker: DVT Ppx: SQ lovenox Code status: FULL code PCP: Lucrecia Blaknenship Dispo: Discharge to home today with outpt IV Antibiotics at [facility]; case management working on appropriate arrangements Patient seen in collaboration with Dr. Pierce. Please see addendum. Total Time Total Time Spent Total Time Spent (In Minutes): 60 minutes Total Time Includes: Examination of the Patient, Discharge Planning, Medication Reconciliation, Communication With Other Providers and Other Discharge Plan Discharge Items Patient Disposition: Home - Self-Care Reason For Visit: CONFUSION, Urinary Tract Infection, R Knee Pain Discharge Diagnosis: Multi Drug Resistent (ESBL) Urinary Tract Infection R tibial Plateau stress fracture Bakers Cyst Mild Right Knee Osteoarthritis Condition: Good Discharge Goals: Decrease discomfort, Diagnostic testing, Improve disease control and Increase independence Activity: As commented below Activity Comment: Non-weightbearing to Right Lower Leg; R knee Immobilizer to Right Knee Lifting: Gradually increase as tolerated Bathing: No limitations Exercise/Sports: None Driving/Machine Use Comment: No Driving due to R tibial Fractures and narcotics Weightbearing: Right non-weightbearing Non-emergency contact: Primary Care Provider Call non-emergency contact if: you have any medication questions, your symptoms worsen, your pain is not controlled, your pain is worsening, your pain is unusual for you and your temperature is above 100.5 Follow-up/Referrals: Sagrario Blankenship DO [Primary Care Provider] - 03/01/19 10:30 am Nilesh Ann MD [Surgeon] - Diet: Regular Addtl Provider Instructions: MEDICATION CHANGES: Ertapenem 1000mg IV daily Percocet 5/325 1 tablet every 6 hours as needed for pain Senna/docusate sodium 1 tablet nightly when taking Percocet Continue all other medications as prescribed SUMMARY OF TEST RESULTS: You had numerous imaging done while inpatient at [facility]. CT scan of head revealed no acute abnormality. Head and neck angiogram revealed a small 4 mm aneurysm on your right carotid artery. It was unchanged when compared to scan from 2016. Right knee x-ray revealed mild osteoarthritis. Right leg ultrasound was negative for blood clot but did reveal a Cortez's cyst. Bone scan was positive for right tibial plateau fracture. PENDING TEST RESULTS: None RECOMMENDATIONS FOR FOLLOW-UP: You were admitted to [facility] due to confusion and urinary tract infection You were found to have a multidrug-resistant urinary tract infection that will require IV antibiotics for 1 week. You will receive IV ertapenem 1000 mg daily. This will be completed on 02/27/19. You had R lower extremity pain. Work up revealed a Stress Fracture to your R tibial plateau and a Bakers Cyst. You are NON WEIGHT BEARING to your Right Leg and must wear Knee immobilizer. You will need to follow up with Orthopedics in 2-3 weeks. OTHER INSTRUCTIONS: Seek medical attention if you have: * temperature above 101 * chest pain or trouble breathing * abdominal pain, nausea, vomiting * diarrhea, dark stools or bloody stools * any unanswered questions or concerns Call 911 if symptoms are severe. Please take good care of yourself. Call if you have any questions or problems. You can reach a [facility] hospitalist on duty at [facility] 24 hours a day by calling [phone]. My pager number # is [phone]. Prescriptions: New sennosides-docusate sodium [Senokot-S] 8.6-50 mg Tablet 1 tab PO HS PRN (Reason: constipation) 30 Days Qty: 30 RF: 0 Ertapenem Consult Active [Consult] 1 g IV, DAILY 5 Days Qty: 5 RF: 0 oxycodone-acetaminophen 5-325 mg tablet 1 tab PO Q6H PRN (Reason: pain) 3 Days Qty: 12 RF: 0 Continued hydroxyzine HCl 25 mg tablet 25 mg PO AMHS RF: 0 baclofen 10 mg tablet 10 mg PO BID PRN (Reason: Muscle Spasm) RF: 0 aripiprazole 20 mg tablet 20 mg PO QAM RF: 0 melatonin 5 mg Tablet 10 mg PO HS RF: 0 mirtazapine 15 mg tablet 15 mg PO HS RF: 0 bupropion HCl 100 mg tablet sustained-release 12 hr 100 mg PO DAILY RF: 0 Discontinued zolpidem [Ambien] 10 mg Tablet 10 mg PO HS PRN (Reason: Insomnia) RF: 0 ondansetron HCl 4 mg tablet 4 mg PO Q6H PRN (Reason: Nausea) RF: 0 acetaminophen [Tylenol Extra Strength] 500 mg Tablet 1,000 mg PO Q6H PRN (Reason: Pain) RF: 0 Stand-Alone Forms: My [facility] Discharge Orders: Discharge Order (Routine); Ordered 02/22/19 Ordered By: Valarie Amaral Admission Data Admit Date/Time: 02/19/19 16:23 Attending Provider: Susan Pierce Admit Provider: Sagrario Blankenship Primary Care Provider: Sagrario Blankenship Other Providers: Armando Knight ; Chris Dennis ; Sergio Flores ; Anne Marie Bell Service: Telemetry Medical Other Interventions: Discharge Summary Assessment (RN) Last Done: 02/22/19 13:17 Pending Studies at Discharge: No Supervising Physician Co-Signing Physician Notes Attending addendum: Patient was seen and examined in medical floor Her knee pain seems to be stable Denies any symptoms of UTI Wants to go home today On examination Very anxious Hemodynamically stable Chest-clear to auscultate bilaterally Heart-S1-S2, regular Abdomen-benign Extremities-has swelling of the right knee, clinically no fluid, knee movement is painful in every direction Her labs and imaging studies noted Has ESBL UTI with metabolic encephalopathy, right tibial plateau fracture Medically stable to be discharged Agree with assessment and plan as outlined above by EMMY Murphy Dr
[2019-02-23] MEDS ORDERED: DOCUSATE SODIUM/SENNA 50/8.6MG TAB PO SCH (09:00)
== END 2019-02-22 15:44 | disposition home or self-care (01) | DRG 689 ==
LOC: ED 11:08 → 2N 16:23 → SUATTDRO 16:23 → 2N 17:52
DX: N39.0 Urinary tract infection, site not specified; Z98.84 Bariatric surgery status; Z86.73 Personal history of transient ischemic attack (TIA), and cerebral infarction without residual deficits; M17.11 Unilateral primary osteoarthritis, right knee; F43.12 Post-traumatic stress disorder, chronic; Z88.6 Allergy status to analgesic agent; G93.41 Metabolic encephalopathy; Z95.0 Presence of cardiac pacemaker; E03.9 Hypothyroidism, unspecified; F31.9 Bipolar disorder, unspecified; G62.9 Polyneuropathy, unspecified; B96.23 Unspecified Shiga toxin-producing Escherichia coli [E. coli] [STEC] as the cause of diseases classified elsewhere

== ENCOUNTER 2019-11-16 20:26 | Inpatient (IN) ==
[2019-11-16] MEDS ORDERED: SODIUM CHLORIDE 0.9% 1000ML 1,000 ML IV SCH (20:30)
--- NOTE | 2019-11-16 20:54 | Emergency Department Note ---
ED Provider Note NAME: FEMALE UNKNOWN AGE: 89 SEX: F ARRIVES VIA: Ambulance INFORMANT: EMS ED PROVIDER(S): Edy Camacho MD CHIEF COMPLAINT: AMS IMPRESSION: AMS Hypothermia Leukocytosis Active PLAN: Disposition: Admitted Condition: Guarded MEDICAL DECISION MAKING: The patient presented with hypothermia and altered mental status. She had abrasions on her feet but no other trauma was noted. She was wide awake. She was only answering yes to questions. She is a leukocytosis and lactic acidosis. She was empirically treated with IV antibiotics. Urine did not reveal any obvious sign of infection checks x-ray was negative. Head CT did not reveal any acute pathology. Urine tox screen pending. Her chemistry panel was unremarkable. Repeat lactate was improved. She was reassessed frequently. The patient's temperature improved with active rewarming. Her mental status was same. She denied any pain. [facility] The patient was evaluated in the ER and admitted. Triage Nursing notes reviewed and agree them. Additional history obtained from EMS Vital Signs: reviewed and remarkable for HTN, Tachycardia, hypothermia Differential diagnosis: Hypothermia, Infection, hypoglycemia, electrolyte abnormalities, overdose, toxicologic, cardiac sources, intracerebral event, neurologic, trauma, as well as other pathologies. ER treatment provided: Warm IVF Warming blanket IV cefepime IV vancomycin Diagnostics interpreted by me: ECG: Twelve-lead ECG was attempted to be performed and revealed a tachycardia with a rate of 115 to 120 bpm however there was so much artifact from her shivering that any rhythm, interval, or ST segment interpretation was possible. Cardiac Monitoring: Tach monitoring revealed what appeared to be a sinus tachycardia at 120 bpm. No evidence of dysrhythmia. No irregularity. Laboratory studies: [See below] significant leukocytosis and lactic acidosis. Blood cultures pending. The patient's electrolytes are unremarkable. Urinalysis reveals no sign of infection. Blood tox screen negative. Imaging studies: [See below] chest x-ray was performed and unremarkable for acute process. Head CT: A noncontrast CT scan of the head was performed and was negative for tumor, fracture, intracranial hemorrhage, or other acute pathology. Consultation(s): Dr Cruz HPI: The patient is an unknown year old female who presents to the Emergency Room with AMS. The patient was found downtown outside in the cold. She has abrasions on her feet and answers 'yes' to all questions. BSG was 120 for EMS. HTN noted. HPI limited secondary to AMS ROS:Unobtainable secondary to AMS. PAST MEDICAL HISTORY:Unobtainable secondary to AMS. Reviewed in EMR: Anxiety (Chronic) Bipolar disorder (Chronic) Chronic back pain (Chronic) "cervical spinal stenosis " Chronic osteoarthritis (Chronic) Depression (Chronic) Dissociative disorder (Chronic) Frequent falls (Chronic) GERD (gastroesophageal reflux disease) (Chronic) H/O: CVA (cerebrovascular accident) (Chronic) History of pacemaker (Chronic) "for symptomatic bradycardia " History of syncope (Chronic) Hypotension (Chronic) Hypothyroidism (Chronic) Neuropathy (Chronic) Orthostatic hypotension (Chronic) PTSD (post-traumatic stress disorder) (Chronic) Right internal carotid artery aneurysm (Resolved) PAST SURGICAL HISTORY:Unobtainable secondary to AMS. FAMILY HISTORY:Unobtainable secondary to AMS. SOCIAL HISTORY:Unobtainable secondary to AMS. HOME MEDICATIONS:Unobtainable secondary to AMS. ALLERGIES:Unobtainable secondary to AMS. VITALS:[See Below] PHYSICAL EXAMINATION: GENERAL: Awake, alert, confused-appearing, in no distress HENT: Normocephalic, atraumatic. Oropharynx unremarkable. EYES: Normal conjunctiva. Sclera non-icteric. NECK: Inspection normal. Non-tender. Supple. No nuchal rigidity. FROM. No masses. RESPIRATORY: Clear to auscultation. No wheezes. No rales. Normal respiratory effort. CARDIAC: Tachycardic rate. Normal rhythm. No murmurs. No rubs. Extremities warm and well perfused. Pulses equal. No JVD. GI: Soft, non-distended. No tenderness to palpation. No rebound or guarding. No masses. RECTAL: Deferred. MUSCULOSKELETAL: Atraumatic. Chest examination reveals no tenderness. The back is symmetrical on inspection without obvious abnormality. There is no CVA ten derness to palpation. No joint edema. LOWER EXTREMITIES: Calves are equal size bilaterally and non-tender. No edema. Bruising discoloration to the knees consistent with pressure from crawling, minor abrasions. NEURO: Altered sensorium. No focal sensory or motor deficits noted. Answers yes to all questions. SKIN: No rash or jaundice noted. ED COURSE: Procedures: [none] [Critical Care:] I have personally spent greater than 45 minutes of critical care time in the direct management of this patient. This includes bedside care, interpretation of diagnostic studies, and testing, discussion with consultants, patient, and other required patient management activities. These minutes are in excess of all separately billable procedures. Edy Camacho MD Impression & Plan Altered mental status, Hypothermia, Leukocytosis, Acidosis, lactic Past Med/Surg History Social History Feels Safe at Home: Declines to Answer Smoking Status: Unknown if ever smoked Results & Data Vital Signs Vital Signs - 24 hr 11/16/19 20:40 11/16/19 20:45 11/16/19 20:46 Temperature 33.8 C L Temperature Source Rectal Rectal Temperature - Monitor Source 1 Rectal Temperature - Monitor Source 2 Pulse Rate 120 H 120 H 121 H Pulse Rate from SpO2 Sensor 117 H Respiratory Rate 18 Blood Pressure 249/210 H Blood Pressure Mean 223 Pulse Oximetry 99 99 Oxygen Delivery Method Room Air Sepsis Recent Fever Within 48 Hours No Sepsis Action Taken by Nursing No Action Required 11/16/19 20:51 11/16/19 21:05 11/16/19 21:11 Temperature Temperature Source Rectal Temperature - Monitor Source 1 Rectal Temperature - Monitor Source 2 34.1 C L 34.5 C L Pulse Rate 117 H 119 H 118 H Pulse Rate from SpO2 Sensor 118 H Respiratory Rate Blood Pressure 130/107 H 107/78 Blood Pressure Mean 113 102 Pulse Oximetry 97 94 Oxygen Delivery Method Sepsis Recent Fever Within 48 Hours Sepsis Action Taken by Nursing 11/16/19 21:15 11/16/19 21:20 11/16/19 21:30 Temperature Temperature Source Rectal Temperature - Monitor Source 1 Rectal Temperature - Monitor Source 2 34.6 C L 34.6 C L 34.8 C L Pulse Rate 117 H 117 H 116 H Pulse Rate from SpO2 Sensor 125 H 117 H 115 H Respiratory Rate Blood Pressure 135/83 Blood Pressure Mean 91 Pulse Oximetry 94 97 96 Oxygen Delivery Method Sepsis Recent Fever Within 48 Hours Sepsis Action Taken by Nursing 11/16/19 21:41 11/16/19 21:45 11/16/19 21:51 Temperature Temperature Source Rectal Temperature - Monitor Source 1 Rectal Temperature - Monitor Source 2 34.9 C L 35.0 C L 35.1 C L Pulse Rate 117 H 117 H 116 H Pulse Rate from SpO2 Sensor 117 H 115 H 126 H Respiratory Rate Blood Pressure 143/83 H 131/110 H Blood Pressure Mean 99 112 Pulse Oximetry 98 98 98 Oxygen Delivery Method Sepsis Recent Fever Within 48 Hours Sepsis Action Taken by Nursing 11/16/19 21:52 11/16/19 22:00 11/16/19 22:10 Temperature 35.5 C L Temperature Source Rectal Rectal Temperature - Monitor Source 1 Rectal Temperature - Monitor Source 2 35.1 C L 35.3 C L Pulse Rate 116 H 114 H Pulse Rate from SpO2 Sensor 116 H 114 H Respiratory Rate Blood Pressure 126/88 114/82 Blood Pressure Mean 90 99 Pulse Oximetry 98 98 Oxygen Delivery Method Sepsis Recent Fever Within 48 Hours Sepsis Action Taken by Nursing 11/16/19 22:15 11/16/19 22:30 11/16/19 22:31 Temperature Temperature Source Rectal Temperature - Monitor Source 1 Rectal Temperature - Monitor Source 2 35.4 C L 35.9 C L 35.9 C L Pulse Rate 115 H 120 H 117 H Pulse Rate from SpO2 Sensor 115 H 257 H 121 H Respiratory Rate Blood Pressure 115/83 Blood Pressure Mean 101 Pulse Oximetry 98 93 93 Oxygen Delivery Method Sepsis Recent Fever Within 48 Hours Sepsis Action Taken by Nursing 11/16/19 22:45 11/16/19 23:01 11/16/19 23:15 Temperature Temperature Source Rectal Temperature - Monitor Source 1 36.5 C 36.7 C Rectal Temperature - Monitor Source 2 36.2 C L Pulse Rate 115 H 117 H 116 H Pulse Rate from SpO2 Sensor 124 H 110 H 136 H Respiratory Rate 20 22 Blood Pressure Blood Pressure Mean Pulse Oximetry 96 90 90 Oxygen Delivery Method Sepsis Recent Fever Within 48 Hours Sepsis Action Taken by Nursing 11/16/19 23:30 11/16/19 23:32 11/16/19 23:45 Temperature Temperature Source Rectal Temperature - Monitor Source 1 37.0 C 36.9 C 36.9 C Rectal Temperature - Monitor Source 2 Pulse Rate 114 H 114 H 113 H Pulse Rate from SpO2 Sensor 117 H 152 H 113 H Respiratory Rate 13 20 22 Blood Pressure 147/83 H Blood Pressure Mean 93 Pulse Oximetry 98 80 L 97 Oxygen Delivery Method Sepsis Recent Fever Within 48 Hours Sepsis Action Taken by Nursing Laboratory Data Result diagrams: 11/16/19 20:45 11/16/19 20:45 Lab Results 11/16/19 11/16/19 11/16/19 Range/Units 20:38 20:45 20:45 WBC 19.81 H (4.8-10.8) K/uL RBC 4.60 (4.2-5.4) M/uL Hgb 14.5 (12.0-16.0) g/dL POC Hgb (12.0-16.0) g/dl Hct 42.3 (37-47) % POC Hct (37-47) % MCV 92.0 (80-100) fL MCH 31.5 (25-34) pg MCHC 34.3 (32-36) g/dL RDW Std Deviation 44.4 (36.4-46.3) fL RDW Coeff of Ammy 13.4 (11.5-14.5) % Plt Count 146 (130-400) K/uL MPV 9.8 (7.4-10.4) fL Immature Gran % (Auto) 0.3 % Neut % (Auto) 83.3 % Lymph % (Auto) 7.6 % Stephenson % (Auto) 8.6 % Eos % (Auto) 0.0 % Baso % (Auto) 0.2 % Immature Gran # (Auto) 0.06 H (0.00-0.02) K/uL Neut # (Auto) 16.51 H (1.4-6.5) K/uL Lymph # (Auto) 1.51 (1.2-3.4) K/uL Stephenson # (Auto) 1.70 H (0.11-0.59) K/uL Eos # (Auto) 0.00 (0-0.5) K/uL Baso # (Auto) 0.03 (0-0.2) K/uL Echinocytes 1+ PT Cancelled INR Cancelled POC Sodium (135-144) mmol/L Sodium (136-145) mmol/L POC Potassium (3.3-5.0) mmol/L Potassium (3.5-5.1) mmol/L POC Chloride (101-112) mmol/L Chloride (98-107) mmol/L Carbon Dioxide (21-32) mmol/L POC Total CO2 (24-31) mEq/l Anion Gap (3-11) POC Anion Gap (16-25) mmol/L POC BUN (7-18) mg/dl BUN (7-18) mg/dl Creatinine (0.6-1.2) mg/dl POC Creatinine (0.6-1.3) mg/dl Est Cr Clr Drug Dosing ml/min Est GFR ( Amer) Est GFR (Non-Af Amer) BUN/Creatinine Ratio (10-20) Glucose (70-99) mg/dl POC Glucose 143 H (70-99) mg/dl POC Glucose (other) (70-99) mg/dl Lactate (0.4-2.0) mmol/L Calcium (8.5-10.1) mg/dl POC Ioniz Calcium Maximiliano (1.12-1.32) mmol/l Magnesium (1.8-2.4) mg/dl Total Bilirubin (0.2-1) mg/dl AST (15-37) U/L ALT (12-78) U/L Alkaline Phosphatase (45-117) U/L Total Creatine Kinase (26-192) U/L Troponin I (0-0.045) ng/ml Total Protein (6.4-8.2) gm/dl Albumin (3.4-5.0) gm/dl Globulin (2.5-4.0) gm/dl Albumin/Globulin Ratio (0.9-2) TSH (0.300-4.500) uIu/ml Urine Color Urine Appearance (Clear) Urine pH (4.5-7.5) Ur Specific [place] (1.000-1.030) Urine Protein (Negative) Urine Glucose (UA) (Negative) Urine Ketones (Negative) Urine Blood (Negative) Urine Nitrite (Negative) Urine Bilirubin (Negative) Urine Urobilinogen (Negative) Ur Leukocyte Esterase (Negative) Urine WBC (Auto) (0-5) /hpf Urine RBC (Auto) (0-4) /hpf U Hyaline Cast (Auto) (0-5) /lpf U Epithel Cells (Auto) (0-5) /lpf Urine Bacteria (Auto) (Negative) Ur Renal Epithelial Cell (0-5) /lpf Urine Opiates Screen (Neg) Ur Methadone, Qual (Neg) Urine Barbiturates (Neg) Ur Phencyclidine (PCP) (Neg) U Amphetamin/Meth Scrn (Neg) MDMA (Ecstasy) Screen (Neg) U Benzodiazepines Scrn (Neg) Ur Cocaine Metabolite (Neg) U Marijuana (THC) Screen (Neg) Ethyl Alcohol mg/dL (0-3) mg/dl 11/16/19 11/16/19 11/16/19 Range/Units 20:45 20:45 20:45 WBC (4.8-10.8) K/uL RBC (4.2-5.4) M/uL Hgb (12.0-16.0) g/dL POC Hgb (12.0-16.0) g/dl Hct (37-47) % POC Hct (37-47) % MCV (80-100) fL MCH (25-34) pg MCHC (32-36) g/dL RDW Std Deviation (36.4-46.3) fL RDW Coeff of Ammy (11.5-14.5) % Plt Count (130-400) K/uL MPV (7.4-10.4) fL Immature Gran % (Auto) % Neut % (Auto) % Lymph % (Auto) % Stephenson % (Auto) % Eos % (Auto) % Baso % (Auto) % Immature Gran # (Auto) (0.00-0.02) K/uL Neut # (Auto) (1.4-6.5) K/uL Lymph # (Auto) (1.2-3.4) K/uL Stephenson # (Auto) (0.11-0.59) K/uL Eos # (Auto) (0-0.5) K/uL Baso # (Auto) (0-0.2) K/uL Echinocytes PT INR POC Sodium (135-144) mmol/L Sodium 144 (136-145) mmol/L POC Potassium (3.3-5.0) mmol/L Potassium 3.8 (3.5-5.1) mmol/L POC Chloride (101-112) mmol/L Chloride 111 H (98-107) mmol/L Carbon Dioxide 19 L (21-32) mmol/L POC Total CO2 (24-31) mEq/l Anion Gap 14.0 H (3-11) POC Anion Gap (16-25) mmol/L POC BUN (7-18) mg/dl BUN 15 (7-18) mg/dl Creatinine 1.27 H (0.6-1.2) mg/dl POC Creatinine (0.6-1.3) mg/dl Est Cr Clr Drug Dosing 53.2 ml/min Est GFR ( Amer) 52.4 Est GFR (Non-Af Amer) 45.2 BUN/Creatinine Ratio 11.4 (10-20) Glucose 132 H (70-99) mg/dl POC Glucose (70-99) mg/dl POC Glucose (other) (70-99) mg/dl Lactate 8.2 H* (0.4-2.0) mmol/L Calcium 9.9 (8.5-10.1) mg/dl POC Ioniz Calcium Maximiliano (1.12-1.32) mmol/l Magnesium 2.1 (1.8-2.4) mg/dl Total Bilirubin 1.1 H (0.2-1) mg/dl AST 36 (15-37) U/L ALT 28 (12-78) U/L Alkaline Phosphatase 75 (45-117) U/L Total Creatine Kinase 359 H (26-192) U/L Troponin I 0.044 (0-0.045) ng/ml Total Protein 7.9 (6.4-8.2) gm/dl Albumin 3.7 (3.4-5.0) gm/dl Globulin 4.2 H (2.5-4.0) gm/dl Albumin/Globulin Ratio 0.9 (0.9-2) TSH 1.460 (0.300-4.500) uIu/ml Urine Color Dark Yellow Urine Appearance Cloudy A (Clear) Urine pH 5.0 (4.5-7.5) Ur Specific [place] 1.021 (1.000-1.030) Urine Protein Trace H (Negative) Urine Glucose (UA) Negative (Negative) Urine Ketones 1+ H (Negative) Urine Blood 1+ H (Negative) Urine Nitrite Negative (Negative) Urine Bilirubin Negative (Negative) Urine Urobilinogen Negative (Negative) Ur Leukocyte Esterase Negative (Negative) Urine WBC (Auto) 1-5 (0-5) /hpf Urine RBC (Auto) 0-4 (0-4) /hpf U Hyaline Cast (Auto) 10-30 H (0-5) /lpf U Epithel Cells (Auto) >30 H (0-5) /lpf Urine Bacteria (Auto) Negative (Negative) Ur Renal Epithelial Cell 0-5 (0-5) /lpf Urine Opiates Screen (Neg) Ur Methadone, Qual (Neg) Urine Barbiturates (Neg) Ur Phencyclidine (PCP) (Neg) U Amphetamin/Meth Scrn (Neg) MDMA (Ecstasy) Screen (Neg) U Benzodiazepines Scrn (Neg) Ur Cocaine Metabolite (Neg) U Marijuana (THC) Screen (Neg) Ethyl Alcohol mg/dL (0-3) mg/dl 11/16/19 11/16/19 11/16/19 Range/Units 20:45 20:56 21:39 WBC (4.8-10.8) K/uL RBC (4.2-5.4) M/uL Hgb (12.0-16.0) g/dL POC Hgb 14.3 (12.0-16.0) g/dl Hct (37-47) % POC Hct 42 (37-47) % MCV (80-100) fL MCH (25-34) pg MCHC (32-36) g/dL RDW Std Deviation (36.4-46.3) fL RDW Coeff of Ammy (11.5-14.5) % Plt Count (130-400) K/uL MPV (7.4-10.4) fL Immature Gran % (Auto) % Neut % (Auto) % Lymph % (Auto) % Stephenson % (Auto) % Eos % (Auto) % Baso % (Auto) % Immature Gran # (Auto) (0.00-0.02) K/uL Neut # (Auto) (1.4-6.5) K/uL Lymph # (Auto) (1.2-3.4) K/uL Stephenson # (Auto) (0.11-0.59) K/uL Eos # (Auto) (0-0.5) K/uL Baso # (Auto) (0-0.2) K/uL Echinocytes PT 11.9 INR 1.1 POC Sodium 145 H (135-144) mmol/L Sodium (136-145) mmol/L POC Potassium 3.7 (3.3-5.0) mmol/L Potassium (3.5-5.1) mmol/L POC Chloride 110 (101-112) mmol/L Chloride (98-107) mmol/L Carbon Dioxide (21-32) mmol/L POC Total CO2 19 L (24-31) mEq/l Anion Gap (3-11) POC Anion Gap 21.0 (16-25) mmol/L POC BUN 14 (7-18) mg/dl BUN (7-18) mg/dl Creatinine (0.6-1.2) mg/dl POC Creatinine 0.9 (0.6-1.3) mg/dl Est Cr Clr Drug Dosing ml/min Est GFR ( Amer) Est GFR (Non-Af Amer) BUN/Creatinine Ratio (10-20) Glucose (70-99) mg/dl POC Glucose (70-99) mg/dl POC Glucose (other) 136 H (70-99) mg/dl Lactate (0.4-2.0) mmol/L Calcium (8.5-10.1) mg/dl POC Ioniz Calcium Maximiliano 1.18 (1.12-1.32) mmol/l Magnesium (1.8-2.4) mg/dl Total Bilirubin (0.2-1) mg/dl AST (15-37) U/L ALT (12-78) U/L Alkaline Phosphatase (45-117) U/L Total Creatine Kinase (26-192) U/L Troponin I (0-0.045) ng/ml Total Protein (6.4-8.2) gm/dl Albumin (3.4-5.0) gm/dl Globulin (2.5-4.0) gm/dl Albumin/Globulin Ratio (0.9-2) TSH (0.300-4.500) uIu/ml Urine Color Urine Appearance (Clear) Urine pH (4.5-7.5) Ur Specific [place] (1.000-1.030) Urine Protein (Negative) Urine Glucose (UA) (Negative) Urine Ketones (Negative) Urine Blood (Negative) Urine Nitrite (Negative) Urine Bilirubin (Negative) Urine Urobilinogen (Negative) Ur Leukocyte Esterase (Negative) Urine WBC (Auto) (0-5) /hpf Urine RBC (Auto) (0-4) /hpf U Hyaline Cast (Auto) (0-5) /lpf U Epithel Cells (Auto) (0-5) /lpf Urine Bacteria (Auto) (Negative) Ur Renal Epithelial Cell (0-5) /lpf Urine Opiates Screen Neg (Neg) Ur Methadone, Qual Neg (Neg) Urine Barbiturates Neg (Neg) Ur Phencyclidine (PCP) Neg (Neg) U Amphetamin/Meth Scrn Neg (Neg) MDMA (Ecstasy) Screen Neg (Neg) U Benzodiazepines Scrn Neg (Neg) Ur Cocaine Metabolite Neg (Neg) U Marijuana (THC) Screen Neg (Neg) Ethyl Alcohol mg/dL (0-3) mg/dl 11/16/19 11/16/19 Range/Units 22:37 22:37 WBC (4.8-10.8) K/uL RBC (4.2-5.4) M/uL Hgb (12.0-16.0) g/dL POC Hgb (12.0-16.0) g/dl Hct (37-47) % POC Hct (37-47) % MCV (80-100) fL MCH (25-34) pg MCHC (32-36) g/dL RDW Std Deviation (36.4-46.3) fL RDW Coeff of Ammy (11.5-14.5) % Plt Count (130-400) K/uL MPV (7.4-10.4) fL Immature Gran % (Auto) % Neut % (Auto) % Lymph % (Auto) % Stephenson % (Auto) % Eos % (Auto) % Baso % (Auto) % Immature Gran # (Auto) (0.00-0.02) K/uL Neut # (Auto) (1.4-6.5) K/uL Lymph # (Auto) (1.2-3.4) K/uL Stephenson # (Auto) (0.11-0.59) K/uL Eos # (Auto) (0-0.5) K/uL Baso # (Auto) (0-0.2) K/uL Echinocytes PT INR POC Sodium (135-144) mmol/L Sodium (136-145) mmol/L POC Potassium (3.3-5.0) mmol/L Potassium (3.5-5.1) mmol/L POC Chloride (101-112) mmol/L Chloride (98-107) mmol/L Carbon Dioxide (21-32) mmol/L POC Total CO2 (24-31) mEq/l Anion Gap (3-11) POC Anion Gap (16-25) mmol/L POC BUN (7-18) mg/dl BUN (7-18) mg/dl Creatinine (0.6-1.2) mg/dl POC Creatinine (0.6-1.3) mg/dl Est Cr Clr Drug Dosing ml/min Est GFR ( Amer) Est GFR (Non-Af Amer) BUN/Creatinine Ratio (10-20) Glucose (70-99) mg/dl POC Glucose (70-99) mg/dl POC Glucose (other) (70-99) mg/dl Lactate 3.8 H* (0.4-2.0) mmol/L Calcium (8.5-10.1) mg/dl POC Ioniz Calcium Maximiliano (1.12-1.32) mmol/l Magnesium (1.8-2.4) mg/dl Total Bilirubin (0.2-1) mg/dl AST (15-37) U/L ALT (12-78) U/L Alkaline Phosphatase (45-117) U/L Total Creatine Kinase (26-192) U/L Troponin I (0-0.045) ng/ml Total Protein (6.4-8.2) gm/dl Albumin (3.4-5.0) gm/dl Globulin (2.5-4.0) gm/dl Albumin/Globulin Ratio (0.9-2) TSH (0.300-4.500) uIu/ml Urine Color Urine Appearance (Clear) Urine pH (4.5-7.5) Ur Specific [place] (1.000-1.030) Urine Protein (Negative) Urine Glucose (UA) (Negative) Urine Ketones (Negative) Urine Blood (Negative) Urine Nitrite (Negative) Urine Bilirubin (Negative) Urine Urobilinogen (Negative) Ur Leukocyte Esterase (Negative) Urine WBC (Auto) (0-5) /hpf Urine RBC (Auto) (0-4) /hpf U Hyaline Cast (Auto) (0-5) /lpf U Epithel Cells (Auto) (0-5) /lpf Urine Bacteria (Auto) (Negative) Ur Renal Epithelial Cell (0-5) /lpf Urine Opiates Screen (Neg) Ur Methadone, Qual (Neg) Urine Barbiturates (Neg) Ur Phencyclidine (PCP) (Neg) U Amphetamin/Meth Scrn (Neg) MDMA (Ecstasy) Screen (Neg) U Benzodiazepines Scrn (Neg) Ur Cocaine Metabolite (Neg) U Marijuana (THC) Screen (Neg) Ethyl Alcohol mg/dL < 3.0 (0-3) mg/dl Administered Medications Vancomycin HCl 1,750 mg/ (Sodium Chloride) 535 mls @ 200 mls/hr IV NOW ONE Stop: 11/17/19 00:50 Last Admin: 11/16/19 22:50 Dose: 200 mls/hr Documented by: [id number] Lactated Ringer's (Lr) 1,000 mls @ 500 mls/hr IV .Q2H ONE Stop: 11/17/19 01:24 Last Admin: 11/16/19 23:36 Dose: 500 mls/hr Documented by: [id number] Discontinued Medications Sodium Chloride (Nss 1000ml) 1,000 mls @ 125 mls/hr IV .Q8H PATRICE Stop: 11/17/19 04:29 Last Infusion: 11/16/19 23:27 Dose: 0 mls/hr Documented by: [id number] Infusion: 11/16/19 21:43 Dose: 0 mls/hr Documented by: [id number] Admin: 11/16/19 20:48 Dose: 125 mls/hr Documented by: [id number] Sodium Chloride (Nss 1000ml) 2,000 mls @ 999 mls/hr IV .Q2H1M ONE Stop: 11/16/19 23:38 Last Infusion: 11/16/19 23:27 Dose: 0 mls/hr Documented by: [id number] Admin: 11/16/19 21:43 Dose: 999 mls/hr Documented by: [id number] Cefepime HCl (Maxipime) 2,000 mg in 20 mls @ 5 mls/min IV NOW STA; Protocol Stop: 11/16/19 22:13 Last Admin: 11/16/19 22:16 Dose: 5 mls/min Documented by: [id number] Potassium Chloride (Klor-Con M20) 40 meq PO NOW STA Stop: 11/16/19 23:09 Last Admin: 11/16/19 23:28 Dose: 40 meq Documented by: [id number] Discharge Plan Visit Data Chief Complaint: Confusion Stated Complaint: fall ED Provider: Edy Camacho Discharge Problem: Altered mental status, Hypothermia, Leukocytosis, Acidosis, lactic Forms Stand Alone Forms: [facility] Prescriptions Prescriptions: No Action baclofen 10 mg tablet 10 mg PO BID PRN (Reason: Muscle Spasm) RF: 0 hydroxyzine HCl 25 mg tablet 25 mg PO AMHS RF: 0 mirtazapine 15 mg tablet 15 mg PO HS RF: 0
[2019-11-16 21:04] LABS: Hematocrit (blood only) 42.3 % (37-47); Hemoglobin 14.5 g/dL (12.0-16.0); Mean Corpuscular Hemoglobin 31.5 pg (25-34); Mean Corpuscular Hgb Conc 34.3 g/dL (32-36); Mean Platelet Volume 9.8 fL (7.4-10.4); Platelet Count 146 K/uL (130-400); RDW Coefficient of Variation 13.4 % (11.5-14.5); RDW Standard Deviation 44.4 fL (36.4-46.3); White Blood Count 19.81 K/uL (4.8-10.8)
--- NOTE | 2019-11-16 21:07 | CT Scan Report ---
HEAD CT NONCONTRAST CT DOSE: 537.48 mGy.cm HISTORY: AMS TECHNIQUE: Multiaxial CT images of the head were performed without the use of intravenous contrast. A utomated exposure control was utilized for this study. A dose lowering technique was utilized adheri ng to the principles of ALARA. Comparison: None. Findings: The paranasal sinuses and mastoid air cells are clear. The calvarium and skull base are int act. The ventricles and sulci are within normal limits. There is no mass, hematoma, midline shift, or acute infarct. Small old lacunar infarct seen within the left periventricular white matter. Impression: No acute intracranial abnormality. ACT 112: Negative or not required by law. Electronically signed by: Victorino Mcclure M.D. 11/16/2019 9:05 PM
[2019-11-16 21:14] LABS: iSTAT Creatinine 0.9 mg/dl (0.6-1.3); iSTAT Hemoglobin 14.3 g/dl (12.0-16.0); iSTAT Ionized Calcium 1.18 mmol/l (1.12-1.32); iSTAT Potassium 3.7 mmol/L (3.3-5.0)
[2019-11-16 21:21] LABS: Albumin Level 3.7 gm/dl (3.4-5.0); BUN Creatinine Ratio 11.4 (10-20); Calcium 9.9 mg/dl (8.5-10.1); Creatinine Clr Calc Pharmacy 53.2 ml/min; Est GFR (African American) 52.4; Est GFR (Non-African American) 45.2; Magnesium 2.1 mg/dl (1.8-2.4); Potassium 3.8 mmol/L (3.5-5.1)
[2019-11-16 21:29] LABS: Appearance Urine Cloudy (Clear); Bacteria Urine Automated Negative (Negative); Bilirubin Urine Negative (Negative); Blood Urine 1+ (Negative); Color Urine Dark Yellow; Epithelial Cell Urine Auto >30 /lpf (0-5); Glucose Urine UA Negative (Negative); Ketones Urine 1+ (Negative); Leukocyte Esterase Urine Negative (Negative); Nitrite Urine Negative (Negative); Protein Urine Trace (Negative); RBC Urine Automated 0-4 /hpf (0-4); Specific Gravity Urine 1.021 (1.000-1.030); Urobilinogen Urine Negative (Negative)
[2019-11-16 21:31] LABS: Albumin Globulin Ratio 0.9 (0.9-2); Bilirubin,Total 1.1 mg/dl (0.2-1); Globulin 4.2 gm/dl (2.5-4.0); Thyroid Stimulating Hormone 1.46 uIu/ml (0.300-4.500); Total Protein 7.9 gm/dl (6.4-8.2); Troponin I 0.044 ng/ml (0-0.045)
--- NOTE | 2019-11-16 21:36 | XRay Report ---
XR chest 1V portable HISTORY: weakness COMPARISON: None. FINDINGS: No pneumothorax. No pleural effusions. The heart is normal in size. The left-sided dual-manda mber pacemaker. Mild diffuse interstitial thickening which may be chronic. No evidence for pulmonary edema. No focal lung consolidations to suggest pneumonia. IMPRESSION: Mild interstitial thickening which may be chronic. Otherwise, no acute process within the chest. ACT 112: Negative or not required by law. Electronically signed by: Victorino Mcclure M.D. 11/16/2019 9:34 PM
[2019-11-16] MEDS ORDERED: SODIUM CHLORIDE 0.9% 1000ML 2,000 ML IV ONE (21:38)
[2019-11-16 22:01] LABS: Renal Epithelial Cells Urine 0-5 /lpf (0-5)
[2019-11-16 22:06] LABS: INR 1.1 (0.9-1.1); Prothrombin Time 11.9 Seconds (9.0-12.0)
[2019-11-16] MEDS ORDERED: CEFEPIME 2,000 MG/20 ML VIAL IV STA (22:10)
[2019-11-16] MEDS ORDERED: VANCOMYCIN CONSULT ACTIVE PRN (22:10)
[2019-11-16] MEDS ORDERED: VANCOMYCIN HCL 1,750 MG in SODIUM CHLORIDE 0.9% 500 ML IV ONE (22:10)
[2019-11-16 22:37] LABS: Basophils # (auto) 0.03 K/uL (0-0.2); Basophils % (auto) 0.2 %; Echinocytes 1+; Immature Granulocytes # (auto) 0.06 K/uL (0.00-0.02); Immature Granulocytes % (auto) 0.3 %; Lymphocytes # (auto) 1.51 K/uL (1.2-3.4); Lymphocytes % (auto) 7.6 %; Monocytes % (auto) 8.6 %; Neutrophils # (auto) 16.51 K/uL (1.4-6.5); Neutrophils % (auto) 83.3 %
[2019-11-16] MEDS ORDERED: POTASSIUM CHLORIDE 20 MEQ TABCR PO STA (23:08)
[2019-11-16] MEDS ORDERED: LACTATED RINGER'S 1,000 ML IV ONE (23:25)
--- NOTE | 2019-11-16 23:43 | History & Physical Report ---
Date of Service November 16, 2019 Assessment & Plan (1) Encephalopathy: Multifactorial : Severe sepsis (SIRS plus lactic acid elevation plus ARF plus encephalopathy) possible sources : Leg wounds, ? Complicated UTI (UA however bland) Home neuro-psychotropic meds possibly contributory (rule out Depakote toxicity) mood disorder, unknown status chronic back pain as per records symptomatic bradycardia status post PPM, hx bariatric surgery hx PVD orthostatic hypotension on Midodrine, past tobacco abuse chronic anemia, hemoglobin better than baseline likely secondary to hemoconcentration Hyperglycemia rule out DM Medical telemetry Cultures, Vancomycin, Cefepime for now Monitor creatinine response to IV fluid, follow lactic acid Follow urine tox Check Depakote and serum ammonia levels Appropriate to hold home neuro psychotropic meds until patient mentation improved. Check hemoglobin A1c PT OT eval DVT prophylaxis. Heparin subcu Full code Patient's friend requesting updates from providers. Ms. Annette Kwan, contact #[phone]. Text document was generated using [employer] voice recognition software. It may contain grammatical or spelling errors. Kindly contact undersigned for clarification of any documentation item in question. History of Present Illness Chief Complaint: Yes yes no no as per patient Altered mental status as per records Primary Care Provider: Sagrario Blankenship DO Patient has another [facility] EMR account. [id number] History obtained from patient, patient's friend, and records. Patient is an unreliable historian secondary to disorientation. Medical history significant for mood disorder, chronic back pain, symptomatic bradycardia status post PPM, hx bariatric surgery, PTSD, right ICA aneurysm, orthostatic hypotension on Midodrine, past tobacco abuse. chronic anemia (baseline hemoglobin 10-11), hx ESBL E. coli UTI Recent confinement March 2019 for metabolic encephalopathy secondary ESBL E. coli UTI. Recent outpatient EGD/colonoscopy 3 weeks ago for melena. EGD was normal. Colonoscopy showed polyps and nonbleeding internal hemorrhoids. Patient found outside her home today by bystanders to be confused with multiple abrasions on both feet and knees. Patient noted to be hypothermic upon arrival of EMS. Patient brought to the ER for evaluation. Celia bello initiated for hypothermia. Patient given Vancomycin and Cefepime for sepsis. Patient noted to be disoriented at the ER repetitively saying yes yes okay okay to any question. Patient closest friend in town unaware of any issues since the last time she saw her for her endoscopic procedure a few weeks ago. Recent outpatient Baclofen refill last week on review of outpatient records. MEDICAL HISTORY: As above. SURGICAL HISTORY: Gastric bypass, hysterectomy, pacemaker placement. FAMILY HISTORY: Could not be obtained due to adoption history as per records. . PERSONAL AND SOCIAL HISTORY: Past tobacco abuse. No EtOH intake. Lives alone. Allergies Allergy/AdvReac Type Severity Reaction Status Date / Time Sulfa (Sulfonamide Allergy Intermediate swelling Verified 11/17/19 00:43 Antibiotics) NSAIDS (Non-Steroidal AdvReac Mild avoid due Verified 11/16/19 23:58 Anti-Inflamma to bariatric procedure cyproheptadine AdvReac Unknown Verified 11/16/19 23:57 aspirin AdvReac gastric Verified 11/17/19 00:43 bypass contraindiaction Home Medications Home Medications Medication Instructions Recorded Confirmed Type baclofen 10 mg PO BID PRN 11/16/19 11/16/19 History hydroxyzine HCl 25 mg PO AMHS 11/16/19 11/16/19 History mirtazapine 15 mg PO HS 11/16/19 11/16/19 History Past Med/Surg History Social History Preferred Language: Swedish Communication Ability: Unable Mop Machine Operator Required: No Beliefs That Will Affect Care: None Current Living Situation: Alone Feels Safe at Home: Yes Safety Concerns: Feels Safe At This Time Smoking Status: Former smoker Hx Alcohol Use: No Hx Substance Use: No Review of Systems Review of Systems: Could not be reliably obtained Physical Exam Physical Exam: GENERAL: Comfortable, disoriented, no respiratory distress, obese SKIN: Pallor , warm HEENT: Pale palpebral conjunctivae, no ptosis, dry buccal mucosa NECK : Supple, short neck, no tenderness CHEST : Decreased breath sounds , no tenderness HEART : Tachycardic , no obvious murmurs ABDOMEN: Some distention, nontender EXTREMITIES : Minimal LE swelling with bruising and erythematous areas, no other conspicuous deformities noted NEUROLOGIC : Disoriented , no facial asymmetry, no other gross focality Results & Data Vital Signs (Past 12 Hours) Vital Signs Temp Pulse Resp BP Pulse Ox 11/16/19 23:15 116 H 22 90 11/16/19 23:01 117 H 20 90 11/16/19 22:45 115 H 96 11/16/19 22:31 117 H 115/83 93 11/16/19 22:30 120 H 93 11/16/19 22:15 115 H 98 11/16/19 22:10 35.5 C L 11/16/19 22:00 114 H 114/82 98 11/16/19 21:52 116 H 126/88 98 11/16/19 21:51 116 H 131/110 H 98 11/16/19 21:45 117 H 98 11/16/19 21:41 117 H 143/83 H 98 11/16/19 21:30 116 H 96 11/16/19 21:20 117 H 135/83 97 11/16/19 21:15 117 H 94 11/16/19 21:11 118 H 107/78 94 11/16/19 21:05 119 H 11/16/19 20:51 117 H 130/107 H 97 11/16/19 20:46 121 H 11/16/19 20:45 120 H 99 11/16/19 20:40 33.8 C L 120 H 18 249/210 H 99 Laboratory Results Laboratory Results WBC 19.81 K/uL (4.8-10.8) H 11/16/19 20:45 RBC 4.60 M/uL (4.2-5.4) 11/16/19 20:45 Hgb 14.5 g/dL (12.0-16.0) 11/16/19 20:45 POC Hgb 14.3 g/dl (12.0-16.0) 11/16/19 20:56 Hct 42.3 % (37-47) 11/16/19 20:45 POC Hct 42 % (37-47) 11/16/19 20:56 MCV 92.0 fL (80-100) 11/16/19 20:45 MCH 31.5 pg (25-34) 11/16/19 20:45 MCHC 34.3 g/dL (32-36) 11/16/19 20:45 RDW Std Deviation 44.4 fL (36.4-46.3) 11/16/19 20:45 RDW Coeff of Ammy 13.4 % (11.5-14.5) 11/16/19 20:45 Plt Count 146 K/uL (130-400) 11/16/19 20:45 MPV 9.8 fL (7.4-10.4) 11/16/19 20:45 Immature Gran % (Auto) 0.3 % 11/16/19 20:45 Neut % (Auto) 83.3 % 11/16/19 20:45 Lymph % (Auto) 7.6 % 11/16/19 20:45 [place] % (Auto) 8.6 % 11/16/19 20:45 Eos % (Auto) 0.0 % 11/16/19 20:45 Baso % (Auto) 0.2 % 11/16/19 20:45 Immature Gran # (Auto) 0.06 K/uL (0.00-0.02) H 11/16/19 20:45 Neut # (Auto) 16.51 K/uL (1.4-6.5) H 11/16/19 20:45 Lymph # (Auto) 1.51 K/uL (1.2-3.4) 11/16/19 20:45 [place] # (Auto) 1.70 K/uL (0.11-0.59) H 11/16/19 20:45 Eos # (Auto) 0.00 K/uL (0-0.5) 11/16/19 20:45 Baso # (Auto) 0.03 K/uL (0-0.2) 11/16/19 20:45 Echinocytes 1+ 11/16/19 20:45 PT 11.9 Seconds (9.0-12.0) 11/16/19 21:39 INR 1.1 (0.9-1.1) 11/16/19 21:39 POC Sodium 145 mmol/L (135-144) H 11/16/19 20:56 Sodium 144 mmol/L (136-145) 11/16/19 20:45 POC Potassium 3.7 mmol/L (3.3-5.0) 11/16/19 20:56 Potassium 3.8 mmol/L (3.5-5.1) 11/16/19 20:45 POC Chloride 110 mmol/L (101-112) 11/16/19 20:56 Chloride 111 mmol/L (98-107) H 11/16/19 20:45 Carbon Dioxide 19 mmol/L (21-32) L 11/16/19 20:45 POC Total CO2 19 mEq/l (24-31) L 11/16/19 20:56 Anion Gap 14.0 (3-11) H 11/16/19 20:45 POC Anion Gap 21.0 mmol/L (16-25) 11/16/19 20:56 POC BUN 14 mg/dl (7-18) 11/16/19 20:56 BUN 15 mg/dl (7-18) 11/16/19 20:45 Creatinine 1.27 mg/dl (0.6-1.2) H 11/16/19 20:45 POC Creatinine 0.9 mg/dl (0.6-1.3) 11/16/19 20:56 Est Cr Clr Drug Dosing 53.2 ml/min 11/16/19 20:45 Est GFR ( Amer) 52.4 11/16/19 20:45 Est GFR (Non-Af Amer) 45.2 11/16/19 20:45 BUN/Creatinine Ratio 11.4 (10-20) 11/16/19 20:45 Glucose 132 mg/dl (70-99) H 11/16/19 20:45 POC Glucose 143 mg/dl (70-99) H 11/16/19 20:38 POC Glucose (other) 136 mg/dl (70-99) H 11/16/19 20:56 Lactate 3.8 mmol/L (0.4-2.0) H* 11/16/19 22:37 Calcium 9.9 mg/dl (8.5-10.1) 11/16/19 20:45 POC Ioniz Calcium Maximiliano 1.18 mmol/l (1.12-1.32) 11/16/19 20:56 Magnesium 2.1 mg/dl (1.8-2.4) 11/16/19 20:45 Total Bilirubin 1.1 mg/dl (0.2-1) H 11/16/19 20:45 AST 36 U/L (15-37) 11/16/19 20:45 ALT 28 U/L (12-78) 11/16/19 20:45 Alkaline Phosphatase 75 U/L (45-117) 11/16/19 20:45 Total Creatine Kinase 359 U/L (26-192) H 11/16/19 20:45 Troponin I 0.044 ng/ml (0-0.045) 11/16/19 20:45 Total Protein 7.9 gm/dl (6.4-8.2) 11/16/19 20:45 Albumin 3.7 gm/dl (3.4-5.0) 11/16/19 20:45 Globulin 4.2 gm/dl (2.5-4.0) H 11/16/19 20:45 Albumin/Globulin Ratio 0.9 (0.9-2) 11/16/19 20:45 TSH 1.460 uIu/ml (0.300-4.500) 11/16/19 20:45 Urine Color Dark Yellow 11/16/19 20:45 Urine Appearance Cloudy (Clear) A 11/16/19 20:45 Urine pH 5.0 (4.5-7.5) 11/16/19 20:45 Ur Specific [place] 1.021 (1.000-1.030) 11/16/19 20:45 Urine Protein Trace (Negative) H 11/16/19 20:45 Urine Glucose (UA) Negative (Negative) 11/16/19 20:45 Urine Ketones 1+ (Negative) H 11/16/19 20:45 Urine Blood 1+ (Negative) H 11/16/19 20:45 Urine Nitrite Negative (Negative) 11/16/19 20:45 Urine Bilirubin Negative (Negative) 11/16/19 20:45 Urine Urobilinogen Negative (Negative) 11/16/19 20:45 Ur Leukocyte Esterase Negative (Negative) 11/16/19 20:45 Urine WBC (Auto) 1-5 /hpf (0-5) 11/16/19 20:45 Urine RBC (Auto) 0-4 /hpf (0-4) 11/16/19 20:45 U Hyaline Cast (Auto) 10-30 /lpf (0-5) H 11/16/19 20:45 U Epithel Cells (Auto) >30 /lpf (0-5) H 11/16/19 20:45 Urine Bacteria (Auto) Negative (Negative) 11/16/19 20:45 Ur Renal Epithelial Cell 0-5 /lpf (0-5) 11/16/19 20:45 Ethyl Alcohol mg/dL < 3.0 mg/dl (0-3) 11/16/19 22:[address] head: No acute intracranial abnormality. CT abdomen pelvis initial read: No high-grade mechanical SBO. No radiopaque kidney stones. Normal appendix. Postop changes from gastric bypass. Chest x-ray: Mild interstitial thickening which may be chronic. Otherwise, no acute process within the chest. EKG could not be located at time of dictation
[2019-11-16 23:45] LABS: Amphetamines+Metham, Urine Neg (Neg); Barbiturates, Urine Neg (Neg); Benzodiazepine, Urine Neg (Neg); Cocaine, Urine Neg (Neg); MDMA (Ecstacy), Urine Neg (Neg); Methadone, Urine Neg (Neg); Opiate, Urine Neg (Neg); Phencyclidine, Urine Neg (Neg)
[2019-11-17 00:11] LABS: Acetaminophen 4 ug/ml (10-30); Salicylate < 1.7 mg/dl (2.8-20)
[2019-11-17 00:25] LABS: Influenza A virus by PCR Neg for Influ A (Neg); Influenza B virus by PCR Neg for Influ B (Neg)
[2019-11-17] MEDS ORDERED: CEFEPIME CONSULT ACTIVE PRN (00:38)
--- OUTSIDE RECORDS SUMMARY | 2019-11-17 00:46 | External Medical Summary | Continuity of Care Document ---
:1955 Author Name Kelly Fallon, Provider Address Unavailable Unavailable , Care Team Providers Name Role Phone Jeannie Fallon, Chirs Talamantes Unavailable [email or web address] Unavailable Unavailable Unavailable Unavailable Unavailable Assessments Assessed Problems:UTI (urinary tract infection)Infection due to extended- spectrum cypz-cjiyewzfk-[id number] Escherichia coli Problems Neuropathy (355.9) (G62.9) Vision disturbance (368.9) (H53.9) Aneurysm of internal carotid artery (437.3) (I67.1) Migraine (346.90) (G43.909) Headache (784.0) (R51) Cervicogenic headache (784.0) (R51) Spinal stenosis of cervical region (723.0) (M48.02) Former smoker (V15.82) (Z87.891) Mood disorder (296.90) (F39) Bradycardia (427.89) (R00.1) Dizziness (780.4) (R42) Presence of cardiac pacemaker (V45.01) (Z95.0) Sick sinus syndrome (427.81) (I49.5) UTI (urinary tract infection) (599.0) (N39.0) Infection due to extended-spectrum beta- lactamase-producing Escherichia coli (041.49) (A49.8) Post-traumatic stress disorder (309.81) (F43.10) Bipolar disorder (296.80) (F31.9) Vertebrobasilar TIAs (435.3) (G45.0) Lumbar radiculopathy (724.4) (M54.16) Numbness and tingling (782.0) (R20.0) Carpal tunnel syndrome, bilateral (354.0) (G56.03) Urinary tract infection (599.0) (N39.0) Esophageal reflux (530.81) (K21.9) Shortness of breath (786.05) (R06.02) Muscle spasm (728.85) (M62.838) Osteoarthritis (715.90) Hypotension (458.9) (I95.9) Hypothyroidism (244.9) (E03.9) Generalized osteoarthrosis (715.00) (M15.9) Anxiety state (300.00) (F41.1) Major depressive disorder, recurrent (296.30) (F33.9) Disc disorder (722.90) (M51.9) Backache (724.5) (M54.9) Chronic pain (338.29) (G89.29) Allergies and Adverse Reactions Advil (Adverse Event) Reaction: Nausea, Vomiting Aspirin TABS (Allergy) Cyproheptadine HCl TABS (Allergy) NSAIDs (Allergy) Sulfa Drugs (Adverse Event) Reaction: Ed meaghan Trazodone Derivatives (Allergy) Medications ARIPiprazole 20 MG Oral Tablet; Take 1 Tab by mouth daily. Start: 11-Jul-2016 Refills: 0 Ventolin HFA 108 (90 Base) MCG/ACT Inhal ation Aerosol Solution; INHALE 2 PUFFS EVERY 4 HOURS NEEDED 18 GM Inhaler Quantity: 1 Refills: 5 Wellbutrin SR 150 MG Oral Tablet Extende d Release 12 Hour; TAKE 1 TABLET DAILY IN THE MORNING. Refills: 0 hydrOXYzine HCl - 25 MG Oral Tablet; RONALD E 1 TABLET IN THE MORNING AND 1 TABLET AT BEDTIME. Refills: 0 Ditropan XL 10 MG Oral Tablet Extended Release 24 Hour; TAKE 1 TABLET DAILY. Refills: 0 traZODone HCl - 150 MG Oral Tablet; TAKE 1 TABLET AT BEDTIME . Refills: 0 Venlafaxine HCl ER 75 MG Oral Capsule Ex tended Release 24 Hour; TAKE 1 CAPSULE DAILY. Refills: 0 Topiramate 25 MG Oral Tablet; TAKE TWO TABLETS BY MOUT H TWICE DAILY EMMY Mohr Start: 11-Jul-2016 Quantity: 60 Refills: 3 Baclofen 10 MG Oral Tablet; TAKE 1 TABLET TWICE DAILY NEE DED. Refills: 0 Midodrine HCl - 5 MG Oral Tablet; TAKE 1 TABLET 3 TIMES MARILYNN Y. Refills: 0 Melatonin 5 MG Oral Capsule; TAKE 2 CAPSULE Bedtime Refills: 0 Venlafaxine HCl ER 150 MG Oral Tablet Ex tended Release 24 Hour; Take 1 tablet daily Start: 01-Mar-2018 Refills: 0 Procedures Procedures not documented Immunizations Immunizations not documented Family History Mother No pertinent family history (V49.89) (Z78.9) Status: Active Social History - Smoking Status Ex-smoker Interventions Labs/Procedures/ImagingD/C PICC Line; Done: 01 Mar 2019Discussion/SummaryPatient with urinary tract infection with encephalopathy with ESBL producing E. coli. Patient has responded well to IV ertapenem, I think that at this time he can be safely discontinued. Will arrange to have PICC line removed. Patient advised to call immediately if any signs or symptoms of recurrent infection, or any other questions or concerns. Plan of Treatment Planned Observations Planned Goals not documented Results No Known Results Results not documented Encounters Appointment; [facility], [facility] Station 07-Mar-2018 10:00 Encounter Diagnosis: Problem not documented Appointment; Yosvany Culver M.D. 06-Mar-2018 14:00 Encounter Diagnosis: Problem not documented Appointment; Yosvany Culver M.D. 01-Mar-2018 10:00 Encounter Diagnosis: Problem not documented Appointment; Chris Dennis M.D. 01-Mar-2019 10:30 Encounter Diagnosis: Problem not documented
[2019-11-17 00:51] LABS: Lyme Ab IgG w/WB Rflx Negative (Negative); Lyme Ab IgM w/WB Rflx Negative (Negative)
[2019-11-17] MEDS ORDERED: PROMETHAZINE HCL 12.5 MG in SODIUM CHLORIDE 0.9% 50 ML IV PRN (00:54)
[2019-11-17] MEDS ORDERED: ACETAMINOPHEN 325 MG TAB PO PRN (00:54)
[2019-11-17] MEDS ORDERED: LACTATED RINGER'S 1,000 ML IV SCH (01:00)
[2019-11-17] MEDS ORDERED: MICONAZOLE NITRATE POWDER 43 GM EXT PRN (01:26)
[2019-11-17 02:31] LABS: BUN Creatinine Ratio 17.1 (10-20); Calcium 8.5 mg/dl (8.5-10.1); Creatinine Clr Calc Pharmacy 79.5 ml/min; Est GFR (African American) 85.1; Est GFR (Non-African American) 73.4; Potassium 3.4 mmol/L (3.5-5.1)
[2019-11-17] MEDS ORDERED: POTASSIUM CHLORIDE 40 MEQ in SODIUM CHLORIDE 0.45 % 1,000 ML IV ONE (02:48)
[2019-11-17] MEDS ORDERED: POTASSIUM CHLORIDE 20 MEQ TABCR PO STA (02:48)
[2019-11-17 02:50] LABS: Basophils # (auto) 0.01 K/uL (0-0.2); Basophils % (auto) 0.1 %; Hematocrit (blood only) 34.2 % (37-47); Hemoglobin 11.6 g/dL (12.0-16.0); Immature Granulocytes # (auto) 0.02 K/uL (0.00-0.02); Immature Granulocytes % (auto) 0.2 %; Lymphocytes # (auto) 1.13 K/uL (1.2-3.4); Mean Corpuscular Hemoglobin 31.4 pg (25-34); Mean Corpuscular Hgb Conc 33.9 g/dL (32-36); Mean Corpuscular Volume 92.4 fL (80-100); Mean Platelet Volume 9.2 fL (7.4-10.4); Monocytes # (auto) 0.93 K/uL (0.11-0.59); Neutrophils # (auto) 8.22 K/uL (1.4-6.5); Neutrophils % (auto) 79.7 %; Platelet Count 104 K/uL (130-400); RDW Coefficient of Variation 13.3 % (11.5-14.5); RDW Standard Deviation 44.7 fL (36.4-46.3); White Blood Count 10.31 K/uL (4.8-10.8)
[2019-11-17] MEDS: POTASSIUM CHLORIDE 40 MEQ in SODIUM CHLORIDE 0.45 % 1,000 ML IV SCH ×3 (03:35→22:44)
[2019-11-17] MEDS: HEPARIN SOD 5,000 UNIT/0.5 ML VIAL SQ SCH ×3 (06:24→21:56)
[2019-11-17 06:44] LABS: Calcium 8.3 mg/dl (8.5-10.1); Creatinine Clr Calc Pharmacy 85.6 ml/min; Est GFR (Non-African American) 80.2; Potassium 3.7 mmol/L (3.5-5.1)
--- NOTE | 2019-11-17 09:42 | CT Scan Report ---
ABDOMEN AND PELVIS CT WITHOUT CONTRAST CT DOSE: 1133.54 mGy.cm HISTORY: Acute generalized abdominal pain abd pain TECHNIQUE: Multiaxial CT images of the abdomen and pelvis were performed without contrast. A dose lo wering technique was utilized adhering to the principles of ALARA. COMPARISON STUDY: None. FINDINGS: Environmental Health Physician localizer images demonstrate left subclavian pacer with mild cardiomegaly. Mild bibasilar atele ctasis. No pneumatosis or pneumoperitoneum. Limited evaluation of the solid abdominal organs without the use of IV contrast. Within limitations of the study the spleen, adrenal glands and liver are unre markable. Marked atrophy of the pancreas. Cholecystectomy. Renal vascular calcifications on the right. No renal or ureteral calculi identified. Decompressed uri nary bladder with Ruby catheter. Hysterectomy. No adnexal mass lesions. Advanced calcified plaque of the abdominal aorta. No adenopathy. Postoperative changes of prior Ivonne-en-Y gastric bypass. Hyperde nse material is noted within the distal esophagus and proximal gastric lumen. No bowel obstruction greg wel wall thickening. No ascites or mesenteric stranding. Terminal ileum and appendix are unremarkable . Soft tissues are within normal limits. Demineralized appearance the bones. Degenerative changes of the pelvis, hips and spine. Chondrocalcinosis of the pubic symphysis. Age-indeterminate likely remote Schmorl's nodes are present multiple levels. Chondrocalcinosis at L5-S1. IMPRESSION: 1. No acute intra-abdominal or intrapelvic abnormality. 2. No bowel obstruction or bowel wall thickening. Normal appendix. 3. Cholecystectomy and hysterectomy. ACT 112: Negative or not required by law. The above report was generated using voice recognition software. It may contain grammatical, syntax o r spelling errors. Electronically signed by: Ángel Juan M.D. 11/17/2019 9:41 AM
[2019-11-17] MEDS: CEFEPIME 2,000 MG in SYRINGE 7.5 ML IV SCH ×2 (09:52→21:56)
[2019-11-17] MEDS ORDERED: VANCOMYCIN HCL 1,000 MG in SODIUM CHLORIDE 0.9% 250 ML IV ONE (10:45)
--- NOTE | 2019-11-17 11:33 | Hospitalist Progress Note ---
Date of Service November 17, 2019 Assessment & Plan (1) Encephalopathy: Multifactorial : Severe sepsis (SIRS plus lactic acid elevation plus ARF plus encephalopathy) Likely secondary to leg wounds, Complicated UTI given the prior history of ESBL UTI Has been getting intravenous vancomycin and cefepime Lactic acid has been normalized and kidney function has been normalized as well Depakote level is normal Await urine and blood culture results White count is normalized and clinically stable with a little improvement Bilateral feet wounds Will ask for wound care consult Mood disorder,PTSD Seems stable Chronic back pain as per records No acute issue Other significant but stable medical conditions are as follows: Symptomatic bradycardia status post PPM, hx bariatric surgery hx PVD Orthostatic hypotension on Midodrine, Past tobacco abuse Chronic anemia, hemoglobin better than baseline likely secondary to hemoconcentration Hyperglycemia rule out DM PT OT eval DVT prophylaxis. Heparin subcu Full code Patient's friend requesting updates from providers. Ms. Annette Kwan, contact #[phone]. Admission and Anticipated Discharge Date Admission Date: November 16, 2019 Subjective The patient was seen and examined in medical telemetry unit She is a 64-year-old female with significant past medical history of mood disorder, chronic back pain, symptomatic bradycardia status post pacemaker, history of bariatric surgery, PTSD, orthostatic hypotension on MetroCream and history of ESBL E. coli UTI was admitted last night with altered mental status She was noted to have high white count of 19,000 with UTI suggestive of infection, scans were unremarkable She remains pleasantly confused this morning Review of Systems Review of Systems: Unobtainable due to cognitive status Physical Exam Physical Exam: Lying in bed without any apparent distress Constitutional: + thin Eyes: PERRL, conjunctivae normal, anicteric sclerae ENMT: external ear and nose normal, oropharynx normal Neck: trachea midline, no thyromegaly Respiratory: normal respiratory effort; no respiratory distress Auscultation: lungs clear to auscultation bilaterally and + diminished lung sounds Cardiovascular: Rate/Rhythm: regular rate and regular rhythm Heart Sounds: no murmur Gastrointestinal (Abdomen): Inspection/Auscultation: abdomen normal to inspection and normal bowel sounds Percussion/Palpation: + abdomen tender (Minimally tenderness all over) and abdomen soft Musculoskeletal: No acute arthritis in any joints Skin: Superficial lesions involving both the feet due to minor trauma Neurologic: moves all extremities Pleasantly confused Results & Data ([facility]) Vital Signs (Past 12 Hours) Vital Signs Temp Pulse Pulse Resp BP BP BP 11/17/19 11:21 37 C 96 H 16 131/85 11/17/19 08:00 94 H 11/17/19 07:27 37.2 C 98 H 16 121/64 11/17/19 04:22 37.3 C 108 H 18 129/75 11/17/19 01:16 36.8 C 115 H 16 127/68 11/16/19 23:45 113 H 22 11/16/19 23:32 114 H 20 147/83 H 11/16/19 23:30 114 H 13 Pulse Ox 11/17/19 11:21 99 11/17/19 08:00 11/17/19 07:27 97 11/17/19 04:22 96 11/17/19 01:16 98 11/16/19 23:45 97 11/16/19 23:32 80 L 11/16/19 23:30 98 Laboratory Results Short CBC 11/16/19 11/17/19 Range/Units 20:45 02:00 WBC 19.81 H 10.31 (4.8-10.8) K/uL Hgb 14.5 11.6 L (12.0-16.0) g/dL Hct 42.3 34.2 L (37-47) % Plt Count 146 104 L (130-400) K/uL BMP 11/16/19 11/17/19 11/17/19 20:45 02:00 05:46 Sodium 144 146 H 145 Potassium 3.8 3.4 L 3.7 Chloride 111 H 117 H 116 H Carbon Dioxide 19 L 20 L 20 L BUN 15 15 13 Creatinine 1.27 H 0.85 D 0.79 Glucose 132 H 96 92 Calcium 9.9 8.5 8.3 L Cardiac Enzymes 11/16/19 11/17/19 11/17/19 Range/Units 20:45 02:00 05:46 Total Creatine Kinase 359 H 478 H 808 H (26-192) U/L Troponin I 0.044 (0-0.045) ng/ml Liver Function 11/16/19 Range/Units 20:45 Total Bilirubin 1.1 H (0.2-1) mg/dl AST 36 (15-37) U/L ALT 28 (12-78) U/L Alkaline Phosphatase 75 (45-117) U/L Albumin 3.7 (3.4-5.0) gm/dl Urine 11/16/19 Range/Units 20:45 Urine Color Dark Yellow Urine Appearance Cloudy A (Clear) Urine pH 5.0 (4.5-7.5) Ur Specific [place] 1.021 (1.000-1.030) Urine Protein Trace H (Negative) Urine Glucose (UA) Negative (Negative) Medications Administered Current Inpatient Medications Acetaminophen (Tylenol) 650 mg PO Q4H PRN PRN Reason: Pain or Fever Stop: 12/17/19 00:53 Heparin Sodium (Porcine) (Heparin Sodium (Porcine)) 5,000 units SQ Q8 PATRICE Stop: 12/17/19 05:59 Last Admin: 11/17/19 06:24 Dose: 5,000 units Documented by: Promethazine HCl 12.5 mg/ (Sodium Chloride) 50.5 mls @ 202 mls/hr IV Q6H PRN PRN Reason: Nausea And Vomiting Stop: 12/17/19 00:53 Cefepime HCl 2,000 mg/ Syringe 20 mls @ 5 mls/min IV Q12H [facility] Stop: 11/24/19 09:59 Last Admin: 11/17/19 09:52 Dose: 5 mls/min Documented by: Potassium Chloride 40 meq/ (Sodium Chloride) 1,020 mls @ 100 mls/hr IV .[id number] [facility] Stop: 11/18/19 02:59 Last Admin: 11/17/19 03:35 Dose: 100 mls/hr Documented by: Vancomycin HCl 1,000 mg/ (Sodium Chloride) 270 mls @ 125 mls/hr IV 1045 ONE Stop: 11/17/19 12:54 Last Admin: 11/17/19 10:55 Dose: 125 mls/hr Documented by: Vancomycin HCl 1,000 mg/ (Sodium Chloride) 270 mls @ 125 mls/hr IV Q8H [facility]; Protocol Stop: 11/19/19 17:59 Miconazole Nitrate (Desenex) 1 appln EXT PRN PRN PRN Reason: Affected Skin Folds Stop: 12/17/19 01:25 Miscellaneous Information (Consult) 1 ea N/A UD PRN PRN Reason: Consult Stop: 12/16/19 22:09 Miscellaneous Information (Cefepime Consult Active) 1 ea N/A UD PRN PRN Reason: Consult Stop: 12/17/19 00:37
--- NOTE | 2019-11-17 14:32 | Pharmacy Report ---
Pharmacy Abx Initial Consult - Date of Service November 17, 2019 - Pharmacy Dosing Scope Date of Consult: 11/16/19 Consultation requested by: Dr. Cruz Pharmacy is consulted to initiate IV Vancomycin dosing therapy, order appropriate labs and adjust drug dose/frequency. - Subjective The patient is a 64 year old F admitted on 11/16/19 23:45. - Objective Height: 5 ft 7 in Weight: 91.1 kg Vital Signs (Past 12hrs): Vital Signs Temp Pulse Pulse Resp BP Pulse Ox 11/17/19 11:21 37 C 96 H 16 131/85 99 11/17/19 08:00 94 H 11/17/19 07:27 37.2 C 98 H 16 121/64 97 11/17/19 04:22 37.3 C 108 H 18 129/75 96 Lab Results (24hrs): Laboratory Tests (24 Hours) 11/17/19 11/17/19 11/17/19 05:46 05:46 02:00 WBC Neut # (Auto) Creatinine 0.79 0.85 D Est Cr Clr Drug Dosing 85.6 79.5 Total Creatine Kinase 808 H 478 H Procalcitonin 11/17/19 11/16/19 11/16/19 02:00 23:26 20:45 WBC 10.31 Neut # (Auto) 8.22 H Creatinine 1.27 H Est Cr Clr Drug Dosing 53.2 Total Creatine Kinase 359 H Procalcitonin 1.43 H 11/16/19 20:45 WBC 19.81 H Neut # (Auto) 16.51 H Creatinine Est Cr Clr Drug Dosing Total Creatine Kinase Procalcitonin Micro Results: 11/16/19 21:39 Aerobic Blood Culture - Pending Blood Anaerobic Blood Culture - Pending 11/16/19 20:45 Aerobic Blood Culture - Pending Blood Anaerobic Blood Culture - Pending - Risk Factors for Resistance * History of infection with a multidrug-resistant organism: ESBL E coli UTI in 03/2019 - Assessment & Plan Assessment 64 year old F admitted for AMS, Sepsis. She is empirically started on Vancomycin + Cefepime for suspected bacteremia and UTI. Plan Vancomycin for treatment of bacteremia + UTI Vancomycin IV Patient meets criteria for vancomycin AUC dosing nomogram AUC/JOAN is the preferred PK/PD target for vancomycin Target AUC/JOAN = 400-600 AUC guided dosing is effective and associated with decreased risk of nephrotoxicity Started patient on loading dose of Vancomycin 1750 mg IV (19.2 mg/kg) x 1 dose yesterday at 2250. Then started on Vanc 1000 mg IV q8h this morning based on AUC nomogram. Trough level ordered for tomorrow 11/17 before dose at 1000 (after 3 maintenance doses). Pharmacy will continue to follow and will adjust dose/frequency as necessary. Thank you.
[2019-11-17] MEDS: VANCOMYCIN HCL 1,000 MG in SODIUM CHLORIDE 0.9% 250 ML IV SCH (18:20)
[2019-11-18] MEDS: VANCOMYCIN HCL 1,000 MG in SODIUM CHLORIDE 0.9% 250 ML IV SCH ×3 (02:15→17:54)
[2019-11-18] MEDS: HEPARIN SOD 5,000 UNIT/0.5 ML VIAL SQ SCH ×3 (06:20→21:58)
[2019-11-18 06:38] LABS: Hematocrit (blood only) 33.9 % (37-47); Hemoglobin 11.4 g/dL (12.0-16.0); Mean Corpuscular Hemoglobin 30.9 pg (25-34); Mean Corpuscular Hgb Conc 33.6 g/dL (32-36); Mean Corpuscular Volume 91.9 fL (80-100); RDW Coefficient of Variation 13.8 % (11.5-14.5); RDW Standard Deviation 46.5 fL (36.4-46.3); Red Blood Count 3.69 M/uL (4.2-5.4); White Blood Count 7.25 K/uL (4.8-10.8)
[2019-11-18 07:03] LABS: Basophils # (auto) 0.02 K/uL (0-0.2); Basophils % (auto) 0.3 %; Eosinophils # (auto) 0.05 K/uL (0-0.5); Eosinophils % (auto) 0.7 %; Immature Granulocytes # (auto) 0.01 K/uL (0.00-0.02); Immature Granulocytes % (auto) 0.1 %; Lymphocytes # (auto) 1.42 K/uL (1.2-3.4); Lymphocytes % (auto) 19.6 %; Mean Platelet Volume 9.1 fL (7.4-10.4); Monocytes # (auto) 0.49 K/uL (0.11-0.59); Monocytes % (auto) 6.8 %; Neutrophils # (auto) 5.26 K/uL (1.4-6.5); Neutrophils % (auto) 72.5 %; Platelet Count 98 K/uL (130-400); Platelet Estimate Decreased (Normal)
[2019-11-18 07:06] LABS: Estimated Average Glucose 105 mg/dl; Hemoglobin A1C 5.3 % (4.5-5.6)
[2019-11-18 07:18] LABS: Albumin Level 2.7 gm/dl (3.4-5.0); BUN Creatinine Ratio 11.1 (10-20); Calcium 8.3 mg/dl (8.5-10.1); Est GFR (African American) 108.1; Est GFR (Non-African American) 93.3; Magnesium 1.8 mg/dl (1.8-2.4)
[2019-11-18 07:23] LABS: Albumin Globulin Ratio 0.8 (0.9-2); Bilirubin,Total 1.1 mg/dl (0.2-1); Globulin 3.4 gm/dl (2.5-4.0); Phosphorus 2.7 mg/dl (2.5-4.9); Total Protein 6.1 gm/dl (6.4-8.2)
[2019-11-18] MEDS: CEFEPIME 2,000 MG in SYRINGE 7.5 ML IV SCH ×3 (08:32→23:46)
[2019-11-18] MEDS: ONDANSETRON 4 MG OD TAB PO PRN (08:32)
[2019-11-18] MEDS ORDERED: VANCOMYCIN TROUGH ONE (09:30)
[2019-11-18] MEDS ORDERED: BACLOFEN 10 MG TAB PO PRN (10:09)
[2019-11-18] MEDS ORDERED: LAVAGE SOLUTION 4000ML PO SCH (10:15)
[2019-11-18] MEDS ORDERED: [UNRECOGNIZED DRUG - OTHER] PO SCH (10:15)
[2019-11-18] MEDS: KETOROLAC TROMETHAMINE 15 MG/ML VIAL IV PRN ×3 (10:32→23:57)
--- NOTE | 2019-11-18 10:45 | Hospitalist Progress Note ---
Date of Service November 18, 2019 Assessment & Plan (1) Encephalopathy: (1) metabolic encephalopathy: Multifactorial : Severe sepsis (SIRS plus lactic acid elevation plus ARF plus encephalopathy) Likely secondary to leg wounds, Complicated UTI given the prior history of ESBL UTI Has been getting intravenous vancomycin and cefepime Lactic acid has been normalized and kidney function has been normalized as well Depakote level is normal Await urine and blood culture results White count is normalized without any fever and/or chills Clinically much better with improvement of confusion Acute Kidney failure Likely secondary to dehydration Condition improved and normalized following intravenous Advised to drink more fluids Bilateral feet wounds Will ask for wound care consult Complains of pain in feet Mood disorder,PTSD Seems stable Chronic back pain as per records No acute issue Other significant but stable medical conditions are as follows: Symptomatic bradycardia status post PPM, hx bariatric surgery hx PVD Orthostatic hypotension on Midodrine, Past tobacco abuse Chronic anemia, hemoglobin better than baseline likely secondary to hemoconcentration Hyperglycemia rule out DM PT OT eval DVT prophylaxis. Heparin subcu Full code Patient's friend requesting updates from providers. Annette Kwan, contact #[phone]. Admission and Anticipated Discharge Date Admission Date: November 16, 2019 Subjective The patient was seen and examined in medical telemetry unit She is a 64-year-old female with significant past medical history of mood disorder, chronic back pain, symptomatic bradycardia status post pacemaker, history of bariatric surgery, PTSD, orthostatic hypotension on MetroCream and history of ESBL E. coli UTI was admitted last night with altered mental status She was noted to have high white count of 19,000 with UTI suggestive of infection, scans were unremarkable She remains pleasantly confused this morning 11/18/2019 The patient was seen and examined in medical telemetry unit She feels a lot better except pain in the feet She is alert and awake and has been communicating normally Besides pain in the feet no significant symptoms Review of Systems Review of Systems: All systems reviewed and are unremarkable except as noted below Musculoskeletal: Bilateral feet pain secondary to multiple wounds Neurologic: + generalized weakness Physical Exam Physical Exam: Lying in bed without any apparent distress Constitutional: + thin Eyes: PERRL, conjunctivae normal, anicteric sclerae ENMT: external ear and nose normal, oropharynx normal Neck: trachea midline, no thyromegaly Respiratory: normal respiratory effort; no respiratory distress Auscultatio n: lungs clear to auscultation bilaterally and + diminished lung sounds Cardiovascular: Rate/Rhythm: regular rate and regular rhythm Heart Sounds: no murmur Gastrointestinal (Abdomen): Inspection/Auscultation: abdomen normal to inspection and normal bowel sounds Percussion/Palpation: + abdomen tender (Minimally tenderness all over) and abdomen soft Musculoskeletal: No acute arthritis in any joints Skin: Bilateral feet injury with multiple wounds Neurologic: moves all extremities Results & Data ([facility]) Vital Signs (Past 12 Hours) Vital Signs Temp Pulse Pulse Resp BP BP Pulse Ox 11/18/19 09:00 81 11/18/19 07:00 37.2 C 85 18 122/80 85 L 11/18/19 03:27 37.4 C 89 17 124/74 95 11/18/19 00:00 96 H Laboratory Results Short CBC 11/18/19 Range/Units 06:08 WBC 7.25 (4.8-10.8) K/uL Hgb 11.4 L (12.0-16.0) g/dL Hct 33.9 L (37-47) % Plt Count 98 L (130-400) K/uL BMP 11/18/19 06:08 Sodium 141 Potassium 4.0 Chloride 112 H Carbon Dioxide 22 BUN 8 D Creatinine 0.69 Glucose 77 Calcium 8.3 L Liver Function 11/18/19 Range/Units 06:08 Total Bilirubin 1.1 H (0.2-1) mg/dl AST 63 H (15-37) U/L ALT 29 (12-78) U/L Alkaline Phosphatase 51 (45-117) U/L Albumin 2.7 L (3.4-5.0) gm/dl Medications Administered Current Inpatient Medications Acetaminophen (Tylenol) 650 mg PO Q4H PRN PRN Reason: Pain or Fever Stop: 12/17/19 00:53 Last Admin: 11/17/19 23:55 Dose: 650 mg Documented by: Aripiprazole (Abilify) 30 mg PO QAM [facility] Stop: 12/19/19 08:59 Baclofen (Lioresal) 10 mg PO BID PRN PRN Reason: Muscle Spasm Stop: 12/18/19 10:08 Divalproex Sodium (Depakote Extended Release) 1,000 mg PO HS [facility] Stop: 12/18/19 20:59 Heparin Sodium (Porcine) (Heparin Sodium (Porcine)) 5,000 units SQ Q8 [facility] Stop: 12/17/19 05:59 Last Admin: 11/18/19 06:20 Dose: 5,000 units Documented by: Hydroxyzine HCl (Vistaril) 25 mg PO [facility] Stop: 12/18/19 20:59 Promethazine HCl 12.5 mg/ (Sodium Chloride) 50.5 mls @ 202 mls/hr IV Q6H PRN PRN Reason: Nausea And Vomiting Stop: 12/17/19 00:53 Vancomycin HCl 1,000 mg/ (Sodium Chloride) 270 mls @ 125 mls/hr IV Q8H [facility]; Protocol Stop: 11/19/19 17:59 Last Admin: 11/18/19 10:38 Dose: 125 mls/hr Documented by: Cefepime HCl 2,000 mg/ Syringe 20 mls @ 5 mls/min IV Q8H [facility]; Protocol Stop: 11/25/19 07:59 Last Admin: 11/18/19 08:32 Dose: 5 mls/min Documented by: Ketorolac Tromethamine (Toradol) 15 mg IV Q6H PRN PRN Reason: Pain Stop: 11/23/19 10:10 Last Admin: 11/18/19 10:32 Dose: 15 mg Documented by: Miconazole Nitrate (Desenex) 1 appln EXT PRN PRN PRN Reason: Affected Skin Folds Stop: 12/17/19 01:25 Mirtazapine (Remeron) 15 mg PO HS [facility] Stop: 12/18/19 20:59 Miscellaneous Information (Consult) 1 ea N/A UD PRN PRN Reason: Consult Stop: 12/16/19 22:09 Miscellaneous Information (Cefepime Consult Active) 1 ea N/A UD PRN PRN Reason: Consult Stop: 12/17/19 00:37 Ondansetron HCl (Zofran Odt) 4 mg PO Q6H PRN PRN Reason: Nausea Stop: 12/18/19 08:23 Last Admin: 11/18/19 08:32 Dose: 4 mg Documented by: Trazodone HCl (Desyrel) 300 mg PO HS [facility] Stop: 12/18/19 20:59 Vitamin D (Vitamin D3) 1,000 units PO BID [facility] Stop: 12/18/19 20:59
--- NOTE | 2019-11-18 13:48 | Pharmacy Report ---
Pharmacy Abx Dose Short Note - Date of Service November 18, 2019 - Assessment & Plan Assessment 64 year old F receiving empiric vancomycin and cefepime for treatment of sepsis secondary to unknown source (possibly SSTI vs. UTI) Day # 3 of antimicrobial therapy. Cultures show no growth at this time. Plan Vancomycin * Trough level of 20.9 mcg/mL is just slightly supratherapeutic - patient appears to be improving and with stable renal function * Continue dose of 1000 mg IV every 8 hours * Goal trough level for sepsis : 15 to 20 mcg/mL * Will order follow-up trough if patient is to remain on vancomycin beyond empiric duration * Will continue to follow renal function Cefepime * 2 g IV q8h empirically is appropriate based on estimated CrCl of 98 mL/min Pharmacy will continue to follow and will adjust dose/frequency as necessary. Thank you.
[2019-11-18] MEDS: OXYCODONE/ACETAMINOPHEN 5mg/325mg TAB PO PRN ×2 (14:20→20:22)
[2019-11-18] MEDS: TRAZODONE HCL 100 MG TAB PO SCH (21:57)
[2019-11-18] MEDS: CHOLECALCIFEROL 1,000 UNITS 25 MCG TAB PO SCH (21:58)
[2019-11-18] MEDS: MIRTAZAPINE TAB 15 MG TAB PO SCH (21:58)
[2019-11-18] MEDS: DIVALPROEX EXTENDED RELEASE 500 MG TAB PO SCH (21:58)
[2019-11-19] MEDS: VANCOMYCIN HCL 1,000 MG in SODIUM CHLORIDE 0.9% 250 ML IV SCH ×2 (02:30→11:05)
[2019-11-19] MEDS: HEPARIN SOD 5,000 UNIT/0.5 ML VIAL SQ SCH ×3 (06:04→21:04)
[2019-11-19] MEDS: OXYCODONE/ACETAMINOPHEN 5mg/325mg TAB PO PRN ×3 (06:05→21:04)
[2019-11-19 07:53] LABS: Creatinine Clr Calc Pharmacy 98.5 ml/min; Est GFR (African American) 108.1; Est GFR (Non-African American) 93.3
[2019-11-19] MEDS: ONDANSETRON 4 MG OD TAB PO PRN (08:51)
[2019-11-19] MEDS: CEFEPIME 2,000 MG in SYRINGE 7.5 ML IV SCH (08:55)
[2019-11-19] MEDS: ARIPiprazole 15 MG TAB PO SCH (08:55)
[2019-11-19] MEDS: CHOLECALCIFEROL 1,000 UNITS 25 MCG TAB PO SCH ×2 (08:55→20:11)
[2019-11-19] MEDS: KETOROLAC TROMETHAMINE 15 MG/ML VIAL IV PRN ×2 (09:08→20:06)
[2019-11-19] MEDS ORDERED: VANCOMYCIN TROUGH ONE (09:30)
--- NOTE | 2019-11-19 11:12 | Hospitalist Progress Note ---
Date of Service November 19, 2019 Assessment & Plan (1) Encephalopathy: (1) metabolic encephalopathy: Multifactorial : Severe sepsis (SIRS plus lactic acid elevation plus ARF plus encephalopathy) Likely secondary to leg wounds, Complicated UTI given the prior history of ESBL UTI Has been getting intravenous vancomycin and cefepime Lactic acid has been normalized and kidney function has been normalized as well Depakote level is normal Await urine and blood culture results-came back negative White count is normalized without any fever and/or chills Clinically much better with improvement of confusion She is back to her baseline and the confusion is resolved She got intravenous vancomycin and cefepime for 3 days in total since admission IV vancomycin and cefepime stopped today and changed to oral antibiotic with Augmentin to cover bilateral feet ulcerations Acute Kidney failure Likely secondary to dehydration Condition improved and normalized following intravenous Advised to drink more fluids Kidney function is normalized Bilateral feet wounds Will ask for wound care consult Complains of pain in feet Please look at the picture for detailed findings We will change antibiotic to oral Augmentin to continue for 7 days Will need to be an appointment with outpatient wound care Mood disorder,PTSD Seems stable Chronic back pain as per records No acute issue Other significant but stable medical conditions are as follows: Symptomatic bradycardia status post PPM, hx bariatric surgery hx PVD Orthostatic hypotension on Midodrine, Past tobacco abuse Chronic anemia, hemoglobin better than baseline likely secondary to hemoconcentration Hyperglycemia rule out DM DVT prophylaxis. Heparin subcu Full code Patient's friend requesting updates from providers. Ms. Annette Kwan, contact #[phone]. Has been getting PT and OT evaluation Like to be discharged in a day or 2 and will provide the recommendations from the PT and OT Updated the Daughter Annette -Possible discharge in a day or two. Admission and Anticipated Discharge Date Admission Date: November 16, 2019 Subjective The patient was seen and examined in medical telemetry unit She is a 64-year-old female with significant past medical history of mood disorder, chronic back pain, symptomatic bradycardia status post pacemaker, history of bariatric surgery, PTSD, orthostatic hypotension on MetroCream and history of ESBL E. coli UTI was admitted last night with altered mental status She was noted to have high white count of 19,000 with UTI suggestive of infection, scans were unremarkable She remains pleasantly confused this morning 11/18/2019 The patient was seen and examined in medical telemetry unit She feels a lot better except pain in the feet She is alert and awake and has been communicating normally Besides pain in the feet no significant symptoms 11/19/2019 The patient was seen and examined in medical telemetry unit She has been feeling a lot better except pain in both feet Denies any fever and/or chills and the confusion is over Review of Systems Review of Systems: All systems reviewed and are unremarkable except as noted below Musculoskeletal: Bilateral feet pain secondary to multiple wounds Neurologic: + generalized weakness Physical Exam Physical Exam: Lying in bed without any apparent distress Constitutional: + thin; no acute distress and not ill appearing Eyes: PERRL, conjunctivae normal, anicteric sclerae ENMT: external ear and nose normal, oropharynx normal Neck: trachea midline, no thyromegaly Respiratory: normal respiratory effort; no respiratory distress Auscultation: lungs clear to auscultation bilaterally and + diminished lung sounds Cardiovascular: Rate/Rhythm: regular rate and regular rhythm Heart Sounds: no murmur Gastrointestinal (Abdomen): Inspection/Auscultation: abdomen normal to inspection and normal bowel sounds Percussion/Palpation: + abdomen tender ( Minimally tenderness all over) and abdomen soft Musculoskeletal: No acute arthritis in any joints Skin: Bilateral feet injuries with superficial ulcerations involving the knuckles of first phalangeal joints of all toes, soles at the balls of each big toe. Superficial bruising involving the knees and also elbows. Please see the picture for detailed Neurologic: moves all extremities; no focal motor deficits Results & Data ([facility]) Vital Signs (Past 12 Hours) Vital Signs Temp Pulse Pulse Resp BP BP Pulse Ox 11/19/19 07:35 76 11/19/19 07:26 36.6 C 77 18 112/69 97 11/19/19 04:00 36.8 C 82 20 110/82 96 11/19/19 00:51 75 11/18/19 23:54 36.6 C 85 20 94/59 L 94 Laboratory Results BMP 11/19/19 07:07 Creatinine 0.69 Medications Administered Current Inpatient Medications Acetaminophen (Tylenol) 650 mg PO Q4H PRN PRN Reason: Pain or Fever Stop: 12/17/19 00:53 Last Admin: 11/17/19 23:55 Dose: 650 mg Documented by: Amoxicillin/Clavulanate Potassium (Augmentin 875mg) 1 tab PO [facility] Stop: 11/26/19 16:59 [facility]ip[facility] ([facility]) [facility] Stop: 12/19/19 08:59 Last Admin: 11/19/19 08:55 Dose: 30 mg Documented by: Baclofen (Lioresal) 10 mg PO BID PRN PRN Reason: Muscle Spasm Stop: 12/18/19 10:08 Divalproex Sodium (Depakote Extended Release) 1,000 mg PO [facility] Stop: 12/18/19 20:59 Last Admin: 11/18/19 21:58 Dose: 1,000 mg Documented by: Heparin Sodium (Porcine) (Heparin Sodium (Porcine)) 5,000 units SQ Q8 [facility] Stop: 12/17/19 05:59 Last Admin: 11/19/19 06:04 Dose: 5,000 units Documented by: Hydroxyzine HCl (Vistaril) 25 mg PO [facility] Stop: 12/18/19 20:59 Last Admin: 11/19/19 08:55 Dose: 25 mg Documented by: Promethazine HCl 12.5 mg/ (Sodium Chloride) 50.5 mls @ 202 mls/hr IV Q6H PRN PRN Reason: Nausea And Vomiting Stop: 12/17/19 00:53 Ketorolac Tromethamine (Toradol) 15 mg IV Q6H PRN PRN Reason: Pain Stop: 11/23/19 10:10 Last Admin: 11/19/19 09:08 Dose: 15 mg Documented by: Miconazole Nitrate (Desenex) 1 appln EXT PRN PRN PRN Reason: Affected Skin Folds Stop: 12/17/19 01:25 Mirtazapine (Remeron) 15 mg PO [facility] Stop: 12/18/19 20:59 Last Admin: 11/18/19 21:58 Dose: 15 mg Documented by: Ondansetron HCl (Zofran Odt) 4 mg PO Q6H PRN PRN Reason: Nausea Stop: 12/18/19 08:23 Last Admin: 11/19/19 08:51 Dose: 4 mg Documented by: Oxycodone/Acetaminophen (Percocet 5mg/325mg) 1 tab PO Q4H PRN PRN Reason: Pain Stop: 12/02/19 14:03 Last Admin: 11/19/19 06:05 Dose: 1 tab Documented by: Trazodone HCl (Desyrel) 300 mg PO HS [facility] Stop: 12/18/19 20:59 Last Admin: 11/18/19 21:57 Dose: 300 mg Documented by: Vitamin D (Vitamin D3) 1,000 units PO BID [facility] Stop: 12/18/19 20:59 Last Admin: 11/19/19 08:55 Dose: 1,000 units Documented by:
[2019-11-19] MEDS: AMOXICILLIN/CLAVULANATE 875 MG TAB PO SCH (15:56)
[2019-11-19] MEDS: MIRTAZAPINE TAB 15 MG TAB PO SCH (20:10)
[2019-11-19] MEDS: DIVALPROEX EXTENDED RELEASE 500 MG TAB PO SCH (20:11)
[2019-11-19] MEDS: TRAZODONE HCL 100 MG TAB PO SCH (20:11)
[2019-11-20] MEDS: HEPARIN SOD 5,000 UNIT/0.5 ML VIAL SQ SCH ×3 (06:28→21:05)
[2019-11-20] MEDS: OXYCODONE/ACETAMINOPHEN 5mg/325mg TAB PO PRN ×2 (06:33→11:22)
[2019-11-20] MEDS: AMOXICILLIN/CLAVULANATE 875 MG TAB PO SCH ×2 (07:56→17:24)
[2019-11-20] MEDS: ARIPiprazole 15 MG TAB PO SCH (07:56)
[2019-11-20] MEDS: CHOLECALCIFEROL 1,000 UNITS 25 MCG TAB PO SCH ×2 (07:57→20:34)
[2019-11-20] MEDS: ONDANSETRON 4 MG OD TAB PO PRN ×2 (08:04→17:23)
[2019-11-20] MEDS: KETOROLAC TROMETHAMINE 15 MG/ML VIAL IV PRN ×2 (13:29→21:05)
--- NOTE | 2019-11-20 14:56 | Hospitalist Progress Note ---
Date of Service November 20, 2019 Assessment & Plan (1) Acute metabolic encephalopathy: Resolved to baseline with treatment of questionable underlying infection. Uncertain source but considered urine and skin. Continue treatment of foot wounds. Continue Augmentin for possible underlying skin infection as patient became better on antibiotics (2) Wound of foot: Uncertain longevity of wounds. Patient reports she did not have these prior to arrival, however, there is a question these may not have been secondary to trauma alone. Will review records further on this to potentially highlight additional etiologies. For now continue daily wound care, pain medication as needed, physical therapy and occupational therapy to assist patients with ADLs and consider rehab as patient lives alone. Continue Augmentin as above. (3) Hypothermia: Secondary to environmental exposure. Resolved after rewarming in ER. (4) H/O gastric bypass: History of gastric bypass and persistent nausea. She reports taking Zofran at home and is needing this here. She is tolerating p.o. (5) Mood disorder: Continue mirtazapine, trazodone, Abilify, Depakote per home regimen. Question possible toxic encephalopathy secondary to polypharmacy as a cause for her acute confusion. (6) Chronic pain: Will review records further for history of this and discussed with patient optimal management for her at home currently. (7) DVT prophylaxis: Heparin Full code Disposition-likely to rehab including [facility] and possibly [facility] as options. Will discuss further with case management. Recommend patient avoid returning home at this point as she lives alone and cannot manage her ADLs independently at this time. Marci Hollins DO [facility] Hospitalist Admission and Anticipated Discharge Date Admission Date: November 16, 2019 Anticipated date of discharge: 11/21/19 Subjective 64-year-old female admitted to the ER after being found outside in the cold by authorities. In the ER she was hypothermic with a temp of 33.8 C, hypertensive with a blood pressure 241/210, not tachycardic with a heart rate in the 120s, confused and had abrasions on her feet but no other trauma noted she had leukocytosis (19 K) and lactic acidosis (lactate 8.2, bicarb 19) and was treated empirically with IV vancomycin and cefepime. IV fluids were given and her lactic acidosis improved. Urinalysis was negative for any signs of infection and chest x-ray was negative. Head CT did not reveal any acute pathology. Urine toxicology screen was normal. Chemistry panel was unremarkable. EKG revealed a tachycardia with an uninterpretable rhythm secondary to shivering and artifact. Later this was seen to be sinus tachycardia. Blood cultures were drawn and negative. A head CT was negative for any acute intracranial abnormality. Her temperature improved with rewarming but her mental status did not improve and she was admitted to the hospitalist service. Antibiotics were continued and her leukocytosis resolved the following day. Depakote level was checked and normal. By hospital day 3 she was improved from a mental standpoint back to baseline. Pt reports a h/o vomiting prior to arrival to the hospital, but cannot remember anything surrounding this including for how long she was vomiting. Reports a h/o dysuria and urinary urgency that has now improved. Feels better today, back to baseline mental status. Pain in her feet managed with Percocet and Tramadol. She doesn't typically take pain meds per her report. She reports feeling on the fence about going to a facility but she realizes that living alone, she will not be able to care for herself. She reports having heard "bad things" about [facility] and would also like to look into [facility]. ROS otherwise negative including no CP, SOB, fevers, chills. Review of Systems Review of Systems: All systems reviewed & are unremarkable except as noted in Subjective Physical Exam Physical Exam: CONSTITUTIONAL: WNWD, vitals as above, generally well- appearing EYES: normal conjunctivae, no scleral icterus ENT: external ear and nose normal, MMM RESPIRATORY: clear to auscultation bilaterally, no crackles, rales or wheezes, normal respiratory effort CARDIOVASCULAR: regular rate and rhythm, S1 and 2 heard without murmurs, gallops or rubs, no JVD, no peripheral edema GASTROINTESTINAL: soft, nontender, nondistended MUSCULOSKELETAL: head is normocephalic and atraumatic, moves around independently in the bed, moves all extremities equally. Some guarding of her feet, which were recently wrapped with heavy dressings. SKIN: warm and dry, multiple areas of ecchymosis that is well-healing with the largest area on her left knee. NEUROLOGIC: patellar DTRs 2+ bilat. PERRL, EOMI, no facial palsy, no dysarthria. Touch, pain and proprioception normal. CN 2-12 grossly intact, no sensory deficit, normal cognition, normal speech, no tremor PSYCHIATRIC: alert cooperative and oriented to person, place and time. Euthymic mood, makes good eye contact, language grossly intact, recent and remote memory grossly intact. LYMPHATIC: no LAD Results & Data Results & Data ([place]) Vital Signs (Past 12 Hours) Vital Signs Temp Pulse Pulse Pulse Resp BP Pulse Ox 11/20/19 11:15 36.6 C 103 H 20 154/80 H 95 11/20/19 08:00 82 11/20/19 07:24 36.5 C 86 18 108/54 L 95 11/20/19 05:58 71 11/20/19 04:00 36.5 C 171 H 18 103/59 L 11/20/19 03:38 77 Medications Administered Current Inpatient Medications Acetaminophen (Tylenol) 650 mg PO Q4H PRN PRN Reason: Pain or Fever Stop: 12/17/19 00:53 Last Admin: 11/17/19 23:55 Dose: 650 mg Documented by: Amoxicillin/Clavulanate Potassium (Augmentin 875mg) 1 tab PO BIDM [facility] Stop: 11/26/19 16:59 Last Admin: 11/20/19 07:56 Dose: 1 tab Documented by: Aripiprazole (Abilify) 30 mg PO QAM [facility] Stop: 12/19/19 08:59 Last Admin: 11/20/19 07:56 Dose: 30 mg Documented by: Baclofen (Lioresal) 10 mg PO BID PRN PRN Reason: Muscle Spasm Stop: 12/18/19 10:08 Divalproex Sodium (Depakote Extended Release) 1,000 mg PO HS [facility] Stop: 12/18/19 20:59 Last Admin: 11/19/19 20:11 Dose: 1,000 mg Documented by: Heparin Sodium (Porcine) (Heparin Sodium (Porcine)) 5,000 units SQ Q8 [facility] Stop: 12/17/19 05:59 Last Admin: 11/20/19 13:30 Dose: 5,000 units Documented by: Hydroxyzine HCl (Vistaril) 25 mg PO [facility] Stop: 12/18/19 20:59 Last Admin: 11/20/19 07:57 Dose: 25 mg Documented by: Promethazine HCl 12.5 mg/ (Sodium Chloride) 50.5 mls @ 202 mls/hr IV Q6H PRN PRN Reason: Nausea And Vomiting Stop: 12/17/19 00:53 Ketorolac Tromethamine (Toradol) 15 mg IV Q6H PRN PRN Reason: Pain Stop: 11/23/19 10:10 Last Admin: 11/20/19 13:29 Dose: 15 mg Documented by: Miconazole Nitrate (Desenex) 1 appln EXT PRN PRN PRN Reason: Affected Skin Folds Stop: 12/17/19 01:25 Mirtazapine (Remeron) 15 mg PO HS [facility] Stop: 12/18/19 20:59 Last Admin: 11/19/19 20:10 Dose: 15 mg Documented by: Ondansetron HCl (Zofran Odt) 4 mg PO Q6H PRN PRN Reason: Nausea Stop: 12/18/19 08:23 Last Admin: 11/20/19 08:04 Dose: 4 mg Documented by: Oxycodone/Acetaminophen (Percocet 5mg/325mg) 1 tab PO Q4H PRN PRN Reason: Pain Stop: 12/02/19 14:03 Last Admin: 11/20/19 11:22 Dose: 1 tab Documented by: Trazodone HCl (Desyrel) 300 mg PO HS [facility] Stop: 12/18/19 20:59 Last Admin: 11/19/19 20:11 Dose: 300 mg Documented by: Vitamin D (Vitamin D3) 1,000 units PO BID [facility] Stop: 12/18/19 20:59 Last Admin: 11/20/19 07:57 Dose: 1,000 units Documented by:
[2019-11-20] MEDS: TRAZODONE HCL 100 MG TAB PO SCH (20:34)
[2019-11-20] MEDS: MIRTAZAPINE TAB 15 MG TAB PO SCH (20:35)
[2019-11-20] MEDS: DIVALPROEX EXTENDED RELEASE 500 MG TAB PO SCH (20:35)
[2019-11-21] MEDS: HEPARIN SOD 5,000 UNIT/0.5 ML VIAL SQ SCH ×2 (05:40→12:56)
[2019-11-21] MEDS: AMOXICILLIN/CLAVULANATE 875 MG TAB PO SCH ×2 (08:24→17:19)
[2019-11-21] MEDS: OXYCODONE/ACETAMINOPHEN 5mg/325mg TAB PO PRN (08:25)
[2019-11-21] MEDS: CHOLECALCIFEROL 1,000 UNITS 25 MCG TAB PO SCH (08:25)
[2019-11-21] MEDS: ARIPiprazole 15 MG TAB PO SCH (08:25)
[2019-11-21] MEDS: ONDANSETRON 4 MG OD TAB PO PRN (08:34)
--- NOTE | 2019-11-21 11:04 | Communication Note ---
Date of Service: November 21, 2019 I reviewed patients clinical photographs, and well as clinical documentation ad discussed the case with Dr. Hollins. Injury appears to be a combination of superficial frostbite and abrasision. I do see any need for debridement or other surgical indications. I don't see clinical evidence of infection. recomendation is for continued wound care thru the wound care team. if wounds do not heal, or if Wound Care Team feels she need any surgical treatment, she should follow up [facility] Dr Flores as an outpatient. b
--- NOTE | 2019-11-21 12:03 | Consultation Report ---
DATE OF CONSULTATION: 11/21/2019 NOTICE TO RECEIVING REPUBLICAN/AGENCY This information is strictly Confidential and protected under [place] law. [place] law prohibits you from making any further disclosure of this information unless further disclosure is expressly permitted by the written consent of the person to whom it pertains or is authorized by law. A general authorization for the release of medical or other information is not sufficient for this purpose. Hospital accepts no responsibility if the information is made available to any other person, INCLUDING THE PATIENT. CHIEF COMPLAINT: Pain in both feet. HISTORY OF PRESENT ILLNESS: The patient is a 64-year-old white female [facility] and [facility] sepsis with also foot and leg wounds as well as hypothermia. The patient had apparently been found unresponsive outside of her home and was not sure how long she had been outside. She had been admitted in the recent past in March of 2019. For metabolic encephalopathy secondary to ESBL E. coli UTI. She again was found outside her home by bystanders and was found to be confused with multiple abrasions on both feet and knees and was brought to the Emergency Room here at [facility]. She was admitted and taken care of by the [facility] Medical team. She had multiple abrasions and scrapes and cuts noted on her lower extremities and feet. We have been consulted to rule out any need for debridement of these wounds. Currently, the patient is lying in bed and she is awake and alert and oriented. We discussed that I was going to need to take the dressings down and to review her wounds of which she stated that she was having some pain more in the left than the right due to the dressings being taken on and off. Marlen Slaughter RN with wound care was present and helped with the dressing changes. PAST MEDICAL HISTORY: Mood disorder, chronic back pain, history of PVD, orthostatic hypotension, chronic anemia, hyperglycemia. PAST SURGICAL HISTORY: History of bariatric surgery in the past. REVIEW OF SYSTEMS: As per admitting history and physical. PHYSICAL EXAMINATION: On examination the patient has bilateral dressings on both of her feet. These were removed by myself and Marlen Slaughter during our visit. She has multiple wounds over both feet and toes. It was noted after taking the left foot dressing off that the third toe appeared to have a slight yellowish roof to the top of her abrasion, but was very small in size. The rest of the abrasions on the dorsum of the toes appeared benign and were drying, but were not necrotic. Same applies for the 2-5 toes on the left foot on the plantar surface. She had an Aquacel AG dressing on the left great toe which we were unable to pull off without soaking with sterile saline. After soaking with sterile saline it came off fairly readily. The wound did not appear necrotic and there was no obvious purulence at this point in time. She had an abrasion area over her left heel that had been dressed, which this looked completely benign and superficial. The right foot itself was showing again several wounds on the plantar surface and dorsal surface of the toes all of which appear dry in nature and were healing. She had one area near the lateral malleolus that was still a little bit moist and did have some bleeding to it after the dressing was taken off, but was mild. There was no purulence and there was an area that appeared to be demarcating at this time. After discussion with Marlen Slaughter it was decided that with most of the abrasions and wounds appearing dry that we could switch to Adaptic and had no further use for Aquacel AG, especially on the left great toe. The wounds were then redressed. ASSESSMENT: Abrasions and likely superficial frostbite to multiple areas over the toes and feet of the left and right feet. Dr. Espinosa has discussed the case with Dr. Marci Hollins earlier and after reviewing the pictures of the toes felt that this was all superficial in nature and should be continued with wound care. With looking at the wounds since the time of the pictures we can continue wound care at this time. There are no areas of purulence or areas that need any kind of a debridement that I can see. She should continue daily wound care to these areas and follow up in the wound care office with [facility]. Thank you for this consult. STEPH
--- NOTE | 2019-11-21 14:33 | Discharge Summary ---
Date of Service November 21, 2019 Admission HPI Per Admitting Provider Patient has another [facility] EMR account. [id number] History obtained from patient, patient's friend, and records. Patient is an unreliable historian secondary to disorientation. Medical history significant for mood disorder, chronic back pain, symptomatic bradycardia status post PPM, hx bariatric surgery, PTSD, right ICA aneurysm, orthostatic hypotension on Midodrine, past tobacco abuse. chronic anemia (baseline hemoglobin 10-11), hx ESBL E. coli UTI Recent confinement March 2019 for metabolic encephalopathy secondary ESBL E. coli UTI. Recent outpatient EGD/colonoscopy 3 weeks ago for melena. EGD was normal. Colonoscopy showed polyps and nonbleeding internal hemorrhoids. Patient found outside her home today by bystanders to be confused with multiple abrasions on both feet and knees. Patient noted to be hypothermic upon arrival of EMS. Patient brought to the ER for evaluation. Celia hugger initiated for hypothermia. Patient given Vancomycin and Cefepime for sepsis. Patient noted to be disoriented at the ER repetitively saying yes yes okay okay to any question. Patient closest friend in town unaware of any issues since the last time she saw her for her endoscopic procedure a few weeks ago. Recent outpatient Baclofen refill last week on review of outpatient records. MEDICAL HISTORY: As above. SURGICAL HISTORY: Gastric bypass, hysterectomy, pacemaker placement. FAMILY HISTORY: Could not be obtained due to adoption history as per records. . PERSONAL AND SOCIAL HISTORY: Past tobacco abuse. No EtOH intake. Lives alone. Admission Exam Per Admitting Provider GENERAL: Comfortable, disoriented, no respiratory distress, obese SKIN: Pallor , warm HEENT: Pale palpebral conjunctivae, no ptosis, dry buccal mucosa NECK : Supple, short neck, no tenderness CHEST : Decreased breath sounds , no tenderness HEART : Tachycardic , no obvious murmurs ABDOMEN: Some distention, nontender EXTREMITIES : Minimal LE swelling with bruising and erythematous areas, no other conspicuous deformities noted NEUROLOGIC : Disoriented , no facial asymmetry, no other gross focality Principal Diagnosis Acute metabolic encephalopathy-resolved Traumatic foot wounds Hypothermia-resolved Chronic pain h/o gastric bypass with chronic nausea Mood disorder Discharge Exam CONSTITUTIONAL: WNWD, vitals as above, generally well-appearing EYES: normal conjunctivae, no scleral icterus ENT: external ear and nose normal, MMM RESPIRATORY: clear to auscultation bilaterally, no crackles, rales or wheezes, normal respiratory effort CARDIOVASCULAR: regular rate and rhythm, S1 and 2 heard without murmurs, gallops or rubs, no JVD, no peripheral edema GASTROINTESTINAL: soft, nontender, nondistended MUSCULOSKELETAL: head is normocephalic and atraumatic, moves around independently in the bed, moves all extremities equally. Feet were recently wrapped with heavy dressings. Extremities were warm and well-perfused. SKIN: warm and dry, multiple areas of ecchymosis that is well-healing with the largest area on her left knee. Multiple hemorrhagic wounds on toes, medial malleolus and medial feet with shearing injury to medial feet and dorsum of tarsals NEUROLOGIC: No facial palsy, no dysarthria. CN 2-12 grossly intact, no sensory deficit, normal cognition, normal speech, no gross focal neuro deficits. PSYCHIATRIC: alert cooperative and oriented to person, place and time. Discharge Data Allergies Allergy/AdvReac Type Severity Reaction Status Date / Time Sulfa (Sulfonamide Allergy Unknown EYES Verified 11/18/19 08:20 Antibiotics) SWELLED,LIPS SWELLED aspirin AdvReac Unknown CONTRAINDICATED Verified 11/18/19 08:20 D/T BYPASS SURGERY cyproheptadine AdvReac Unknown Verified 11/18/19 08:20 ibuprofen AdvReac Unknown contraindicated Verified 11/18/19 08:20 d/t gastric bypass NSAIDS (Non-Steroidal AdvReac Unknown CONTRAINDICATED Verified 11/18/19 08:20 Anti-Inflamma D/T BYPASS SURGERY Consultations 11/17/19 00:54 Consult Case Management - Discharge Planning Routine 11/21/19 09:40 Consult Orthopedic Surgery Routine Ordered Studies 11/16/19 20:27 CT head/brain wo con Stat 11/16/19 23:50 CT abd pelvis wo con Urgent Hospital Course (1) Wound of foot: (2) Acute metabolic encephalopathy: (3) Hypothermia: (4) H/O gastric bypass: (5) Mood disorder: (6) Chronic pain: 64-year-old female admitted to the ER after being found outside in the cold by authorities. In the ER she was hypothermic with a temp of 33.8 C, hypertensive with a blood pressure 241/210, tachycardic with a heart rate in the 120s, confused and had abrasions on her feet but no other trauma noted. She had leukocytosis (19 K) and lactic acidosis (lactate 8.2, bicarb 19) and was treated empirically with IV vancomycin and cefepime. IV fluids were given and her lactic acidosis improved. Urinalysis was negative for any signs of infection and chest x-ray was negative. Head CT did not reveal any acute pathology. Urine toxicology screen was normal. Chemistry panel was unremarkable. EKG revealed sinus tachycardia. Blood cultures were drawn and negative. A head CT was negative for any acute intracranial abnormality. Her temperature improved with rewarming but her mental status did not improve and she was admitted to the Hospitalist service. Antibiotics were continued and her leukocytosis resolved the following day. Depakote level was checked and normal. By hospital day 3 she was improved from a mental standpoint back to baseline. She reported amnesia of events prior to arrival but did remember vomiting, dysuria and urinary urgency which is now improved. There was no evidence of a urinary tract infection but she did receive several days of antibiotics while admitted. Her pain in her feet were is managed with Percocet and Toradol. She reported no consistent use of narcotic pain medication at home. She improved on antibiotics and this was changed to Augmentin. Although frostbite was in the differential orthopedics and wound care both agreed her injuries to her feet were consistent more with trauma. There was no acute need for surgical krzysztof ridement but recommendations were made that she be followed in wound care clinic in the next few weeks. Antibiotics were discontinued prior to discharge. At time of discharge she was mentating at baseline and tolerating p.o. She was hemodynamically stable and afebrile and oxygenating well on room air. Physical exam was otherwise unremarkable outside of her foot wounds. She was discharged in stable condition to [facility] for acute rehab as a transition to home. Close primary care follow-up was recommended within one week of discharge from [facility]. Total Time Total Time Spent Total Time Spent (In Minutes): 60 Total Time Includes: Examination of the Patient, Discharge Planning, Medication Reconciliation and Communication With Other Providers Discharge Plan Discharge Items Patient Disposition: Transfer Inpatient Rehab Fac Reason For Visit: SEPSIS Discharge Diagnosis: Acute metabolic encephalopathy-resolved Traumatic foot wounds with superficial frostbite Hypothermia-resolved Chronic pain h/o gastric bypass with chronic nausea Mood disorder Activity: Resume your previous activity Non-emergency contact: Primary Care Provider Call non-emergency contact if: you have any medication questions, your symptoms worsen, your pain is not controlled, your pain is worsening, your pain is unusual for you, your pain is concerning for you and you have a fever Follow-up/Referrals: Helga Gilman PA-C [Primary Care Provider] - Diet: Regular Addtl Attending Provider Instructions: Please take all medications as instructed on discharge list below. It is recommended that you follow-up with wound care within the next couple of weeks. Staff should be performing daily wound care to your wounds until healed. Wound care instructions are included in this discharge. It is recommended that you follow-up with your primary care doctor approximately 1 week after discharge from [facility]. This visit will be important to ensure you are still doing well and that no further titration of your medications as needed. It is still unclear what the original insult of your confusion may have been. It was a pleasure taking care of you! Please call if you have any questions or problems. You can reach a [facility] hospitalist on duty at [facility] 24 hours a day by calling [phone]. Take care of yourself. Marci Hollins, [facility]ist Pending Studies at Discharge: No Stand-Alone Forms: [facility] Skilled Items Patient informed of condition?: Yes DNR: No Discharge Level of Care: Acute rehab Communicable Disease: No Discharge Prognosis: Stable Lines: None Urinary Catheter: No Medications and DC Order Prescriptions: New oxycodone 5 mg capsule 5 mg PO Q6H PRN (Reason: severe pain) Qty: 14 RF: 0 acetaminophen [Tylenol Extra Strength] 500 mg tablet 1,000 mg PO Q8H Qty: 30 RF: 0 Continued trazodone 150 mg tablet 300 mg PO HS RF: 0 cholecalciferol (vitamin D3) 1,000 unit capsule 1,000 units PO BID RF: 0 ondansetron HCl 4 mg tablet 4 mg PO TID PRN (Reason: Nausea) RF: 0 divalproex 500 mg Tablet Extended Release 24 Hr 1,000 mg PO HS RF: 0 baclofen 10 mg tablet 10 mg PO BID PRN (Reason: Muscle Spasm) RF: 0 hydroxyzine HCl 25 mg tablet 25 mg PO AMHS RF: 0 mirtazapine 30 mg Tablet 30 mg PO HS RF: 0 aripiprazole 20 mg tablet 30 mg PO QAM RF: 0 Discharge Orders: Discharge Order (Routine); Ordered 11/21/19 Ordered By: Marci Hollins Admission Data Admit Date/Time: 11/16/19 23:45 Attending Provider: Marci Hollins Admit Provider: Chato Cruz Primary Care Provider: Helga Gilman Other Providers: [facility] ; Mag[facility] [place] ; [place] ; Kwasi Espinosa
--- NOTE | 2019-11-28 07:30 | Coding Query ---
To promote full compliance with coding requirements relating to patient care, provider participation is requested in all cases of import clerk uncertainty. Please assist us with the question(s) below: Coding Question(s): The diagnosis(es) below was documented in the H&P through PN's 11/18 (Sepsis) and 11/19 (possible UTI, possible skin infection), then subsequently fell off all further documentation. Please indicate if it is still a possible diagnosis or ruled out. Physician's Response(s): Sepsis was initially documented in the record, and she was empirically treated for this, however, no subsequent infection was found. Other possible causes for acute encephalopathy include hypothermia +/-other additional metabolic insult that was not clear or toxicity from underlying medications vs other unknown ingested substances. The patient did meet SIRS criteria on admission. (This was documented in the medical record for clarification.) SEPSIS ( ) Diagnosed and POA ( ) Diagnosed and not POA ( x ) Ruled out ( ) Other (please specify) POSSIBLE UTI ( ) Diagnosed and POA ( ) Diagnosed and not POA ( x ) Ruled out ( ) Other (please specify) POSSIBLE SKIN INFECTION ( ) Diagnosed and POA ( ) Diagnosed and not POA ( x ) Ruled out ( ) Other (please specify) MTDD
== END 2019-11-21 17:35 | DRG 922 ==
LOC: EDBD → ED 20:26 → 2N 23:45 → MERGE 23:45 → SUATTDRO 23:45 → 2N 11-17 00:03

== ENCOUNTER 2019-12-16 14:40 | Inpatient (IN) ==
[2019-12-16] MEDS ORDERED: SODIUM CHLORIDE 0.9% 1000ML 1,000 ML IV SCH (15:15)
--- NOTE | 2019-12-16 15:22 | Emergency Department Note ---
Impression & Plan Altered mental status, Acute dehydration, Chest wall contusion, Rhabdomyolysis, Medication overdose ED Provider Note NAME: DELMI HONG AGE: 64 SEX: F : 1955 ARRIVES VIA: Ambulance INFORMANT: [Patient][ems, nursing] ED PROVIDER(S): [Ned Isaac MD] CHIEF COMPLAINT: Altered mental status HISTORY OF PRESENT ILLNESS: The patient is a 64-year-old female who was brought by EMS. She presents with an altered mental status. The patient was not responding to phone calls so staff was sent to her house. She was found in bed, lethargic, bruised and had some blood around her mouth. She was brought by EMS to the hospital. The patient had multiple empty pill bottles around her in bed and there were pills scattered in the bed and on the floor. 1 of the pills brought with her turned out to be trazodone, 150 mg. The patient is awake enough to answer some very simple questions but is quite somnolent. She does move all extremities. She denies falling. She denies pain presently. Of note, the patient was recently at [facility] after a bout of sepsis. She was seen in this ED just 3 days ago for potential recurrence of her cellulitis. She was seen by the hospitalist service for possible admission however, she was felt stable for discharge home. She was prescribed Keflex at discharge. At this point, no real further history is obtainable given the change in mental status and the patient's current condition. There is no family at bedside. REVIEW OF SYSTEMS: Unobtainable given a change in mental status. PMHx/PSHx: See Below SOCIAL HISTORY: See Below. PHYSICAL EXAM: GENERAL: Patient is in moderate distress, somnolent HEENT: Mucous membranes are quite dry. There is dried blood around her lips. No active source for bleeding identified. No facial bony step-off. No facial deformities. No scalp hematomas. Pupils are equal, normal size and reactive to light. NECK: No stridor, no adenopathy, no obvious cervical spine tenderness or step- off, trachea is midline. LUNGS: Clear to auscultation bilaterally when listening anterior, no wheeze, no rhonchi, breath sounds equal. HEART: Without murmurs gallops or rubs, regular rate and rhythm. Chest: There are contusions about the right breast. Ribs seem nontender. ABDOMEN: Soft, nontender, bowel sounds positive, no hernias, no peritonitis. EXTREMITIES: No cyanosis. The left lower extremity is edematous when compared to the right. Both feet have some areas of healing/abrasion, there are more open areas along the right foot and right lower extremity. There is some surrounding erythema but I do not see any obvious active cellulitis. No extremity deformities noted. There are some contusions to her extremities in particular, the left upper arm. NEUROLOGIC: Somnolent, moves all extremities, awakes to voice or touch. SKIN: No rash, no jaundice, no diaphoresis. DIFFERENTIAL DIAGNOSIS: Infection, dehydration, metabolic abnormality, hypo/hyperglycemia, electrolyte disturbance, anemia, hypoxia, cardiac sources, intracerebral event, toxicologic, neurologic, overdose, accidental overdose, polypharmacy, chest or abdominal trauma, as well as other pathologies. EMERGENCY DEPARTMENT COURSE/PROCEDURES: ECG: Indication was weakness and altered mental status. There is a normal sinus rhythm with a rate of 95. The QTc is 462. There is no ST elevation, no PVCs. Continuous Cardiac Monitoring: An order was placed for continuous cardiac monitoring. The monitor shows a rate of 73 with normal sinus rhythm. Critical Care Note: I have personally spent greater than 48 minutes of critical care time in the direct management of this patient. This includes bedside care, interpretation of diagnostic studies, and testing, discussion with consultants, patient, and family members, and other required patient management activities. This 48 minutes is in excess of all separately billable procedures. MEDICAL DECISION MAKING: There is no leukocytosis or concerning anemia. No significant electrolyte abnormality or kidney failure. Initial lactic acid level was slightly elevated, consistent with infection and/or dehydration. No worrisome liver enzyme elevation. Ammonia level was not elevated. EKG shows a sinus rhythm, no acute ischemia. Cardiac enzyme testing x1 is not consistent with acute cardiac injury. The patient appeared to be in a euthyroid state. Total CK was elevated consistent with muscle breakdown and rhabdomyolysis. Urinalysis did not show any evidence for infection. Urine tox was positive for opiates as well as ecstasy. Alcohol level was undetectable. Brain CT shows no acute bleed or mass-effect. Facial CT shows no acute fracture. C-spine CT shows no acute fracture. Chest and abdominal CT scans do not show any evidence for acute traumatic injury. Chest film does not show pneumonia or CHF. The patient presents with a change of mental status. She has several contusions about her body and I suspect has fallen. She likely is altered secondary to her medications. Whether the medication misuse was intentional or accidental is not clear. The patient is clearly dehydrated on exam and is in rhabdomyolysis by our work-up. The patient was aggressively managed. She was given IV saline 1 L. She received IV lactated Ringer's 1 L. The patient remains somnolent but awakes to voice or touch. Her vital signs have been stable. I do think she requires a hospital stay. She requires hydration, her medications need to be held. She needs frequent neurologic assessments. She is not stable for discharge home. I spoke to the patient, I talked to the caser shoe [employer]. The on-call hospitalist has been consulted. Past Med/Surg History Medical History Carpal tunnel syndrome, bilateral (Inactive) Cluster headache Fracture of tibial plateau History of Clostridium difficile colitis (Inactive) History of CVA (cerebrovascular accident) History of pacemaker (Chronic) "for symptomatic bradycardia " Hypokalemia Hypothyroidism (Chronic) Infection due to ESBL-producing Escherichia coli Leukocytosis (Inactive) Migraine Mood disorder Sick sinus syndrome Vertebrobasilar TIAs (Inactive) Surgical History Cardiac pacemaker in situ PLACED 2017 H/O gastric bypass (2004) H/O: hysterectomy History of colonoscopy History of esophagogastroduodenoscopy (EGD) Hx of cholecystectomy Family History Other Heart disease Social History Preferred Language: Egyptian Communication Ability: Effective Credit Negotiator Required: No Beliefs That Will Affect Care: None marital status: Single Current Living Situation: Alone current occupational status: disabled Feels Safe at Home: Yes Safety Concerns: Feels Safe At This Time Smoking Status: Never smoker Cigarettes Per Day: 5-80 (PER [place], UP TO 4PPD [employer]) ; Do You Dip or Chew Tobacco: No ; Second Hand Exposure: No ; Tobacco Cessation Education Requested by Patient: No Hx Alcohol Use: No Hx Substance Use: No Allergies Allergies Allergy/AdvReac Type Severity Reaction Status Date / Time Sulfa (Sulfonamide Allergy Unknown EYES Verified 12/16/19 16:09 Antibiotics) SWELLED,LIPS SWELLED aspirin AdvReac Unknown CONTRAINDICATED Verified 12/16/19 16:09 D/T BYPASS SURGERY cyproheptadine AdvReac Unknown Verified 12/16/19 16:09 ibuprofen AdvReac Unknown contraindicated Verified 12/16/19 16:09 d/t gastric bypass NSAIDS (Non-Steroidal AdvReac Unknown CONTRAINDICATED Verified 12/16/19 16:09 Anti-Inflamma D/T BYPASS SURGERY Home Meds Home Medications Medication Instructions Recorded Confirmed cholecalciferol (vitamin D3) 25 1,000 units PO BID cap 06/25/19 12/16/19 mcg (1,000 unit) capsule trazodone 150 mg tablet 300 mg PO HS tab 06/25/19 12/16/19 baclofen 10 mg PO BID PRN 11/16/19 12/16/19 hydroxyzine HCl 25 mg PO AMHS 11/16/19 12/16/19 aripiprazole 30 mg PO DAILY 12/16/19 12/16/19 mirtazapine 15 mg PO HS 12/16/19 12/16/19 olanzapine 10 mg PO HS 12/16/19 12/16/19 Previous Rx's Medication Instructions Recorded cephalexin [Keflex] 500 mg PO Q6H #28 cap 12/13/19 Results & Data (ED) Vital Signs Vital Signs - 24 hr 12/16/19 14:45 12/16/19 14:49 12/16/19 14:56 Temperature 36.6 C Temperature Source Oral Pulse Rate 98 H 98 H 98 H Pulse Rate [Apical] Pulse Rate from SpO2 Sensor 98 H 98 H Pulse Rhythm Regular Respiratory Rate 16 16 16 Respiratory Effort / Characteristics Non-Labored Spontaneous Respiratory Depth Normal Respiratory Pattern Regular Blood Pressure 113/69 113/69 Blood Pressure [Right Arm] Blood Pressure Mean 90 83 Blood Pressure Mean [Right Arm] Pulse Oximetry 94 96 94 Oxygen Delivery Method Room Air Sepsis Recent Fever Within 48 Hours No Sepsis New/Unexplained Change in Mental Status No Sepsis Action Taken by Nursing No Action Required 12/16/19 15:00 12/16/19 15:01 12/16/19 15:16 Temperature Temperature Source Pulse Rate 93 H 92 H 96 H Pulse Rate [Apical] Pulse Rate from SpO2 Sensor 94 H 92 H Pulse Rhythm Respiratory Rate 16 18 20 Respiratory Effort / Characteristics Respiratory Depth Respiratory Pattern Blood Pressure 126/68 Blood Pressure [Right Arm] Blood Pressure Mean 82 Blood Pressure Mean [Right Arm] Pulse Oximetry 94 97 98 Oxygen Delivery Method Room Air Sepsis Recent Fever Within 48 Hours Sepsis New/Unexplained Change in Mental Status Sepsis Action Taken by Nursing 12/16/19 15:30 12/16/19 15:31 12/16/19 15:32 Temperature Temperature Source Pulse Rate 96 H 91 H 95 H Pulse Rate [Apical] Pulse Rate from SpO2 Sensor 95 H 91 H 95 H Pulse Rhythm Respiratory Rate 18 23 15 Respiratory Effort / Characteristics Respiratory Depth Respiratory Pattern Blood Pressure 109/65 Blood Pressure [Right Arm] Blood Pressure Mean 73 Blood Pressure Mean [Right Arm] Pulse Oximetry 97 98 96 Oxygen Delivery Method Sepsis Recent Fever Within 48 Hours Sepsis New/Unexplained Change in Mental Status Sepsis Action Taken by Nursing 12/16/19 16:18 12/16/19 16:20 12/16/19 16:30 Temperature Temperature Source Pulse Rate 86 91 H 86 Pulse Rate [Apical] Pulse Rate from SpO2 Sensor 87 90 86 Pulse Rhythm Respiratory Rate 12 20 16 Respiratory Effort / Characteristics Respiratory Depth Respiratory Pattern Blood Pressure 137/68 135/73 Blood Pressure [Right Arm] Blood Pressure Mean 90 92 Blood Pressure Mean [Right Arm] Pulse Oximetry 98 97 97 Oxygen Delivery Method Sepsis Recent Fever Within 48 Hours Sepsis New/Unexplained Change in Mental Status Sepsis Action Taken by Nursing 12/16/19 16:43 12/16/19 17:00 12/16/19 17:30 Temperature Temperature Source Pulse Rate 83 82 Pulse Rate [Apical] 86 Pulse Rate from SpO2 Sensor 83 82 Pulse Rhythm Respiratory Rate 22 22 20 Respiratory Effort / Characteristics Non-Labored Spontaneous Respiratory Depth Normal Respiratory Pattern Regular Blood Pressure 115/61 114/71 Blood Pressure [Right Arm] 135/73 Blood Pressure Mean 78 80 Blood Pressure Mean [Right Arm] 93 Pulse Oximetry 97 92 94 Oxygen Delivery Method Room Air Sepsis Recent Fever Within 48 Hours Sepsis New/Unexplained Change in Mental Status Sepsis Action Taken by Skilled Nursing Medications Current Medication List: was personally reviewed by me Laboratory Data Attestation: I reviewed the patient's lab results. Result diagrams: 12/16/19 15:28 12/16/19 15:28 Lab Results 12/16/19 12/16/19 12/16/19 Range/Units 15:28 15:28 15:28 WBC (4.8-10.8) K/uL RBC (4.2-5.4) M/uL Hgb (12.0-16.0) g/dL Hct (37-47) % MCV (80-100) fL MCH (25-34) pg MCHC (32-36) g/dL RDW Std Deviation (36.4-46.3) fL RDW Coeff of Ammy (11.5-14.5) % Plt Count (130-400) K/uL MPV (7.4-10.4) fL Immature Gran % (Auto) % Neut % (Auto) % Lymph % (Auto) % [place] % (Auto) % Eos % (Auto) % Baso % (Auto) % Immature Gran # (Auto) (0.00-0.02) K/uL Neut # (Auto) (1.4-6.5) K/uL Lymph # (Auto) (1.2-3.4) K/uL [place] # (Auto) (0.11-0.59) K/uL Eos # (Auto) (0-0.5) K/uL Baso # (Auto) (0-0.2) K/uL PT Cancelled INR Cancelled APTT Cancelled PTT Ratio Cancelled Sodium 145 (136-145) mmol/L Potassium 3.5 (3.5-5.1) mmol/L Chloride 111 H (98-107) mmol/L Carbon Dioxide 27 (21-32) mmol/L Anion Gap 7.0 (3-11) BUN 14 (7-18) mg/dl Creatinine 0.99 (0.6-1.2) mg/dl Est Cr Clr Drug Dosing Not Reportable Est GFR ( Amer) 70.8 Est GFR (Non-Af Amer) 61.1 BUN/Creatinine Ratio 13.8 (10-20) Glucose 129 H (70-99) mg/dl Lactate (0.4-2.0) mmol/L Calcium 9.1 (8.5-10.1) mg/dl Magnesium 2.0 (1.8-2.4) mg/dl Total Bilirubin 0.8 (0.2-1) mg/dl AST 87 H (15-37) U/L ALT 31 (12-78) U/L Alkaline Phosphatase 66 (45-117) U/L Ammonia (11-32) umol/L Total Creatine Kinase 3398 H (26-192) U/L Troponin I < 0.015 (0-0.045) ng/ml Total Protein 7.4 (6.4-8.2) gm/dl Albumin 3.4 (3.4-5.0) gm/dl Globulin 4.0 (2.5-4.0) gm/dl Albumin/Globulin Ratio 0.8 L (0.9-2) TSH 0.758 (0.300-4.500) uIu/ml Urine Color Urine Appearance (Clear) Urine pH (4.5-7.5) Ur Specific Stewart (1.000-1.030) Urine Protein (Negative) Urine Glucose (UA) (Negative) Urine Ketones (Negative) Urine Blood (Negative) Urine Nitrite (Negative) Urine Bilirubin (Negative) Urine Urobilinogen (Negative) Ur Leukocyte Esterase (Negative) Urine WBC (Auto) (0-5) /hpf Urine RBC (Auto) (0-4) /hpf U Hyaline Cast (Auto) (0-5) /lpf U Epithel Cells (Auto) (0-5) /lpf Urine Bacteria (Auto) (Negative) Urine Crystals Uric Acid Crystals (None Prsent) Urine Mucus (None Prsent) Urine Opiates Screen (Neg) Ur Methadone, Qual (Neg) Urine Barbiturates (Neg) Ur Phencyclidine (PCP) (Neg) U Amphetamin/Meth Scrn (Neg) MDMA (Ecstasy) Screen (Neg) U Benzodiazepines Scrn (Neg) Ur Cocaine Metabolite (Neg) U Marijuana (THC) Screen (Neg) Ethyl Alcohol mg/dL < 3.0 (0-3) mg/dl 12/16/19 12/16/19 12/16/19 Range/Units 15:28 15:28 15:40 WBC 5.93 (4.8-10.8) K/uL RBC 4.11 L (4.2-5.4) M/uL Hgb 12.3 (12.0-16.0) g/dL Hct 38.2 (37-47) % MCV 92.9 (80-100) fL MCH 29.9 (25-34) pg MCHC 32.2 (32-36) g/dL RDW Std Deviation 47.4 H (36.4-46.3) fL RDW Coeff of Ammy 14.1 (11.5-14.5) % Plt Count 131 (130-400) K/uL MPV 9.9 (7.4-10.4) fL Immature Gran % (Auto) 0.2 % Neut % (Auto) 81.0 % Lymph % (Auto) 11.3 % [place] % (Auto) 7.3 % Eos % (Auto) 0.0 % Baso % (Auto) 0.2 % Immature Gran # (Auto) 0.01 (0.00-0.02) K/uL Neut # (Auto) 4.81 (1.4-6.5) K/uL Lymph # (Auto) 0.67 L (1.2-3.4) K/uL [place] # (Auto) 0.43 (0.11-0.59) K/uL Eos # (Auto) 0.00 (0-0.5) K/uL Baso # (Auto) 0.01 (0-0.2) K/uL PT INR APTT PTT Ratio Sodium (136-145) mmol/L Potassium (3.5-5.1) mmol/L Chloride (98-107) mmol/L Carbon Dioxide (21-32) mmol/L Anion Gap (3-11) BUN (7-18) mg/dl Creatinine (0.6-1.2) mg/dl Est Cr Clr Drug Dosing Est GFR ( Amer) Est GFR (Non-Af Amer) BUN/Creatinine Ratio (10-20) Glucose (70-99) mg/dl Lactate 2.5 H* (0.4-2.0) mmol/L Calcium (8.5-10.1) mg/dl Magnesium (1.8-2.4) mg/dl Total Bilirubin (0.2-1) mg/dl AST (15-37) U/L ALT (12-78) U/L Alkaline Phosphatase (45-117) U/L Ammonia < 10.0 L (11-32) umol/L Total Creatine Kinase (26-192) U/L Troponin I (0-0.045) ng/ml Total Protein (6.4-8.2) gm/dl Albumin (3.4-5.0) gm/dl Globulin (2.5-4.0) gm/dl Albumin/Globulin Ratio (0.9-2) TSH (0.300-4.500) uIu/ml Urine Color Urine Appearance (Clear) Urine pH (4.5-7.5) Ur Specific Stewart (1.000-1.030) Urine Protein (Negative) Urine Glucose (UA) (Negative) Urine Ketones (Negative) Urine Blood (Negative) Urine Nitrite (Negative) Urine Bilirubin (Negative) Urine Urobilinogen (Negative) Ur Leukocyte Esterase (Negative) Urine WBC (Auto) (0-5) /hpf Urine RBC (Auto) (0-4) /hpf U Hyaline Cast (Auto) (0-5) /lpf U Epithel Cells (Auto) (0-5) /lpf Urine Bacteria (Auto) (Negative) Urine Crystals Uric Acid Crystals (None Prsent) Urine Mucus (None Prsent) Urine Opiates Screen (Neg) Ur Methadone, Qual (Neg) Urine Barbiturates (Neg) Ur Phencyclidine (PCP) (Neg) U Amphetamin/Meth Scrn (Neg) MDMA (Ecstasy) Screen (Neg) U Benzodiazepines Scrn (Neg) Ur Cocaine Metabolite (Neg) U Marijuana (THC) Screen (Neg) Ethyl Alcohol mg/dL (0-3) mg/dl 12/16/19 12/16/19 12/16/19 Range/Units 15:55 15:55 16:48 WBC (4.8-10.8) K/uL RBC (4.2-5.4) M/uL Hgb (12.0-16.0) g/dL Hct (37-47) % MCV (80-100) fL MCH (25-34) pg MCHC (32-36) g/dL RDW Std Deviation (36.4-46.3) fL RDW Coeff of Ammy (11.5-14.5) % Plt Count (130-400) K/uL MPV (7.4-10.4) fL Immature Gran % (Auto) % Neut % (Auto) % Lymph % (Auto) % [place] % (Auto) % Eos % (Auto) % Baso % (Auto) % Immature Gran # (Auto) (0.00-0.02) K/uL Neut # (Auto) (1.4-6.5) K/uL Lymph # (Auto) (1.2-3.4) K/uL [place] # (Auto) (0.11-0.59) K/uL Eos # (Auto) (0-0.5) K/uL Baso # (Auto) (0-0.2) K/uL PT 11.0 INR 1.1 APTT Cancelled PTT Ratio Cancelled Sodium (136-145) mmol/L Potassium (3.5-5.1) mmol/L Chloride (98-107) mmol/L Carbon Dioxide (21-32) mmol/L Anion Gap (3-11) BUN (7-18) mg/dl Creatinine (0.6-1.2) mg/dl Est Cr Clr Drug Dosing Est GFR ( Amer) Est GFR (Non-Af Amer) BUN/Creatinine Ratio (10-20) Glucose (70-99) mg/dl Lactate (0.4-2.0) mmol/L Calcium (8.5-10.1) mg/dl Magnesium (1.8-2.4) mg/dl Total Bilirubin (0.2-1) mg/dl AST (15-37) U/L ALT (12-78) U/L Alkaline Phosphatase (45-117) U/L Ammonia (11-32) umol/L Total Creatine Kinase (26-192) U/L Troponin I (0-0.045) ng/ml Total Protein (6.4-8.2) gm/dl Albumin (3.4-5.0) gm/dl Globulin (2.5-4.0) gm/dl Albumin/Globulin Ratio (0.9-2) TSH (0.300-4.500) uIu/ml Urine Color Dark Yellow Urine Appearance Cloudy A (Clear) Urine pH 5.0 (4.5-7.5) Ur Specific Stewart 1.026 (1.000-1.030) Urine Protein 1+ H (Negative) Urine Glucose (UA) Negative (Negative) Urine Ketones 1+ H (Negative) Urine Blood Trace H (Negative) Urine Nitrite Negative (Negative) Urine Bilirubin Negative (Negative) Urine Urobilinogen Negative (Negative) Ur Leukocyte Esterase Trace H (Negative) Urine WBC (Auto) 5-10 H (0-5) /hpf Urine RBC (Auto) 5-10 H (0-4) /hpf U Hyaline Cast (Auto) 5-10 H (0-5) /lpf U Epithel Cells (Auto) 10-20 H (0-5) /lpf Urine Bacteria (Auto) Negative (Negative) Urine Crystals Not Reportable Uric Acid Crystals Present A (None Prsent) Urine Mucus Present A (None Prsent) Urine Opiates Screen Pos H (Neg) Ur Methadone, Qual Neg (Neg) Urine Barbiturates Neg (Neg) Ur Phencyclidine (PCP) Neg (Neg) U Amphetamin/Meth Scrn Neg (Neg) MDMA (Ecstasy) Screen Pos H (Neg) U Benzodiazepines Scrn Neg (Neg) Ur Cocaine Metabolite Neg (Neg) U Marijuana (THC) Screen Neg (Neg) Ethyl Alcohol mg/dL (0-3) mg/dl 12/16/19 Range/Units 17:19 WBC (4.8-10.8) K/uL RBC (4.2-5.4) M/uL Hgb (12.0-16.0) g/dL Hct (37-47) % MCV (80-100) fL MCH (25-34) pg MCHC (32-36) g/dL RDW Std Deviation (36.4-46.3) fL RDW Coeff of Ammy (11.5-14.5) % Plt Count (130-400) K/uL MPV (7.4-10.4) fL Immature Gran % (Auto) % Neut % (Auto) % Lymph % (Auto) % [place] % (Auto) % Eos % (Auto) % Baso % (Auto) % Immature Gran # (Auto) (0.00-0.02) K/uL Neut # (Auto) (1.4-6.5) K/uL Lymph # (Auto) (1.2-3.4) K/uL [place] # (Auto) (0.11-0.59) K/uL Eos # (Auto) (0-0.5) K/uL Baso # (Auto) (0-0.2) K/uL PT INR APTT PTT Ratio Sodium (136-145) mmol/L Potassium (3.5-5.1) mmol/L Chloride (98-107) mmol/L Carbon Dioxide (21-32) mmol/L Anion Gap (3-11) BUN (7-18) mg/dl Creatinine (0.6-1.2) mg/dl Est Cr Clr Drug Dosing Est GFR ( Amer) Est GFR (Non-Af Amer) BUN/Creatinine Ratio (10-20) Glucose (70-99) mg/dl Lactate 23.4 H* (0.4-2.0) mmol/L Calcium (8.5-10.1) mg/dl Magnesium (1.8-2.4) mg/dl Total Bilirubin (0.2-1) mg/dl AST (15-37) U/L ALT (12-78) U/L Alkaline Phosphatase (45-117) U/L Ammonia (11-32) umol/L Total Creatine Kinase (26-192) U/L Troponin I (0-0.045) ng/ml Total Protein (6.4-8.2) gm/dl Albumin (3.4-5.0) gm/dl Globulin (2.5-4.0) gm/dl Albumin/Globulin Ratio (0.9-2) TSH (0.300-4.500) uIu/ml Urine Color Urine Appearance (Clear) Urine pH (4.5-7.5) Ur Specific Stewart (1.000-1.030) Urine Protein (Negative) Urine Glucose (UA) (Negative) Urine Ketones (Negative) Urine Blood (Negative) Urine Nitrite (Negative) Urine Bilirubin (Negative) Urine Urobilinogen (Negative) Ur Leukocyte Esterase (Negative) Urine WBC (Auto) (0-5) /hpf Urine RBC (Auto) (0-4) /hpf U Hyaline Cast (Auto) (0-5) /lpf U Epithel Cells (Auto) (0-5) /lpf Urine Bacteria (Auto) (Negative) Urine Crystals Uric Acid Crystals (None Prsent) Urine Mucus (None Prsent) Urine Opiates Screen (Neg) Ur Methadone, Qual (Neg) Urine Barbiturates (Neg) Ur Phencyclidine (PCP) (Neg) U Amphetamin/Meth Scrn (Neg) MDMA (Ecstasy) Screen (Neg) U Benzodiazepines Scrn (Neg) Ur Cocaine Metabolite (Neg) U Marijuana (THC) Screen (Neg) Ethyl Alcohol mg/dL (0-3) mg/dl Administered Medications Discontinued Medications Sodium Chloride (Nss 1000ml) 1,000 mls @ 999 mls/hr IV .Q1H1M PATRICE Stop: 12/16/19 16:15 Last Infusion: 12/16/19 16:34 Dose: 0 mls/hr Documented by: [id number] Admin: 12/16/19 15:31 Dose: 999 mls/hr Documented by: [id number] Lactated Ringer's (Lr) 1,000 mls @ 999 mls/hr IV .Q1H1M STA Stop: 12/16/19 17:53 Last Infusion: 12/16/19 18:07 Dose: 0 mls/hr Documented by: [id number] Admin: 12/16/19 17:01 Dose: 999 mls/hr Documented by: [id number] Naloxone HCl (Narcan) 0.4 mg IV NOW STA Stop: 12/16/19 18:20 Last Admin: 12/16/19 18:31 Dose: 0.4 mg Documented by: [id number] Imaging Data Radiologist's Impression: SINGLE VIEW CHEST CLINICAL HISTORY: Fall. Generalized weakness. FINDINGS: 2 AP, portable, upright chest radiographs are compared to study dated 11/16/2019 and correlated with chest CT performed the same day 12/16/2019. The examination is degraded by portable technique and patient rotation. A 2-lead cardiac pacemaker is unchanged in position. The heart is mildly enlarged noting atherosclerotic calcification of the thoracic aorta. The pulmonary vasculature is noncongested. Emphysema and chronic interstitial thickening are similar to previous. There is bibasilar scarring/atelectasis. No airspace consolidation or large pleural effusion is identified. No pneumothorax is seen. The skeletal structures are osteopenic. The bony thorax is grossly intact. Degenerative change is noted in the shoulders and thoracic spine. IMPRESSION: 1. Cardiomegaly and cardiac pacemaker. There is no radiographic evidence of congestive failure. 2. Emphysema. 3. No airspace consolidation or pleural effusion is identified. CT SCAN OF THE CERVICAL SPINE CLINICAL HISTORY: Fall. COMPARISON STUDY: CT of the cervical spine dated 07/05/2016. TECHNIQUE: CT scan of the cervical spine is performed from the skull base to the upper thoracic spine. Images are reviewed in the axial, sagittal, and coronal planes. IV contrast was not administered for this examination. A dose lowering technique was utilized adhering to the principles of ALARA. FINDINGS: Skeletal structures: The skeletal structures are osteopenic. There is no evidence of fracture or subluxation involving the cervical spine. Vertebral body height and alignment are maintained. There is straightening of the cervical lordosis. Anterior osteophytes are seen throughout. The odontoid process and lateral masses are intact. The atlantoaxial articulation is preserved noting productive degenerative change. The spinous processes appear intact. There is mild to moderate multilevel cervical spondylosis. Uncovertebral and facet arthropathy contribute to neural foraminal narrowing at several levels. Intervertebral discs: There is moderate disc space narrowing seen from C4-C5 through C6-C7. Central canal: Posterior disc osteophyte complexes at C4-C5, C5-C6, and C6-C7 likely contribute to multilevel acquired compromise of the central canal. Soft tissues: The prevertebral and paraspinous soft tissues are within normal limits. There is atherosclerotic calcification of the carotid bulbs. Calvarium: The visualized calvarium at the skull base appears intact. Brain parenchyma: Partially visualized brain parenchyma the skull base is within normal limits. Sinuses and mastoids: The visualized paranasal sinuses are clear. The mastoid air cells are well pneumatized. Lung apices: Emphysematous change and apical scarring is noted at the apices. Pacemaker leads are noted on the left. IMPRESSION: 1. There is no evidence of fracture or subluxation involving the cervical spine. 2. Osteopenia and spondylotic change as above. CT SCAN OF THE BRAIN WITHOUT IV CONTRAST CLINICAL HISTORY: Change in mental status. Fall. COMPARISON STUDY: CT of the brain dated 12/13/2019. TECHNIQUE: Unenhanced axial CT scan of the brain is performed from the vertex to the skull base. A dose lowering technique was utilized adhering to the principles of ALARA. The patient was scanned twice due to motion artifact. FINDINGS: Brain parenchyma: There is minimal subcortical and periventricular microangi opathic change. There is no hemorrhage, mass effect, or evidence of acute territorial ischemia by CT criteria. Louis-white matter differentiation is preserved. A chronic lacunar infarct is seen in the left basal ganglia. No extra-axial fluid collection is seen. Ventricles, sulci, cisterns: Prominent secondary to involutional change. Intracranial vasculature: There is mild atherosclerotic calcification of the cavernous carotid arteries. Calvarium: The skeletal structures are osteopenic. There is no depressed calvarial fracture. Sinuses and mastoids: The visualized paranasal sinuses are clear. The mastoid air cells are well pneumatized. Orbits: The bony orbits are grossly intact. IMPRESSION: There is no hemorrhage, mass effect, or evidence of acute territorial ischemia by CT criteria. CT SCAN OF THE CHEST, ABDOMEN, AND PELVIS WITHOUT IV CONTRAST CLINICAL HISTORY: Fall. Change in mental status. COMPARISON STUDY: Chest CT scans dated 07/09/2019 and 12/26/2015. Abdominal CT dated 11/17/2019. TECHNIQUE: Unenhanced CT scan of the chest, abdomen, and pelvis was performed from the thoracic inlet to the proximal femora. Images are reviewed in the axial, sagittal, and coronal planes. IV contrast was not administered as per the referring clinician. Note that the examination was performed in significantly suboptimal fashion without IV contrast. Examination is also degraded by streak artifact from the arms which could not elevated above the chest or abdomen and by motion artifact. A dose lowering technique was utilized adhering to the principles of ALARA. CT DOSE: 3729.25 mGy.cm FINDINGS: CHEST: Thyroid: Imaged portions of the thyroid gland are normal in size and attenuation. Thoracic aorta: There is atherosclerotic calcification of the thoracic aorta, which is normal in caliber and demonstrates standard 3-vessel arch anatomy. Heart: A 2-lead cardiac pacemaker is present in the left chest wall. The heart is mildly enlarged and there is trace pericardial effusion. There are coronary artery calcifications. There is diminished attenuation of the cardiac blood pool as compared to the myocardium suggesting anemia. Lungs and pleural spaces: Evaluation of the lung parenchyma is degraded by motion artifact. Emphysema and apical scarring are similar to previous. There is no airspace consolidation, pleural effusion, or pneumothorax. The trachea and central airways are clear. A 4 mm pleural-based nodule in the right lower lobe as seen on image #137 and a 3 mm right lower lobe nodule is seen on image #147. A 5 mm left upper lobe nodule is seen image #98. These are unchanged dating back to 2016 and of doubtful significance. This is unchanged from 07/09/2019 but new from 12/26/2015. There are scattered calcified granulomas. Dependent atelectasis is noted at the left lung base. Mediastinum: There is no mediastinal hematoma or lymphadenopathy. Maru: There are calcified left hilar nodes. The maru are not well assessed without IV contrast. Axillae: There is no axillary lymphadenopathy. Bony thorax: The skeletal structures are osteopenic. The bony thorax appears intact. Degenerative change is seen throughout the thoracic spine. No lytic or blastic lesions are identified. ABDOMEN AND PELVIS: Liver: Evaluation of the liver is degraded by streak artifact. The unenhanced liver is normal in size, contour, and attenuation. There is no intra- or extrahepatic biliary ductal dilatation. Gallbladder: Surgically absent noting clips in the gallbladder fossa. Spleen: Normal in size and attenuation. Pancreas: The unenhanced pancreas is atrophic and grossly unremarkable. Adrenal glands: Unremarkable. Kidneys: The unenhanced kidneys demonstrate cortical atrophy and are without hydronephrosis. No renal calculi are identified. There is no evidence of contour deforming mass lesion. Abdominal vasculature: The abdominal aorta is normal in course and caliber noting mild atherosclerotic calcification. Stomach and bowel: There is a small hiatal hernia postoperative changes consistent with a history of Ivonne-en-Y gastric bypass surgery. No bowel obstruction is seen. The appendix is well-visualized and normal. Peritoneum: There is no intraperitoneal free air or abdominal ascites. Lymphadenopathy: None. Pelvic viscera: The bladder is decompressed and cannot be evaluated. The Uterus is surgically absent. No adnexal lesion is seen. Skeletal structures: The skeletal structures are osteopenic. There is moderate lumbosacral spondylosis. A minimal chronic superior endplate compression deformity of L3 is similar to previous. The lumbosacral spine, bony pelvis, and proximal femora appear intact. No lytic or blastic lesions are seen. IMPRESSION: 1. Suboptimal examination without IV contrast. The examination is also degraded by streak and motion artifact. 2. There is no acute posttraumatic intrathoracic abnormality. 3. Emphysema, cardiomegaly, and cardiac pacemaker. 4. There is no airspace consolidation, pleural effusion, or pneumothorax. 5. There is no evidence of solid organ injury in the abdomen or pelvis on this unenhanced examination. 6. A 5 mm left upper lobe pulmonary nodule is unchanged from 07/09/2019 but new from 12/26/2015. This is pathologically indeterminant and should be followed as per the Fleischner criteria. See below. 7. Postoperative change is consistent with a history of Ivonne-en-Y gastric bypass surgery. No bowel obstruction is seen. 8. Additional findings as above. CT SCAN OF THE FACIAL BONES WITHOUT IV CONTRAST CLINICAL HISTORY: Fall. COMPARISON STUDY: CT of the brain performed concurrently on 12/16/2019. TECHNIQUE: High-resolution CT scan of the facial bones is performed. Images are reviewed in the axial, sagittal, and coronal planes. IV contrast was not administered for this examination. A dose lowering technique was utilized adhering to the principles of ALARA. FINDINGS: The skeletal structures are osteopenic. There is no evidence of facial bone fracture. The bony orbits are intact and the orbital contents are within normal limits. The zygomatic arches, nasal bones, and pterygoid plates are preserved. The maxilla and mandible are intact. Degenerative change is noted in the temporomandibular joints. The patient is edentulous. There are no layering blood products within the paranasal sinuses. The sinuses and mastoids are clear. The visualized calvarium and upper cervical spine are maintained. Partially imaged brain parenchyma is within normal limits. There is atherosclerotic calcif ication of the carotid bulbs. Minimal left periorbital scalp contusion is noted. IMPRESSION: There is no evidence of facial bone fracture. Blood Pressure Blood Pressure Findings: Normal blood pressure Blood Pressure Disposition: further management by hospitalist Head Trauma GCS Score: 14 Discharge Plan Visit Data *Final* Discharge Date/Time: 12/16/19 19:17 Chief Complaint: Overdose (Intentional) ED Provider: Ned Isaac Discharge Problem: Altered mental status, Acute dehydration, Chest wall contusion, Rhabdomyolysis, Medication overdose Patient Disposition: Admitted As Inpatient Condition: Fair Discharge Instructions Interventions: ED Discharge Assessment Last Done: 12/16/19 19:17 Discharge Problem: Altered mental status Qualifiers: Altered mental status type: unspecified Qualified Code(s): R41.82 - Altered mental status, unspecified Chest wall contusion Qualifiers: Encounter type: initial encounter Laterality: right Qualified Code(s): S20.211A - Contusion of right front wall of thorax, initial encounter Rhabdomyolysis Qualifiers: Rhabdomyolysis type: non-traumatic Qualified Code(s): M62.82 - Rhabdomyolysis Medication overdose Qualifiers: Encounter type: initial encounter Injury intent: undetermined intent Qualified Code(s): T50.904A - Poisoning by unspecified drugs, medicaments and biological substances, undetermined, initial encounter
[2019-12-16 15:41] LABS: Basophils # (auto) 0.01 K/uL (0-0.2); Basophils % (auto) 0.2 %; Hematocrit (blood only) 38.2 % (37-47); Hemoglobin 12.3 g/dL (12.0-16.0); Immature Granulocytes # (auto) 0.01 K/uL (0.00-0.02); Immature Granulocytes % (auto) 0.2 %; Lymphocytes # (auto) 0.67 K/uL (1.2-3.4); Lymphocytes % (auto) 11.3 %; Mean Corpuscular Hemoglobin 29.9 pg (25-34); Mean Corpuscular Hgb Conc 32.2 g/dL (32-36); Mean Corpuscular Volume 92.9 fL (80-100); Mean Platelet Volume 9.9 fL (7.4-10.4); Monocytes # (auto) 0.43 K/uL (0.11-0.59); Monocytes % (auto) 7.3 %; Neutrophils # (auto) 4.81 K/uL (1.4-6.5); Platelet Count 131 K/uL (130-400); RDW Coefficient of Variation 14.1 % (11.5-14.5); RDW Standard Deviation 47.4 fL (36.4-46.3); Red Blood Count 4.11 M/uL (4.2-5.4); White Blood Count 5.93 K/uL (4.8-10.8)
[2019-12-16 16:03] LABS: Alanine Aminotransferase 31 U/L (12-78); Albumin Level 3.4 gm/dl (3.4-5.0); Aspartate Aminotransferase 87 U/L (15-37); BUN Creatinine Ratio 13.8 (10-20); Blood Urea Nitrogen 14 mg/dl (7-18); Calcium 9.1 mg/dl (8.5-10.1); Carbon Dioxide 27 mmol/L (21-32); Chloride 111 mmol/L (98-107); Est GFR (African American) 70.8; Est GFR (Non-African American) 61.1; Glucose 129 mg/dl (70-99); Potassium 3.5 mmol/L (3.5-5.1); Sodium 145 mmol/L (136-145)
[2019-12-16 16:06] LABS: Appearance Urine Cloudy (Clear); Bacteria Urine Automated Negative (Negative); Blood Urine Trace (Negative); Color Urine Dark Yellow; Glucose Urine UA Negative (Negative); Ketones Urine 1+ (Negative); Leukocyte Esterase Urine Trace (Negative); Nitrite Urine Negative (Negative); Protein Urine 1+ (Negative); Specific Gravity Urine 1.026 (1.000-1.030); Urobilinogen Urine Negative (Negative)
[2019-12-16 16:09] LABS: Bilirubin Urine Negative (Negative); Ictotest Urine Negative (Negative)
[2019-12-16 16:18] LABS: Albumin Globulin Ratio 0.8 (0.9-2); Alkaline Phosphatase 66 U/L (45-117); Bilirubin,Total 0.8 mg/dl (0.2-1); Creatine Kinase 3398 U/L (26-192); Thyroid Stimulating Hormone 0.758 uIu/ml (0.300-4.500); Total Protein 7.4 gm/dl (6.4-8.2); Troponin I < 0.015 ng/ml (0-0.045)
--- NOTE | 2019-12-16 16:18 | CT Scan Report ---
CT SCAN OF THE BRAIN WITHOUT IV CONTRAST CLINICAL HISTORY: Change in mental status. Fall. COMPARISON STUDY: CT of the brain dated 12/13/2019. TECHNIQUE: Unenhanced axial CT scan of the brain is performed from the vertex to the skull base. A do se lowering technique was utilized adhering to the principles of ALARA. The patient was scanned twice due to motion artifact. FINDINGS: Brain parenchyma: There is minimal subcortical and periventricular microangiopathic change. There is no hemorrhage, mass effect, or evidence of acute territorial ischemia by CT criteria. Louis-white jacqueline er differentiation is preserved. A chronic lacunar infarct is seen in the left basal ganglia. No extr a-axial fluid collection is seen. Ventricles, sulci, cisterns: Prominent secondary to involutional change. Intracranial vasculature: There is mild atherosclerotic calcification of the cavernous carotid arteri es. Calvarium: The skeletal structures are osteopenic. There is no depressed calvarial fracture. Sinuses and mastoids: The visualized paranasal sinuses are clear. The mastoid air cells are well pneu matized. Orbits: The bony orbits are grossly intact. IMPRESSION: There is no hemorrhage, mass effect, or evidence of acute territorial ischemia by CT crit eria. ACT 112: Negative or not required by law. Electronically signed by: Ned Mello M.D. 12/16/2019 4:14 PM
[2019-12-16 16:21] LABS: Mucus Urine Present (None Prsent); Uric Acid Crystals Urine Present (None Prsent)
--- NOTE | 2019-12-16 16:23 | CT Scan Report ---
CT SCAN OF THE CERVICAL SPINE CLINICAL HISTORY: Fall. COMPARISON STUDY: CT of the cervical spine dated 07/05/2016. TECHNIQUE: CT scan of the cervical spine is performed from the skull base to the upper thoracic spine . Images are reviewed in the axial, sagittal, and coronal planes. IV contrast was not administered fo r this examination. A dose lowering technique was utilized adhering to the principles of ALARA. FINDINGS: Skeletal structures: The skeletal structures are osteopenic. There is no evidence of fracture or subl uxation involving the cervical spine. Vertebral body height and alignment are maintained. There is st raightening of the cervical lordosis. Anterior osteophytes are seen throughout. The odontoid process and lateral masses are intact. The atlantoaxial articulation is preserved noting productive degenerat mariel change. The spinous processes appear intact. There is mild to moderate multilevel cervical spondy losis. Uncovertebral and facet arthropathy contribute to neural foraminal narrowing at several levels . Intervertebral discs: There is moderate disc space narrowing seen from C4-C5 through C6-C7. Central canal: Posterior disc osteophyte complexes at C4-C5, C5-C6, and C6-C7 likely contribute to mu ltilevel acquired compromise of the central canal. Soft tissues: The prevertebral and paraspinous soft tissues are within normal limits. There is athero sclerotic calcification of the carotid bulbs. Calvarium: The visualized calvarium at the skull base appears intact. Brain parenchyma: Partially visualized brain parenchyma the skull base is within normal limits. Sinuses and mastoids: The visualized paranasal sinuses are clear. The mastoid air cells are well pneu matized. Lung apices: Emphysematous change and apical scarring is noted at the apices. Pacemaker leads are not ed on the left. IMPRESSION: 1. There is no evidence of fracture or subluxation involving the cervical spine. 2. Osteopenia and spondylotic change as above. ACT 112: Negative or not required by law. Electronically signed by: Ned Mello M.D. 12/16/2019 4:22 PM
--- NOTE | 2019-12-16 16:27 | XRay Report ---
SINGLE VIEW CHEST CLINICAL HISTORY: Fall. Generalized weakness. FINDINGS: 2 AP, portable, upright chest radiographs are compared to study dated 11/16/2019 and correla rudolph with chest CT performed the same day 12/16/2019. The examination is degraded by portable technique and patient rotation. A 2-lead cardiac pacemaker is unchanged in position. The heart is mildly enlar ged noting atherosclerotic calcification of the thoracic aorta. The pulmonary vasculature is nonconge sted. Emphysema and chronic interstitial thickening are similar to previous. There is bibasilar scarr ing/atelectasis. No airspace consolidation or large pleural effusion is identified. No pneumothorax i s seen. The skeletal structures are osteopenic. The bony thorax is grossly intact. Degenerative kent e is noted in the shoulders and thoracic spine. IMPRESSION: 1. Cardiomegaly and cardiac pacemaker. There is no radiographic evidence of congestive failure. 2. Emphysema. 3. No airspace consolidation or pleural effusion is identified. ACT 112: Negative or not required by law. Electronically signed by: Ned Mello M.D. 12/16/2019 4:26 PM
[2019-12-16 16:38] LABS: Amphetamines+Metham, Urine Neg (Neg); Barbiturates, Urine Neg (Neg); Benzodiazepine, Urine Neg (Neg); Cocaine, Urine Neg (Neg); MDMA (Ecstacy), Urine Pos (Neg); Methadone, Urine Neg (Neg); Opiate, Urine Pos (Neg); Phencyclidine, Urine Neg (Neg)
[2019-12-16] MEDS ORDERED: LACTATED RINGER'S 1,000 ML IV STA (16:53)
--- NOTE | 2019-12-16 16:56 | CT Scan Report ---
CT SCAN OF THE CHEST, ABDOMEN, AND PELVIS WITHOUT IV CONTRAST CLINICAL HISTORY: Fall. Change in mental status. COMPARISON STUDY: Chest CT scans dated 07/09/2019 and 12/26/2015. Abdominal CT dated 11/17/2019. TECHNIQUE: Unenhanced CT scan of the chest, abdomen, and pelvis was performed from the thoracic inlet to the proximal femora. Images are reviewed in the axial, sagittal, and coronal planes. IV contrast was not administered as per the referring clinician. Note that the examination was performed in signi ficantly suboptimal fashion without IV contrast. Examination is also degraded by streak artifact from the arms which could not elevated above the chest or abdomen and by motion artifact. A dose lowering technique was utilized adhering to the principles of ALARA. CT DOSE: 3729.25 mGy.cm FINDINGS: CHEST: Thyroid: Imaged portions of the thyroid gland are normal in size and attenuation. Thoracic aorta: There is atherosclerotic calcification of the thoracic aorta, which is normal in pa lb and demonstrates standard 3-vessel arch anatomy. Heart: A 2-lead cardiac pacemaker is present in the left chest wall. The heart is mildly enlarged and there is trace pericardial effusion. There are coronary artery calcifications. There is diminished a ttenuation of the cardiac blood pool as compared to the myocardium suggesting anemia. Lungs and pleural spaces: Evaluation of the lung parenchyma is degraded by motion artifact. Emphysema and apical scarring are similar to previous. There is no airspace consolidation, pleural effusion, o r pneumothorax. The trachea and central airways are clear. A 4 mm pleural-based nodule in the right l ower lobe as seen on image #137 and a 3 mm right lower lobe nodule is seen on image #147. A 5 mm left upper lobe nodule is seen image #98. These are unchanged dating back to 2016 and of doubtful signifi cance. This is unchanged from 07/09/2019 but new from 12/26/2015. There are scattered calcified granul omas. Dependent atelectasis is noted at the left lung base. Mediastinum: There is no mediastinal hematoma or lymphadenopathy. Maru: There are calcified left hilar nodes. The maru are not well assessed without IV contrast. Axillae: There is no axillary lymphadenopathy. Bony thorax: The skeletal structures are osteopenic. The bony thorax appears intact. Degenerative manda nge is seen throughout the thoracic spine. No lytic or blastic lesions are identified. ABDOMEN AND PELVIS: Liver: Evaluation of the liver is degraded by streak artifact. The unenhanced liver is normal in size , contour, and attenuation. There is no intra- or extrahepatic biliary ductal dilatation. Gallbladder: Surgically absent noting clips in the gallbladder fossa. Spleen: Normal in size and attenuation. Pancreas: The unenhanced pancreas is atrophic and grossly unremarkable. Adrenal glands: Unremarkable. Kidneys: The unenhanced kidneys demonstrate cortical atrophy and are without hydronephrosis. No renal calculi are identified. There is no evidence of contour deforming mass lesion. Abdominal vasculature: The abdominal aorta is normal in course and caliber noting mild atheroscleroti c calcification. Stomach and bowel: There is a small hiatal hernia postoperative changes consistent with a history of Ivonne-en-Y gastric bypass surgery. No bowel obstruction is seen. The appendix is well-visualized and normal. Peritoneum: There is no intraperitoneal free air or abdominal ascites. Lymphadenopathy: None. Pelvic viscera: The bladder is decompressed and cannot be evaluated. The Uterus is surgically absent. No adnexal lesion is seen. Skeletal structures: The skeletal structures are osteopenic. There is moderate lumbosacral spondylosi s. A minimal chronic superior endplate compression deformity of L3 is similar to previous. The lumbos acral spine, bony pelvis, and proximal femora appear intact. No lytic or blastic lesions are seen. IMPRESSION: 1. Suboptimal examination without IV contrast. The examination is also degraded by streak and motion artifact. 2. There is no acute posttraumatic intrathoracic abnormality. 3. Emphysema, cardiomegaly, and cardiac pacemaker. 4. There is no airspace consolidation, pleural effusion, or pneumothorax. 5. There is no evidence of solid organ injury in the abdomen or pelvis on this unenhanced examination . 6. A 5 mm left upper lobe pulmonary nodule is unchanged from 07/09/2019 but new from 12/26/2015. This is pathologically indeterminant and should be followed as per the Fleischner criteria. See below. 7. Postoperative change is consistent with a history of Ivonne-en-Y gastric bypass surgery. No bowel ob struction is seen. 8. Additional findings as above. Please refer to below summary of Fleischner criteria recommendations for follow-up of incidental CT n odules Rebecca Wisdom, Guidelines for management of small pulmonary nodules detected on CT scans: A sta tement from the Fleischner Society, Radiology 237: [phone].) SOLID NODULES Solitary nodule size: <6 mm * low risk patients: no follow-up needed * high risk patients: optional CT at 12 months Solitary nodule size: 6-8 mm * low risk patients: follow-up at 6-12 months, then consider further follow-up at 18-24 months * high risk patients: initial follow-up CT at 6-12 months and then at 18-24 months if no change Solitary nodule size: >8 mm * either low or high risk patients - consider follow-up CT at 3 months, and/or CT-PET, and/or biopsy Multiple nodules size: <6 mm * low risk patients: no routine follow-up * high risk patients: optional CT at 12 months Multiple nodules size: 6-8 mm * low risk patients: follow-up at 3-6 months, then consider further follow-up at 18-24 months * high risk patients: follow-up at 3-6 months, then at 18-24 months if no change Multiple nodules size: >8 mm * low risk patients: follow-up at 3-6 months, then consider further follow-up at 18-24 months * high risk patients: follow-up at 3-6 months, then at 18-24 months if no change Note: newly detected indeterminate nodule in persons 35 years of age or older. * low risk patients: minimal or absent history of smoking and/or other known risk factors * high risk patients: history of smoking or of other known risk factors (e.g. first degree relative with lung cancer, or exposure to asbestos, radon, uranium) * if a nodule up to 8 mm is partly solid or is ground glass further follow-up is required after 24 m onths to exclude possible slow growing adenocarcinoma (HAI) SUBSOLID NODULES Solitary pure ground-glass nodule * nodule size <6 mm - no CT follow-up required * nodule size >=6 mm - follow-up CT at 6-12 months, then every 2 years until 5 years Solitary part-solid nodule * nodule size <6 mm - no CT follow-up required * nodule size >=6 mm - follow-up CT at 3-6 months. If unchanged, and solid component remains <6 mm, then annual follow-up for 5 years Multiple subsolid nodules * nodule size <6 mm - follow-up CT at 3-6 months, consider further follow-up at 2 and 4 years if sta ble * nodule size >=6 mm - follow-up CT at 3-6 months, subsequent management based on the most suspiciou s nodule(s) ACT 112: Negative or not required by law. Electronically signed by: Ned Mello M.D. 12/16/2019 4:55 PM
--- NOTE | 2019-12-16 17:02 | CT Scan Report ---
CT SCAN OF THE FACIAL BONES WITHOUT IV CONTRAST CLINICAL HISTORY: Fall. COMPARISON STUDY: CT of the brain performed concurrently on 12/16/2019. TECHNIQUE: High-resolution CT scan of the facial bones is performed. Images are reviewed in the axia l, sagittal, and coronal planes. IV contrast was not administered for this examination. A dose lower ing technique was utilized adhering to the principles of ALARA. FINDINGS: The skeletal structures are osteopenic. There is no evidence of facial bone fracture. The b janusz orbits are intact and the orbital contents are within normal limits. The zygomatic arches, nasal bones, and pterygoid plates are preserved. The maxilla and mandible are intact. Degenerative change i s noted in the temporomandibular joints. The patient is edentulous. There are no layering blood produ cts within the paranasal sinuses. The sinuses and mastoids are clear. The visualized calvarium and up per cervical spine are maintained. Partially imaged brain parenchyma is within normal limits. There i s atherosclerotic calcification of the carotid bulbs. Minimal left periorbital scalp contusion is not ed. IMPRESSION: There is no evidence of facial bone fracture. ACT 112: Negative or not required by law. Electronically signed by: Nde Mello M.D. 12/16/2019 5:00 PM
[2019-12-16] MEDS ORDERED: NALOXONE HCL 0.4 MG/1 ML VIAL/CARP IV STA (18:19)
[2019-12-16 18:56] LABS: Acetaminophen 2 ug/ml (10-30); Salicylate < 1.7 mg/dl (2.8-20); Valproic Acid < 3 mcg/ml (50-100)
--- NOTE | 2019-12-16 18:57 | History & Physical Report ---
Date of Service December 16, 2019 Assessment & Plan (1) Toxic encephalopathy: Polypharmacy Pt is 64 y/o F with PMH bipolar disorder, h/o CVA, symptomatic bradycardia s/p pacemaker, h/o gastric bypass, orthostatic hypotension brought to ER by EMS for AMS. It is reported pt was not answering her phone all weekend and today police were called for a well check. It is reported pt was found to be lying in bed lethargic and was found to have pills in the bed and on the floor. Today in Upon ER arrival it is reported that pt somnolent, but it is reported will respond to simple questions. ER nurse reports when did straight cath several trazodone pills were found on pt's body. Pt with noted ecchymosis to face, chest and arms and also reported dried blood to mouth. Urine drug +opioids, ecstasy. Ammonia level <10, salicylate <1.7, acetaminophen: 2, ETOH: negative CT head: no acute, CT C-spine and CT face negative for fracture. CT chest and CT abd/pelvis no acute changes -Upon my evaluation of pt in ER for admission pt is very somnolent and will not arouse to sternal rub. Pupils approx 3mm and reactive to light. Her RR: 14, P: 72 BP:112/63, Pulse ox: 93% on RA. urine tox + opioids. Dose of IV Narcan given and in approximately 5 minutes pt awakens, does not answer questions appropriately at this time. Vitals stable. -Research of pharmacy reveals that on 12/09/2019 pt had filled Trazodone 150mg Qty#60, oxycodone 5mg Qty#30, olanzapine 5mg Qty#60, aripiprazole 30mg Qty#30, mirtazapine 15mg Qty#90. On 12/10/2019 filled hydroxyzine 25mg Qty#180. -Poison control was contacted about pt's possible medication ingestion and Recommend supportive care at this time. Recommend watching for tachycardia and agitation and if would occur can treat with benzos. -Depakote level <3; Was checked as it is reported pt was recently switched from Depakote to Zyprexa -Urine culture pending -ABG pH: 7.47, pCO2: 35, pO2: 83 -Tele to monitor for any arrhythmias -one to one observation with suicide precautions, as unsure of pt's intent -Monitor I's & O's -EKG in am to recheck QTc -CBC, CMP, Liver function in AM (2) Rhabdomyolysis: CPK: 3398 Suspected pt was in bed for couple of days -In ER received 1L NSS, 1L LR -LR at 150ml/hr -Recheck CPK in am (3) Elevated lactic acid level: Initial lactic acid: 2.5 in ER Received 1L NSS, 1L LR in ER Repeat lactic acid 23 which was suspected lab error and repeat Lactic acid was 1.3 Blood cultures pending, urine culture pending Low suspicion underlying infection at this time, does not meet SIRS criteria (4) Wound of foot: Pt with hx hospital admission [facility] 11/16/2019-11/21/2019 for wounds feet ER visit on 12/13/2019 for possible foot cellulitis discharged home on Keflex Today no signs of cellulitis (5) Bipolar disorder: Hold home meds at this time (6) Sick sinus syndrome: S/P pacemaker Obtain pacemaker interrogation DVT Prophylaxis -Lovenox SQ Admit tele Full Code, unable to discuss with pt Follows with Helga Li PA-C for routine care Pt was seen and care coordinated with Dr Hollins. See addendum History of Present Illness Chief Complaint: AMS Primary Care Provider: Helga Gilman PA-C Pt is 64 y/o F with PMH bipolar disorder, h/o CVA, symptomatic bradycardia s/p pacemaker, h/o gastric bypass, orthostatic hypotension presented to ER for AMS. History obtained from ER staff, medical records as pt unable to give history at this time. It is reported pt was not answering her phone all weekend and today police were called for a well check. It is reported pt was found to be lying in bed lethargic and was found to have pills in the bed and on the floor. It is suspected pt been in bed for a couple of days. Unable to further assess history or ROS from pt at this time secondary to cognitive status. Pt with hx hospital admission [facility] 11/16/2019-11/21/2019 for AMS, wounds feet, ?polypharmacy and was discharged to [facility] ER visit on 12/13/2019 for possible foot cellulitis and questionable change in mental status and at that time it was felt pt could be discharged home on Keflex. Today in Upon ER arrival it is reported that pt somnolent, but it is reported will respond to simple questions. ER nurse reports when did straight cath several trazodone pills were found on pt's body. Pt with noted ecchymosis to face, chest and arms and also reported dried blood to mouth. Upon my evaluation of pt in ER for admission pt is very somnolent and will not arouse to sternal rub. Pupils approx 3mm and reactive to light. Her RR: 14, P: 72 BP:112/63, Pulse ox: 93% on RA. urine tox + opioids. Dose of IV Narcan given and in approximately 5 minutes pt awakens, does not answer questions appropriately at this time. Vitals stable. Research of pharmacy reveals that on 12/09/2019 pt had filld Trazodone 150mg Qty#60, oxycodone 5mg Qty#30, olanzapine 5mg Qty#60, aripiprazole 30mg Qty#30, mirtazapine 15mg Qty#90. On 12/10/2019 filled hydroxyzine 25mg Qty#180. Pt presents with multiple pill bottles however from various dates. The oxycodone pill body is empty. The trazodone bottle filled in 11/2019 is empty, however has approx 1/2 bottle trazodone from 10/2019 Poison control was contacted about pt's possible medication ingestion. Recommend supportive care at this time. Recommend watching for tachycardia and agitation and if would occur can treat with benzos. h/o EGD/colonoscopy 11/05/2019 that was WNL Allergies Allergy/AdvReac Type Severity Reaction Status Date / Time Sulfa (Sulfonamide Allergy Unknown EYES Verified 12/16/19 16:09 Antibiotics) SWELLED,LIPS SWELLED aspirin AdvReac Unknown CONTRAINDICATED Verified 12/16/19 16:09 D/T BYPASS SURGERY cyproheptadine AdvReac Unknown Verified 12/16/19 16:09 ibuprofen AdvReac Unknown contraindicated Verified 12/16/19 16:09 d/t gastric bypass NSAIDS (Non-Steroidal AdvReac Unknown CONTRAINDICATED Verified 12/16/19 16:09 Anti-Inflamma D/T BYPASS SURGERY Home Medications Home Medications Medication Instructions Recorded Confirmed Type cholecalciferol (vitamin D3) 25 1,000 units PO BID cap 06/25/19 12/16/19 History mcg (1,000 unit) capsule trazodone 150 mg tablet 300 mg PO HS tab 06/25/19 12/16/19 History baclofen 10 mg PO BID PRN 11/16/19 12/16/19 History hydroxyzine HCl 25 mg PO AMHS 11/16/19 12/16/19 History cephalexin [Keflex] 500 mg PO Q6H #28 cap 12/13/19 12/16/19 Rx aripiprazole 30 mg PO DAILY 12/16/19 12/16/19 History mirtazapine 15 mg PO HS 12/16/19 12/16/19 History olanzapine 10 mg PO HS 12/16/19 12/16/19 History Past Med/Surg History Medical History (Updated 12/16/19 @ 19:35 by Leonela Lobo PA-C) Carpal tunnel syndrome, bilateral (Inactive) Cluster headache Fracture of tibial plateau History of Clostridium difficile colitis (Inactive) History of CVA (cerebrovascular accident) History of pacemaker (Chronic) "for symptomatic bradycardia " Hypokalemia Hypothyroidism (Chronic) Infection due to ESBL-producing Escherichia coli Leukocytosis (Inactive) Migraine Mood disorder Sick sinus syndrome Vertebrobasilar TIAs (Inactive) Surgical History Cardiac pacemaker in situ PLACED 2008/REPLACED 2017 H/O gastric bypass (2004) H/O: hysterectomy History of colonoscopy History of esophagogastroduodenoscopy (EGD) Hx of cholecystectomy Family History Other Heart disease Social History Preferred Language: Danish Communication Ability: Effective Heat Treat Technician Required: No Beliefs That Will Affect Care: None marital status: Single Current Living Situation: Alone current occupational status: disabled Feels Safe at Home: Yes Safety Concerns: Feels Safe At This Time Smoking Status: Never smoker Cigarettes Per Day: 5-80 ([facility] [employer]) ; Do You Dip or Chew Tobacco: No ; Second Hand Exposure: No ; Tobacco Cessation Education Requested by Patient: No Hx Alcohol Use: No Hx Substance Use: No Review of Systems Review of Systems: Unobtainable due to cognitive status Physical Exam Physical Exam: General: +very somnolent, not responding to sternal rub, no respiratory distress, overweight Head: normocephalic; Face: left orbit with ecchymosis Eyes: pupils approx 3mm in diameter, PERRL, conjunctiva non-injected, anicteric ENT: normal inspection external ears, nose, mucous membranes moist; + dried dark reddish substance to mouth appears like blood Neck: supple, trachea midline Lungs: clear, no respiratory distress, RR: 14, no wheezing/rhonchi/rales CV: RRR, no murmur, mild pretibial edema Abd: normal BS, soft, no apparent tenderness to palpation Ext: no cyanosis Neuro: Somnolent, not responding to sternal rub. Narcan given and pt awakens, does not answer questions appropriately Skin: warm, dry; + ecchymosis to bilateral hands, arms, +ecchymosis right breast and chest, lower abdomen, bilateral feet with scabs to toes, lateral ankle without surrounding erythema warmth, no active discharge Results & Data Results & Data ([facility]) Vital Signs (Past 12 Hours) Vital Signs Temp Pulse Pulse Resp BP BP Pulse Ox 12/16/19 18:30 73 17 115/63 95 12/16/19 18:07 79 20 112/63 93 12/16/19 18:00 75 18 112/63 93 12/16/19 17:30 82 20 114/71 94 12/16/19 17:00 83 22 115/61 92 12/16/19 16:43 86 22 135/73 97 12/16/19 16:30 86 16 135/73 97 12/16/19 16:20 91 H 20 97 12/16/19 16:18 86 12 137/68 98 12/16/19 15:32 95 H 15 96 12/16/19 15:31 91 H 23 109/65 98 12/16/19 15:30 96 H 18 97 12/16/19 15:16 96 H 20 98 12/16/19 15:01 92 H 18 97 12/16/19 15:00 93 H 16 126/68 94 12/16/19 14:56 98 H 16 94 12/16/19 14:49 36.6 C 98 H 16 113/69 96 12/16/19 14:45 98 H 16 113/69 94 Laboratory Results Short CBC 12/16/19 Range/Units 15:28 WBC 5.93 (4.8-10.8) K/uL Hgb 12.3 (12.0-16.0) g/dL Hct 38.2 (37-47) % Plt Count 131 (130-400) K/uL BMP 12/16/19 15:28 Sodium 145 Potassium 3.5 Chloride 111 H Carbon Dioxide 27 BUN 14 Creatinine 0.99 Glucose 129 H Calcium 9.1 Cardiac Enzymes 12/16/19 Range/Units 15:28 Total Creatine Kinase 3398 H (26-192) U/L Troponin I < 0.015 (0-0.045) ng/ml Liver Function 12/16/19 Range/Units 15:28 Total Bilirubin 0.8 (0.2-1) mg/dl AST 87 H (15-37) U/L ALT 31 (12-78) U/L Alkaline Phosphatase 66 (45-117) U/L Albumin 3.4 (3.4-5.0) gm/dl Urine 12/16/19 Range/Units 15:55 Urine Color Dark Yellow Urine Appearance Cloudy A (Clear) Urine pH 5.0 (4.5-7.5) Ur Specific [place] 1.026 (1.000-1.030) Urine Protein 1+ H (Negative) Urine Glucose (UA) Negative (Negative) Diagnostic Findings CT HEAD: IMPRESSION: There is no hemorrhage, mass effect, or evidence of acute territorial ischemia by CT criteria. CT FACE: IMPRESSION: There is no evidence of facial bone fracture. CT C-SPINE: IMPRESSION: 1. There is no evidence of fracture or subluxation involving the cervical spine. 2. Osteopenia and spondylotic change as above. CT CHEST: IMPRESSION: 1. Suboptimal examination without IV contrast. The examination is also degraded by streak and motion artifact. 2. There is no acute posttraumatic intrathoracic abnormality. 3. Emphysema, cardiomegaly, and cardiac pacemaker. 4. There is no airspace consolidation, pleural effusion, or pneumothorax. 5. There is no evidence of solid organ injury in the abdomen or pelvis on this unenhanced examination. 6. A 5 mm left upper lobe pulmonary nodule is unchanged from 07/09/2019 but new from 12/26/2015. This is pathologically indeterminant and should be followed as per the Fleischner criteria. See below. 7. Postoperative change is consistent with a history of Ivonne-en-Y gastric bypass surgery. No bowel obstruction is seen. 8. Additional findings as above. CT ABD/PELVIS: IMPRESSION: 1. Suboptimal examination without IV contrast. The examination is also degraded by streak and motion artifact. 2. There is no acute posttraumatic intrathoracic abnormality. 3. Emphysema, cardiomegaly, and cardiac pacemaker. 4. There is no airspace consolidation, pleural effusion, or pneumothorax. 5. There is no evidence of solid organ injury in the abdomen or pelvis on this unenhanced examination. 6. A 5 mm left upper lobe pulmonary nodule is unchanged from 07/09/2019 but new from 12/26/2015. This is pathologically indeterminant and should be followed as per the Fleischner criteria. See below. 7. Postoperative change is consistent with a history of Ivonne-en-Y gastric bypass surgery. No bowel obstruction is seen. 8. Additional findings as above. CXR: IMPRESSION: 1. Cardiomegaly and cardiac pacemaker. There is no radiographic evidence of congestive failure. 2. Emphysema. 3. No airspace consolidation or pleural effusion is identified. ECG Rate (beats per minute): 95 Rhythm: sinus rhythm Supervising Physician Co-Signing Physician Notes I have seen and examined the patient and have discussed the case with the provider above. I agree with the assessment and plan as stated. 64 yo F recently evaluated in the ER last Monday for what was thought to be an episode of polypharmacy. She was found by EMS/police to be in her bed unresponsive covered in pill bottles. New medications as noted above include Zyprexa and oxycodone. She did respond to Narcan in the ER, but is still altered. Workup as above is negative. Physical exam as above with patient coming to enough to verbalize "no i didn't" to me when asked if she was taking a lot of oxycodone. Still was unable to follow commands. Again suspect polypharmacy with subsequent toxic encephalopathy. No clear underlying infection including her feet which appear improved from last exam on Monday. As it isn't clear if there was any intentional overdose, would consider suicidal ideations and place on 1:1 for now. Consider consulting psychiatry after patient wakes up and gives the story. They may also be very helpful with how to avoid polypharmacy moving forward when she awakens. Poison control involved and following. Assessment: toxic encephalopathy in bipolar patient with h/o PTSD presenting with nontraumatic rhabdomyolysis. Cont supportive care as outlined above. DO Gurvinder (1) Rhabdomyolysis Rhabdomyolysis type: non-traumatic Qualified Code(s): M62.82 - Rhabdomyolysis
[2019-12-16 19:03] LABS: INR 1.1 (0.9-1.1)
[2019-12-16] MEDS: LACTATED RINGER'S 1,000 ML IV SCH (22:55)
[2019-12-16] MEDS: ENOXAPARIN INJ 40 MG/0.4 ML SYR SQ SCH (23:26)
[2019-12-17] MEDS: LACTATED RINGER'S 1,000 ML IV SCH ×3 (04:38→19:19)
[2019-12-17 07:26] LABS: Hematocrit (blood only) 32.4 % (37-47); Hemoglobin 10.6 g/dL (12.0-16.0); Mean Corpuscular Hemoglobin 30.6 pg (25-34); Mean Corpuscular Hgb Conc 32.7 g/dL (32-36); Mean Corpuscular Volume 93.6 fL (80-100); Mean Platelet Volume 9.2 fL (7.4-10.4); Platelet Count 102 K/uL (130-400); RDW Coefficient of Variation 14.2 % (11.5-14.5); RDW Standard Deviation 48.5 fL (36.4-46.3); Red Blood Count 3.46 M/uL (4.2-5.4); White Blood Count 5.59 K/uL (4.8-10.8)
[2019-12-17 08:02] LABS: Albumin Level 2.5 gm/dl (3.4-5.0); BUN Creatinine Ratio 21.7 (10-20); Calcium 8.2 mg/dl (8.5-10.1); Creatinine Clr Calc Pharmacy 131.9 ml/min; Est GFR (African American) 116.5; Est GFR (Non-African American) 100.5
[2019-12-17 08:15] LABS: Albumin Globulin Ratio 0.8 (0.9-2); Bilirubin Direct 0.3 mg/dl (0-0.2); Bilirubin,Total 0.9 mg/dl (0.2-1); Globulin 3.1 gm/dl (2.5-4.0); Total Protein 5.6 gm/dl (6.4-8.2)
[2019-12-17 10:13] LABS: iSTAT Arterial Blood Gas pCO2 35 mmHg (35-46); iSTAT Arterial Blood Gas pH 7.47 (7.35-7.45); iSTAT Arterial Blood Gas pO2 83 mmHg (80-95); iSTAT Hematocrit 29 % (37-47); iSTAT Hemoglobin 9.9 g/dl (12.0-16.0); iSTAT Potassium 3.4 mmol/L (3.3-5.0); iSTAT Sodium 145 mmol/L (135-144)
[2019-12-17 10:14] LABS: iSTAT Arterial Blood Gas HCO3 26 meg/L (19-24); iSTAT Carbon Dioxide 27 mmol/L (24-31); iSTAT Sample Type Arterial
--- NOTE | 2019-12-17 11:44 | Electrocardiogram Report ---
Test Reason : Blood Pressure : / mmHG Vent. Rate : 095 BPM Atrial Rate : 095 BPM P-R Int : 144 ms QRS Dur : 078 ms QT Int : 368 ms P-R-T Axes : 050 030 002 degrees QTc Int : 462 ms Normal sinus rhythm Normal ECG When compared with ECG of 09-JUL-2019 12:04, Sinus rhythm has replaced Electronic atrial pacemaker Confirmed by Jony Chatman ([id number]) on 12/17/2019 11:44:19 AM Referred By: Confirmed By:Santana Chatman
--- NOTE | 2019-12-17 11:51 | Electrocardiogram Report ---
Test Reason : Blood Pressure : / mmHG Vent. Rate : 097 BPM Atrial Rate : 097 BPM P-R Int : 138 ms QRS Dur : 080 ms QT Int : 328 ms P-R-T Axes : 062 069 -28 degrees QTc Int : 416 ms Poor data quality, interpretation may be adversely affected Normal sinus rhythm When compared with ECG of 16-DEC-2019 14:47, (unconfirmed) Nonspecific T wave abnormality now evident in Lateral leads Confirmed by Jony Chatman ([id number]) on 12/17/2019 11:51:06 AM Referred By: REFERRED SELF Confirmed By:Santana Chatman
--- NOTE | 2019-12-17 12:05 | Hospitalist Progress Note ---
Date of Service December 17, 2019 Assessment & Plan (1) Toxic encephalopathy: 64 y/o F with PMH bipolar disorder, h/o CVA, symptomatic bradycardia s/p pacemaker, h/o gastric bypass, orthostatic hypotension brought to ER by EMS for AMS. It is reported pt was not answering her phone all weekend and today police were called for a well check. It is reported pt was found to be lying in bed lethargic and was found to have pills in the bed and on the floor. Upon ER arrival it is reported that pt somnolent, but it is reported will respond to simple questions. ER nurse reports when they did straight cath several trazodone pills were found on pt's body. Pt with noted ecchymosis to face, chest and arms and also reported dried blood to mouth. Urine drug +opioids, ecstasy. Ammonia level <10, salicylate <1.7, acetaminophen: 2, ETOH: negative CT head: no acute, CT C-spine and CT face negative for fracture. CT chest and CT abd/pelvis no acute changes Admitting provider reported that in ER for admission pt was very somnolent and will not arouse to sternal rub. Pupils approx 3mm and reactive to light. Her RR: 14, P: 72 BP:112/63, Pulse ox: 93% on RA. urine tox + opioids. Dose of IV Narcan given and in approximately 5 minutes pt awakens, does not answer questions appropriately at this time. Vitals stable. Research of pharmacy reveals that on 12/09/2019 pt had filled Trazodone 150mg Qty#60, oxycodone 5mg Qty#30, olanzapine 5mg Qty#60, aripiprazole 30mg Qty#30, mirtazapine 15mg Qty#90. On 12/10/2019 filled hydroxyzine 25mg Qty#180. Poison control was contacted about pt's possible medication ingestion and Recommend supportive care at this time. Recommend watching for tachycardia and agitation and if would occur can treat with benzos. Depakote level <3; Was checked as it is reported pt was recently switched from Depakote to Zyprexa Urine culture pending From my evaluation today, patient likely has toxic encephalopathy likely secondary to medications. Patient is on multiple sedative medication including hydroxyzine, trazodone. She also takes baclofen and mirtazapine. Review of PDMP showed that patient filled oxycodone on 09 December 2019. Altered mental status may be related to polypharmacy/medication interaction. Patient does deny use of illicit drugs however tox screen is positive for ecstasy. Other possibilities also intentional drug overdose. Patient does deny being depressed or any suicidal attempt. However, patient has flat affect on exam with crying episodes. We will continue one-to-one for now and get psychiatric evaluation. Continue to hold all sedative medication Continue to provide supportive care Since patient is more awake today, and do dysphagia screen and if passes can start p.o. diet. (2) Rhabdomyolysis: CPK: 3398 CPK increased to 6158 today. Continue IV lactated Ringer's Creatinine is 0.55 K is 3 today. Replete and monitor (3) Elevated lactic acid level: Initial lactic acid: 2.5 in ER Received 1L NSS, 1L LR in ER Repeat lactic acid 23 which was suspected lab error and repeat Lactic acid was 1.3 Blood cultures pending, urine culture pending Low suspicion underlying infection at this time No antibiotics for now (4) Wound of foot: Pt with hx hospital admission [facility] 11/16/2019-11/21/2019 for wounds feet ER visit on 12/13/2019 for possible foot cellulitis discharged home on Keflex Continue wound care. Does not appear to be infected at this time. (5) Bipolar disorder: Hold home meds at this time as discussed above Get psychiatric evaluation to aid with medication management (6) Sick sinus syndrome: S/P pacemaker Get pacemaker interrogation. Discussed with RN DVT Prophylaxis Lovenox SQ Admission and Anticipated Discharge Date Admission Date: December 16, 2019 Subjective Patient seen and examined. Patient is much more awake this morning than reported by admitting physician. She reported that she took her home medications at about 5:30 PM on Monday. After this, she does not remember much until being admitted to the hospital. She stated that the medications she took included hydroxyzine, trazodone, mirtazapine as well as oxycodone for leg pains. She denied any suicidal attempts. At this time, patient reports generalized body aches, some back pain, pains in the legs as well as pain in the back of the head and lip. Patient does have some bruises, bruise on upper lip. She does not recall how she the bruises. She denies depression, however during my examination patient started crying. She reports that she has been taking her medications as prescribed. She also denies any use of illicit drugs Review of Systems Constitutional: + body aches and + weakness; no fever and no chills Eyes: no problem reported Ear, Nose, Mouth, Throat: Upper lip bruise Respiratory: no cough and no dyspnea Cardiovascular: no chest pain and no dyspnea Gastrointestinal: no abdominal pain, no nausea and no vomiting Genitourinary: no problem reported Musculoskeletal: + back pain and + body aches Neurologic: + generalized weakness and + memory loss Psychiatric: Denied depression or suicidal ideation Physical Exam Constitutional: + well hydrated; no acute distress Eyes: PERRL, conjunctivae normal, anicteric sclerae ENMT: Upper lip bruise Respiratory: normal respiratory effort, lungs clear to auscultation Cardiovascular: RRR, no murmur, no edema Gastrointestinal (Abdomen): normal bowel sounds, soft, nontender, no hepatosplenomegaly Musculoskeletal: Ecchymosis on upper extremities, right upper chest wall. Scabs on feet bilaterally without any open wound or discharge Neurologic: PERRL, EOMI, accommodation nl, no face palsy, no dysarthria moves all extremities Week Psychiatric: Orientation: alert and oriented x 3 Affect: + flat affect Results & Data Results & Data ([facility]) Vital Signs (Past 12 Hours) Vital Signs Temp Pulse Pulse Resp BP Pulse Ox Pulse Ox 12/17/19 09:00 96 H 96 12/17/19 08:00 36.8 C 88 18 124/63 96 12/17/19 02:35 36.7 C 84 18 135/77 96 (1) Rhabdomyolysis Rhabdomyolysis type: non-traumatic Qualified Code(s): M62.82 - Rhabdomyolysis
[2019-12-17] MEDS ORDERED: POTASSIUM CHLORIDE 20 MEQ TABCR PO STA (15:19)
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
[2019-12-17] MEDS: MIRTAZAPINE TAB 15 MG TAB PO SCH (19:49)
[2019-12-17] MEDS: ENOXAPARIN INJ 40 MG/0.4 ML SYR SQ SCH (19:49)
[2019-12-18] MEDS: LACTATED RINGER'S 1,000 ML IV SCH ×4 (01:03→19:45)
[2019-12-18 06:28] LABS: Hematocrit (blood only) 30.8 % (37-47); Hemoglobin 10.1 g/dL (12.0-16.0); Mean Corpuscular Hemoglobin 30.4 pg (25-34); Mean Corpuscular Hgb Conc 32.8 g/dL (32-36); Mean Corpuscular Volume 92.8 fL (80-100); Mean Platelet Volume 9.6 fL (7.4-10.4); Platelet Count 101 K/uL (130-400); RDW Coefficient of Variation 13.9 % (11.5-14.5); RDW Standard Deviation 46.9 fL (36.4-46.3); Red Blood Count 3.32 M/uL (4.2-5.4); White Blood Count 4.42 K/uL (4.8-10.8)
[2019-12-18 07:01] LABS: BUN Creatinine Ratio 10.4 (10-20); Calcium 8.1 mg/dl (8.5-10.1); Creatinine Clr Calc Pharmacy 142.1 ml/min; Est GFR (African American) 119.4; Est GFR (Non-African American) 103.1
[2019-12-18] MEDS: ARIPiprazole 15 MG TAB PO SCH (07:38)
[2019-12-18] MEDS ORDERED: POTASSIUM CHLORIDE 20 MEQ TABCR PO ONE ×2 (09:00→14:00)
[2019-12-18] MEDS: ACETAMINOPHEN 325 MG TAB PO PRN (13:43)
[2019-12-18] MEDS ORDERED: POTASSIUM CHLORIDE 10 MEQ TABCR PO ONE (14:00)
--- NOTE | 2019-12-18 17:56 | Hospitalist Progress Note ---
Date of Service December 18, 2019 Assessment & Plan (1) Toxic encephalopathy: Patient is a 64 yr female with H/O Bipolar disorder, CVA, symptomatic bradycardia s/p pacemaker, gastric bypass, orthostatic hypotension presented with AMS. Toxic Encephalopathy: Could be due to Polypharmacy DD: Secondary to rhabdomyolysis Patient denies any suicidal ideation/intentional or accidental drug overdose Patient's pharmacy:reveals on 12/09/2019 pt had filled Trazodone 150mg Qty#60, oxycodone 5mg Qty#30, olanzapine 5mg Qty#60, aripiprazole 30mg Qty#30, mirtazapine 15mg Qty#90. On 12/10/2019 filled hydroxyzine 25mg Qty#180. CT head:There is no hemorrhage, mass effect, or evidence of acute territorial ischemia by CT criteria. CT Face:There is no evidence of facial bone fracture. Neck CT:There is no evidence of fracture or subluxation involving the cervical spine. Osteopenia and spondylotic change as above. Urine Drug Screen: +opioids, ecstasy. Ammonia level <10, salicylate <1.7, acetaminophen: 2, ETOH: negative Urine Cx: Negative Blood Cx: No growth to date Poison control was contacted. Recommend supportive care. Pacemaker Interrogation could not be performed inpatient. Will arrange for home monitoring--Discussed with DLC pacemaker Scripted on 12/18/19 Last pacemaker interrogation done on October 30, 2019 Monitor in Tele Aripiprazole, Mirtazapine resumed Other psychiatric medications held Appreciate psychiatry input Mental status seems to be back to baseline Her home meds: hydroxyzine, trazodone, baclofen, oxycodone held Avoid opiates as able (2) Rhabdomyolysis: CPK levels trending down Continue IV fluids Monitor Hypokalemia Replace electrolytes as needed (3) Elevated lactic acid level: Lactate levels normalized with IV fluids Cultures negative to date (4) Wound of foot: Pt with hx hospital admission [facility] 11/16/2019-11/21/2019 for wounds feet ER visit on 12/13/2019 for possible foot cellulitis discharged home on Keflex Continue wound care. Wounds does not appear to be infected (5) Bipolar disorder: Appreciate secondary input Continue current medications (6) Sick sinus syndrome: S/P pacemaker monitor DVT Px Lovenox SQ Admission and Anticipated Discharge Date Admission Date: December 16, 2019 Subjective Patient is seen and examined at bedside Complains of LE foot wound pain, chronic back pain and headache Denies any chest pain, shortness of breath, dizziness, nausea, abdominal pain Offers no other complaints Review of Systems Review of Systems: All systems reviewed & are unremarkable except as noted in HPI & below Physical Exam Physical Exam: Physical Exam: Vitals signs as noted above General Appearance:Moderately built and nourished, no apparent distress Head: normocephalic, Atraumatic Eyes: normal inspection, EOMI Neck: supple, Trachea midline Respiratory/Chest: Normal breath sounds, CTA, Pacemaker on left side Cardiovascular: S1, S2, No murmur Abdomen/GI:Soft, Non tender, Bowel sounds present Extremities/Musculoskelatal:normal inspection, Trace edema Neurologic/Psych:AAOX3, grossly no focal neurological deficits Skin: normal color, warm, B/L Foot wounds Results & Data Results & Data ([facility]) Vital Signs (Past 12 Hours) Vital Signs Temp Pulse Pulse Resp BP Pulse Ox 12/18/19 16:46 71 12/18/19 16:28 36.7 C 73 18 125/79 96 12/18/19 15:28 37.0 C 74 18 136/84 95 12/18/19 12:02 36.5 C 80 18 138/76 96 12/18/19 07:57 36.8 C 80 18 138/76 96 Laboratory Results Short CBC 12/18/19 Range/Units 05:56 WBC 4.42 L (4.8-10.8) K/uL Hgb 10.1 L (12.0-16.0) g/dL Hct 30.8 L (37-47) % Plt Count 101 L (130-400) K/uL BMP 12/18/19 05:56 Sodium 141 Potassium 3.0 L Chloride 113 H Carbon Dioxide 26 BUN 5 L D Creatinine 0.51 L Glucose 98 Calcium 8.1 L Cardiac Enzymes 12/18/19 Range/Units 05:56 Total Creatine Kinase 3172 H (26-192) U/L (1) Rhabdomyolysis Rhabdomyolysis type: non-traumatic Qualified Code(s): M62.82 - Rhabdomyolysis
[2019-12-18] MEDS: MIRTAZAPINE TAB 15 MG TAB PO SCH (19:45)
[2019-12-18] MEDS: ENOXAPARIN INJ 40 MG/0.4 ML SYR SQ SCH (19:45)
[2019-12-19] MEDS: LACTATED RINGER'S 1,000 ML IV SCH ×4 (02:29→23:40)
[2019-12-19] MEDS: ACETAMINOPHEN 325 MG TAB PO PRN ×2 (02:32→08:03)
[2019-12-19 06:36] LABS: Hematocrit (blood only) 29.8 % (37-47); Hemoglobin 9.9 g/dL (12.0-16.0); Mean Corpuscular Hemoglobin 30.8 pg (25-34); Mean Corpuscular Hgb Conc 33.2 g/dL (32-36); Mean Corpuscular Volume 92.8 fL (80-100); Mean Platelet Volume 9.8 fL (7.4-10.4); Platelet Count 101 K/uL (130-400); RDW Coefficient of Variation 13.9 % (11.5-14.5); RDW Standard Deviation 47.5 fL (36.4-46.3); Red Blood Count 3.21 M/uL (4.2-5.4); White Blood Count 3.27 K/uL (4.8-10.8)
[2019-12-19 07:07] LABS: BUN Creatinine Ratio 8.1 (10-20); Calcium 8.1 mg/dl (8.5-10.1); Creatinine Clr Calc Pharmacy 148.5 ml/min; Est GFR (African American) 120.2; Est GFR (Non-African American) 103.7; Magnesium 1.7 mg/dl (1.8-2.4); Potassium 3.4 mmol/L (3.5-5.1)
[2019-12-19] MEDS ORDERED: POTASSIUM CHLORIDE 20 MEQ TABCR PO STA (07:31)
[2019-12-19] MEDS ORDERED: MAGNESIUM SULFATE / D5W 1 GM/100 ML BAG IV ONE (07:45)
[2019-12-19] MEDS: ARIPiprazole 15 MG TAB PO SCH (07:52)
[2019-12-19] MEDS: ONDANSETRON INJ 2 MG/ML 2 ML VIAL IV PRN ×2 (08:24→16:54)
[2019-12-19 12:33] LABS: Cdiff Antigen Negative; Cdiff Toxin A+B Negative Cdiff Toxin (Negative)
--- NOTE | 2019-12-19 14:55 | Psychiatric Progress Note ---
Date of Service December 19, 2019 Impression / Recommendations Impression Dr. Brandi Mandujano was directly involved in review and discussion of the patient's case and participated in medical decision making regarding treatment recommendations. RECOMMENDATIONS: 12/16 - Pt adamantly denies suicide attempt or intentional overdose prior to admission. She denies SI at this time or history of SI/suicide attempts in the past. Pt denies significant concerns for depressed mood and is willing to allow us to corroborate this history with outpatient supports. Seems reasonable to discontinue 1:1 observation, as patient is able to contract for safety here in the hospital. - It seems most likely that patient's presentation is related to encephalopathy, which is likely multifactorial in nature: foot wounds, cardiac history, elevated CPK, and admitting that she manages her own medications with limited guidance at home. Polypharmacy, in combination with these other concerns, may also be contributing to her presentation. - [facility] [place] - will request confirmation of home medication regimen - At this time, it seems appropriate to resume aripiprazole 30mg qAM and mirtazapine 15mg qHS - advise holding olanzapine until dose can be confirmed, but can utilize if needed for acute agitation. Advise continuing to hold baclofen, hydroxyzine, and trazodone as these medication can increased sedation and contribute more significantly to AMS. - Will request SLIME for patient's daughter, as well as home health poker supervisor to assess safety at home - Will continue to follow patient during this hospitalization and provide additional recommendations as available. Please reach out to our service with any additional questions or updates. We appreciate the opportunity to participate in the care of this patient. 12/18 - Continue aripiprazole 30mg qAM and mirtazapine 15mg - pt with insomnia for the past two nights and requesting medication to assist with this. Could offer trazodone 50mg with 1x repeat if ineffective. Pt's mental status is improving, but would suggest caution with medications with sedative effects. - Confirmed psychiatric medication list with [facility] - Pt is reportedly prescribed mirtazapine 15mg qHS, trazodone 300mg qHS, olanzapine 10mg qHS, and aripiprazole 30mg qAM through their office. - Pt is scheduled for a psychiatric appointment on 01/09/2020 at 09:00. - Will attempt to coordinate with outpatient therapist to schedule appointment Interval History Identifying Information 64-year-old female admitted medically on 12/16/2019 after presenting to the ED via EMS. Pt had reportedly been found in her bed at home, with several pill bottles surrounding her. Pt initially presented as confused and was admitted for further medical work-up. Psychiatric consultation was requested for assistance with medication management, as there is a question if her AMS may be related to polypharmacy/medication mismanagement. Initial consultation completed on 12/17/2019 - seen for follow-up visit today. Chief Complaint "Oh, I'm not feeling too great today." Review of Systems Notes Constitutional: denied Cardiovascular: denied Respiratory: denied Gastrointestinal: reports nausea and diarrhea Neurological: denied Psychiatric: denies symptoms other than stated above Total of at least 10 systems reviewed, pertinent positives as above and in HPI. Subjective Subjective Patient's case was reviewed and discussed during morning report with supervising psychiatrist and psychiatric nurse liaison. Pt had been resumed on aripiprazole 30mg qAM and mirtazapine 15mg qHS, but recommendations were made to hold hydroxyzine, olanzapine, and trazodone until outpatient psychiatric records could be obtained. Collateral information obtained from patient's home health nurse suggests patient has been resistant to assistance with medication management. Home health nurse presumed that patient's confusion was most likely related to mismanagement of home medications. Medication list was able to be confirmed with the [facility] - and received notification that patient is requesting that trazodone be resumed due to difficulty sleeping. Pt was seen for follow-up visit today to discuss this further. Pt is cooperative with interview and is alert and pleasant. Pt states "I'm not feeling too great today." Pt states that she has been experiencing nausea and diarrhea for the past 3 days. Pt becomes tearful, stating "I just feel lonely and I don't know how this happened. And now everyone thinks I attempted suicide, I think people are mad at me." Pt states that she did not attempt suicide and has remained consistent with these reports. Pt states that her friend, Natali, attempted to reach out to the patient's daughter but the daughter has not called back. Pt believes that this means her daughter is mad at her. This provider offered encouragement. Pt does states that she has been having difficulty sleeping. She does request to resume trazodone if possible. She verbalizes understanding as to why the medication was held, but believes her condition is improving. We discussed that trazodone would not be resumed at home dosage, and patient verbalized understanding of this. She denied other needs or concerns from our service at this time. She was updated [facility] and was made aware of a scheduled appointment on 01/09/2020 at 09:00. Physical Exam Psychiatric Orientation: alert, oriented x 3 and cooperative Apperance: appropriately dressed, appropriately groomed and appeared stated age Pt with bruising to left eyebrow and left upper lip - several other areas of bruising covering skin. Eye Contact: good eye contact Motor Behavior: no abnormal motor movements (observed while laying in bed) Speech: normal rate/rhythm/volume of speech Affect: + tearful affect and + blunted affect Mood: + depressed mood ("I feel lonely") Thought Process: goal directed thought process, clear/coherent thought process and thought association intact Thought Content: reality based without delusions; no hopelessness (but does endorse "I feel lonely") Suicidal Thoughts: denies suicidal thoughts and denies suicidal intent Homicidal Thoughts: denies homicidal thoughts Hallucinations: no auditory hallucinations and no visual hallucinations Cognition: attention grossly intact and language grossly intact Estimated Intelligence: consistent with education level Insight: + fair insight Judgement: + fair judgement Vital Signs (Past 24 Hours) Last Vital Signs Temp 37.1 C 12/19/19 11:01 Pulse 77 12/19/19 11:01 Resp 16 12/19/19 11:01 BP 120/78 12/19/19 11:01 Pulse Ox 97 12/19/19 11:01 Results & Data ([facility]) Laboratory Results Laboratory Results - last 24 hr 12/19/19 12/19/19 12/19/19 02:05 05:57 05:57 WBC 3.27 L RBC 3.21 L Hgb 9.9 L Hct 29.8 L MCV 92.8 MCH 30.8 MCHC 33.2 RDW Std Deviation 47.5 H RDW Coeff of Ammy 13.9 Plt Count 101 L MPV 9.8 Sodium 142 Potassium 3.4 L Chloride 115 H Carbon Dioxide 27 Anion Gap 0 L BUN 4 L Creatinine 0.50 L Est Cr Clr Drug Dosing 148.5 Est GFR ( Amer) 120.2 Est GFR (Non-Af Amer) 103.7 BUN/Creatinine Ratio 8.1 L Glucose 90 Calcium 8.1 L Magnesium 1.7 L Total Creatine Kinase 1447 H Stl C. diff Tox B Gene TNP Stl C.difficile Tox A&B 12/19/19 10:15 WBC RBC Hgb Hct MCV MCH MCHC RDW Std Deviation RDW Coeff of Ammy Plt Count MPV Sodium Potassium Chloride Carbon Dioxide Anion Gap BUN Creatinine Est Cr Clr Drug Dosing Est GFR ( Amer) Est GFR (Non-Af Amer) BUN/Creatinine Ratio Glucose Calcium Magnesium Total Creatine Kinase Stl C. diff Tox B Gene Positive Cdiff Gene H Stl C.difficile Tox A&B Negative Cdiff Toxin Current Inpatient Medications Current Inpatient Medications: Current Inpatient Medications Acetaminophen (Tylenol) 650 mg PO Q6H PRN PRN Reason: Pain or Fever Stop: 01/17/20 11:18 Last Admin: 12/19/19 08:03 Dose: 650 mg Documented by: Aripiprazole (Abilify) 30 mg PO DAILY PATRICE Stop: 01/17/20 08:59 Last Admin: 12/19/19 07:52 Dose: 30 mg Documented by: Enoxaparin Sodium (Lovenox) 40 mg SQ Q24H PATRICE Stop: 01/15/20 20:59 Last Admin: 12/18/19 19:45 Dose: 40 mg Documented by: Lactated Ringer's (Lr) 1,000 mls @ 150 mls/hr IV .Q6H40M PATRICE Stop: 01/16/20 14:45 Last Admin: 12/19/19 09:51 Dose: 150 mls/hr Documented by: Mirtazapine (Remeron) 15 mg PO HS PATRICE Stop: 01/16/20 20:59 Last Admin: 12/18/19 19:45 Dose: 15 mg Documented by: Ondansetron HCl (Zofran) 4 mg IV Q6H PRN PRN Reason: Nausea Stop: 01/18/20 07:49 Last Admin: 12/19/19 08:24 Dose: 4 mg Documented by: Mental Health & Subst Abuse Tx Psychiatrist Name of Psychiatrist: [facility]. Maciej Angeles Psychiatrist's Date of Appointment with Psychiatrist: 01/09/20 Time of Appointment with Psychiatrist: 09 Psychiatric Appointment Comment: they will call you at your home phone number. Psychiatrist Release of Information: Obtained, Reviewed and Signed
--- NOTE | 2019-12-19 15:21 | Hospitalist Progress Note ---
Date of Service December 19, 2019 Assessment & Plan (1) Toxic encephalopathy: Patient is a 64 yr female with H/O Bipolar disorder, CVA, symptomatic bradycardia s/p pacemaker, gastric bypass, orthostatic hypotension presented with AMS. Toxic Encephalopathy: Could be due to Polypharmacy DD: Secondary to rhabdomyolysis Patient denies any suicidal ideation/intentional or accidental drug overdose Patient's pharmacy:reveals on 12/09/2019 pt had filled Trazodone 150mg Qty#60, oxycodone 5mg Qty#30, olanzapine 5mg Qty#60, aripiprazole 30mg Qty#30, mirtazapine 15mg Qty#90. On 12/10/2019 filled hydroxyzine 25mg Qty#180. CT head:There is no hemorrhage, mass effect, or evidence of acute territorial ischemia by CT criteria. CT Face:There is no evidence of facial bone fracture. Neck CT:There is no evidence of fracture or subluxation involving the cervical spine. Osteopenia and spondylotic change as above. Urine Drug Screen: +opioids, ecstasy. Ammonia level <10, salicylate <1.7, acetaminophen: 2, ETOH: negative Urine Cx: Negative Blood Cx: No growth to date Poison control was contacted. Recommend supportive care. Pacemaker Interrogation could not be performed inpatient. Will arrange for home monitoring--Discussed with [employer] pacemaker [employer] on 12/18/19 Last pacemaker interrogation done on October 30, 2019 Monitor in Tele Continue Aripiprazole, Mirtazapine Other psychiatric medications held--Psychiatry following Appreciate psychiatry input Her home meds: hydroxyzine, trazodone, baclofen, oxycodone currently held Avoid opiates as able Diarrhea: H/O C diff as per patient Denies any recent antibiotic use Stool for C diff:Positive Gene H but Toxin Negative If diarrhea is persistent then will retest and consider oral Vancomycin (2) Rhabdomyolysis: CPK levels trending down Continue IV fluids Monitor Hypokalemia Hypomagnesemia Likely due to GI loses Replace electrolytes as needed (3) Elevated lactic acid level: Lactate levels normalized with IV fluids Cultures negative to date (4) Wound of foot: Pt with hx hospital admission [facility] 11/16/2019-11/21/2019 for wounds feet ER visit on 12/13/2019 for possible foot cellulitis discharged home on Keflex Continue wound care. Wounds does not appear to be infected (5) Bipolar disorder: Appreciate secondary input Continue current medications Psychiatry on board (6) Sick sinus syndrome: S/P pacemaker monitor DVT Px Lovenox SQ Admission and Anticipated Discharge Date Admission Date: December 16, 2019 Subjective Patient is seen and examined at bedside States LE foot wound pain is better Reports diarrhea, nausea and abdominal soreness Also states having poor sleep overnight Denies any chest pain, shortness of breath, dizziness Offers no other complaints Review of Systems Review of Systems: All systems reviewed & are unremarkable except as noted in HPI & below Physical Exam Physical Exam: Physical Exam: Vitals signs as noted above General Appearance:Moderately built and nourished, no apparent distress Head: normocephalic, Atraumatic Eyes: normal inspection, EOMI Neck: supple, Trachea midline Respiratory/Chest: Normal breath sounds, CTA, Pacemaker on left side Cardiovascular: S1, S2, No murmur Abdomen/GI:Soft, Non tender, Bowel sounds present Extremities/Musculoskelatal:normal inspection, Trace edema Neurologic/Psych:AAOX3, grossly no focal neurological deficits Skin: normal color, warm, B/L Foot wounds Results & Data Results & Data ([facility]) Vital Signs (Past 12 Hours) Vital Signs Temp Pulse Pulse Resp BP Pulse Ox 12/19/19 11:01 37.1 C 77 16 120/78 97 12/19/19 08:15 79 12/19/19 07:44 36.9 C 81 16 115/78 96 Laboratory Results Short CBC 12/19/19 Range/Units 05:57 WBC 3.27 L (4.8-10.8) K/uL Hgb 9.9 L (12.0-16.0) g/dL Hct 29.8 L (37-47) % Plt Count 101 L (130-400) K/uL BMP 12/19/19 05:57 Sodium 142 Potassium 3.4 L Chloride 115 H Carbon Dioxide 27 BUN 4 L Creatinine 0.50 L Glucose 90 Calcium 8.1 L Cardiac Enzymes 12/19/19 Range/Units 05:57 Total Creatine Kinase 1447 H (26-192) U/L (1) Rhabdomyolysis Rhabdomyolysis type: non-traumatic Qualified Code(s): M62.82 - Rhabdomyolysis
[2019-12-19] MEDS: ENOXAPARIN INJ 40 MG/0.4 ML SYR SQ SCH (20:47)
[2019-12-19] MEDS: MIRTAZAPINE TAB 15 MG TAB PO SCH (20:48)
[2019-12-19] MEDS: TRAZODONE HCL 50 MG TAB PO PRN (20:53)
[2019-12-20] MEDS: ACETAMINOPHEN 325 MG TAB PO PRN ×2 (01:04→18:29)
[2019-12-20 05:46] LABS: Hematocrit (blood only) 30.9 % (37-47); Hemoglobin 10.2 g/dL (12.0-16.0); Mean Corpuscular Hemoglobin 30.3 pg (25-34); Mean Corpuscular Volume 91.7 fL (80-100); Mean Platelet Volume 9.7 fL (7.4-10.4); Platelet Count 103 K/uL (130-400); RDW Coefficient of Variation 13.9 % (11.5-14.5); RDW Standard Deviation 46.2 fL (36.4-46.3); Red Blood Count 3.37 M/uL (4.2-5.4)
[2019-12-20] MEDS: LACTATED RINGER'S 1,000 ML IV SCH ×3 (06:09→20:16)
[2019-12-20 06:21] LABS: BUN Creatinine Ratio 9.1 (10-20); Calcium 8.2 mg/dl (8.5-10.1); Creatinine Clr Calc Pharmacy 121.2 ml/min; Est GFR (African American) 112.6; Est GFR (Non-African American) 97.2; Magnesium 1.7 mg/dl (1.8-2.4); Potassium 3.4 mmol/L (3.5-5.1)
[2019-12-20] MEDS ORDERED: POTASSIUM CHLORIDE 20 MEQ TABCR PO STA (07:39)
[2019-12-20] MEDS ORDERED: MAGNESIUM SULFATE / D5W 1 GM/100 ML BAG IV ONE (07:45)
[2019-12-20] MEDS: ARIPiprazole 15 MG TAB PO SCH (08:26)
--- NOTE | 2019-12-20 10:51 | Hospitalist Progress Note ---
Date of Service December 20, 2019 Assessment & Plan (1) Toxic encephalopathy: Patient is a 64 yr female with H/O Bipolar disorder, CVA, symptomatic bradycardia s/p pacemaker, gastric bypass, orthostatic hypotension presented with AMS. Toxic Encephalopathy: Could be due to Polypharmacy DD: Secondary to rhabdomyolysis Patient denies any suicidal ideation/intentional or accidental drug overdose Patient's pharmacy:reveals on 12/09/2019 pt had filled Trazodone 150mg Qty#60, oxycodone 5mg Qty#30, olanzapine 5mg Qty#60, aripiprazole 30mg Qty#30, mirtazapine 15mg Qty#90. On 12/10/2019 filled hydroxyzine 25mg Qty#180. CT head:There is no hemorrhage, mass effect, or evidence of acute territorial ischemia by CT criteria. CT Face:There is no evidence of facial bone fracture. Neck CT:There is no evidence of fracture or subluxation involving the cervical spine. Osteopenia and spondylotic change as above. Urine Drug Screen: +opioids, ecstasy. Ammonia level <10, salicylate <1.7, acetaminophen: 2, ETOH: negative Urine Cx: Negative Blood Cx: No growth to date Poison control was contacted. Recommend supportive care. Pacemaker Interrogation could not be performed inpatient. Will arrange for home monitoring--Discussed with [employer] pacemaker [employer] on 12/18/19 Last pacemaker interrogation done on October 30, 2019 Continue Aripiprazole, Mirtazapine Trazodone resumed at lower dose--50 mg HS Appreciate psychiatry input Home meds: hydroxyzine, baclofen, oxycodone currently held Mental status back to baseline Needs follow up with Psychiatry upon discharge Diarrhea:Possible C diff colitis H/O C diff Denies any recent antibiotic use Stool for C diff:Positive Gene H but Toxin Negative suggesting--likely carrier. Since patient continues to have diarrhea, lower abd discomfort--Will start on oral Vancomycin Continue Contact precautions Monitor electrolytes (2) Rhabdomyolysis: CPK levels trended down Decrease IV fluids Monitor Hypokalemia Hypomagnesemia Likely due to GI loses Replace electrolytes as needed (3) Elevated lactic acid level: Lactate levels normalized with IV fluids Cultures negative to date (4) Wound of foot: Pt with hx hospital admission [facility] 11/16/2019-11/21/2019 for wounds feet ER visit on 12/13/2019 for possible foot cellulitis discharged home on Keflex Continue wound care. Wounds does not appear to be infected Pain is controlled. Avoid Narcotics (5) Bipolar disorder: Appreciate secondary input Continue current medications Psychiatry on board (6) Sick sinus syndrome: S/P pacemaker monitor DVT Px Lovenox SQ Disposition: PT/OT: Recommends Rehab Case management consulted for discharge planning Admission and Anticipated Discharge Date Admission Date: December 16, 2019 Subjective Patient is seen and examined at bedside Lower abdominal pain, diarrhea improving Had 3 BMs overnight Still complains of insomnia No new complaints Lower extremity foot wound pain is controlled Denies any chest pain, shortness of breath, dizziness, nausea Review of Systems Review of Systems: All systems reviewed & are unremarkable except as noted in HPI & below Physical Exam Physical Exam: Physical Exam: Vitals signs as noted above General Appearance:Moderately built and nourished, no apparent distress Head: normocephalic, Atraumatic Eyes: normal inspection, EOMI Neck: supple, Trachea midline Respiratory/Chest: Normal breath sounds, CTA, Pacemaker on left side Cardiovascular: S1, S2, No murmur Abdomen/GI:Soft, mild lower abd tender, Bowel sounds present Extremities/Musculoskelatal:normal inspection, Trace edema Neurologic/Psych:AAOX3, grossly no focal neurological deficits Skin: normal color, warm, B/L Foot wounds Results & Data Results & Data ([facility]) Vital Signs (Past 12 Hours) Vital Signs Temp Pulse Pulse Resp BP BP Pulse Ox 12/20/19 07:27 36.7 C 84 18 135/81 92 12/20/19 06:55 77 12/20/19 00:42 91 H 12/19/19 23:23 36.8 C 75 16 131/75 98 Laboratory Results Short CBC 12/20/19 Range/Units 05:10 WBC 3.50 L (4.8-10.8) K/uL Hgb 10.2 L (12.0-16.0) g/dL Hct 30.9 L (37-47) % Plt Count 103 L (130-400) K/uL BMP 12/20/19 05:10 Sodium 144 Potassium 3.4 L Chloride 113 H Carbon Dioxide 29 BUN 6 L Creatinine 0.61 Glucose 93 Calcium 8.2 L Cardiac Enzymes 12/20/19 Range/Units 05:10 Total Creatine Kinase 783 H (26-192) U/L (1) Rhabdomyolysis Rhabdomyolysis type: non-traumatic Qualified Code(s): M62.82 - Rhabdomyolysis
[2019-12-20] MEDS: RASPBERRY SYRUP 5 ML UDP PO SCH ×3 (12:33→23:22)
[2019-12-20] MEDS: VANCOMYCIN HCL 125 MG/2.5ML SOLN PO SCH ×3 (12:33→23:22)
[2019-12-20] MEDS: ONDANSETRON INJ 2 MG/ML 2 ML VIAL IV PRN (16:40)
[2019-12-20] MEDS: TRAZODONE HCL 50 MG TAB PO PRN (21:47)
[2019-12-20] MEDS: ENOXAPARIN INJ 40 MG/0.4 ML SYR SQ SCH (21:48)
[2019-12-20] MEDS: MIRTAZAPINE TAB 15 MG TAB PO SCH (21:48)
[2019-12-21] MEDS: ACETAMINOPHEN 325 MG TAB PO PRN (03:54)
[2019-12-21] MEDS: VANCOMYCIN HCL 125 MG/2.5ML SOLN PO SCH ×2 (06:27→12:00)
[2019-12-21] MEDS: RASPBERRY SYRUP 5 ML UDP PO SCH ×2 (06:27→12:00)
[2019-12-21 07:16] LABS: BUN Creatinine Ratio 8.9 (10-20); Calcium 8.4 mg/dl (8.5-10.1); Creatinine Clr Calc Pharmacy 117.4 ml/min; Est GFR (African American) 111.4; Est GFR (Non-African American) 96.1; Magnesium 1.8 mg/dl (1.8-2.4); Potassium 3.6 mmol/L (3.5-5.1)
[2019-12-21 07:24] VITALS: TEMP 98.1; O2SAT 96
[2019-12-21] MEDS: ARIPiprazole 15 MG TAB PO SCH (07:43)
--- NOTE | 2019-12-21 11:17 | Hospitalist Progress Note ---
Date of Service December 21, 2019 Assessment & Plan (1) Toxic encephalopathy: Patient is a 64 yr female with H/O Bipolar disorder, CVA, symptomatic bradycardia s/p pacemaker, gastric bypass, orthostatic hypotension presented with AMS. Toxic Encephalopathy: Could be due to Polypharmacy DD: Secondary to rhabdomyolysis Patient denies any suicidal ideation/intentional or accidental drug overdose Patient's pharmacy:reveals on 12/09/2019 pt had filled Trazodone 150mg Qty#60, oxycodone 5mg Qty#30, olanzapine 5mg Qty#60, aripiprazole 30mg Qty#30, mirtazapine 15mg Qty#90. On 12/10/2019 filled hydroxyzine 25mg Qty#180. CT head:There is no hemorrhage, mass effect, or evidence of acute territorial ischemia by CT criteria. CT Face:There is no evidence of facial bone fracture. Neck CT:There is no evidence of fracture or subluxation involving the cervical spine. Osteopenia and spondylotic change as above. Urine Drug Screen: +opioids, ecstasy. Ammonia level <10, salicylate <1.7, acetaminophen: 2, ETOH: negative Urine Cx: Negative Blood Cx: No growth to date Poison control was contacted. Recommend supportive care. Pacemaker Interrogation could not be performed inpatient. Will arrange for home monitoring--Discussed with [employer] pacemaker [employer] on 12/18/19 Last pacemaker interrogation done on October 30, 2019 Continue Aripiprazole, Mirtazapine Trazodone resumed at lower dose--50 mg HS OK to resume olanzapine 10mg Qhs as per psychiatry (discussed on 12/21/19) Appreciate psychiatry input Home meds: hydroxyzine, baclofen, oxycodone will be discontinued upon discharge Mental status back to baseline Needs follow up with Psychiatry upon discharge--Scheduled on 01/09/2020 at 09:00 am Diarrhea:Possible C diff colitis H/O C diff Denies any recent antibiotic use Stool for C diff:Positive Gene H but Toxin Negative suggesting--likely carrier. Since patient continues to have diarrhea, lower abd discomfort--continue oral Vancomycin Continue Contact precautions Monitor electrolytes (2) Rhabdomyolysis: CPK levels improved Discontinue IV fluids Monitor Hypokalemia Hypomagnesemia Likely due to GI loses Replace electrolytes as needed (3) Elevated lactic acid level: Lactate levels normalized with IV fluids Cultures negative to date (4) Wound of foot: Pt with hx hospital admission [facility] 11/16/2019-11/21/2019 for wounds feet ER visit on 12/13/2019 for possible foot cellulitis discharged home on Keflex Continue wound care. Wounds does not appear to be infected Pain is controlled. Avoid Narcotics (5) Bipolar disorder: Appreciate secondary input Continue current medications Psychiatry on board (6) Sick sinus syndrome: S/P pacemaker monitor DVT Px Lovenox SQ Disposition: PT/OT: Recommends Rehab: Patient refuses rehab placement Case management consulted for discharge planning Admission and Anticipated Discharge Date Admission Date: December 16, 2019 Subjective Patient is seen and examined at bedside States abdominal pain is resolved Semi-formed BM today Slept better overnight Eager to get discharged Discussed with psychiatry today No other complaints Denies any chest pain, shortness of breath, dizziness, nausea Review of Systems Review of Systems: All systems reviewed & are unremarkable except as noted in HPI & below Physical Exam Physical Exam: Physical Exam: Vitals signs as noted above General Appearance:Moderately built and nourished, no apparent distress Head: normocephalic, Atraumatic Eyes: normal inspection, EOMI Neck: supple, Trachea midline Respiratory/Chest: Normal breath sounds, CTA, Pacemaker on left side Cardiovascular: S1, S2, No murmur Abdomen/GI:Soft, non tender, Bowel sounds present Extremities/Musculoskelatal:normal inspection, Trace edema Neurologic/Psych:AAOX3, grossly no focal neurological deficits Skin: normal color, warm, B/L Foot wounds Results & Data Results & Data ([facility]) Vital Signs (Past 12 Hours) Vital Signs Temp Pulse Pulse Resp BP Pulse Ox 12/21/19 11:05 36.7 C 82 20 133/73 96 12/21/19 08:00 76 12/21/19 07:23 36.7 C 100 H 20 112/72 96 12/21/19 05:02 36.8 C 92 H 15 145/83 H 98 12/21/19 00:00 83 Laboratory Results [facility] 12/21/19 06:31 Sodium 144 Potassium 3.6 Chloride 114 H Carbon Dioxide 28 BUN 6 L Creatinine 0.63 Glucose 93 Calcium 8.4 L Cardiac Enzymes 12/21/19 Range/Units 06:31 Total Creatine Kinase 642 H (26-192) U/L (1) Rhabdomyolysis Rhabdomyolysis type: non-traumatic Qualified Code(s): M62.82 - Rhabdomyolysis
--- NOTE | 2019-12-21 11:34 | Discharge Summary ---
Date of Service December 21, 2019 Admission HPI Per Admitting Provider Pt is 64 y/o F with PMH bipolar disorder, h/o CVA, symptomatic bradycardia s/p pacemaker, h/o gastric bypass, orthostatic hypotension presented to ER for AMS. History obtained from ER staff, medical records as pt unable to give history at this time. It is reported pt was not answering her phone all weekend and today police were called for a well check. It is reported pt was found to be lying in bed lethargic and was found to have pills in the bed and on the floor. It is suspected pt been in bed for a couple of days. Unable to further assess history or ROS from pt at this time secondary to cognitive status. Pt with hospital admission [facility] 11/16/2019-11/21/2019 for AMS, wounds feet, ?polypharmacy and was discharged to [facility] ER visit on 12/13/2019 for possible foot cellulitis and questionable change in mental status and at that time it was felt pt could be discharged home on Keflex. Today in Upon ER arrival it is reported that pt somnolent, but it is reported will respond to simple questions. ER nurse reports when did straight cath several trazodone pills were found on pt's body. Pt with noted ecchymosis to face, chest and arms and also reported dried blood to mouth. Upon my evaluation of pt in ER for admission pt is very somnolent and will not arouse to sternal rub. Pupils approx 3mm and reactive to light. Her RR: 14, P: 72 BP:112/63, Pulse ox: 93% on RA. urine tox + opioids. Dose of IV Narcan given and in approximately 5 minutes pt awakens, does not answer questions appropriately at this time. Vitals stable. Research of pharmacy reveals that on 12/09/2019 pt had filld Trazodone 150mg Qty#60, oxycodone 5mg Qty#30, olanzapine 5mg Qty#60, aripiprazole 30mg Qty#30, mirtazapine 15mg Qty#90. On 12/10/2019 filled hydroxyzine 25mg Qty#180. Pt presents with multiple pill bottles however from various dates. The oxycodone pill body is empty. The trazodone bottle filled in 11/2019 is empty, however has approx 1/2 bottle trazodone from 10/2019 Poison control was contacted about pt's possible medication ingestion. Recommend supportive care at this time. Recommend watching for tachycardia and agitation and if would occur can treat with benzos. h/o EGD/colonoscopy 11/05/2019 that was WNL Admission Exam Per Admitting Provider Physical Exam Physical Exam: General: +very somnolent, not responding to sternal rub, no respiratory distress, overweight Head: normocephalic; Face: left orbit with ecchymosis Eyes: pupils approx 3mm in diameter, PERRL, conjunctiva non-injected, anicteric ENT: normal inspection external ears, nose, mucous membranes moist; + dried dark reddish substance to mouth appears like blood Neck: supple, trachea midline Lungs: clear, no respiratory distress, RR: 14, no wheezing/rhonchi/rales CV: RRR, no murmur, mild pretibial edema Abd: normal BS, soft, no apparent tenderness to palpation Ext: no cyanosis Neuro: Somnolent, not responding to sternal rub. Narcan given and pt awakens, does not answer questions appropriately Skin: warm, dry; + ecchymosis to bilateral hands, arms, +ecchymosis right breast and chest, lower abdomen, bilateral feet with scabs to toes, lateral ankle without surrounding erythema warmth, no active discharge Principal Diagnosis Toxic encephalopathy Polypharmacy Rhabdomyolysis Possible C. difficile colitis Hypokalemia lactic acidosis Discharge Data Allergies Allergy/AdvReac Type Severity Reaction Status Date / Time Sulfa (Sulfonamide Allergy Unknown EYES Verified 12/16/19 16:09 Antibiotics) SWELLED,LIPS SWELLED aspirin AdvReac Unknown CONTRAINDICATED Verified 12/16/19 16:09 D/T BYPASS SURGERY cyproheptadine AdvReac Unknown Verified 12/16/19 16:09 ibuprofen AdvReac Unknown contraindicated Verified 12/16/19 16:09 d/t gastric bypass NSAIDS (Non-Steroidal AdvReac Unknown CONTRAINDICATED Verified 12/16/19 16:09 Anti-Inflamma D/T BYPASS SURGERY Consultations 12/16/19 17:06 ED Decision to Admit Stat 12/16/19 20:16 Consult Case Management - Discharge Planning Routine 12/17/19 12:15 Consult Psychiatry Routine Procedures Performed CT head:There is no hemorrhage, mass effect, or evidence of acute territorial ischemia by CT criteria. CT Face:There is no evidence of facial bone fracture. Neck CT:There is no evidence of fracture or subluxation involving the cervical spine. Osteopenia and spondylotic change as above. Ordered Studies 12/16/19 15:10 CT abd pelvis wo con Stat CT cervical spine wo con Stat CT chest wo con Stat CT facial bones wo con Stat CT head/brain wo con Stat Hospital Course (1) Toxic encephalopathy: Patient is a 64 yr female with H/O Bipolar disorder, CVA, symptomatic bradycardia s/p pacemaker, gastric bypass, orthostatic hypotension presented with AMS. Toxic Encephalopathy: Could be due to Polypharmacy DD: Secondary to rhabdomyolysis Patient denies any suicidal ideation/intentional or accidental drug overdose Patient's pharmacy:reveals on 12/09/2019 pt had filled Trazodone 150mg Qty#60, oxycodone 5mg Qty#30, olanzapine 5mg Qty#60, aripiprazole 30mg Qty#30, mirtazapine 15mg Qty#90. On 12/10/2019 filled hydroxyzine 25mg Qty#180. CT head:There is no hemorrhage, mass effect, or evidence of acute territorial ischemia by CT criteria. CT Face:There is no evidence of facial bone fracture. Neck CT:There is no evidence of fracture or subluxation involving the cervical spine. Osteopenia and spondylotic change as above. Urine Drug Screen: +opioids, ecstasy. Ammonia level <10, salicylate <1.7, acetaminophen: 2, ETOH: negative Urine Cx: Negative Blood Cx: No growth to date Poison control was contacted. Recommend supportive care. Pacemaker Interrogation could not be performed inpatient. Will arrange for home monitoring--Discussed with [employer] on 12/18/19 Last pacemaker interrogation done on October 30, 2019 Continue Aripiprazole, Mirtazapine Trazodone resumed at lower dose--50 mg HS OK to resume olanzapine 10mg Qhs as per psychiatry (discussed on 12/21/19) Appreciate psychiatry input Home meds: hydroxyzine, baclofen, oxycodone will be discontinued upon discharge Mental status back to baseline Needs follow up with Psychiatry upon discharge--Scheduled on 01/09/2020 at 09:00 am Diarrhea:Possible C diff colitis H/O C diff Denies any recent antibiotic use Stool for C diff:Positive Gene H but Toxin Negative suggesting--likely carrier. Since patient continues to have diarrhea, lower abd discomfort--continue oral Vancomycin Continue Contact precautions Monitor electrolytes (2) Rhabdomyolysis: CPK levels improved Discontinue IV fluids Monitor Hypokalemia Hypomagnesemia Likely due to GI loses Replace electrolytes as needed (3) Elevated lactic acid level: Lactate levels normalized with IV fluids Cultures negative to date (4) Wound of foot: Pt with hx hospital admission [facility] 11/16/2019-11/21/2019 for wounds feet ER visit on 12/13/2019 for possible foot cellulitis discharged home on Keflex Continue wound care. Wounds does not appear to be infected Pain is controlled. Avoid Narcotics (5) Bipolar disorder: Appreciate secondary input Continue current medications Psychiatry on board (6) Sick sinus syndrome: S/P pacemaker monitor DVT Px Lovenox SQ Disposition: PT/OT: Recommends Rehab: Patient refuses rehab placement Case management consulted for discharge planning Total Time Total Time Spent Total Time Spent (In Minutes): 39 minutes Total Time Includes: Examination of the Patient, Discharge Planning, Medication Reconciliation, Communication With Other Providers and Other Discharge Plan Discharge Items Patient Disposition: Home - Home Health Services Reason For Visit: ALTERED MENTAL STATUS Discharge Diagnosis: Toxic encephalopathy Polypharmacy Rhabdomyolysis Possible C. difficile colitis Hypokalemia lactic acidosis Condition on Discharge: Fair Activity: Resume your previous activity Exercise/Sports: Gradually increase as tolerated Non-emergency contact: Primary Care Provider and Residential Manager Call non-emergency contact if: you have any medication questions, your symptoms worsen, your pain is not controlled, your pain is worsening, your pain is unusual for you, your pain is concerning for you, you have a fever, your wound has increased redness, your wound has increased drainage and your wound pain has increased Follow-up/Referrals: Helga Gilman, EMMY [Primary Care Provider] - Diet: Heart Healthy Addtl Attending Provider Instructions: Follow up with your PCP on December 24, 2019 at 8:00AM Follow up with your Psychiatrist on January 09, 2020 at 09:00AM Follow up with wound clinic for management of your foot wounds Complete the antibiotic course (Oral Vancomycin) for diarrhea Your blood cultures are pending at the time of discharge. Follow-up with your physician for results. Seek immediate medical attention if your symptoms reoccur or worsen Medication Changes: Your 1) Hydroxyzine, 2) Baclofen and 3) Oxycodone are discontinued Your Trazodone dose is decreased from 300mg to 50 mg at bedtime Pending Studies at Discharge: Yes Studies:: Blood Cultures Stand-Alone Forms: My [facility], Smoking Cessation, Suicide Prevention Resources Medications and DC Order Prescriptions: New trazodone 50 mg Tablet 50 mg PO HS PRN (Reason: insomnia) Qty: 30 RF: 0 vancomycin 125 mg capsule 125 mg PO Q6H 8 Days Qty: 32 RF: 0 Continued cholecalciferol (vitamin D3) 1,000 unit capsule 1,000 units PO BID RF: 0 olanzapine 5 mg tablet 10 mg PO HS RF: 0 mirtazapine 15 mg tablet 15 mg PO HS RF: 0 aripiprazole 30 mg tablet 30 mg PO DAILY RF: 0 Discontinued trazodone 150 mg tablet 300 mg PO HS RF: 0 baclofen 10 mg tablet 10 mg PO BID PRN (Reason: Muscle Spasm) RF: 0 hydroxyzine HCl 25 mg tablet 25 mg PO AMHS RF: 0 cephalexin [Keflex] 500 mg capsule 500 mg PO Q6H Qty: 28 RF: 0 Discharge Orders: Discharge Order (Routine); Ordered 12/21/19 Ordered By: Armando Knight Admission Data Admit Date/Time: 12/16/19 17:59 Attending Provider: Armando Knight Admit Provider: Marci Hollins Primary Care Provider: Helga Gilman Other Providers: Marci Hollins ; Brandi Mandujano ; [facility] Other Interventions: Discharge Summary Assessment (RN) Last Done: 12/21/19 11:52 PSY Interdisciplinary Discharge Planning Last Done: 12/20/19 14:33
[2019-12-21 11:53] VITALS: BP 165/76; PULSE 88
[2019-12-21] MEDS ORDERED: OLANZapine 10 MG TAB PO SCH (21:00)
[2019-12-22 16:20] LABS: Codeine Urine NEGATIVE ng/mL (<50); Hydrocodone Urine NEGATIVE ng/mL (<50); Hydromor Urine NEGATIVE ng/mL (<50); MDA negative; MDEA negative; MDMA (Ecstasy) Urine, Confirm negative; Morphine Urine NEGATIVE ng/mL (<50); Norhydrocodone Conf Ur NEGATIVE ng/mL (<50); Noroxycodone Urine 2180 ng/mL (<50); Oxycodone Urine 335 ng/mL (<50); Oxymorph Urine 1540 ng/mL (<50)
== END 2019-12-21 13:00 | disposition home health service (06) | DRG 917 ==
LOC: ED 14:40 → SUATTDRO 17:59 → 2S 17:59 → 2N 12-18 14:34